=== PATIENT | male | born 1990 | race Caucasian/White ===

== ENCOUNTER 2021-08-17 09:52 | Outpatient (RCR) | payer MEDICAID, SELFPAY ==
[2021-08-17 10:12] LABS: Hematocrit 42.6 % (40-54); Hemoglobin 13.9 g/dL (13.0-16.5); Mean Corp Hgb Conc 32.6 g/dL (32-36); Mean Corpuscular Hgb 27.2 pg (27.0-32.0); Mean Corpuscular Volume 83.4 fL (80-94); Mean Platelet Vol. 9.6 fl (6.2-12.0); Platelet Count 202 K/mm3 (150-450); RBC Distribution Width CV 12.9 % (11.6-14.6); RBC Distribution Width SD 38.9 fl (35.1-43.9); Red Blood Count 5.11 M/mm3 (4.6-6.2); White Blood Count 5.7 K/mm3 (4.4-11.0)
[2021-08-17 10:24] LABS: Albumin, Serum 4.2 g/dL (3.2-5.0); BUN 15 mg/dL (7-18); BUN/Creat Ratio 20.1 RATIO (10-20); Creatinine, Serum 0.75 mg/dL (0.70-1.30); EST Glomerular Filtration Rate 131 mL/min (>60); Est Glom Filt Rate - Afr Amer 158 mL/min (>60); Glucose 89 mg/dL (74-106); Protein, Total 7.5 g/dL (6.4-8.2)
[2021-08-17 10:25] LABS: ALB/GLOB Ratio 1.3 RATIO (0.9-2.4); AST(SGOT) 15 U/L (15-37); Alanine Aminotransfer ALT/SGPT 41 U/L (16-61); Alkaline Phosphatase 52 U/L (45-117); Anion Gap 6 (5-15); Calcium,Total 9.2 mg/dL (8.5-10.1); Chloride 105 mmol/L (98-107); Globulin 3.3 g/dL (2.2-4.2); Potassium 4.4 mmol/L (3.5-5.1); Sodium Level 139 mmol/L (136-145)
== END 2021-09-15 23:59 ==
LOC: LABSPEC 09:52
DX: Z45.2 Encounter for adjustment and management of vascular access device (principal)
CPT/HCPCS: 80053; 85027

== ENCOUNTER → 2021-08-24 | Outpatient (CLI) | payer MEDICAID, SELFPAY ==
[2021-08-24 12:30] LABS: Hematocrit 40.4 % (40-54); Hemoglobin 13.2 g/dL (13.0-16.5); Mean Corp Hgb Conc 32.7 g/dL (32-36); Mean Corpuscular Hgb 27.7 pg (27.0-32.0); Mean Corpuscular Volume 84.7 fL (80-94); Mean Platelet Vol. 9.4 fl (6.2-12.0); Platelet Count 207 K/mm3 (150-450); RBC Distribution Width CV 13.1 % (11.6-14.6); RBC Distribution Width SD 40.2 fl (35.1-43.9); Red Blood Count 4.77 M/mm3 (4.6-6.2); White Blood Count 4.8 K/mm3 (4.4-11.0)
[2021-08-24 14:22] LABS: ALB/GLOB Ratio 1.1 RATIO (0.9-2.4); AST(SGOT) 26 U/L (15-37); Alanine Aminotransfer ALT/SGPT 63 U/L (16-61); Albumin, Serum 3.7 g/dL (3.2-5.0); Alkaline Phosphatase 52 U/L (45-117); Anion Gap 7 (5-15); BUN 13 mg/dL (7-18); BUN/Creat Ratio 15.3 RATIO (10-20); Calcium,Total 8.4 mg/dL (8.5-10.1); Chloride 107 mmol/L (98-107); Creatinine, Serum 0.85 mg/dL (0.70-1.30); EST Glomerular Filtration Rate 112 mL/min (>60); Est Glom Filt Rate - Afr Amer 136 mL/min (>60); Globulin 3.3 g/dL (2.2-4.2); Glucose 98 mg/dL (74-106); Potassium 4.2 mmol/L (3.5-5.1); Sodium Level 139 mmol/L (136-145)
== END | disposition home or self-care (01) ==
LOC: LABSPEC 08:58
DX: A52.3 Neurosyphilis, unspecified (principal)
CPT/HCPCS: 80053; 85027

== ENCOUNTER 2022-01-04 08:00 | Outpatient (RCR) | payer MEDICAID, SELFPAY ==
--- NOTE | 2022-01-04 09:10 | BH.SGPN.GN ---
Behaviors/Verbalizations/Mental Status: []Pt alert and oriented, casually dressed and groomed. Eye contact fair to good. Motor activity appropriate. Speech within normal limits. Affect constricted, mood anxious. Thoughts linear, logical, no signs of hallucinations or delusions. Reviewed pt?s symptom tracker, reported 1/5 for suicidal ideation which appears within reported baseline, denies plan, or intent as of 01/04/22. Client Response/Progress/Benefit: Pt new to IOP tx on this date. He responded well to session AEB sharing thoughts and feelings, as well as listening attentively to others. Pt stated current mental health wins include being over 7 months sober and recently completing a substance abuse IOP program. Pt noted feeling anxious but excited to begin this program and is hoping to learn more about how to manage Bipolar disorder, especially sx of jessica. Receptive of and appearing to benefit from group support and feedback provided. Progress limited as pt new to IOP program. Pt to continue IOP to increase healthy coping repertoire, stabilize mood, and prevent decompensation. Narrative Note: []
--- NOTE | 2022-01-06 09:40 | BH.NA ---
Physical Data - Vital Signs Pulse Rate: 89 Blood Pressure: 141/85 - Height/Weight Height: 1.75 m Weight:: 81.647 kg Weight in Pounds: 180.0 lbs Current Medication Compliance - Medication Compliance Do you take your medication as prescribed?: Yes - client states hx noncompliance but compliant for the last 7 months Nutritional History - Appetite Nutritional Instructions:: If client shows signs of a swallowing problem, weight change of 10 pounds or more in the last month, or is on a diabetic diet, the physician will review and request a dietitian consult, as appropriate. All unintentional weight loss will be referred to the physician for decision on need for dietitian consult. Describe your appetite:: Good - Client states he has gained about 30 lbs in the last 7 months. Functional Assessment - Sleep Pattern Describe any problems with sleeping: Client states he had been sleeping 12-13 hours per day, but for the last several weeks he has been sleeping about 6-7 per night. - Activities Motor Activity:: Functional Sensory/Communication Assess - Vision Problems Do you have any vision problems?: None - Communication Problems Do you have difficulty understanding what people are saying?: No Medical Problems/History - Pain Assessment Do you have acute or chronic pain?: No - Additional History Additional comments:: per history, history of neuro-syphillis, polysubstance use, bipolar Substance Abuse - Substance Abuse Please describe substance abuse in the last 30 days:: Client states he has been sober from alcohol and drugs (specifically meth) for 7.5 months. Client states he had a couple of years where he used alcohol and meth on a regular basis off and on. Client quit smoking cigarettes 7 months ago, stating he had been a smoker off and on for 10 years. Client drinks 1-2 diet pops per day with caffeine, denies use of energy drinks. Mental Status Summary - Mental Status Significant Findings/Observations on Appearance and Mood:: Client is alert and oriented x 4. Client is wearing a mask. Client is casually groomed with good hygiene. Client makes good eye contact. Client is cooperative, but tearful at times, tapping feet and stating that he is very anxious about being here. Client's voice has normal volume and mostly normal rate, but client does get somewhat off topic and forgets what the original conversation topic was. Client admits he is a poor historian and states he does not remember parts of the last couple of years. Client states he does feel he has delusions at times, mostly about feeling there is nothing wrong with me, I don't need these medications but states he is able to convince himself to keep taking his medications and knows that he needs them. Client states he often feels he just wants to disappear but states he does not want to and denies SI. Suicide Assessment - Suicidal Ideation Are you currently or have you been suicidal in the past?: Yes - denies SI Suicidal Intentional Rating Scale (SIRS): Suicidal thoughts (past) Physician Notification: If Active suicidal thoughts/Will not contract for safety is checked, contact physician and document in the Physician Notification section below. Assault History/Potential Past Psychiatric History - MH Treatment Hx Past Psychiatric Medications:: Zoloft, Paxil, Cymbalta but states he had poor compliance while on these medications Age of first mental health symptoms: Client states he first started medication for depression about 10 years ago around age 21. Client states he has had two psychotic episodes, one in 2017 and one in 2020 and was then diagnosed with bipolar disorder. 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 [employer] Risk Assessment - Age Age: Less than 60 - Mental Status Mental Status: Willing & able to ask for assistance when needed - Physical Status Physical Status: No problems - Impairments Impairments: None - Elimination Elimination: Continent AND independent - Gait or Balance Gait or Balance: Walks independently - Hx of Falls History of falls in the past 6 months: No known history - Medications/Substances Psychotropics:: Antidepressants, Antipsychotics, Mood stabilizers Medications/substances used within the past 24 hours or ordered to administer: 3 or more of the medications/substances listed above - Total Score Total Points:: 2 RN Summary of Impressions - Impressions Recommendations: Include psychiatric and medical issues, treatment planning recommendations, and discharge planning needs. Impressions: Psychiatric Issues: 1. Bipolar 1 disorder, most recent episode jessica, mild with rapid cycling (F31.11. 2. Neurosyphilis with possible exacerbation of mood disorders (treated and being followed for this). 3. Generalized anxiety disorder. 4. ADHD. 5. Polysubstance abuse disorder with full remission for 7 months - Level of Care How do the client's current symptoms and functional deficits support need for this level of care?: Client was referred to IOP by outpatient therapist after completing a substance abuse IOP at [facility]. Client has been sober from meth and alcohol for 7.5 months. Client states he had a manic episode in 2020 and states he does not have a memory of what happened during that time and was subsequently arrested and part of his sentencing was the IOP. Client states he is now here at this IOP to help with his mood instability. Client states at times he feels delusional, stating that he tells himself nothing is wrong with me, I don't need this medicine but states that he has been compliant with meds for the last 7 months. Client states he feels his baseline is either depressed or hypomanic, and he states When I start to feel happy, everyone starts to worry about me. It's like no one wants me to be happy. Client denies SI but states he often feels like he just wants to disappear but states he does not want to hurt himself. IOP will promote gains and prevent further decompensation while providing social support and skills training.
--- NOTE | 2022-01-06 10:10 | BH.SGPN.GN ---
Behaviors/Verbalizations/Mental Status: []Pt alert and oriented, casually dressed and appropriately groomed. Eye contact fair. Motor activity appropriate. Speech within normal limits. Affect constricted, mood anxious and depressed. Thoughts linear, logical, no signs of hallucinations or delusions. Client Response/Progress/Benefit: []Pt was an engaged participant AEB listening to others and taking notes. Attentive during psychoeducation and participated in group activity. Participated in interactive group discussion on internal and external barriers to mental health progress. Pt described current reality as being stuck on an island by himself, trapped with intrusive anxious thoughts. Stated reality is to have a boat on his island so he can leave the thought cycle which would provide relief and not feel stuck. Client shared personal barriers to desired realty include: comparisons to others, isolation, hx of not taking medications consistently, maintaining sobriety, and unrealistic expectations.. Benefited from increased awareness of current barriers to progress as well as current/desired realities. Pt will continue IOP tx to improve daily functioning, increase healthy coping and prevent decompensation.
[2022-01-06 10:22] VITALS: BP 141/85; PULSE 89
--- NOTE | 2022-01-06 11:10 | BH.SGPN.GN ---
Behaviors/Verbalizations/Mental Status: []Client alert and oriented, neat and casually dressed and groomed. Eye contact good. Motor activity appropriate. Speech within normal limits. Affect constricted, mood euthymic and anxious. Thoughts linear, logical, no signs of hallucinations or delusions. Client Response/Progress/Benefit: []Client engaged during activity and contributed some input when prompted as group brainstormed ideas on how to cope with internal barriers that keep clients stuck from moving towards goals. Able to identify barriers to desired reality. Client identified wanting to work on overcoming the barrier of overwhelming anxiety by more consistently challenging himself to focus on what is in his control in a situation. Shared that this will help him to reduce overall stress levels. Benefited from group by identifying obstacles and solutions to desired reality. Client will continue IOP tx to continue to improve use of healthy coping skills, as well as further improve mood management, prevent decompensation, and improve and overall functioning. Narrative Note: []
--- NOTE | 2022-01-06 12:27 | PCM.BH.PSYEV ---
Psychiatric Evaluation Initial Evaluation Initial Evaluation: History of Present Illness: [] The patient is a 31-year-old single male with a history of bipolar 1 disorder, ADHD and polysubstance abuse disorder (sober since May 2021). He was referred here after completing [facility] substance abuse disorder IOP program which she finished 2 weeks ago. He was court ordered to complete the substance abuse IOP program due to being arrested in May 2021 during a manic episode where he was found to have methamphetamine in his car and he is now on probation. He states the drugs in his car belonged to a friend he was with but he does admit to using benzodiazepines,'s stimulants, marijuana, nicotine and alcohol around that time. But he denies using any drugs since then. The patient states that from March 2021 to May 2021 he was manic and had occasional auditory and visual hallucinations. He states that he was manic but he also used drugs while manic at times during that period. His jessica at that time involved increased spending of money, hypersexuality, driving all over the state, psychosis including praying to the sun, aggression while in detention. In July 2021 he was found to be positive for neurosyphilis which may also have exacerbated his jessica and and this was the first time he feels he was significantly psychotic. He was hospitalized for 4 days at that time for neurosyphilis. His jessica and depression occur after stressful life events like break-ups and job changes. 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 He has nightmares about patients who in the ICU during but denies flashbacks or avoidance because of this trauma. After being manic he feels he was then depressed for months from May 2021 up to about 3 or 4 weeks ago. He has been apathetic during the depression and then in the last 3 weeks he feels he has become hypomanic due to his grandmother having a stroke 3 weeks ago. Now he is sleeping only 6 hours a night and he is not tired and has somewhat mildly racing thoughts. He has some increase in libido not like he starts to get when he becomes manic. He denies any risky behavior. He feels somewhat grandiose at times. He endorses passive thoughts of , but denies suicidal ideation, plan for suicide, hallucinations or delusions currently. He feels he cycles every 3 to 4 months in the past few years. He denies any history of self-harm. His parents have control over his finances now but he spent over 50,001-year and recently until they took control. He denies any urge to use drugs now and he is currently living with his parents and gets along with them. He denies any romantic relationships currently. While he was depressed he was sleeping 12 to 13 hours/day but that recently has increased as described above. He is somewhat irritable and argumentative at home. He is having trouble getting chores done around the house due to feeling distracted or overwhelmed. He denies current depression hopelessness or worthlessness. He does endorse feeling guilty about relying on his mother for emotional and financial support. He ruminates negatively and worries about family members he is a chronic worrier. He used to pick at his skin when anxious and has some scars on his forearms but said this was not purposeful self-harm. He denies panic attacks, eating disorder, seizures or head injury. Current Psychiatric Medications: [] Lamictal 100 mg p.o. twice daily (x7 months; lithium carbonate ER 300 mg, 1 p.o. twice daily (x1-1/2 months, had blood level last week); Wellbutrin XL 300 mg, 1 p.o. every morning (on this off and on for 10 years and has been taking it again for 7 months) does not feel its associated with jessica.; Celexa 10 mg p.o. daily (x2 months); hydroxyzine 10 to 30 mg p.o. as needed. Past Psychiatric History: [] No psych admits ever. He has a psychiatry resident he sees every 2 weeks and has seen them for 8 months. He did the [facility] substance use IOP which was court ordered in July 2021 until 2 weeks ago. He did put a belt around his neck to hang himself in 2016 but did not go through with the attempt. He has been on different medications including Abilify since 2009 but has always struggled with compliance. He has not done any other rehab. He took Strattera for ADHD but DC'd that in 2012. No Depakote ever. No suicide attempts ever. Substance Use History: [] He used methamphetamine first at age 25 and then used it on and off but last used it 7 months ago. He last used benzodiazepines 1 to 2 years ago. He last used marijuana in 2013. He denies any opiate use. Denies any nicotine alcohol or other illegal drug use for the past 8 months. He drinks 2 diet Cokes a day only. Allergies: [] No known allergies. Medications: [] Psych meds plus Truvada for PrEP for HIV since 2016 (on and off compliant with this); [id number] vitamin D and B complex Past Medical History: [] Neurosyphilis diagnosed in July 2021 and he was hospitalized for 4 days and this may have been a trigger for or made his manic episode worsen the same time. He had IV and IM antibiotics followed by PICC line and if his antibodies decreased by fourfold he is told he is considered cured from his neurosyphilis. He had a pilonidal cyst removed in 2007. He had testing in July 2021 was which was negative for HIV HIV and other STDs except for neurosyphilis. Family Psychiatric History: [] Father has anxiety and mother has depression. Maternal grandfather was an alcoholic and possibly had undiagnosed bipolar disorder. No completed suicides in the family. Personal/Social History: [] He was born and raised in [place] in [place]. He describes his childhood as normal. He lives now with his mother and father in [place]. He says his mother schedules his life right now and his his source of primary support. He denies any verbal, physical or sexual abuse in childhood. He has 1 brother 26 years old and they are close and the brother lives in [place]. Patient graduated for highest from high school and then graduated from [employer] in 2012 with a BS in natural sciences and in 2018 with his BSN. 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 He has been unemployed since May 2021 due to his mental health issues. He has never and has no known children and no service. He identifies as a kaplan man but has no current sexual or romantic partners. Plays video games now which she says he hyper focuses on. Legal History: [] He was arrested in May 2021 in [facility] for possession of methamphetamines which were in his car but he says belonged to a friend. No other arrests. Denies any DUIs. 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 He has to have his mother with him for long driving trips but is able to make short driving trips on his own when necessary. Review of Systems: [] Denies any symptoms from his neurosyphilis although his mental health issues may have certainly been exacerbated or caused by his neurosyphilis. He denies any other symptoms except as noted in present illness. Vital Signs: [] Vital signs and exam were reviewed in records and in the nurses notes and updated and the patient is deemed medically able to participate in the IOP program. Mental Status Examination: [] The patient is a 31-year-old male who appears normal for stated age and is casually dressed and groomed with good hygiene. He is ambulatory with a normal gait and alert and oriented to person place and time. He is cooperative and pleasant during the interview and has no psychomotor agitation or retardation. Eye contact is good and speech is normal rate and rhythm and fluent with no pressure. Mood is mildly euphoric and irritable at home. Affect is full and normal. Thought process is goal-directed and organized. Thought content: There is evidence of passive thoughts of . There is no evidence of thoughts of self-harm, suicidal ideation, homicidal ideation, hallucinations or delusions. Reality testing is intact. Intelligence is above average. Impulsivity is high. Judgment is intact. Insight is fair. Diagnoses: [] 1. Bipolar 1 disorder, most recent episode jessica, mild with rapid cycling (F31.11 2. Neurosyphilis with possible exacerbation of mood disorders (treated and being followed for this) 3. Generalized anxiety disorder 4. ADHD 5. Polysubstance abuse disorder with full remission for 7 months 6. Primary support, work and health issues Plan: [] The patient will start the IOP program at [facility] as the structure, education, support, and group therapy will hopefully prevent worsening of the patient's symptoms which could require hospitalization. The patient felt safe during the interview and if it anytime he does not feel safe he will let us know or go to the emergency room. The risk, options, possible complications and side effects of the medications were discussed with the patient and he understands and accepts these. The patient will follow up with his medical provider to document remission of his neurosyphilis. Discussion was had of the possibility of the Celexa and Wellbutrin contributing to the patient's rapid cycling in recent months. He agrees to discontinue his Celexa and see me in follow-up in 1 week. He understands that if his jessica worsens we will increase the lithium dose and he is to see me in 1 week but if it if his jessica worsens before then he can tell the staff and they will call me and we will increase the lithium and possibly consider discontinuing his Wellbutrin at some point. He will continue to follow-up with his psychiatric and medical providers and I will see the patient in follow-up in 1 week. If we change the lithium dose we will get blood work after 5 or 6 days.
--- NOTE | 2022-01-06 12:43 | BH.DR.ITP ---
Initial Treatment Plan Patient Information Visit Information: ADMISSION DATE: EXPECTED LOS: 4-6 weeks Problems/Symptoms Problem #1:: Mood instability Symptom:: Depression, irritability, mild euphoria, recent hopelessness, hypersomnia, anhedonia, increased energy recently, increased libido, rapid thoughts, decreased sleep, passive thoughts of Problem #2:: Anxiety Symptom:: Worry, rumination, skin picking up
--- NOTE | 2022-01-08 10:00 | BH.SGPN.GN ---
Behaviors/Verbalizations/Mental Status: [] Eye contact is good. Motor activity is appropriate. Appearance is casual. Speech is Appropriate. Mood is euthymic. Affect is full. Thoughts are linear and logical. No evidence of psychosis. Client Response/Progress/Benefit: [] Pt participated at times during the group discussion. Attentive during psychoeducation. Active during experiential activity. Participated during interactive discussion on aspects of fixed mindset. Group identified several aspects of fixed mindset which included; inflexible, belief that one cannot grow, absolute thinking, and all of one's skills, traits, and behaviors are set in stone and can't change. Group then identified examples of fixed thinking which included; Im never going to get better, I'm always going to be like this, I'm going to fail, I'm broken and will always be like this. Pt did well in experiential activity in which they were given a seemingly impossible task and were asked to identify fixed thoughts that arose. Benefited from increased understanding of fixed mindsets and how they can impact mental health. Will continue in IOP to prevent decompensation, increase healthy coping, and stabilize mood. Narrative Note: []
--- NOTE | 2022-01-08 11:00 | BH.SGPN.GN ---
Behaviors/Verbalizations/Mental Status: []Pt alert and oriented, casually dressed and groomed. Eye contact good. Motor activity appropriate. Speech within normal limits. Affect constricted, mood anxious. Thoughts linear, logical, no signs of hallucinations or delusions. Client Response/Progress/Benefit: []Pt was an active participant in group discussion. Participated in their small group and was attentive during group psychoeducation on growth mindset vs fixed mindset. Pt and peers identified and shared examples of growth mindset. Pt participated in interactive discussion and practiced changing a fixed mindset thought to a growth mindset thought. Pt reframed his fixed thought of ?I don?t deserve help/support? and challenged this with ?If I don?t accept help it robs my supports of the opportunity for ofelia.? Benefited from increased awareness and insight of growth mindset and strategies to change from fixed mindset thoughts to growth mindset thoughts. Plan to continue in IOP to prevent decompensation, gain healthy coping skills, and improve mood stability. Narrative Note: []
--- NOTE | 2022-01-08 11:09 | BH.MDN ---
Multi-Disciplinary Note - Note 45-min Individual Time Started:: 09:15 Date: 01/08/22 Purpose of session/treatment goals addressed:: Met with pt to review progress and current symptoms. Used the sessions to gather history and begin to create master treatment plan. Eye Contact:: Good Motor Activity:: Appropriate Appearance:: Casual Speech:: Appropriate Mood:: Euthymic Affect:: Congruent Thoughts:: Linear, Logical, No evidence of hallucinations/delusions noted Staff Interventions:: psychoeducation on: - Bipolar, rapport building, treatment planning, goal setting Client Response:: Pt has been consistent and engaged in IOP since staring this week. His goals for IOP include I want to learn how to be more stable with my mood and recognize my highs and lows. He was asked how he or others would know if he is low and he states; increased isolation and sleep; lack of interest in anything, and low attention. When asked about signs of being manic pt states; restless, start numerous tasks and don't complete, traveling/driving long distances, poor time mgmt, impulsivity, and high energy. Pt admits that he is struggling to accept his diagnosis of Bipolar and often feels like the medications are meant to keep me from being happy or make me compliant. He admits mild paranoia that parents, PO, and psychiatrists don't fully understand him or his struggles. At this point he is able to challenge these thoughts stating I know they are irrational. Insight into the consequences and repercussions of his behaviors when manic (drug abuse, reckless behaviors, compulsive spending, lost job, etc). Normalized these concerns for patient with recently diagnosed Bipolar who at times miss the feelings of jessica and feel that medications are holding them back or keeping them from being happy. Encouraged open discussion of these thoughts and reservations with staff and psychiatrist. Risks/Concerns:: No risks or concerns noted. Progress Toward Goals/Plan:: Progress noted. Pt has been consistent and engaged in IOP. He is hesitant to follow through with medication changes recommended by program psychiatrist b/c I'm doing well and I don't want to mess with things. He states that his parents believe that he may be hypomanic due to increased irritability however he is unsure. He reports not being depressed and has not been exhibiting any behaviors he indicated above for his manic episodes. With improved mood he admits to thoughts of stopping medications however remains compliant. Honest regarding his reluctance to fully accept Bipolar diagnosis and possibility of being on medications for long period of time. Responded well to education on Bipolar. He admits that he always wants to do the thing that feels good and always searching for a Dopamine fix. He may believe that by stopping his medications it could cause hypomania or jessica with elevated mood. We focused on the consequences of his jessica in the past and the high likihood that stopping medication could result in more negative consequences regarding his finances, relationships, legal issues, and career. Will continue in IOP to prevent decompensation, increase healthy coping, stabilize mood, and improve functioning. Time Stopped:: 10:00
--- NOTE | 2022-01-08 15:45 | BH.MTP_ITS ---
Master Treatment Plan - Patient Information Program Physician:: Analia Rdz Primary Therapist:: Masoud Cardenas - Psychiatric Diagnoses Psychiatric Diagnoses:: 1. Bipolar 1 disorder, most recent episode jessica, mild with rapid cycling (F31.11. 2. Neurosyphilis with possible exacerbation of mood disorders (treated and being followed for this). 3. Generalized anxiety disorder. 4. ADHD. 5. Polysubstance abuse disorder with full remission for 7 months Diagnosis Code(s):: F31.11 - Estimated LOS Estimated LOS (in weeks):: 6 Problem/Goal #1 - Problem/Goal #1 Stated Goal:: Achieve controlled behavior, moderated mood, more deliberative speech and thought process, and a stable daily activity pattern. Client will als o increase mood stability, reduce depression, and reduce suicidal thoughts due to Bipolar disorder through the Intensive Outpatient Program AEB self-report and reduction of scores on the depression, suicidal, and jessica domains of the DSM-5 cross-cutting scales. Description of Barriers: mental health stigma, reluctance to accept Bipolar dx, hx of poor medication compliance, and rapid mood cycling. Functional Impact: Over the past several months pt's mental health has impacted his ability to work, finances, and overall functioning. Goal Relevant Strengths/Supports: outgoing, is currently 6 months sober (completed SA [facility]), - Objectives Objective #1 Stated Objective: Client will increase understanding of bipolar illness, complete all recommended lab tests, and be medication-compliant. Interventions: Through psychoeducation, educational handouts, group counseling, individual counseling, and conversations with psychiatrist will provide access and discussions on many aspects of Bipolar. Discharge Criteria: Pt will have reported medication compliance, complete all labs requested ([place] levels, etc), and will be able to identify common Bipolar criteria, symptoms, and verbalized increased knowledge of how to better identify jessica, hypomania, and depressive episodes. Target Date: 03/03/22 Review Date: 01/27/22 Objective #2 Stated Objective: Client will reduce depression, suicidal thinking, and impulsivity by identifying 2-3 triggers for mood changes and at least 3 ways to cope with these. Pt will also complete a daily mood log to get a better understanding of his highs, lows, and baseline. Interventions: Through individual and group counseling will teach client various coping skills to manage symptoms and give tangible resources to use to regulate emotions. Therapist will use cognitive restructuring techniques and help client gain awareness of negative thoughts that reinforce depressive cycle. Iop staff will help client through individual and group work to identify what may trigger mood swings. Therapist will encourage the use of a mood log, or another way to track moods to help client intervene before mood worsens. Discharge Criteria: Complete mood log/tracker, be able to identify 3 triggers to mood changes and strategies to cope/manage. Target Date: 03/03/22 Review Date: 01/27/22 Problem/Goal #2 - Problem/Goal #2 Stated Goal:: Client will reduce overall frequency, intensity, and duration of anxiety to improve functioning AEB self-report and reduction on the anxiety domain of the DSM-5 cross-cutting scales. Description of Barriers: mental health stigma, reluctance to accept Bipolar dx, hx of poor medication compliance, and rapid mood cycling. Functional Impact: Over the past several months pt's mental health has impacted his ability to work, finances, and overall functioning. Goal Relevant Strengths/Supports: outgoing, is currently 6 months sober (compl eted [facility]), - Objectives Objective #1 Stated Objective: Client will learn and implement 2-3 calming skills to reduce overall anxiety and manage anxiety Interventions: Through individual and group counseling will teach the client calming/relaxation skills (e.g., muscle relaxation, mindful breathing) and how to discriminate better between relaxation and tension; teach the client how to apply these skills to his/her daily life. Discharge Criteria: Able to identify and consistently use 3 calming skills for anxiety. Target Date: 03/03/22 Review Date: 01/27/22 Objective #2 Stated Objective: Client will identify 2-3 cognitive distortions that lead to rumination and learn 2-3 ways to manage these thoughts to better manage anxiety as shown by reduced DSM-5 scores for anxiety. Interventions: Through individual and group counseling will provide education on the most common cognitive distortions and teach client the connection between thoughts, emotions, and feelings. Therapist will assist client in identifying, challenging, and replacing dysfunctional thoughts with positive, more realistic thoughts. Discharge Criteria: Able to identify 2-3 common cognitive distortion that exacerbate his anxiety and be able to identify strategies to reframe and challenge these distortions. Target Date: 03/03/22 Review Date: 01/27/22
--- NOTE | 2022-01-08 15:45 | BH.PSA ---
Source of Information - Presenting Problems/Circumstances Problems, Referral Source, Mental Status, Client: Pt was referred to IOP by his therapist at IOP due to depressive episode impacting functioning. Psychiatric Presentation - Psych Issues & Need for Admission Psychiatric Issues:: Bipolar, rapid cycling, hx polysubstance abuse, ADHD, JENNIFER Past Psychiatric History - Treatment Hx Treatment History: Completed substance abuse IOP at [facility] 2 weeks prior to admission to [facility] IOP. Currently linked with social worker psychiatric at [facility] for medication mgmt. First hospitalization:: No hx of hospitalizations Most recent hospitalization:: n/a Medication Trials:: No ECT Therapy:: No Age of first mental health symptoms: Reports that he most likely had bipolar and depression most of my life however would self-medicate with drugs. Was just recently formally dx'd with Bipolar in 05/2021. Describe (age, circumstance, etc) any past hospitalizations: n/a Current providers for mental health treatment (counselor, psychiatrist, business case analyst, etc.): Lainey Logan- social worker psychiatric; [facility]. Development & Family of Origin - Childhood Significant Childhood Events: none reported. - Family Who currently lives in your home?: Currently living with his parents. Describe family composition:: Both parents are still alive and are very close with patient. He has a younger brother (26) who live in [place] and reports close relationship with him as well. Pt's grandmother recently had a stroke and is in a senior care. - Family History Family Hx of Psychiatric or AOD Problems: Depression- mother. Anxiety- father. Bipolar- maternal grandfather Ethnicity - Culture Do you identify yourself with any particular cultural, ethnic background, or community?: No - Sexuality Sexual Orientation: Homosexual Spirituality - Worship Do you currently identify with any organized latter-day?: None - Beliefs Is there a particular form of support from this community you can use for your recovery?: No Mental Status - Memory Recent Memory: Good Remote Memory: Poor - Concentration Concentration: Fair - Eye Contact Eye Contact: Good - Speech Speech: Rapid, Pressured - Thought Process Thought Process: Suspicious, Paranoid - has thoughts that others are trying to manipulate or control him through medications. Insight: Fair Judgment: Fair Delusions: Paranoid Behavior: Anxious - Orientation Orientation: Time, Person, Place, Situation - Appearance Appearance: Appropriate - Mood Mood: Depressed, Sad - Affect Affect: Alert, Appropriate/calm Suicide Assessment - Suicidal Ideation Have you ever felt like hurting yourself?: Yes Please explain:: Self-interrupted attempt (tied belt around neck) in 2017. He reports passive thoughts of and survival ambivalence. Were you using ETOH/drugs at the time?: Yes Suicidal Intentional Rating Scale (SIRS): Suicidal thoughts (past) Physician Notification: If Active suicidal thoughts/Will not contract for safety is checked, contact physician and document in the Physician Notification section below. Violent Behavior/Abuse History - Homicidal Ideation Do you have any homicidal thoughts? If so, explain:: No Is there a known potential victim? If yes, who:: No - Abuse Have you ever been abused?: No - Life Events Are there any other significant life events?: Financial loss - Has not been able to work due to mental health issues for several months., Family illness - Grandmother recently had a stroke and is currently in [place] for rehab. - Safety Do you ever feel threatened in your home? If yes, describe:: No Adult Social History - Age 19 to Present Describe your current support system:: Parents and brother are primary support. Substance Use - Substance Substance Use Type: Alcohol, Benzodiazepines, Marijuana, Methamphetamine - Duration of Use How long have you used substances?: Meth- Used it sporadically since the age of 25. Benzos- Sporadic use; last use 1 year ago. Marijuana- last use 2013 - Last Usage What is the date and situation you last used?: Pt has been sober for the past 8 months. - IV Substance Use Do you have a history of IV use?: denies - Additional Information Additional Comments:: Pt recently completed SA intake and IOP at [facility]. 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 Meth- 05/2021, on probation Do you have any current legal charges?: No Have you ever been incarcerated? If yes, describe:: No - Court Orders Have you had any past court orders for psychiatric treatment?: No Do you have a present court order for psychiatric treatment?: No Problem Checklist - Current Problem Areas Problem List: Depressed mood/sad, Anxiety, Impulsivity, Mood swings/hyperactivity Discharge Planning Needs - Anticipated Follow-Up Private Therapist/Psychiatrist:: Lainey Logan- social worker psychiatric; [facility]. Family and Caregiver Contacts:: Martha Enriquezlambertosnehalmaya- mother Release of Information Signed:: Yes Chiropractor Assistant's Assessment - Client's Needs What are the client's feelings about the program?: Pt appears motivated and is looking forward to learning more skills to grant manager mood. What are the client's goals?: His goals for IOP include I want to learn how to be more stable with my mood and recognize my highs and lows What are the client's strengths?: outgoing, intelligent, Diagnoses - Diagnoses Diagnosis #1:: Bipolar 1 disorder, most recent episode jessica, mild with rapid cycling (F31 Diagnosis #2:: Neurosyphilis with possible exacerbation of mood disorders Diagnosis #3:: Generalized anxiety disorder Diagnosis #4:: Polysubstance abuse disorder with full remission for 7 months Interpretive Summary - Interpretive Summary Interpretive Summary: Pt is a 31 year old male with hx of Bipolar and Polysubstance Use D/O. No hx of psychiatric admissions. Referred to IOP by his outpatient therapist at substance abuse IOP at [facility]. Recently completed [facility] and has been sober since 07/2020. States my therapist referred me to mental health IOP due to my depression. Pt was recently diagnosed with Bipolar in 05/2020 after jessica with psychosis for several months. Reports that he was self-medication his erratic moods with various drugs including benzos, weed, and stimulants. Pt would spend excessively during jessica and is currently in $55,000 worth of debt. Hypersexuality during jessica as well and was recently on ICU for neurosyphilis. According to pt the physician thinks that is what triggered the psychosis. Pt believes long-standing Bipolar however never diagnosed due to his drug abuse. While manic would drive to random places and far distances. Police arrested him in [facility] for drug possession I have no recollection of that. Currently in a depressive episode for the past several months. Endorses increased sleep (12-13 hours), low energy, low motivation, isolation, avoidance, worthlessness, hopelessness, and apathy. Denies active SI, plan, or intent. No hx of attempts. Endorses survival ambivalence. Restlessness. Always on edge. Family hx of depression and anxiety and possible Bipolar (grandfather). Has not worked for several months due to mental health. Denies HI or psychosis. Treatment Plan Recommendations - Recommendations Guidelines: Special needs identified to be included in the development of an individualized treatment plan regarding past psychiatric history and treatment, developmental events, family relationships/events/culture, past and/or current educational, occupational, social, and residential experience, and legal status. Recommendations:: Due to survival ambivalence, mental health impacting functioning, and limited coping skills recommended [facility] level of care.
--- NOTE | 2022-01-11 09:00 | BH.SGPN.GN ---
Behaviors/Verbalizations/Mental Status: []Pt alert and oriented, casually dressed and groomed. Eye contact good. Motor activity appropriate. Speech within normal limits. Affect congruent, mood euthymic. Thoughts linear, logical, no signs of hallucinations or delusions. Reviewed pt?s symptom tracker, no risk for suicidal ideation, plan, or intent as of 01/11/22 Client Response/Progress/Benefit: []Pt responded well to session, attentive and receptive to feedback. Pt reports feeling appreciative this morning as pt got to spend time with his grandmother this weekend. Pt also used some impulse control skills over the weekend as pt went gambling and did not take a lot of money. 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 Pt stated he is still struggling to fully accept his diagnosis and need for medication, but he is able to talk himself through it more easily. Pt appeared to benefit from reflecting on spending time with supports. Pt will continue IOP tx to reduce impulsivity, improve mood stability, and combat distortions. Narrative Note: []
--- NOTE | 2022-01-11 10:10 | BH.SGPN.GN ---
Behaviors/Verbalizations/Mental Status: []Client alert and oriented, neat and casually dressed and groomed. Eye contact good. Motor activity appropriate. Speech normal. Affect congruent, mood anxious and euthymic, Thoughts linear, logical, no signs of hallucinations or delusions. Client Response/Progress/Benefit: []Client was engaged participant AEB listening attentively to others and providing input in group. Attentive during psychoeducation on communication styles. Assisted group with identifying barriers of effective communication which included: ?assumptions, shutting down, and mood.? Client identified they most often use passive-aggressive communication style, often relying on humor or jokes to communicate uncomfortable topics.? Client reports he uses passive communication to avoid conflict, but quickly escalates to passive-aggressive and then aggressive when feeling his needs aren?t being met. Reports trying to be more assertive. Benefited from increased awareness of different communication barriers, styles, and the importance of communicating effectively to improve mental wellness. Will continue IOP tx to prevent decompensation, increase healthy communication, and stabilize functioning. Narrative Note: []
--- NOTE | 2022-01-11 10:10 | BH.SGPN.GN ---
Behaviors/Verbalizations/Mental Status: []Client alert and oriented, casually dressed and groomed. Eye contact good. Motor activity appropriate. Speech within normal limits. Affect congruent, mood euthymic, Thoughts linear, logical, no signs of hallucinations or delusions Client Response/Progress/Benefit: []Client responded well to session AEB client listening attentively to others and providing input during group discussion on the pay offs and costs of the different communication styles. Client recognizes negative impact on his ability to get his needs met when he doesn't use healthy communication. Client did well in the activity to be assertive and ask for help and clarification the group. Recognizes if group couldn?t actively listen to one another in the activity, they wouldn?t have been successful. Attentive during psychoeducation on interpersonal DBT skill RAY. Client set a goal to work on being more assertive in communicating with goal of trying to remain focused and confident when asking for his needs to be met rather than making jokes to distract or deflect. Client seemed to benefit from increasing awareness of healthy strategies to improve communication. Client will continue IOP tx to improve successful communication, better regulate emotions, improve stability, and prevent decompensation. Narrative Note: []
--- NOTE | 2022-01-13 09:02 | BH.SGPN.GN ---
Behaviors/Verbalizations/Mental Status: []Pt alert and oriented, casually dressed and groomed. Eye contact good. Motor activity appropriate. Speech within normal limits. Affect congruent, mood euthymic. Thoughts linear, logical, no signs of hallucinations or delusions. Reviewed pt?s symptom tracker, suicidal ideation reported as 1/5 which is within pt baseline, denies risk, plan, or intent as of 01/13/22 Client Response/Progress/Benefit: []Pt responded well to session, attentive and reports connecting with fellow participants as they shared throughout. Pt reports feeling ?shameful this morning as pt recently began experiencing manic symptoms and is struggling to accept this. Shared acceptance of his mental health diagnosis has been an ongoing issue and has led to self-sabotage in the past. Noted despite not wanting to, he has continued to take his medications as prescribed which is a win. Additional win noted as being honest about his mental health sx. Pt appeared to benefit from support and encouragement of the group environment. Pt to continue IOP tx to continue to improve mood management skills, reduce unhealthy coping, and prevent decompensation. Narrative Note: []
--- NOTE | 2022-01-13 11:53 | PCM.BH.PN ---
Progress Note Progress Note: And history of Present Illness/Interim History: [] The patient is a 31-year-old single male with a history of bipolar disorder, ADHD and polysubstance abuse disorder (sober since May 2021) who is seen in follow-up at the [facility] behavioral health IOP program. He was last seen 1 week ago and at that time discussion was had about the patient's bipolar disorder and the fact that his mood seem to be rapidly cycling from 1 extreme to the other. The patient agreed to discontinue his Celexa but he did not do it until 4 or 5 days ago. He states he is feeling somewhat better but still very irritable. He describes his mood as irritable. At times he feels that the medications prevent him from really feeling happy. He denies depression. He denies any drug cravings. His sleep is still about 6 hours a night and he denies any further increase in any symptoms related to jessica. He denies grandiosity, rapid thoughts, impulsivity, hypersexuality or increased spending. He denies passive thoughts of , suicidal ideation, homicidal ideation, hallucinations or delusions. Current Psychiatric Medications: [] Celexa 10 mg discontinued 5 days ago; Lamictal 100 mg p.o. twice daily; lithium carbonate ER 300 mg 1 p.o. twice daily (on this about 6 weeks and he had blood levels done recently but did not get the results back); Wellbutrin XL 300 mg 1 p.o. every morning (on this for 7 months and it was decreased from 450 mg because the higher dose made him more anxious); hydroxyzine as needed. Mental Status Examination: [] The patient is a 31-year-old male who appears normal for stated age and is casually dressed and groomed with good hygiene. He is alert and oriented to person place and time and ambulatory with a normal gait. He is cooperative and pleasant during the interview and has no psychomotor agitation or retardation. Eye contact is good and speech is normal rate and rhythm and fluent with no pressure. Mood is irritable. He denies mild euphoria. Affect is full and normal. Thought process is goal-directed and organized. Thought content: He denies passive thoughts of , suicidal ideation, homicidal ideation, hallucinations or delusions. Reality testing is intact. Intelligence is above average. Impulsivity is high. Judgment is intact. Insight is fair and improving. Diagnoses: [] 1. Bipolar 1 disorder, most recent episode jessica, mild with rapid cycling (F31.11) 2. Neurosyphilis with possible exacerbation of mood disorders secondary to this 3. Generalized anxiety disorder 4. ADHD 5. Polysubstance abuse disorder with full remission for 7 months 6. Primary support, work and health issues Plan: [] The patient will continue the IOP program at [facility] as the structure, support, education and group therapy will hopefully prevent worsening of the patient's symptoms which could require hospitalization. The patient felt safe during the interview and if it anytime he does not feel safe he will let us know or go to the emergency room. The risks, options, possible complications and side effects of the medications were discussed with the patient and he understands and accepts these. In particular the side effects of lithium were discussed as he may need to go up on the dose. The day also discussed the patient's diagnosis of bipolar and he agrees with his diagnosis of bipolar 1 disorder. He we will call to find the results of his lithium level at [facility] and when we get those results if it is low we will increase the lithium carbonate ER to 600 mg p.o. nightly and 300 mg p.o. every morning. The patient will then get a lithium trough blood level 6 days after increasing the dose. Kidney panel or renal panel will also be obtained. And a TSH. The patient will continue to follow-up with his outpatient providers and I will see the patient in follow-up in 1 to 2 weeks.
--- NOTE | 2022-01-13 14:30 | BH.MDN ---
Multi-Disciplinary Note - Note 60-min Individual Time Started:: 10:30 Date: 01/13/22 Purpose of session/treatment goals addressed:: To process current stressors, symptoms, and feelings associated with his bipolar disorder. Eye Contact:: Good Motor Activity:: Restless Appearance:: Casual Speech:: Rambling, Rapid Mood:: Euphoric Affect:: Congruent Thoughts:: Racing, No evidence of hallucinations/delusions noted Staff Interventions:: thought challenging, motivational interviewing, rapport building, strengths perspective, other - allow pt to vent and process current stressors and internal conflict. Client Response:: Pt responded well to session, open to meeting with therapist as pt's usual IOP therapist is out on vacation. Pt used most of the session to process his complex emotions about his diagnosis and racing thoughts. Pt continues to struggle with accepting his bipolar diagnosis in some ways. Pt recognizes that when he is manic he is self-destructive, but pt also misses how it feels to be manic. Pt shared that right now he is having the urge to stop his medication and to tell others to stop their medications. Pt laughed and stated I know that's not helpful which shows pt has impulse control. Pt talked about his internal conflict, racing thoughts, and worries. During the session pt went from being very self-confident to sharing that he feels like a burden on his family. Receptive to thought challenging and encouragement to communicate worries and needs with family. Pt reported he feels that his mother will be understanding and his family has always been supportive. Also discussed how it being sober and dealing with anxiety, bipolar, and negative thinking makes mental health recovery even more challenging in the beginning. Pt appeared to benefit from processing his feelings and racing thoughts as pt shared it was helpful to talk this through. Risks/Concerns:: Pt denies any active suicidal ideations, plan, or intent. Pt reports he is taking his medications, but he is having urges to stop his medications as pt feels that are numbing him. Pt understands the consequences of stopping his meds and does not want those consequences. Pt is not using any substances. Progress Toward Goals/Plan:: Pt continues to be consistent with attendance and compliant with medications. Pt presents as more hypomanic today AEB his racing thoughts, more rapid speech, and increased irritability this week, but pt is still able to use impulse control skills. Pt is receptive to thought challenging. Pt continues to endorse mood instability, irritability, negative thoughts of self, mild paranoia, and thoughts that others are judging him. Will continue to monitor mood and warning signs for jessica. Will continue in IOP to prevent decompensation, increase healthy coping, stabilize mood, and improve functioning. Time Stopped:: 11:30
--- NOTE | 2022-01-13 15:14 | BH.COMM_ITS ---
Communication Note - Communication with Client Communication Note: [place] level from 12/31/21 obtained from [facility] and placed in client's chart, level was 0.4mg. Discussed lithium level with Dr. Rdz, as noted in her progress note from 01/13/22, Dr. Rdz wishes to increase client's [place] carbonate ER dose to 300mg every AM and 600mg every PM with a check of lithium trough and renal panel and TSH in 6 days. Message left for client to start new medication dosage on Monday 01/15 so labs could be done 01/21.
--- NOTE | 2022-01-15 09:02 | BH.SGPN.GN ---
Behaviors/Verbalizations/Mental Status: []Eye contact good, casually dressed, motor activity slightly restless, speech rapid rate at times and tone WNL, mood anxious, full affect, thoughts linear and intact, no evidence of delusions or hallucinations. Reviewed pt's symptom tracker, no indication of suicidal ideation or intent. Client Response/Progress/Benefit: [] Client respond well to session as evidenced by him listening attentively to others and sharing thoughts and feelings. Client stated mental positive as his probation visit going well yesterday. Client reported additional mental positive as getting to the top 1000 in the world for one of his video games and then putting the game system away. Client reported he started to recognize perhaps being in the top 1000 an entire world is not the best because it became obsessive and addictive for him. Stated he spent significant amounts of time playing this game because he had a hard time putting it down. Client stated he does recognize him stopping the game yesterday after achieving his goal as of when versus continuing to play. Client expressed some anxiety that he will just find another thing that he can become obsessed about to replace his video game. Client to continue IOP to stabilize moods, improve mood regulation, and prevent decompensation. Narrative Note: []
--- NOTE | 2022-01-15 10:10 | BH.SGPN.GN ---
Behaviors/Verbalizations/Mental Status: []Eye contact is good. Motor activity is appropriate. Appearance is casual. Speech is Appropriate. Mood is agitated. Affect is congruent. Thoughts are linear and logical. No evidence of psychosis. Client Response/Progress/Benefit: []Pt was an active participant in group discussions. Attentive during psychoeducation and participated in interactive discussions in which group defined self-care, discussed the benefits to self-care, and identified common myths surrounding self-care. Pt reports feeling irritable today; however, did well to remain engaged and regulated despite this. Pt shared that ?self-care can include things that aren?t always fun but will later help to make you happy?. Group identified that self-care myths include; self-care is selfish, self-care is just personal hygiene, self-care should be fun, self-care is too time consuming, and I don?t deserve it. Pt and peers broke into smaller group and worked together to bust the myths associated with self-care. Benefited from increased awareness of the importance of self-care and its benefits. Progress noted in increased ability to engage in healthy decision making and reduce unhealthy coping. Will continue in IOP to prevent decompensation, increase emotion regulation skills and mood stability, and improve functioning. Narrative Note: []
--- NOTE | 2022-01-15 11:10 | BH.SGPN.GN ---
Behaviors/Verbalizations/Mental Status: []Pt alert and oriented, casually dressed and groomed. Eye contact good. Motor activity appropriate. Speech within normal limits. Affect congruent, mood anxious. Thoughts linear, logical, no signs of hallucinations or delusions. Client Response/Progress/Benefit: []Pt engaged participant AEB completing self-assessment worksheet and contributing input during discussion. Participated throughout group discussion on the various areas of self-care. Pt completed worksheet which identified current self-care practices and what self-care activities pt wants to start using. Pt selected emotional self-care to begin practicing more consistently. Pt plans to do this by practicing more positive thinking and challenging distortions. Appeared to benefit from completing the self-care evaluation and gaining insights into current self-care practices, as well as identifying areas in which pt would like to improve upon. Will continue IOP tx to increase mood stability, reduce internal stigma, and improve daily functioning. Narrative Note: []
== END 2022-01-15 23:59 ==
LOC: BHIOP 08:00
PROVIDERS: Referring Provider Psychiatry & Neurology Psychiatry; Visit Provider Psychiatry & Neurology Psychiatry
DX: F31.11 Bipolar disorder, current episode manic without psychotic features, mild (principal); A52.3 Neurosyphilis, unspecified; F41.1 Generalized anxiety disorder; F90.9 Attention-deficit hyperactivity disorder, unspecified type; F19.11 Other psychoactive substance abuse, in remission
CPT/HCPCS: 90792; 99213; H2012; H2020; S9480; T1002; 90834; 90837

== ENCOUNTER 2022-01-18 09:01 | Outpatient (RCR) | payer MEDICAID, SELFPAY ==
[2022-01-16 01:49] VITALS: BP 141/85; PULSE 89
--- NOTE | 2022-01-18 09:05 | BH.SGPN.GN ---
Behaviors/Verbalizations/Mental Status: []Pt alert and oriented, neatly dressed and groomed. Eye contact good. Motor activity appropriate. Speech tangential. Affect congruent, mood anxious. Thoughts linear, logical, no signs of hallucinations or delusions. Reviewed pt?s symptom tracker, no risk for suicidal ideation, plan, or intent as of 01/18/22 Client Response/Progress/Benefit: [] Pt responded well to session, attentive and engaged. Pt reports feeling suspicious this morning as pt has been feeling more stable which can be a trigger for pt. Pt stated he starts to question if he needs medications and he feels out of his comfort zone when he is not either high or low. Pt is working on staying in the present and challenging his perspective. Pt reports his positives today are that he is nine months sober and he did a lot of social things over the weekend. Pt appeared to benefit from reflecting on progress and challenging his perspective on stability. Pt will continue IOP tx to promote mood stability, increase distress tolerance skills, and gain medication management. Narrative Note: []
--- NOTE | 2022-01-18 10:10 | BH.SGPN.GN ---
Behaviors/Verbalizations/Mental Status: [] Eye contact is good. Motor activity is appropriate. Appearance is casual. Speech is pressured. Mood is anxious. Affect is congruent. Thoughts are linear and logical. No evidence of psychosis. Client Response/Progress/Benefit: [] Pt was an active participant in group discussion. Attentive AEB by note taking during psychoeducation on the types cognitive distortions, the CBT triangle, and automatic thoughts. This group was very information heavy as group was introduced to the various cognitive distortions however pt did participate in interactive discussions with peers in which they gave examples of certain cognitive distortions. Benefited from increased awareness and education on cognitive distortions and how they impact mental health. Will continue in IOP to prevent decompensation, stabilize mood, and improve functioning. Narrative Note: []
--- NOTE | 2022-01-18 11:10 | BH.SGPN.GN ---
Behaviors/Verbalizations/Mental Status: []Eye contact is good. Motor activity is appropriate. Appearance is casual. Speech is Appropriate. Mood is euthymic. Affect is congruent. Thoughts are linear and logical. No evidence of psychosis. Client Response/Progress/Benefit: []Pt was an active participant in the group activity which involved working with peers to answer questions related to psychoeducation on cognitive distortions. Questions were posed in the fashion of Jeopardy and the categories included; Identifying the Cognitive Distortion, Ways to reframe cognitive distortions, Examples of cognitive distortions, and other areas related to cognitive distortions. This was an engaging way to help reinforce psychoeducation and to help client retain the information through examples and practicing. Pt was engaged in the game and with peers on collaborating to determine the answers. Client connected with several of the distortions and noted importance of practicing challenging the thoughts to more rational statements. Benefited from rehearsing ways to challenge/reframe cognitive distortions and by gaining increased insight into examples/definitions of 10 most common cognitive distortions. Will continue in IOP to stablize moods, continue use of healthy coping and prevent decompensation.
--- NOTE | 2022-01-20 10:00 | BH.SGPN.GN ---
Behaviors/Verbalizations/Mental Status: []Pt alert and oriented, neatly dressed and groomed. Eye contact good. Motor activity appropriate. Speech within normal limits. Affect congruent, mood euthymic. Thoughts linear, logical, no signs of hallucinations or delusions. Client Response/Progress/Benefit: []Pt responded well to session AEB sharing when prompted and listening attentively to others. Pt participated in group discussion defining boundaries and why having healthy boundaries is important. Pt shared he has been on the administering and receiving end of tough boundaries. Pt highlighted many benefits of setting boundaries including improving relationships. Pt appeared to connect to psychoeducation on types of boundaries, including physical, emotional, and intellectual. Pt listened attentively and nodding throughout discussion in which group members shared personal examples of different types of boundaries. Pt appeared to benefit from increased knowledge of the types of boundaries and increased self-awareness of personal boundaries. Will continue IOP tx to promote mood stability, increase impulse control, and reduce negative thinking. Narrative Note: []
--- NOTE | 2022-01-20 10:13 | BH.MDN_ITS ---
Multi-Disciplinary Note - Note 45-min Individual Time Started:: 09:15 Date: 01/20/22 Purpose of session/treatment goals addressed:: Reviewed progress and current symptoms. Reviewed treatment plan goals 1 and 2. Eye Contact:: Good Motor Activity:: Appropriate Appearance:: Casual Speech:: Rapid Mood:: Anxious, Depressed Affect:: Congruent Thoughts:: Linear, Logical, No evidence of hallucinations/delusions noted Staff Interventions:: thought challenging, psychoeducation on: - Education on Bipolar diagnosis and daily mood charting., CBT techniques - cog. distortions, thought reframing, rapport building Client Response:: Pt was open to session and responded well. He has been struggling with accepting Bipolar diagnosis for the past several months. Has been resistant and paranoid about recent medication changes, however reports that he has agreed to make the suggested changes. He stopped his Celexa and plans to increase his [place] tonight. I'm starting to accept the Bipolar diagnosis however admits that he does miss the elevated mood associated with hypomania/jessica. Trouble adjusting to normal or baseline believing that the meds keep me from being consistently happy. Insight regarding the consequences of his jessica and how it impacted himself and his family. My family is my biggest motivator to continue with meds and therapy. Admits that if I wasn't living with my parents I may have stopped my meds. Parents hold him accountable. Overall he reports that his mood has been more anxious and depressed this past week but not too bad. He downloaded an scott to track his mood, reports that he is sleeping 7-8 hours per night, and feels more chill. Reports that he is getting a lot from IOP and the groups. Denies any external stressors stating its mostly internal conflict. Risks/Concerns:: Denies any suicidal ideations, plan, or intent. Progress Toward Goals/Plan:: Progress noted per pt report. Medication compliant. Consistent and engaged in IOP. Identifies skills and education that he has obtained from groups. Identifies mostly with role of cognitive distortions impacting his thoughts, emotions, and behaviors. With increased education on Bipolar as well as support from staff and peers he is reporting increased acceptance of Bipolar dx and willingness to make changes to medications which is very important. Will continue in IOP to prevent decompensation, stabilize mood, and improve functioning. Time Stopped:: 10:00
--- NOTE | 2022-01-20 11:05 | BH.SGPN.GN ---
Behaviors/Verbalizations/Mental Status: [] Client alert and oriented, casually dressed and appropriately groomed. Eye contact good. Motor activity normal. Speech within normal limits. Affect congruent, mood euthymic. Thoughts linear and intact. no signs of delusions or hallucinations. Client Response/Progress/Benefit: [] Client responded well to session AEB listening attentively to peers, providing input when promoted, as well as taking notes throughout. Group discussed the different boundary setting styles which included rigid, porous, and flexible. Participated well in small group discussion identifying the pros and cons of each boundary setting style. Client stated he used to be porous with his boundaries, but now that he is sober he is much healthier with his boundaries. Reported he is able to see a significant benefit to having healthier boundaries. As a group discussed various strategies to set boundaries. Reported he is going to focus on maintaining his current boundaries. Client reported he would like to work on expressing his boundaries before he gets too angry. Seemed to benefit from increased awareness of how different boundary styles can impact mental health Client will continue IOP tx to maintain gains, increase self-care and increase application of learned skills.
--- NOTE | 2022-01-22 09:05 | BH.SGPN.GN ---
Behaviors/Verbalizations/Mental Status: [] Eye contact is good. Motor activity is appropriate. Appearance is casual. Speech is pressured. Mood is depressed.irritable. Affect is congruent. Thoughts are linear and logical. No evidence of psychosis. Reviewed daily check in sheet and no reports of SI. Client Response/Progress/Benefit: [] Pt was an active participant in group discussion. Attentive. Daily symptom tracker notes 4/5 for anxiety and 3/5 for irritability. Si-2. Mental health wins include ?going to the [employer] and not spending money?. Shared that he went up to [place] with his parents and set a limit of $100 at the [employer]. Shared how this is a positive due to his history of excessive spending. He believes that his mood have been erratic stating that he has been hypomanic for the past day. He has had thoughts and urges to ? sell everything and move away?. He reports trouble determining if these thoughts are rational or not. In the past he would have kept these thoughts to himself however recently has been discussing them with support and posting them on internet forum. He sees this as progress ? they help me understand consequences of some of my thoughts?. His thoughts occur when he is not distracted. Group emphasized and provided feedback. He states that he continues to be medication compliant and has some continued reluctance to accept Bipolar dx. Benefited from group support, feedback, and encouragement. Will continue in IOP to stabilize mood, increase healthy coping, and improve functioning. Narrative Note: []
--- NOTE | 2022-01-22 10:13 | BH.SGPN.GN ---
Behaviors/Verbalizations/Mental Status: []Client alert and oriented, casually dressed and groomed. Eye contact good. Motor activity WNL. Speech appropriate rate/tone. Affect congruent, mood anxious and euthymic. Thoughts linear, logical, no signs of hallucinations or delusions.?? Client Response/Progress/Benefit: []Pt responded well to session, provided input and supportive feedback throughout. Pt participated in group discussion regarding mental health benefits of change. Noted that change can result in personal growth. Pt identified three small personal changes to improve their mental health as: improving consistency of healthy habits, maintaining sobriety, and giving himself more rajesh. Identified current barriers keeping pt from making those changes to be negative self-talk, lack of acceptance of his mental health issues, and distortions. Pt appeared to benefit from gaining awareness of personal changes that would improve mental health and the barriers keeping client stuck. Progress noted in pt level of insight regarding current barriers impacting mental health change and reports of increased self-acceptance. Pt to continue IOP tx to further increase healthy coping skills, improve mood stability, and maintain current gains.? Narrative Note: []
--- NOTE | 2022-01-25 09:05 | BH.SGPN.GN ---
Behaviors/Verbalizations/Mental Status: [] Client alert and oriented, casually dressed and groomed. Eye contact normal. Motor activity appropriate. Speech increased. Affect congruent, mood euthymic. Thoughts linear, logical, no signs of hallucinations or delusions. Reviewed client?s symptom tracker, no risk for suicidal ideation, plan, or intent as of 01/25/22 Client Response/Progress/Benefit: [] Client responded well to session with being attentive throughout group. Client reports feeling fascinated this morning and went on to share the details of his weekend which he described as very busy and slightly stressful, but reported that he felt like he coped with it well. Client indicated how he has been helping his grandma and uncle a lot, but made time for self care. Client reflected on how his sleep is causing him stress due to waking up more frequently and getting less quality sleep. Client appeared to benefit from suggestions from peers on achieving better sleep with confronted with anxiety. Client will continue IOP tx to increase overall functioning. Narrative Note: []
--- NOTE | 2022-01-25 10:10 | BH.SGPN.GN ---
Behaviors/Verbalizations/Mental Status: [] Client alert and oriented, casually dressed and groomed. Eye contact good. Motor activity appropriate. Speech within normal limits. Affect congruent, mood euthymic. Thoughts linear, logical, no signs of hallucinations or delusions. Client Response/Progress/Benefit: [] Client responded well to session, attentive and providing input throughout. Participated in discussion of things that can keep people feeling trapped or stuck in life including; avoidance, unhealthy coping, isolation, inconsistent boundaries, and surrounding self with toxic people. Group discussed the connection between thoughts, emotions, and behaviors as well as how negative thinking can keep a person stuck. Client attentive during psychoeducation on maintenance cycles. Client able to identify negative thoughts that have kept client stuck which included ? I can't trust anyone and so much could go wrong. Client identified these thoughts lead him to feel stuck and isolate. Appeared to benefit from gaining awareness of how negative thoughts reinforce mental health symptoms and keep people stuck. Will continue IOP tx to prevent decompensation, increase anxiety management skills, and increase overall functioning. Narrative Note: []
--- NOTE | 2022-01-25 13:37 | BH.MDN_ITS ---
Multi-Disciplinary Note - Note 45-min Individual Time Started:: 11:10 Date: 01/25/22 Purpose of session/treatment goals addressed:: Used the session to review progress and current symptoms. Addressed all treatment plan goals. Reviewed 3 week outcomes measurement. Eye Contact:: Good Motor Activity:: Appropriate Appearance:: Casual Speech:: Appropriate Mood:: Euthymic Affect:: Full Thoughts:: Linear, Logical, No evidence of hallucinations/delusions noted Staff Interventions:: psychoeducation on: - Bipolar, CBT techniques, rapport building, reviewed DSM-5 Client Response:: Pt responded well to session. We reviewed the 3 week outcome measurements which show an overall 5% decrease in symptoms. Pt had a 40% decrease in the depression domain, 25% decrease in anger domain, 17% decrease in the jessica domain, and 22% decrease in anxiety domain. Outcomes also show a 2 point increase in the suicidal domain and a 1 point increase in psychosis domain. Pt states I'm not really suicidal I just have more dread about the world. He describes the news and current world issues as leading to frequent thoughts similar to I would mind if I wasn't around for this. Denies active SI, plan, or intent. He also described having auditory hallucinations of a voice calling his name 1-2 times a day. Overall he believes that he is functioning the best he has in several months. Where I'm at now is good ... I'm ok if this is baseline. Notes increased insight and awareness of cognitive distortions and irrational thoughts. Utilizing healthy skills. Able to reframe and challenge thoughts. My thinking is not at extremes. Utilizing his support more when feeling overwhelmed or paranoid to talk me down. In the past would isolate when feeling that way which would escalate symptoms. Admits that at times he wants to stop all the meds but is able to identify the consequences of that. Realizing the destruction that jessica had on his life in the past. Risks/Concerns:: no risks or concerns noted. Progress Toward Goals/Plan:: Progress noted. Medication compliant. Plans to obtain [place] level tomorrow. In IOP staff have noticed his mood is rapid cycling which recently has been more baseline to hypomanic. Continues to report racing thoughts and speech at times over the past week has had pressured and rapid speech. Its unclear what his baseline is due to limited medication compliance and chronic hx of drug abuse, however pt has been sober and med compliant for several months Maybe this is my baseline ? if it is that's good. Consistent and engaged in IOP. Utilizing healthy coping skills. Plan to continue in IOP to maintain safety, stabilize mood, and prevent decompensation. Time Stopped:: 12:00
--- NOTE | 2022-01-26 09:00 | BH.SGPN.GN ---
Behaviors/Verbalizations/Mental Status: [] Eye contact is good. Motor activity is appropriate. Appearance is casual. Speech is Appropriate. Mood is euthymic. Affect is full. Thoughts are linear and logical. No evidence of psychosis. Reviewed daily check in sheet and pt reports 1/5 for suicidal ideations and 0/5 for intent. Client Response/Progress/Benefit: [] pt was an active participant in the group discussions. Attentive. Daily symptom tracker notes 3/5 for anxiety and agitation. Emption for today is ?content?. Pt states ?I?m doing well?. Utilizing skills over the weekend. Worked through stressors appropriately. Progress noted per pt report. Benefited from group support and encouragement. Will continue in IOP to prevent decompensation, stabilize mood, and improve functioning to return to work. Narrative Note: []
--- NOTE | 2022-01-27 14:25 | BH.MTP_ITS ---
Treatment Plan Review Date of Admission:: 02/03/22 Date of Treatment Plan Review:: 01/27/22 Admitting Diagnoses:: 1. Bipolar 1 disorder, most recent episode jessica, mild with rapid cycling (F31.11. 2. Neurosyphilis with possible exacerbation of mood disorders (treated and being followed for this). 3. Generalized anxiety disorder. 4. ADHD. 5. Polysubstance abuse disorder with full remission for 7 months Current Diagnoses:: 1. Bipolar 1 disorder, most recent episode jessica, mild with rapid cycling (F31.11). 2. Neurosyphilis with possible exacerbation of mood disorders secondary to this. 3. Generalized anxiety disorder. 4. ADHD. 5. Polysubstance abuse disorder with full remission for 7 months Patient's Response to Treatment:: Consistent and engaged in treatment. Active group member who provides appropriate feedback to peers. Utilizing skills learned in IOP. Status of Current Problems and Symptoms: 3 week outcome measurements show an overall 5% decrease in symptoms. Pt had a 40% decrease in the depression domain, 25% decrease in anger domain, 17% decrease in the jessica domain, and 22% decrease in anxiety domain. Outcomes also show a 2 point increase in the suicidal domain and a 1 point increase in psychosis domain. Pt states I'm not really suicidal I just have more dread about the world. He describes the news and current world issues as leading to frequent thoughts similar to I would mind if I wasn't around for this. Denies active SI, plan, or intent. He also described having auditory hallucinations of a voice calling his name 1-2 times a day. Overall he believes that he is functioning the best he has in several months. Where I'm at now is good ... I'm ok if this is baseline. Notes increased insight and awareness of cognitive distortions and irrational thoughts. Utilizing healthy skills. Able to reframe and challenge thoughts. My thinking is not at extremes. Utilizing his support more when feeling overwhelmed or paranoid to talk me down. In the past would isolate when feeling that way which would escalate symptoms. Admits that at times he wants to stop all the meds but is able to identify the consequences of that. Realizing the destruction that jessica had on his life in the past. Problem #1 Problem Name:: Mood Instability Status of Goals:: Obj 1- (ongoing) compliant with medications and labs. Inc reased acceptance of Bipolar dx and education per report. Obj 2- (ongoing) early in IOP however has downloaded and began to track mood and able to identify jessica signs/tirggers Team Recommendations:: Continue with current treatment plan and goals as pt appears to be responding well. Problem #2 Problem Name:: Anxiety Status of Goals:: Obj 1- able to identify calming skills however remains inconsistent in utilizing when appropriate. Obj 2- Has learned and can identify commonly used cognitive distortions (absolute thinking, shoulding) however is still learning how to reframe and challenge. Team Recommendations:: continue with current treatment plan as pt appears to be responding.
--- NOTE | 2022-02-01 10:10 | BH.SGPN.GN ---
Behaviors/Verbalizations/Mental Status: [] Client alert and oriented, casually dressed and appropriately groomed. Eye contact good. Motor activity appropriate. Speech within normal limits. Affect congruent, mood euthymic. Thoughts linear, logical, no signs of hallucinations or delusions. Client Response/Progress/Benefit: [] Client connected with topic of anxiety and participated throughout, providing input and taking notes. Attentive during psychoeducation on different anxiety disorders and participated throughout interactive discussion defining anxiety and identifying cognitive and physiological symptoms of anxiety. Common cognitive symptoms identified by group included: ?what if thoughts?, all or nothing thinking, and predicting the future type thoughts. Physiological symptoms reported by patient included: leg twitch, increased heart rate, and GI issues/throwing up. Benefited from increased awareness and insight on anxiety and its impact. Will continue IOP tx to continue use of healthy coping and thought challenge skills and prevent decompensation.
--- NOTE | 2022-02-01 11:15 | BH.SGPN.GN ---
Behaviors/Verbalizations/Mental Status: []Pt alert and oriented, neatly dressed and groomed. Eye contact good. Motor activity appropriate. Speech within normal limits. Affect congruent, mood euthymic. Thoughts linear, logical, no signs of hallucinations or delusions. Client Response/Progress/Benefit: []Pt was an active participant in group discussion and providing good insight to peers. Reviewed safety behaviors she engages in that reinforce anxiety. Attentive during psychoeducation on mindfulness coping skills and their impact on mental health wellness. The group worked together to brainstorm anxiety reduction strategies. Pt participated as group practiced two mindfulness strategies. Pt selected taking an ?emotional inventory? today to practice mindfulness. Pt seemed to benefit from increased repertoire of anxiety reduction skills. ?Pt will continue IOP tx to further improve mood stability, reduce negative thinking, and increase impulse control. ? Narrative Note: []
--- NOTE | 2022-02-03 09:05 | BH.SGPN.GN ---
Behaviors/Verbalizations/Mental Status: []Pt alert and oriented, neatly dressed and groomed. Eye contact good. Motor activity appropriate. Speech within normal limits. Affect constricted, mood anxious. Thoughts linear, logical, no signs of hallucinations or delusions. Reviewed pt?s symptom tracker, no risk for suicidal ideation, plan, or intent as of 02/03/22 Client Response/Progress/Benefit: [] Pt responded well to session, attentive and providing supportive statements. Pt reports feeling fine today but after exploring further, pt admits that he is nervous about dipping into a depressive state. Pt shared he has not been having the extreme highs and lows, which is positive, but pt is not used to feeling stable per his report. Pt stated in the past he had drugs to help get pt out of jessica or depression, but now that he does not use, pt worries about not having a quick fix. Pt able to give himself credit for his increased awareness and encouraged to continue working on identifying warning signs to prevent crisis. Pt appeared to benefit from gentle thought challenging. Pt will continue IOP tx to promote mood stability, improve distress tolerance skills, and maintain gains. Narrative Note: []
--- NOTE | 2022-02-03 10:10 | BH.SGPN.GN ---
Behaviors/Verbalizations/Mental Status: [] Eye contact is good. Motor activity is appropriate. Appearance is casual. Speech is Appropriate. Mood is euthymic. Affect is congruent. Thoughts are linear and logical. No evidence of psychosis. Client Response/Progress/Benefit: [] Pt was an active participant in group discussions. Attentive during psychoeducation AEB note-taking. Participated in interactive discussion amongst peers on the definition and examples of crisis. Engaged in conversations as peers identified unhealthy responses to crisis which included; substance use, avoidance, isolation, sleeping, risky behaviors, retail therapy, over-eating, etc. Pt identified her yvonne signs to crisis which included urges to use drugs, passive suicidal ideations, increased energy, and increased motivation. Benefited from increased of crisis and personal warning signs. Will continue in IOP to prevent decompensation, stabilize mood swings, and increase healthy coping. Narrative Note: []
--- NOTE | 2022-02-03 11:53 | PCM.BH.PN ---
Progress Note Progress Note: And history of Present Illness/Interim History: [] The patient is a 31-year-old male with a history of bipolar disorder, polysubstance abuse and ADHD who is seen in follow-up at the [facility] behavioral health IOP program. He was last seen 3 weeks ago and at that time his lithium dose was increased as the prior level was 0.4 and patient was still symptomatic. The patient is tolerating the total dose of 900 mg of lithium carbonate ER daily well although he does notice minimal GI side effects and a mild tremor at times. He feels he is less irritated now than he was in the past and he feels his mood is more stable. He has a history of medication noncompliance but he has been completely compliant with the lithium and took every dose prior to getting his blood level which was obtained after he I increase the dose. This level was 0.5 mmol/L which is still a little low. The patient's TSH was mildly elevated at 5 but this could be due to the lithium. The patient stopped his Celexa as directed 3 weeks ago also as we felt that this would contribute to his rapid cycling. The patient saw his infectious disease doctor last week and he was told that his neurosyphilis is now cured. Since increasing the lithium his sleep is better and he is getting about 8 hours a night now. The patient states that he has off-and-on had in the past and his life a delusion of paranoia that his illness and the medications are a conspiracy between his doctors, his parents and the court. He does not like to take medications and he does not feel well on them sometimes and he states that at times he has been delusional in the past that this was a conspiracy. He states that lately since starting the program he gets these feelings a few times a week but not every day and he states that he knows most of the time that it is not a conspiracy. In fact he has been compliant with his meds because he does not want to go back to penitentiary again. He is worried that the sat instructor told him that if he does not complete the program he will violate his probation and go to penitentiary for 18 months if he ever sees them in court again. He feels that he still has not had enough time to process being diagnosed with bipolar disorder. He still has occasional hopelessness. His concentration is a little better but sometimes he has trouble concentrating in groups. He takes his highest Droxia seen for anxiety 3-5 times a week. He denies any passive thoughts of , suicidal ideation, homicidal ideation, hallucinations, panic attacks or fixed delusions. Current Psychiatric Medications: [] Lamictal 100 mg p.o. daily; lithium carbonate ER 600 mg nightly and 300 mg every morning.; Wellbutrin XL 300 mg p.o. every morning; hydroxyzine 50 mg p.o. as needed up to several times a day. Mental Status Examination: [] Patient is a 31-year-old male who appears normal for stated age and is casually dressed and groomed with good hygiene. He is ambulatory with a normal gait and alert and oriented to person place and time. Tremors not visible right now. He is cooperative and pleasant during the interview. He has no psychomotor agitation and no psychomotor retardation. Eye contact is good. Speech is normal rate and rhythm and fluent with no pressure. Mood is mildly depressed. Affect is constricted. Thought process is goal-directed and oriented. Thought content: There is no evidence of passive thoughts of , suicidal ideation, homicidal ideation or hallucinations. There is evidence of a mild fixed belief that is not quite at delusional level involving the patient feeling that his illness is a conspiracy by his providers and his family in the court. This is a longstanding delusion for him that waxes and wanes. Reality testing is intact. Impulsivity is moderate. Judgment is intact. Insight is good. Diagnoses: [] 1. Bipolar 1 disorder, most recent episode jessica, mild with rapid cycling (F31.11; resolving 2. Neurosyphilis: Treated 3. Generalized anxiety disorder 4. ADHD 5. Polysubstance abuse disorder with full remission for 7 months 6. Primary support primary support, work and health issues Plan: [] The patient will continue the IOP program as the structure, support, education and group therapy will hopefully prevent worsening of the patient's symptoms that could result in hospitalization. The patient felt safe during the interview and if it anytime he does not feel safe he will let us know or go to the emergency room. The risk, options and possible complications and side effects of the medications were discussed with the patient and he understands and accepts these. The patient wishes to increase the lithium but I discussed with the patient that although we may do that later I would first recommend that the patient agreed to take an antipsychotic to prevent the worsening of his waxing and waning delusion. The patient hated how he felt on Abilify but he does agree to take Geodon and understands it has a lower risk of weight gain. He agrees to take Geodon 40 mg p.o. in the evening with dinner and a prescription is sent in for this. I will see the patient in follow-up in 1 week and at that point we will probably increase the Geodon to help prevent his fixed belief from becoming a full delusion. He understands that while he is taking the Geodon it may require less lithium to control his moods. In addition further thyroid testing was done as the patient's father has Graves' disease and his TSH was mildly elevated which could be due to interference from lithium.
--- NOTE | 2022-02-05 10:20 | BH.SGPN.GN ---
Behaviors/Verbalizations/Mental Status: []Pt alert and oriented, neatly dressed and groomed. Eye contact good. Motor activity appropriate. Speech within normal limits. Affect congruent, mood euthymic. Thoughts linear, logical, no signs of hallucinations or delusions. Client Response/Progress/Benefit: []Pt was an active?participant in group discussion. Group worked together to identify benefits of healthy relationships which include; improves mental health, encouragement, motivation, accountability, validation, connection, and personal growth. Group identified factors that lead to unhealthy relationships which included; co-dependence, gaslighting, not addressing issues, name-calling, and not setting boundaries.?Pt?s personal factors were low self-esteem, viewing stability as ?boring,? and high expectations.?Actively participated in group experiential activity and expressed ideas to group. Benefited from increased insight and awareness of benefits of healthy relationships and factors that contribute to unhealthy relationships. Will continue IOP tx to promote mood stability, increase self-care, and reinforce healthy coping skills. ? Narrative Note: []
--- NOTE | 2022-02-05 11:22 | BH.MDN_ITS ---
Multi-Disciplinary Note - Note 45-min Individual Time Started:: 09:05 Date: 02/05/22 Purpose of session/treatment goals addressed:: Reviewed current progress and symptoms in IOP. Addressed treatment plan goal 1 (obj 1/2). Eye Contact:: Good Motor Activity:: Appropriate Appearance:: Casual Speech:: Appropriate Mood:: Euthymic Affect:: Congruent Thoughts:: Linear, Logical Staff Interventions:: CBT techniques, discharge planning Client Response:: Pt reports that he started taking the Geodon last evening and believes that it's making him more tired this AM. He understands that this medication is meant to help decrease some mild-moderate paranoid delusions regarding his Bipolar dx and medications. I still feel at times like taking these medications are a form of conspiracy against me. We reviewed his mood log for the past 15 days. Depression and elevated mood have been minimal. Irritability and anxiety have been moderate with some high days. Out of the last 15 days he reports delusional thinking 12 days. He shares that while it happens most days the delusions are more manageable due in large part to utilizing thoughts challenging skills and verbalizing these delusions to in-person and internet support. In the past he would keep these to himself and decompensate. Increased awareness of cognitive distortions of catastrophizing and shoulding. He currently has a great deal of external motivators to remain in treatment and be medication compliant (living with parents, probation, IOP, etc) and is fearful that w/o this support he may convince himself to stop the medications. Insight into the consequences of this and how he is more stable and functioning better with the medications and w/o the drugs. Risks/Concerns:: no risks or concerns noted. Progress Toward Goals/Plan:: Consistent and engaged in IOP. Reports benefit from group and individual counseling. Utilizing skills and education learned outside of IOP. Medication compliant. Decreased intensity of paranoid delusions. We discussed aftercare plan and pt was given a list of dual diagnosis counselors in the area. He is currently linked with a dog beautician through [employer] however is interested in switching due to the driving distance. Was given referral information for [facility]. Will continue in IOP to maintain stability, increase healthy coping, and prevent decompensation. Time Stopped:: 09:45
--- NOTE | 2022-02-08 10:20 | BH.SGPN.GN ---
Behaviors/Verbalizations/Mental Status: []Pt alert and oriented, neatly dressed and groomed. Eye contact good. Motor activity appropriate. Speech within normal limits. Affect congruent, mood euthymic. Thoughts linear, logical, no signs of hallucinations or delusions. Client Response/Progress/Benefit: []Pt responded well to session, contributing to discussion and engaged during the activity. Group identified the benefits of change which included: less stress, healthier wellbeing, and a better future. Worked with the group to identify barriers to change and pt identified personal barriers as setting unrealistic goals and having an all or nothing approach to change. Pt participated along with group in activity where they identified and discussed the emotions related to change. Pt participated in discussion on the change process and personal experiences with implementing change in past. Benefited from increased awareness and understanding of emotions, benefits, and barriers related to change. Will continue IOP tx to promote mood stability, maintain gains, and further increase emotional regulation skills. ? Narrative Note: []
--- NOTE | 2022-02-09 09:00 | BH.SGPN.GN ---
Behaviors/Verbalizations/Mental Status: []Pt eye contact good, casually dressed, motor activity appropriate, speech normal rate and tone, mood anxious, congruent affect, thoughts linear and intact, no evidence of delusions or hallucinations. Client Response/Progress/Benefit: [] Client respond well to session as evidenced by listening attentively to others and sharing thoughts and feelings. Client stated mental positive as taking his medications consistently. Client stated he has been struggling with worrying about his medications more frequently due to having another medication added. Client reported he has been challenging his negative thoughts about taking his medications which has been helping. Client reported additional mental health positive as having good weekend with limited stressors and able to enjoy himself. Seemed to benefit from support from peers. Client to continue IOP to continue use of healthy coping skills, consistently take medications, and prevent decompensation.
--- NOTE | 2022-02-10 09:05 | BH.SGPN.GN ---
Behaviors/Verbalizations/Mental Status: [] Eye contact is good. Motor activity is appropriate. Appearance is casual. Speech is Appropriate. Mood is euthymic. Affect is full. Thoughts are linear and logical. No evidence of psychosis. Reviewed daily check in sheet and pt reports 1/5 for suicidal ideations and 1/5 for intent. This has been baseline. Client Response/Progress/Benefit: [] Pt was an active participant in group discussions. Attentive. Provided appropriate feedback. Daily symptom tracker notes 3/5 for irritability and 2/5 for anxiety. Emotion for today is ?empowered?. Mental health win is that he has improved in ?reframing thoughts?. Elaborated on this further. Increased self-care and improved mood. He continues to report ?delusional? thoughts which involve conspiracy of support and providers; however, these have decreased significantly. Benefited from group support, encouragement, and feedback. Will continue in IOP to stabilize mood, increase healthy coping, and prevent decompensation. Narrative Note: []
--- NOTE | 2022-02-10 11:15 | BH.SGPN.GN ---
Behaviors/Verbalizations/Mental Status: []Pt alert and oriented, neatly dressed and groomed. Eye contact good. Motor activity appropriate. Speech within normal limits. Affect constricted, mood irritable. Thoughts linear, logical, no signs of hallucinations or delusions Client Response/Progress/Benefit: []Pt responded well to session, engaged in the experiential activity and attentive throughout group processing. Pt reported fear of failure has kept pt from seeking and maintaining mental health treatment. Pt completed fear of failure worksheet and was able to identify thoughts and behaviors that reinforce personal fear of failure including all or nothing mindset, fear of success, and thinking things cannot get better. Pt participated in small group discussion regarding strategies to overcome fear of failure. Identified wanting to work on dialectical thinking and setting realistic goals. Appeared to benefit from increased knowledge of strategies to combat fear of failure and gaining self-awareness. Pt will continue IOP tx to further improve mood stability, reinforce healthy coping skills, and establish aftercare. ? Narrative Note: []
--- NOTE | 2022-02-10 12:00 | PCM.BH.PN ---
Progress Note Progress Note: History of Present Illness/Interim History: [] The patient is a 31-year-old male who is seen in follow-up at the [facility] behavioral health IOP program. He has a history of bipolar disorder, polysubstance abuse, anxiety and ADHD and was last seen 1 week ago. The patient states he has been tolerating the Geodon well but the conspiracy delusions are unchanged and again are not quite fixed delusions as the patient knows that this there is probably not a conspiracy most of the time. Patient's labs were reviewed with him and his T4 and free T4 are within normal limits. His T4 is 11 as his free T4 0.94. His TSH remains mildly elevated at 4.51 and this may be due to the lithium. The patient does have a history of Graves' disease and his father side discussed with him that he should see his primary care doctor to follow-up on his thyroid function. The patient has been compliant with the meds and is taking it with food. The patient's anxiety remains unchanged or possibly slightly better. The patient has passive thoughts that he would not care if he still. He denies suicidal ideation, plan for suicide, homicidal ideation, thoughts of self-harm, symptoms of jessica or any other delusions or hallucinations. Current Psychiatric Medications: [] Geodon 40 mg p.o. in the evening with food ; Lamictal 100 mg p.o. twice daily; lithium carbonate ER 600 mg p.o. nightly and 300 mg p.o. every morning; Wellbutrin XL 300 mg p.o. every morning Mental Status Examination: [] The patient is a 31-year-old male who appears normal for stated age and is casually dressed and groomed with good hygiene. He is alert and oriented to person place and time and is ambulatory with a normal gait. There is evidence of a mild tremor from lithium when the patient raises their his hands during the interview. He is cooperative during the interview and has no psychomotor agitation or retardation. Eye contact is good. Speech is normal rate and rhythm and fluent with no pressure. Mood is possibly mildly depressed with's with still some increased energy at times. Affect is constricted. Thought process is goal-directed and oriented. Thought content: There is evidence of passive thoughts of . There is no evidence of suicidal ideation, plan for suicide, homicidal ideation or hallucinations. There is evidence of a fixed idea that approach is delusional strength but is not quite there that involves the patient feeling that his illness is a conspiracy thought up by his providers, family and the court system. This is this is a longstanding delusion/fixed belief that waxes and wanes. It remains unchanged. Reality testing is intact. Impulsivity is moderate. Insight is good. Diagnoses: [] 1. Bipolar 1 disorder, most recent episode jessica, mild with rapid cycling (F31.11, resolving) 2. Neurosyphilis treated 3. Generalized anxiety disorder 4. ADHD 5. Polysubstance abuse disorder with complete remission for 7 months 6. Primary support issues, work and health issues Plan: [] The patient will continue the IOP program at [facility] as the structure, support, education and group therapy will hopefully prevent further worsening of the patient's symptoms that might require hospitalization. He felt safe during the interview and if it anytime he does not feel safe he will let us know or go to the emergency room. The risk, options, possible complications and side effects of the medications were discussed with the patient again and he understands and accepts these. The patient agrees to increase his Geodon to 40 mg p.o. twice daily with food. If this makes him tired after few days or too restless he can take 80 mg of Geodon p.o. at bedtime or at dinner with food. He will continue his lithium dose the same as he has been on as as he will continue his other medications unchanged. He will continue to follow-up with his outpatient providers and I will see the patient in follow-up in 2 weeks.
--- NOTE | 2022-02-12 09:05 | BH.SGPN.GN ---
Behaviors/Verbalizations/Mental Status: []Eye contact good, casually dressed, motor activity appropriate, speech normal rate and tone, mood euthymic, congruent affect, thoughts linear and intact, no evidence of delusions or hallucinations. Reviewed pt's symptom tracker pt denies any SI plan, or intent as of this date 02/12/22. Client Response/Progress/Benefit: [] Pt responded well to session, actively engaged. Pt reports feeling content this morning, but he also shared that he often says he is fine but he has a lot of worries. Pt reports feeling worried about his ability to maintain progress and take his medications. Pt shared despite these worries, he continues to remind himself that he is resilient and resourceful. Pt stated he has been working on dialectical thinking which is helping pt combat distortions and predicting the future. Pt appeared to benefit from processing his worries and combating distortions. Pt will continue IOP tx to promote mood stability and further increase functioning. Narrative Note: []
--- NOTE | 2022-02-12 11:10 | BH.SGPN.GN ---
Behaviors/Verbalizations/Mental Status: []Pt alert and oriented, casually dressed and groomed. Eye contact good. Motor activity appropriate. Speech within normal limits. Affect congruent, mood euthymic. Thoughts linear, logical, no signs of hallucinations or delusions. Client Response/Progress/Benefit: []Pt was an active participant in group discussion. Attentive during psychoeducation on the Zones of Change which included the comfort zone, learning zone, and danger zone. Pt along with peers participated in interactive discussion regarding behaviors, thoughts, and feelings associated with each zone. Participated in group activity in which they developed a plan to take action on something they wished to change. Pt chose to take action on decreasing negative thoughts in which pt identified a SMART goal to question his all or nothing thoughts at least once per day. Identified supports that pt will need to successfully complete goal is continuing therapy, family, and practicing mindfulness. Benefited from increased self-aware of zones of change and developing an action plan. Will continue in IOP to challenge distorted thoughts, continue use of healthy coping, and promote gains.
--- NOTE | 2022-02-15 09:05 | BH.SGPN.GN ---
Behaviors/Verbalizations/Mental Status: [] Eye contact is good. Motor activity is appropriate. Appearance is casual. Speech is Appropriate. Mood is euthymic. Affect is full. Thoughts are linear and logical. No evidence of psychosis. Reviewed daily check in sheet and no reports of suicidal ideations or intent Client Response/Progress/Benefit: [] Pt was an active participant in group discussion. Attentive. Daily symptom tracker notes 2/5 for irritability. Shared that his anger and irritability are continuing to improve. Reports that his mood is stable are well ?I?m not depression and not elevated?. Utilizing skills more consistently. ?I?m learning to live in the gore as well?. Benefited from group support, encouragement, and feedback. Will continue in IOP to maintain gains, increase healthy coping, and stabilize mood. Narrative Note: []
--- NOTE | 2022-02-15 11:10 | BH.SGPN.GN ---
Behaviors/Verbalizations/Mental Status: []Pt alert and oriented, neatly dressed and groomed. Eye contact good. Motor activity appropriate. Speech within normal limits. Affect constricted, mood agitate. Thoughts linear, logical, no signs of hallucinations or delusions. Client Response/Progress/Benefit: []Pt responded well to session AEB completing the resilience worksheet provided. Pt participated in the discussion of each resiliency component and worked cooperatively with group to identify strategies to enhance each of the components discussed. Pt reported doing well with the resilience traits of making connections, self-care, and self-awareness. Pt would like to continue to develop resilience trait of accepting that change is a part of living by challenging his all or nothing thinking. Pt seemed to benefit from discussing strategies for improving personal resilience and identifying resilience traits pt already possesses. Progress noted in improved use of self-awareness and reported improved mood. Will continue IOP tx to promote mood stability, reinforce healthy coping skills, and promote gains. Narrative Note: []
== END 2022-02-15 23:59 ==
LOC: BHIOP 09:01
PROVIDERS: Referring Provider Psychiatry & Neurology Psychiatry; Visit Provider Psychiatry & Neurology Psychiatry
DX: F31.11 Bipolar disorder, current episode manic without psychotic features, mild (principal); A52.3 Neurosyphilis, unspecified; F41.1 Generalized anxiety disorder; F90.9 Attention-deficit hyperactivity disorder, unspecified type; F19.11 Other psychoactive substance abuse, in remission
CPT/HCPCS: 99213; 99214; H2012; H2020; S9480; 90834

== ENCOUNTER → 2022-01-26 | Outpatient (CLI) | payer MEDICAID, SELFPAY ==
[2022-01-26 11:42] LABS: BUN 10 mg/dL (7-18); BUN/Creat Ratio 11.2 RATIO (10-20); Calcium,Total 9.1 mg/dL (8.5-10.1); Chloride 108 mmol/L (98-107); EST Glomerular Filtration Rate 106 mL/min (>60); Est Glom Filt Rate - Afr Amer 128 mL/min (>60); Glucose 99 mg/dL (74-106); Phosphorus 2.9 mg/dL (2.5-4.9); Potassium 4.2 mmol/L (3.5-5.1); Sodium Level 140 mmol/L (136-145); Thyroid Stim Hormone (TSH) 5.21 uIU/mL (0.358-3.74)
== END | disposition home or self-care (01) ==
LOC: LAB 10:15
PROVIDERS: PCP Nurse Practitioner Primary Care; Referring Provider Psychiatry & Neurology Psychiatry; Visit Provider Psychiatry & Neurology Psychiatry
DX: F31.11 Bipolar disorder, current episode manic without psychotic features, mild (principal); Z79.899 Other long term (current) drug therapy
CPT/HCPCS: 36415; 80069; 80178; 84443

== ENCOUNTER 2022-02-04 14:36 | Outpatient (CLI) | payer MEDICAID, SELFPAY ==
[2022-02-04 16:08] LABS: T4 Free Direct 0.94 ng/dL (0.76-1.46); T4 Total, Thyroxin 11.3 ug/dL (4.5-12.1); Thyroid Stim Hormone (TSH) 4.51 uIU/mL (0.358-3.74)
== END 2022-02-04 23:59 | disposition home or self-care (01) ==
PROVIDERS: PCP Nurse Practitioner Primary Care; Visit Provider Psychiatry & Neurology Psychiatry
DX: F31.11 Bipolar disorder, current episode manic without psychotic features, mild (principal)
CPT/HCPCS: 36415; 84436; 84439; 84443

== ENCOUNTER 2022-02-16 08:08 | Outpatient (RCR) | payer MEDICAID, SELFPAY ==
[2022-02-16 00:38] VITALS: BP 141/85; PULSE 89
--- NOTE | 2022-02-17 09:00 | BH.SGPN.GN ---
Behaviors/Verbalizations/Mental Status: [] Pt eye contact good, casually dressed, motor activity appropriate, speech normal rate and tone, mood euthymic, congruent affect, thoughts linear and intact, no evidence of delusions or hallucinations. Client Response/Progress/Benefit: Pt responded well to session AEB pt listening attentively to others and sharing thoughts and feelings with group. Pt reported mental health positive as continuing to feel stable with his mood and being able to handle daily stressors better. Pt stated additional mental health positive as continuing to take medications consistently. Pt stated current stressor as waking up in the middle of the night for the past few days and having difficulty falling asleep once awake. Pt reported he is tracking his sleep and trying to not jump to conclusions that it's a medication issue. Pt seemed to benefit from to support from peers. Pt to continue IOP to maintain gains, continue consistent medication compliance and prevent decompensation. Narrative Note: []
--- NOTE | 2022-02-17 10:08 | BH.SGPN.GN ---
Behaviors/Verbalizations/Mental Status: []Client alert and oriented, casually dressed and groomed. Eye contact good. Motor activity appropriate. Speech within normal limits. Affect congruent, mood anxious and euthymic. Thoughts linear, logical, no signs of hallucinations or delusions. Client Response/Progress/Benefit: []Client responded well to session AEB taking notes, providing input, and listening attentively to others. Client provided examples of benefits of having social support. Client also contributed throughout group discussion regarding the different kinds of supports in our safety net and the things that weaken or prevent us from using our supports. Client identified that pushing others away and not admitting when you need help can become something that may weaken one?s support net. Client participated in experiential activity illustrating the importance of having multiple social supports. Client provided supportive feedback and problem solving throughout group activity. Client attentive and contributing during group processing of the activity. Client appeared to benefit from increased knowledge of the benefits of social support and greater self-awareness. Will continue IOP treatment to enhance coping skill repertoire, further improve mood stability, and improve overall functioning. Narrative Note: []
--- NOTE | 2022-02-17 11:53 | BH.MDN ---
Multi-Disciplinary Note - Note 30-min Individual Time Started:: 11:15 Date: 02/17/22 Purpose of session/treatment goals addressed:: Met with pt to review current symptoms and progress in IOP. Addressed all treatment plan goals. Eye Contact:: Good Motor Activity:: Appropriate Appearance:: Casual Speech:: Appropriate Mood:: Euthymic Affect:: Full Thoughts:: Linear, Logical, No evidence of hallucinations/delusions noted Staff Interventions:: CBT techniques, discharge planning, strengths perspective Client Response:: Pt states I've been doing really well. Continues to track his moods via an scott on his phone which he showed this therapist. Show a decrease in anxiety and depression as well as no elevated moods in January. His sleep has also been averaging around 6-8 hours per night. Tracker does indicate psychosis daily which pt elaborated further. He had been struggling with delusional type thoughts regarding conspirtacy surround his providers, PO, and parents to get him to take his medications. Also has thoughts that he can be cured with fish oil. These have been consistent since starting IOP however pt reports since starting the Geodon the thoughts have decreased in intensity, duration, and frequency. I'm not paralyzed by these thoughts anymore. He verbalizes these thoughts to support often that way the know if things are worsening. According to pt he has benefited from group psychoeducation specifically on the topic of cognitive distortions. Awareness of (shoulds/must and all or nothing thinking) which has led to reframing and challenging which have decreased intensity of negative thoughts and emotions. I'm much happier. Reports feeling stable. Risks/Concerns:: no risks or concerns noted. Progress Toward Goals/Plan:: Progress noted per pt report. Consistent and engaged in treatment. Medication compliant. We discussed aftercare and pt agreed to research and make appointments with psychiatrist and therapist in the next few days. He is agreeable to starting the aftercare program here at [facility] as well. Plan is for him to discharge next week. Program psychiatrist recommends meeting with him on one more occasion to ensure no adverse effects from Geodon and to ensure its efficiency. Time Stopped:: 11:40
--- NOTE | 2022-02-19 09:10 | BH.SGPN.GN ---
Behaviors/Verbalizations/Mental Status: [] Eye contact is good. Motor activity is appropriate. Appearance is casual. Speech is Appropriate. Mood is euthymic. Affect is full. Thoughts are linear and logical. No evidence of psychosis. Reviewed daily check in sheet and no reports of suicidal ideations or intent. Client Response/Progress/Benefit: [] Pt was an active participant in group discussion. Attentive. Daily symptom tracker notes 2/5 for agitation and 1/5 for anxiety. 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 He reports that he continues to feel stable. Stressor is that his sleep is weird however he continues to get 7 hours per night. He shared some superficial accomplishments and overall believes that he is managing his thoughts and emotions well. Provided feedback to peers. Beneifted from group support, encouragment, and feedback. Medication compliant. Emotion for today is sturdy. Plan is to continue in IOP to maintain gains. Narrative Note: []
--- NOTE | 2022-02-19 10:08 | BH.SGPN.GN ---
Behaviors/Verbalizations/Mental Status: []Pt alert and oriented, casually dressed and appropriately groomed. Eye contact good. Motor activity appropriate. Speech within normal limits. Affect congruent, mood euthymic. Thoughts linear, logical, no signs of hallucinations or delusions. Client Response/Progress/Benefit: []Pt was an engaged participant AEB providing input, listening to others, and taking notes. Participated in interactive group discussion on internal and external barriers to mental health progress. Pt described current reality as feeling like he is stable and happy. Reported desired reality is maintaining his stability while also being able to take on new responsibilities. Client shared personal barriers to desired realty include: distortions, isolation, and fear of sustaining progress. Benefited from increased awareness of current barriers to progress as well as current/desired realities. Pt will continue IOP tx to maintain mood stability, increase consistent use of healthy coping, and prevent decompensation. Narrative Note: []
--- NOTE | 2022-02-22 09:02 | BH.SGPN.GN ---
Behaviors/Verbalizations/Mental Status: [] Pt eye contact good, casually dressed, motor activity appropriate, speech normal rate and tone, mood anxious, congruent affect, thoughts linear and intact, no evidence of delusions or hallucinations. Per pt's symptom tracker denies current suicidal thoughts, plan or intent. Client Response/Progress/Benefit: [] Client respond well to session as evidenced by listening attentively to others and sharing thoughts and feelings. Client reported mental positive as not experiencing any psychosis or delusional thoughts for 2 days. Client stated overall has been feeling more stable recently. Client expressed anxiety that he ran out of one of his medications and despite IOP calling in his medication refill the pharmacy keeps saying they do not have it. Client said additional stressor as having his probation check in this Tuesday which she reported always increases his anxiety because worried he did something wrong even though he knows he has done nothing wrong. Seemed to benefit from therapist challenging distorted thought patterns. Client to continue IOP to maintain gains and prevent decompensation. IOP nurse will make contact with client's pharmacy to ensure he gets his medication refilled. Narrative Note: []
--- NOTE | 2022-02-22 10:12 | BH.SGPN.GN ---
Behaviors/Verbalizations/Mental Status: []Client alert and oriented, casually dressed and groomed. Eye contact good. Motor activity appropriate. Speech within normal limits. Affect congruent, mood euthymic. Thoughts linear, logical, no signs of hallucinations or delusions. Client Response/Progress/Benefit: []Client was an active participant in group discussions and activity. Attentive during psychoeducation. Client, along with peers, was able to identify several negatives on the picture given to the group. Client and peers also identified positives in the picture and made the connection that finding positives is much more difficult. Client shared that ?If I don?t look for the positives then I don?t see them?. Interactive discussion on the definition of perspective, how perspective is formed, and why perspective is important in treatment. Client discussed that past experiences and age can influence one?s perspective. Client along with group members came up with benefits of having a hopeful perspective for their mental health, which included feeling more encouraged, increased willingness to open up to peers, and reduced stress. Will continue in IOP to promote gains, increase overall functioning, and increase use of healthy coping skills. Narrative Note: []
--- NOTE | 2022-02-22 11:12 | BH.SGPN.GN ---
Behaviors/Verbalizations/Mental Status: []Pt alert and oriented, neatly dressed and groomed. Eye contact good. Motor activity appropriate. Speech within normal limits. Affect constricted, mood euthymic. Thoughts linear, logical, no signs of hallucinations or delusions. Client Response/Progress/Benefit: []Pt was attentive and contributed in larger group discussion. Pt completed strengths exploration worksheet. Pt able to acknowledge how these strengths are helping pt and can continue to help pt in mental health journey. Reflected on how his intelligence, social awareness, and wisdom have helped him adapt and grow in IOP. Pt wants to work on continuing to use his strengths after he leaves IOP this week. Benefited from identifying personal strengths and strategies for enhancing use of identified strengths. Pt to continue IOP tx to reinforce healthy coping skills and establish aftercare. Narrative Note: []
--- NOTE | 2022-02-24 10:12 | BH.SGPN.GN ---
Behaviors/Verbalizations/Mental Status: []Eye contact is good. Motor activity is appropriate. Appearance is casual and grooming tended to. Speech is Appropriate. Mood is euthymic, agitated. Affect is congruent. Thoughts are linear and logical. No evidence of psychosis Client Response/Progress/Benefit: []Client receptive of session, actively engaged throughout AEB taking notes and provided input and examples to discussion. Appeared to connect with group topic of cognitive distortions and the impact of thought patterns on mental health, coping behaviors, and relationships. Reflected that he personally tends to struggle with distortions of mental filter, all or nothing thinking, and overgeneralization. Shared examples of all or nothing thoughts he has had in the past. Client appeared to benefit from gaining insight on distorted thinking patterns and how this impacts overall mental health. Progress noted in client report of improved insight into his own distorted thinking patterns and ability to more actively challenge these. Will continue IOP tx to maintain mood stability, promote healthy coping, and prevent decompensation. Narrative Note: []
--- NOTE | 2022-02-24 11:15 | BH.SGPN.GN ---
Behaviors/Verbalizations/Mental Status: [] Eye contact is good. Motor activity is appropriate. Appearance is casual. Speech is Appropriate. Mood is euthymic however irritable at times. Affect is congruent. Thoughts are linear and logical. No evidence of psychosis. Client Response/Progress/Benefit: [] Pt was an active participant in the group activity which involved working with peers to answer questions related to psychoeducation on cognitive distortions. Questions were posed in the fashion of Jeopardy and the categories included; Identifying the Cognitive Distortion, Ways to reframe cognitive distortions, Examples of cognitive distortions, and other areas related to cognitive distortions. The was a fun and engaging way to help reinforce psychoeducation and to help client retain the information through examples and practicing. Pt was engaged in the game and with peers on collaborating to determine the answers. Benefited from rehearsing ways to challenge/reframe cognitive distortions and by gaining increased insight into examples/definitions of 10 most common cognitive distortions. Will continue in IOP to maintain gains, increase healthy coping, and prevent decompensation. Narrative Note: []
--- NOTE | 2022-02-24 12:46 | PCM.BH.PN_ITS ---
Progress Note Progress Note: And history of Present Illness/Interim History: Patient is a 31-year-old male who is seen in follow-up at the [facility] behavioral health IOP program. He has a history of bipolar disorder, polysubstance abuse, anxiety and was last seen 2 weeks ago. The patient reports that he feels his mood has been improving. He feels his mood is getting a little more stable. He still has some racing thoughts and anxiety which gets worse at night. His sleep is usually around 9 hours a night and has been only 7 or 8 hours lately but he feels this might be related to his anxiety. He reports that he still has some delusions about conspiracies almost daily but he feels that since increasing the dose of his Geodon from 40 mg to a total of 80 mg daily 1 week ago he feels the delusions are lasting less than an hour at a time and this only happening about once a day. He feels that in the past few days he is able to rationalize with himself without outside help or reassurance from others to resolve these delusional thoughts. He denies any symptoms of jessica. He denies side effects on Geodon but felt he was mildly activated when he first started the 40 mg. He has some difficulty finding words lately and mild mental cloudiness but wants to stay on his Lamictal at the current dose when I offered to allow him to decrease to 150 mg total daily. He still has occasional passive thoughts that he would not care if he . He denies suicidal ideation, plan for suicide, homicidal ideation, thoughts of self-harm, jessica symptoms or hallucinations. Current Psychiatric Medications: [] Geodon 40 mg p.o. twice daily (x2 weeks now at 80 mg total); Lamictal 100 mg p.o. twice daily; lithium carbonate ER 300 mg p.o. q. every morning and 600 mg p.o. every night; Wellbutrin XL 300 mg p.o. every morning; hydroxyzine 10 to 30 mg p.o. as needed Mental Status Examination: [] Patient is a 31-year-old male who appears normal for stated age and is casually dressed and groomed with good hygiene. He is ambulatory with a normal gait and alert and oriented to person place and time. He is cooperative and pleasant during the interview and has no psychomotor agitation or retardation. Eye contact is good. Speech is normal rate and rhythm and fluent with no pressure. Mood is euthymic. Affect is full and normal. Thought process is goal-directed and organized. Thought content: There is occasional thoughts of which are passive. There is no evidence of suicidal ideation, plan for suicide, homicidal ideation or hallucinations. There is evidence of delusions that are related to conspiracies such as the government spying on him which has been a longstanding delusion/fixed belief that waxes and wanes. These are improving slowly and he is able to rationalize his way through them now. Reality testing is intact. Impulsivity is mild to moderate. Insight is good. Diagnoses: [] 1. Bipolar 1 disorder, most recent episode jessica, mild with rapid cycling (F31.11) 2. Neurosyphilis: Treated and patient was told that he is cured 3. Generalized anxiety disorder 4. ADHD 5. Polysubstance abuse disorder with complete remission for over 8 months 6. Primary support issues, work and health issues Plan: [] The patient will continue the IOP program at [facility] as the structure, support, education and group therapy will hopefully prevent worsening of the patient's symptoms. He felt safe during the interview and if it anytime he does not feel safe he will let us know or go to the emergency room. The risks, options, possible complications and side effects of the medications were discussed with the patient and he understands and accepts these. The patient agrees that he can try taking his Geodon 80 mg p.o. at bedtime or at dinner with food. 80 mg at bedtime may help with his sleep. The rest of his medication regimen remains unchanged. He will continue to follow-up with his outpatient provider and I will see the patient in follow-up while he is in the IOP program.
--- NOTE | 2022-02-26 09:10 | BH.SGPN.GN ---
Behaviors/Verbalizations/Mental Status: [] Eye contact is good. Motor activity is appropriate. Appearance is casual. Speech is Appropriate. Mood is euthymic. Affect is full. Thoughts are linear and logical. No evidence of psychosis. Reviewed daily check in sheet and no reports of suicidal ideations or intent. Client Response/Progress/Benefit: [] Pt was an active participant in group discussions. Attentive during video and discussion on education on CBT. Shared with the group that today is her last day in [facility]. Mental health win was that he ?met with his new psychiatrist yesterday?. States that the meeting went will and he feels confident in his aftercare plans. States he ?got a lot our of [facility]?. The group/topic that was most beneficial for him was cognitive distortions. Emotion for today is ?content?. He talked briefly about his progress while in [facility]. Benefited from group support, encouragement, and feedback. Will be discharge from [facility] today. Narrative Note: []
--- NOTE | 2022-02-26 11:15 | BH.SGPN.GN ---
Behaviors/Verbalizations/Mental Status: [] Client alert and oriented, casually dressed and groomed. Eye contact good. Motor activity appropriate. Speech within normal limits. Affect congruent, mood euthymic. Thoughts linear, logical, no signs of hallucinations or delusions. Client Response/Progress/Benefit: [] Client receptive of session, engaged throughout AEB client actively listening and actively contributing to discussion, as well as taking notes. Client participated in the experiential activity and did well to communicate ideas with peers and manage emotions. Client attentive as group processed how the emotions and perspective of the group impacted the activity. Group worked together to identify different coping skills to help manage pitfalls. Client identified pitfall they struggle with is getting irritable easily. Client plans to work on the pitfall by taking breaks when emotions get elevated and utilizing breathing techniques. Benefited from identifying personal pitfalls and strategies to overcome these pitfalls. Client successfully completed IOP and will be getting discharged today from program. Narrative Note: []
--- NOTE | 2022-02-26 11:47 | BH.DS ---
Discharge Summary - Demographics Date of Admission:: 03/06/22 Discharge Date: 02/26/22 Presenting Problems at Admission:: Pt is a 31 year old male with hx of Bipolar and Polysubstance Use D/O. No hx of psychiatric admissions. Referred to IOP by his outpatient therapist at substance abuse IOP at [facility]. Recently completed IOP and has been sober since 07/2020. States my therapist referred me to mental health IOP due to my depression. Pt was recently diagnosed with Bipolar in 05/2020 after jessica with psychosis for several months. Reports that he was self-medication his erratic moods with various drugs including benzos, weed, and stimulants. Pt would spend excessively during jessica and is currently in $55,000 worth of debt. Hypersexuality during jessica as well and was recently on ICU for neurosyphilis. According to pt the physician thinks that is what triggered the psychosis. Pt believes long-standing Bipolar however never diagnosed due to his drug abuse. While manic would drive to random places and far distances. Police arrested him in [facility] for drug possession I have no recollection of that. Currently in a depressive episode for the past several months. Endorses increased sleep (12-13 hours), low energy, low motivation, isolation, avoidance, worthlessness, hopelessness, and apathy. Denies active SI, plan, or intent. No hx of attempts. Endorses survival ambivalence. Restlessness. Always on edge. Family hx of depression and anxiety and possible Bipolar (grandfather). Has not worked for several months due to mental health. Denies HI or psychosis. Discharge Diagnoses:: Bipolar 1 disorder, most recent episode jessica, mild with rapid cycling (F31.11) Reason for Discharge:: Pt completed treatment plan goals and not longer meets criteria for IOP level of care. - Treatment Progress During Treatment & Response: Pt was consistent and engaged throughout [facility] level of care. Pt did not miss a single IOP session. Based on pt's discharge scores on the DSM-5 cross cutting scales he had a 71% reduction in overall symptoms. Scores indicate a 80% reduction on the depression domain, 50% reduction on the anger domain, a 100% reduction on the jessica domain, and a 78% reduction on the anxiety domain. Pt self-reports stable mood for the past 3 weeks. Medication compliant. Remains sober and just celebrated 10 months clean. Reports increased education and awareness on Bipolar, its symptoms, and warning signs. He has been consistently tracking his mood and is able to identify triggers to mood changes as well as strategies to cope or improve mood. Overall increased awareness of his moods and healthy coping skills. Pt really identified with CBT and cognitive distortions as he is able to recognize when he is exhibiting cognitive distortions and can implement thought re-framing skills. Issues Still to be Addressed:: Pt would benefit from continued counseling to maintain gains and prevent decompensation. Areas to be addressed include; emotional regulation, relapse prevention, depression, and irrational thoughts. Discharge Recommendations/Instructions:: Pt had initial meeting with outpatient psychiatrist Dr. Emery ([facility]) on 02/25/22. Follow up appointment set for 03/15/22. Pt plans to complete a walk-in assessment at [facility] next week in order to obtain a dual diagnosis outpatient therapist. He plans on participating in after group here at [facility] as well which will start on 03/04/22. Discharge Handout: Complete Discharge Handout with client on aftercare options and continuity of care.
--- NOTE | 2022-02-26 14:07 | BH.MDN ---
Multi-Disciplinary Note - Note 30-min Individual Time Started:: 10:30 Date: 02/26/22 Purpose of session/treatment goals addressed:: Reviewed discharge outcomes scores and finalized aftercare plan. Eye Contact:: Good Motor Activity:: Appropriate Appearance:: Casual Speech:: Appropriate Mood:: Euthymic Affect:: Full, Bright Thoughts:: Logical, No evidence of hallucinations/delusions noted Client Response:: Pt is scheduled to be discharged from [facility] today. Met and reviewed DSM-5 outcomes scores (refer below). Pt continues to report mood stability of the last 10-14 days. Admits to occasional irrational/delusional thoughts however feels confident he can control/reframe these thoughts. He reports that he gained a lot from IOP. He continues to track his mood and discussed the benefits. He shared that progress that he has made since 05/2021 regarding his addiction, mental health, and acceptance of Bipolar dx. Risks/Concerns:: no risks or concerns noted. Progress Toward Goals/Plan:: Pt was consistent and engaged throughout [facility] level of care. Pt did not miss a single IOP session. Based on pt's discharge scores on the DSM-5 cross cutting scales he had a 71% reduction in overall symptoms. Scores indicate a 80% reduction on the depression domain, 50% reduction on the anger domain, a 100% reduction on the jessica domain, and a 78% reduction on the anxiety domain. Pt self-reports stable mood for the past 3 weeks. Medication compliant. Remains sober and just celebrated 10 months clean. Reports increased education and awareness on Bipolar, its symptoms, and warning signs. He has been consistently tracking his mood and is able to identify triggers to mood changes as well as strategies to cope or improve mood. Overall increased awareness of his moods and healthy coping skills. Pt really identified with CBT and cognitive distortions as he is able to recognize when he is exhibiting cognitive distortions and can implement thought re-framing skills. Pt had initial meeting with outpatient psychiatrist Dr. Emery ([facility]) on 02/25/22. Follow up appointment set for 03/15/22. Pt plans to complete a walk-in assessment at [facility] next week in order to obtain a dual diagnosis outpatient therapist. He plans on participating in after group here at [facility] as well which will start on 03/04/22. Time Stopped:: 11:00
== END 2022-02-26 12:23 | disposition home or self-care (01) ==
LOC: BHIOP 08:08
PROVIDERS: PCP Nurse Practitioner Primary Care; Referring Provider Psychiatry & Neurology Psychiatry; Visit Provider Psychiatry & Neurology Psychiatry
DX: F31.11 Bipolar disorder, current episode manic without psychotic features, mild (principal)
CPT/HCPCS: 99213; H2012; H2020; S9480; 90832

== ENCOUNTER 2022-03-04 08:00 | Outpatient (RCR) | payer MEDICAID, SELFPAY ==
--- NOTE | 2022-03-04 08:29 | BH.MTP ---
Master Treatment Plan - Patient Information Program Physician:: Dr. Analia Rdz Primary Therapist:: SAURABH Vallejo - Psychiatric Diagnoses Psychiatric Diagnoses:: Bipolar 1 disorder, most recent episode jessica, mild with rapid cycling (F31.11) Diagnosis Code(s):: F31.11 - Estimated LOS Estimated LOS (in weeks):: 8 Problem/Goal #1 - Problem/Goal #1 Stated Goal:: Client will maintain or see a reduction in symptoms AEB client score on the DSM 5 cross-cutting measure and improve client's daily functioning. - Objectives Objective #1 Stated Objective: Client will continue to consistently apply healthy coping skills to maintain progress made in IOP tx. Interventions: Through group therapy, client will review warning signs and triggers as well as healthy coping skills learned in IOP tx to successfully maintain gains while transitioning into outpatient therapy. Discharge Criteria: Client will have accomplished this goal when client's score on the DSM-5 cross-cutting measure has maintained or reduced over a 8 week period. Target Date: 04/29/22 Review Date: 04/01/22 Objective #2 Stated Objective: Client will learn and utilize 2-3 maintenance strategies to prevent decompensation from original IOP DSM-5 scores. Interventions: Through group therapy, client will be provided with education on healthy maintenance behaviors, relapse prevention techniques, and healthy coping strategies. Discharge Criteria: Client will have accomplished this goal when can report using at least 2 maintenance skills to prevent decompensation compared to original IOP DSM-5 scores Target Date: 04/29/22 Review Date: 04/01/22
--- NOTE | 2022-03-04 14:00 | BH.COMM ---
Communication Note - Communication with Client Communication Note: Presented completed IOP and presents today to starting relapse prevention group which meets once weekly (1.5 hours) for 10 weeks. Case discussed with Dr. Rdz with plan to admit with dx of F31.11
--- NOTE | 2022-03-04 14:00 | BH.SGPN.GN ---
Behaviors/Verbalizations/Mental Status: []Pt alert and oriented, casually dressed and groomed. Eye contact good. Motor activity appropriate. Speech within normal limits. Affect congruent, mood euthymic. Thoughts linear, logical, no signs of hallucinations or delusions. Client Response/Progress/Benefit: []Pt receptive of session, engaged throughout. Pt shared they have been taking their medications and maintaining appointments with her outpatient mental health providers. Pt reports using opposite action and deep breathing to cope with stressors and negative thinking. Receptive of discussion on sitting with the uncomfortable and emotional urges. Pt contributed to the discussion of distress tolerance including benefits and pt identified personal examples of what happens if their distress tolerance is low. Pt shared to improve distress tolerance, pt is going to work on being home alone to help pt sit with the uncomfortable. Pt seemed to benefit from support from peers and increasing understanding of distress tolerance. Will continue IOP aftercare to reinforce healthy coping skills and maintain gains. ? Narrative Note: []
== END 2022-03-17 23:59 ==
LOC: BHOG 08:00
PROVIDERS: PCP Nurse Practitioner Primary Care; Referring Provider Psychiatry & Neurology Psychiatry; Visit Provider Psychiatry & Neurology Psychiatry
DX: F31.11 Bipolar disorder, current episode manic without psychotic features, mild (principal)
CPT/HCPCS: 90853

== ENCOUNTER 2022-03-18 08:18 | Outpatient (RCR) | payer MEDICAID, SELFPAY ==
--- NOTE | 2022-03-18 14:00 | BH.SGPN.GN ---
Behaviors/Verbalizations/Mental Status: []Client alert and oriented, casually dressed and groomed. Eye contact good. Motor activity appropriate. Speech within normal limits. Affect congruent, mood dysthymic, sad. Thoughts linear, logical, no signs of hallucinations or delusions. Client Response/Progress/Benefit: []Receptive of session, reports feeling ?sad? today as a grief anniversary date is coming up. Did well to identify skills he has been using to help cope with this stressor, which included: opposite action, communicating with supports, and consistent positive self-talk to keep his mental health in a positive place. Attentive during discussion of vulnerability and benefits of practicing vulnerability. Shared being vulnerable has not been easy for him in the past, as he has previously felt misunderstood by others. Group discussed ways we avoid feeling vulnerable and how this negatively affects mental health and relationships. Appeared to benefit from group support and discussion reflecting on the positive impact vulnerability can have on mental health. Shared he could try to talk to support people about his grief and anxiety surrounding it to practice being vulnerable in the next week. Will continue IOP aftercare to promote gains and reinforce healthy coping skills. Narrative Note: []
--- NOTE | 2022-03-25 14:00 | BH.SGPN.GN ---
Behaviors/Verbalizations/Mental Status: []Pt alert and oriented, casually dressed and groomed. Eye contact good. Motor activity appropriate. Speech within normal limits. Affect congruent, mood anxious and depressed Thoughts linear, logical, no signs of hallucinations or delusions. Client Response/Progress/Benefit: []Pt responded well to session AEB sharing and listening attentively to others. Pt has been consistent with his outpatient mental health providers and medications. Pt reports he had a recent medication change because he was feeling more depressed and paranoid. Pt continues to practice opposite action to prevent further decompensation and he started exercising again. Pt participated in group discussion defining affirmations and why they are important. Pt provided insight throughout clinician?s presentation of tips for writing personal affirmations. Pt wrote own affirmations, including ?I am not my feelings.? Pt was initially against affirmations, but after session pt shared a more open mind. Pt appeared to benefit from increased knowledge of affirmation writing and increased self-awareness. Will continue aftercare treatment to reinforce healthy coping skills and promote gains. ? Narrative Note: []
--- NOTE | 2022-04-01 14:00 | BH.SGPN.GN ---
Behaviors/Verbalizations/Mental Status: []Pt alert and oriented, neatly dressed and groomed. Eye contact good. Motor activity appropriate. Speech within normal limits. Affect congruent, mood slightly depressed-less than last week. Thoughts linear, logical, no signs of hallucinations or delusions. Client Response/Progress/Benefit: []Pt responded well to session, Pt reports following through with outpatient counseling, medication compliance, and seeing his psychiatrist. Pt reports his recent medication change has been helpful. Pt shared his mood is improving from last week and that he has been using grounding and opposite action. Pt engaged well during the discussion of the components of self-compassion. Pt connected with the benefits of self-compassion and participated in the activity of reframing a recent setback using self-compassion. Pt used self-compassion to combat negative self-talk pt was using because of his recent depressive episode.?Pt appeared to benefit from practicing self-compassion and connecting with peers. Will continue aftercare to promote mood stability and reinforce healthy coping skills.? Narrative Note: []
--- NOTE | 2022-04-08 08:22 | BH.MTP_ITS ---
Treatment Plan Review Date of Admission:: 03/04/22 Date of Treatment Plan Review:: 04/08/22 Admitting Diagnoses:: Bipolar 1 disorder, most recent episode jessica, mild with rapid cycling (F31.11) Current Diagnoses:: Bipolar 1 disorder, most recent episode jessica, mild with r apid cycling (F31.11) Patient's Response to Treatment:: Pt responding well to treatment AEB pt's consistent attendance, active engagement in group discussions, follow up with outpatient providers, and reporting use of skills outside treatment environment. Pt utilizes IOP aftercare to process current stressors, practice accountability and acceptance, continue to work on self-care, and identify additional coping strategies. Status of Current Problems and Symptoms: Ongoing stressors include maintaining progress made in IOP, stress with continuing to struggle with acceptance of his mental health, recent trauma triggers/anniversary dates, as well as self- reported paranoia associated with recently resolved legal issues. Pt self- reports he has moments of negative thinking and depression, but it is still manageable. Problem #1 Problem Name:: Pt will maintain or decrease symptoms from IOP admission data. Status of Goals:: Obj 1 - complete with ongoing work encouraged- Pt has been able to maintain gains made in IOP as pt?s DSM-5 scores are 42% lower than they were at IOP admission. 75% decrease in irritability symptoms and 22% decrease in anxiety when compared to IOP admission scores. Obj 2 - complete with ongoing work encouraged. Pt has been consistently reporting self-care, thought challenging, and using healthy coping skills. Team Recommendations:: Recommended client continue IOP aftercare group to show maintenance of progress. Will continue to encourage client to attend regular outpatient counseling and psychiatry appointments as well.
--- NOTE | 2022-04-15 14:00 | BH.SGPN.GN ---
Behaviors/Verbalizations/Mental Status: []Pt alert and oriented, neatly dressed and groomed. Eye contact good. Motor activity appropriate. Speech within normal limits. Affect congruent, mood worried. Thoughts linear, logical, no signs of hallucinations or delusions. Client Response/Progress/Benefit: []Pt receptive of session, engaged throughout. Pt reports he has not met with a therapist or psychiatrist this week, but he has been taking his medications consistently. Pt shared his mood is beginning to lift and he is a little less paranoid on this new medication. Pt has been reality testing, distracting himself, practicing gratitude, and using opposite action lately. Receptive of discussion on personal accountability and its importance in maintaining mental health stability. Pt worked cooperatively with group to identify benefits of maintaining personal accountability. Engaged in brainstorming strategies for improving ability to hold themselves accountable. Reported wanting to work on sleeping less and waking up earlier. Pt will hold himself accountable by scheduling plans with his mother in the mornings. Pt seemed to benefit from support from peers and increasing understanding of personal accountability benefits and strategies. Will continue IOP aftercare group to maintain gains and prevent decompensation. Narrative Note: []
== END 2022-04-17 23:59 ==
LOC: BHOG 08:18
PROVIDERS: PCP Nurse Practitioner Primary Care; Referring Provider Psychiatry & Neurology Psychiatry; Visit Provider Psychiatry & Neurology Psychiatry
DX: F31.11 Bipolar disorder, current episode manic without psychotic features, mild (principal)
CPT/HCPCS: 90853

== ENCOUNTER 2022-04-20 07:26 | Outpatient (RCR) | payer MEDICAID, SELFPAY ==
--- NOTE | 2022-04-22 14:00 | BH.SGPN.GN ---
Behaviors/Verbalizations/Mental Status: []Client alert and oriented, casual in appearance. Eye contact good.? Motor activity appropriate. Speech within normal limits. Affect congruent. Mood anxious and euthymic. Thoughts linear, logical, no signs of hallucinations or delusions Client Response/Progress/Benefit: []Pt responded well to session AEB providing input throughout and listening attentively to others. Pt reported he has been meeting with his outpatient counselor and has a psychiatry appointment scheduled for next week. He is taking his medications as prescribed, though is concerned they are causing increased fatigue and will address this at next appointment. Identified using thought challenging to help with mental health maintenance over the past week. Pt connected with self-reflection discussion and activity. Worked with group to identify the benefits of self-reflection. Seemed to benefit from identifying how to incorporate self-reflection more consistently into daily living. Identified a self-reflection goal of completing daily mood tracker and bipolar workbook. Pt to continue aftercare to maintain gains and prevent decompensation. Narrative Note: []
--- NOTE | 2022-05-06 08:48 | BH.DS_ITS ---
Discharge Summary - Demographics Date of Admission:: 03/04/22 Discharge Date: 05/06/22 Presenting Problems at Admission:: Client discharged from IOP tx and transitioned to IOP aftercare to maintain gains client made in IOP and to reinforce healthy coping skills. At admission to [facility] aftercare, client reported experiencing mild symptoms of anxiety and depression. Client was reporting ongoing issues with prioritizing self-care, managing intrusive thoughts/paranoia sx, and consistently managing trauma related triggers. Ongoing difficulties in maintaining consistent with depression management skills as well as challenging distorted thought patterns. Discharge Diagnoses:: Bipolar 1 disorder, most recent episode jessica, mild with rapid cycling (F31.11) Reason for Discharge:: Pt successfully completed the length of aftercare tx and has been able to achieve all aftercare tx goals, will continue with outpatient counseling and psychiatry. - Treatment Progress During Treatment & Response: Pt did well with attendance and engagement. Pt contributed well during individual sessions and group discussions, often providing insight and supportive feedback. Pt was able to challenge negative thinking more easily than before and pt reported increased consistency with their ability to manage anxiety and depression related sx which is progress. Issues Still to be Addressed:: Intrusive thoughts and paranoia, negative self- talk, ruminations, difficulty setting boundaries and communicating needs, and preventing relapse on unhealthy coping skills/substance use. Discharge Recommendations/Instructions:: Pt will continue meeting with outpatient psychiatrist Dr. Emery ([facility]). Pt plans to continue working with a therapist at [facility] for dual diagnosis tx. Discharge Handout: Complete Discharge Handout with client on aftercare options and continuity of care.
--- NOTE | 2022-05-06 14:00 | BH.SGPN.GN ---
Behaviors/Verbalizations/Mental Status: []Client alert and oriented, casually dressed and groomed. Eye contact good. Motor activity appropriate. Speech within normal limits. Affect congruent, mood anxious and euthymic. Thoughts linear, logical, no signs of hallucinations or delusions. Client Response/Progress/Benefit: []Pt receptive of session, engaged throughout. Pt completed the aftercare self-reflection worksheet sharing they see their therapist in the next 2 weeks and psychiatrist again in June, they are taking medications as prescribed, and have been using opposite action, healthy distraction, and journaling as healthy coping skills. Receptive of discussion on healthy habits and habit formation, as well its importance in maintaining mental health stability. Pt worked cooperatively with group to identify benefits of developing and maintaining healthy habits. Engaged in brainstorming strategies for identifying and changing unhealthy habit patterns. Reported he wants to work on challenging a current unhealthy habit of going back to sleep when his alarm goes off with getting out of bed right away to prevent falling back asleep. Pt seemed to benefit from support from peers and increasing understanding of healthy habit formation benefits and strategies. Will d/c from aftercare today and continue outpatient tx to maintain gains and prevent decompensation. Narrative Note: []
== END 2022-05-07 07:03 | disposition home or self-care (01) ==
LOC: BHOG 07:26
PROVIDERS: PCP Nurse Practitioner Primary Care; Referring Provider Psychiatry & Neurology Psychiatry; Visit Provider Psychiatry & Neurology Psychiatry
DX: F31.11 Bipolar disorder, current episode manic without psychotic features, mild (principal)
CPT/HCPCS: 90853

== ENCOUNTER → 2022-06-10 | Outpatient (CLI) | payer MEDICAID, SELFPAY ==
[2022-06-10 13:36] LABS: Hemoglobin A1c 5.1 % (3.8-5.6)
[2022-06-10 13:54] LABS: ALB/GLOB Ratio 1.2 RATIO (0.9-2.4); AST(SGOT) 27 U/L (15-37); Alanine Aminotransfer ALT/SGPT 81 U/L (16-61); Albumin, Serum 4.1 g/dL (3.2-5.0); Alkaline Phosphatase 56 U/L (45-117); Anion Gap 4 (5-15); BUN 13 mg/dL (7-18); BUN/Creat Ratio 13.2 RATIO (10-20); Calcium,Total 9.3 mg/dL (8.5-10.1); Chloride 108 mmol/L (98-107); Cholesterol 166 mg/dL (200); Creatinine, Serum 0.99 mg/dL (0.70-1.30); EST Glomerular Filtration Rate 94 mL/min (>60); Est Glom Filt Rate - Afr Amer 114 mL/min (>60); Globulin 3.5 g/dL (2.2-4.2); Glucose 99 mg/dL (74-106); Potassium 4.3 mmol/L (3.5-5.1); Protein, Total 7.6 g/dL (6.4-8.2); Sodium Level 140 mmol/L (136-145)
== END | disposition home or self-care (01) ==
LOC: LAB 12:20
PROVIDERS: PCP Nurse Practitioner Primary Care; Referring Provider Student in an Organized Health Care Education/Training Program; Visit Provider Student in an Organized Health Care Education/Training Program
DX: F31.9 Bipolar disorder, unspecified (principal)
CPT/HCPCS: 36415; 80053; 80178; 82465; 83036

== ENCOUNTER → 2022-07-06 | Outpatient (CLI) | payer MEDICAID, SELFPAY | END | disposition home or self-care (01) | LOC: SL 20:20 | PROVIDERS: PCP Nurse Practitioner Primary Care; Visit Provider Student in an Organized Health Care Education/Training Program | DX: F31.9 Bipolar disorder, unspecified (principal); G47.10 Hypersomnia, unspecified | CPT/HCPCS: 95810 ==

== ENCOUNTER → 2022-07-28 | Outpatient (CLI) | payer MEDICAID, SELFPAY ==
[2022-07-28] MEDS: Zolpidem Tartrate 5 MG Tablet PO (20:55)
== END | disposition home or self-care (01) ==
LOC: SL 20:04
PROVIDERS: PCP Nurse Practitioner Primary Care; Referring Provider Nurse Practitioner Acute Care; Visit Provider Nurse Practitioner Acute Care
DX: G47.30 Sleep apnea, unspecified (principal)
CPT/HCPCS: 95811

== ENCOUNTER → 2022-08-19 | Outpatient (CLI) | payer MEDICAID, SELFPAY | END | disposition home or self-care (01) | LOC: SL 14:48 | PROVIDERS: PCP Nurse Practitioner Primary Care; Visit Provider Nurse Practitioner Acute Care | DX: Z00.00 Encounter for general adult medical examination without abnormal findings (principal) ==

== ENCOUNTER → 2022-12-01 | Outpatient (CLI) | payer MEDICAID, SELFPAY ==
[2022-12-01 12:56] LABS: AST(SGOT) 23 U/L (15-37); Alanine Aminotransfer ALT/SGPT 79 U/L (16-61); Cholesterol 155 mg/dL (200); High Density Lipoprotein 40 mg/dL; Triglycerides 223 mg/dL; Very Low Density Lipoprotein 45 mg/dL (5-40)
== END | disposition home or self-care (01) ==
PROVIDERS: PCP Nurse Practitioner Primary Care; Referring Provider Physician Assistant Medical; Visit Provider Physician Assistant Medical
DX: L70.0 Acne vulgaris (principal); L40.0 Psoriasis vulgaris; Z79.899 Other long term (current) drug therapy
CPT/HCPCS: 36415; 80061; 84450; 84460

== ENCOUNTER → 2022-12-30 | Outpatient (CLI) | payer MEDICAID, SELFPAY ==
[2022-12-30 13:05] LABS: Absolute Lymphocyte Count 3.31 X10^3/uL (0.83-4.51); Absolute Neutrophil Count 3.6 X10^3/uL (2.0-7.7); Basophil# 0.06 X10^3/uL; Basophil% 0.8 % (0-1); Eosinophil# 0.24 X10^3/uL; Eosinophils% 3.1 % (0-5); Hematocrit 46.6 % (40-54); Hemoglobin 15.3 g/dL (13.0-16.5); Lymphocyte # 3.31 X10^3/ul (0.83-4.51); Lymphocyte % 42.3 % (19-41); Mean Corp Hgb Conc 32.8 g/dL (32-36); Mean Corpuscular Hgb 27.8 pg (27.0-32.0); Mean Corpuscular Volume 84.7 fL (80-94); Mean Platelet Vol. 9.7 fl (6.2-12.0); Monocyte# 0.62 X10^3/uL; Monocyte% 7.9 % (0-10); NRBC Flagged by Analyzer 0 % (0-5); Neutrophil # 3.57 X10^3/uL (2.7-7.7); Neutrophil % 45.5 % (47-70); Platelet Count 287 K/mm3 (150-450); RBC Distribution Width SD 40.3 fl (35.1-43.9); White Blood Count 7.8 K/mm3 (4.4-11.0)
[2022-12-30 13:43] LABS: Anion Gap 4 (5-15); BUN 9 mg/dL (7-18); BUN/Creat Ratio 9.6 RATIO (10-20); Calcium,Total 8.9 mg/dL (8.5-10.1); Chloride 112 mmol/L (98-107); Creatinine, Serum 0.94 mg/dL (0.70-1.30); EST Glomerular Filtration Rate 100 mL/min (>60); Est Glom Filt Rate - Afr Amer 121 mL/min (>60); Free T3 2.8 pg/mL (2.18-3.98); Glucose 100 mg/dL (74-106); Potassium 4.1 mmol/L (3.5-5.1); Sodium Level 140 mmol/L (136-145); T4 Free Direct 1.08 ng/dL (0.76-1.46); Thyroid Stim Hormone (TSH) 4.19 uIU/mL (0.358-3.74)
[2022-12-30 14:09] LABS: HIV - WCH Non-Reactive (Nonreactive)
[2023-01-01 06:09] LABS: HEPATITIS B SURFACE AG Negative (Negative); Hep C Antibodies Non Reactive (Non Reactive); Hepatitis A AB, Total Negative (Negative); Hepatitis A IgM Antibody Negative (Negative); Hepatitis B Core AB IgM Negative (Negative)
== END | disposition home or self-care (01) ==
PROVIDERS: PCP Nurse Practitioner Primary Care; Referring Provider Student in an Organized Health Care Education/Training Program; Visit Provider Student in an Organized Health Care Education/Training Program
DX: A53.9 Syphilis, unspecified (principal); F31.9 Bipolar disorder, unspecified
CPT/HCPCS: 80048; 80074; 80178; 84439; 84443; 84481; 85025; 86703; 86708

== ENCOUNTER → 2023-02-07 | Outpatient (CLI) | payer MEDICAID, SELFPAY ==
[2023-02-07 11:19] LABS: AST(SGOT) 29 U/L (15-37); Alanine Aminotransfer ALT/SGPT 69 U/L (16-61); Cholesterol 160 mg/dL (200); High Density Lipoprotein 45 mg/dL; Triglycerides 220 mg/dL; Very Low Density Lipoprotein 44 mg/dL (5-40)
[2023-02-09 10:09] LABS: LDL, Direct 120295 94 mg/dL (0-99)
== END | disposition home or self-care (01) ==
LOC: LAB 10:25
PROVIDERS: PCP Nurse Practitioner Primary Care; Referring Provider Physician Assistant Medical; Visit Provider Physician Assistant Medical
DX: L70.0 Acne vulgaris (principal); L40.0 Psoriasis vulgaris; M12.9 Arthropathy, unspecified; Z79.899 Other long term (current) drug therapy
CPT/HCPCS: 36415; 80061; 83721; 84450; 84460

== ENCOUNTER → 2023-03-23 | Outpatient (CLI) | payer MEDICAID, SELFPAY ==
[2023-03-23 15:39] LABS: AST(SGOT) 39 U/L (15-37); Alanine Aminotransfer ALT/SGPT 105 U/L (16-61); Albumin, Serum 4.1 g/dL (3.2-5.0); Alkaline Phosphatase 81 U/L (45-117); Bilirubin, Direct 0.13 mg/dL (0.00-0.30); Cholesterol 168 mg/dL (200); Globulin 3.9 g/dL (2.2-4.2); High Density Lipoprotein 45 mg/dL; Triglycerides 347 mg/dL; Very Low Density Lipoprotein 69 mg/dL (5-40)
== END | disposition home or self-care (01) ==
LOC: MTLAB 12:41
PROVIDERS: PCP Nurse Practitioner Primary Care; Referring Provider Physician Assistant Medical; Visit Provider Physician Assistant Medical
DX: L70.0 Acne vulgaris (principal); L40.0 Psoriasis vulgaris; L85.8 Other specified epidermal thickening; M12.9 Arthropathy, unspecified; Z79.899 Other long term (current) drug therapy
CPT/HCPCS: 36415; 80061; 80076

== ENCOUNTER → 2023-04-25 | Outpatient (CLI) | payer MEDICAID, SELFPAY ==
[2023-04-25 16:16] LABS: AST(SGOT) 42 U/L (15-37); Alanine Aminotransfer ALT/SGPT 96 U/L (16-61); Cholesterol 166 mg/dL (200); High Density Lipoprotein 48 mg/dL; Triglycerides 229 mg/dL; Very Low Density Lipoprotein 46 mg/dL (5-40)
== END | disposition home or self-care (01) ==
LOC: MTLAB 13:12
PROVIDERS: PCP Nurse Practitioner Primary Care; Referring Provider Physician Assistant Medical; Visit Provider Physician Assistant Medical
DX: L70.0 Acne vulgaris (principal)
CPT/HCPCS: 36415; 80061; 84450; 84460

== ENCOUNTER → 2023-07-04 | Outpatient (CLI) | payer MEDICAID, SELFPAY | END | disposition home or self-care (01) | PROVIDERS: PCP Nurse Practitioner Primary Care; Referring Provider Student in an Organized Health Care Education/Training Program; Visit Provider Student in an Organized Health Care Education/Training Program | DX: F31.9 Bipolar disorder, unspecified (principal) | CPT/HCPCS: 36415; 80178 ==

== ENCOUNTER → 2023-09-02 | Outpatient (CLI) | payer MEDICAID, SELFPAY ==
[2023-09-02 16:16] LABS: Absolute Neutrophil Count 2.8 X10^3/uL (2.0-7.7); Basophil# 0.07 X10^3/uL; Basophil% 1.1 % (0-1); Eosinophil# 0.12 X10^3/uL; Eosinophils% 1.9 % (0-5); Hematocrit 44.7 % (40-54); Hemoglobin 14.4 g/dL (13.0-16.5); Lymphocyte % 44.7 % (19-41); Mean Corp Hgb Conc 32.2 g/dL (32-36); Mean Corpuscular Hgb 27.2 pg (27.0-32.0); Mean Corpuscular Volume 84.5 fL (80-94); Mean Platelet Vol. 9.8 fl (6.2-12.0); NRBC Flagged by Analyzer 0 % (0-5); Neutrophil # 2.75 X10^3/uL (2.7-7.7); Platelet Count 285 K/mm3 (150-450); RBC Distribution Width CV 13.1 % (11.6-14.6); RBC Distribution Width SD 40.4 fl (35.1-43.9); Red Blood Count 5.29 M/mm3 (4.6-6.2); White Blood Count 6.3 K/mm3 (4.4-11.0)
[2023-09-02 16:24] LABS: ALB/GLOB Ratio 1.1 RATIO (0.9-2.4); AST(SGOT) 34 U/L (15-37); Alanine Aminotransfer ALT/SGPT 88 U/L (16-61); Albumin, Serum 4.1 g/dL (3.2-5.0); Alkaline Phosphatase 77 U/L (45-117); Anion Gap 5 (5-15); BUN 10 mg/dL (7-18); BUN/Creat Ratio 10.2 RATIO (10-20); Calcium,Total 9.4 mg/dL (8.5-10.1); Chloride 108 mmol/L (98-107); Creatinine, Serum 0.98 mg/dL (0.70-1.30); EST Glomerular Filtration Rate 94 mL/min (>60); Est Glom Filt Rate - Afr Amer 114 mL/min (>60); Globulin 3.7 g/dL (2.2-4.2); Glucose 110 mg/dL (74-106); Potassium 4.1 mmol/L (3.5-5.1); Protein, Total 7.8 g/dL (6.4-8.2); Sodium Level 139 mmol/L (136-145)
[2023-09-02 16:58] LABS: HIV - WCH Non-Reactive (Nonreactive); Hepatitis B Surface Antibody Reactive; Syphilis Antibodies Reactive
[2023-09-04 11:07] LABS: HEPATITIS B SURFACE AG Negative (Negative); Hep C Antibodies Non Reactive (Non Reactive); Hepatitis A AB, Total Negative (Negative); Hepatitis A IgM Antibody Negative (Negative); Hepatitis B Core AB IgM Negative (Negative)
== END | disposition home or self-care (01) ==
LOC: MTLAB 11:19
PROVIDERS: PCP Nurse Practitioner Primary Care; Referring Provider Student in an Organized Health Care Education/Training Program; Visit Provider Student in an Organized Health Care Education/Training Program
DX: A53.9 Syphilis, unspecified (principal)
CPT/HCPCS: 36415; 80053; 80074; 80178; 85025; 86703; 86706; 86708; 86780

== ENCOUNTER → 2023-12-21 | Outpatient (CLI) | payer MEDICAID, SELFPAY ==
[2023-12-21 12:59] LABS: Hematocrit 46.4 % (40-54); Hemoglobin 15.3 g/dL (13.0-16.5); Mean Corpuscular Hgb 27.7 pg (27.0-32.0); Mean Corpuscular Volume 84.1 fL (80-94); Platelet Count 287 K/mm3 (150-450); RBC Distribution Width SD 39.8 fl (35.1-43.9); Red Blood Count 5.52 M/mm3 (4.6-6.2); White Blood Count 6.9 K/mm3 (4.4-11.0)
[2023-12-21 13:40] LABS: ALB/GLOB Ratio 1.1 RATIO (0.9-2.4); AST(SGOT) 42 U/L (15-37); Alanine Aminotransfer ALT/SGPT 83 U/L (16-61); Albumin, Serum 4.1 g/dL (3.2-5.0); Alkaline Phosphatase 81 U/L (45-117); Anion Gap 7 (5-15); BUN 7 mg/dL (7-18); BUN/Creat Ratio 6.9 RATIO (10-20); Calcium,Total 9.5 mg/dL (8.5-10.1); Chloride 108 mmol/L (98-107); Creatinine, Serum 1.02 mg/dL (0.70-1.30); EST Glomerular Filtration Rate 90 mL/min (>60); Est Glom Filt Rate - Afr Amer 109 mL/min (>60); Globulin 3.9 g/dL (2.2-4.2); Glucose 101 mg/dL (74-106); Potassium 4.1 mmol/L (3.5-5.1); Rheumatoid Factor < 10.0 IU/mL (<15); Sodium Level 139 mmol/L (136-145); T4 Free Direct 1.01 ng/dL (0.76-1.46)
[2023-12-23 14:09] LABS: ANTINUCLEAR ANTIBODIES DIRECT Negative (Negative)
== END | disposition home or self-care (01) ==
LOC: LAB 11:58
PROVIDERS: PCP Nurse Practitioner Primary Care; Referring Provider Nurse Practitioner Primary Care; Visit Provider Nurse Practitioner Primary Care
DX: M79.89 Other specified soft tissue disorders (principal)
CPT/HCPCS: 36415; 80053; 84439; 84443; 85027; 86038; 86431

== ENCOUNTER → 2024-04-09 | Outpatient (CLI) | payer MEDICAID, SELFPAY ==
[2024-04-13 14:07] LABS: Lamotrigine (Lamictal) Level 3.7 ug/mL (2.0-20.0)
== END | disposition home or self-care (01) ==
PROVIDERS: PCP Nurse Practitioner Primary Care; Referring Provider Student in an Organized Health Care Education/Training Program; Visit Provider Student in an Organized Health Care Education/Training Program
DX: F31.9 Bipolar disorder, unspecified (principal); Z51.81 Encounter for therapeutic drug level monitoring
CPT/HCPCS: 36415; 80178; 82542

== ENCOUNTER → 2024-05-08 | Outpatient (CLI) | payer MEDICAID, SELFPAY | END | disposition home or self-care (01) | LOC: SL 12:05 | PROVIDERS: PCP Nurse Practitioner Primary Care; Referring Provider Nurse Practitioner Family; Visit Provider Nurse Practitioner Family | DX: G47.33 Obstructive sleep apnea (adult) (pediatric) (principal) | CPT/HCPCS: 95806 ==

== ENCOUNTER → 2024-10-26 | Outpatient (CLI) | payer MEDICAID, SELFPAY ==
[2024-10-26 13:18] LABS: Lithium 0.71 mmol/L (0.60-1.20)
== END | disposition home or self-care (01) ==
LOC: MTLAB 10:31
PROVIDERS: PCP Nurse Practitioner Primary Care; Referring Provider Student in an Organized Health Care Education/Training Program; Visit Provider Student in an Organized Health Care Education/Training Program
DX: Z51.81 Encounter for therapeutic drug level monitoring (principal)
CPT/HCPCS: 36415; 80178

== ENCOUNTER → 2025-03-12 | Outpatient (CLI) | payer MEDICAID, SELFPAY ==
--- OUTSIDE RECORDS SUMMARY | 2025-03-12 10:53 | XMS RPT_ITS | CCD ---
Author Organization [facility] Inform ion Partnership [facility] Care Team Providers Care Protection [employer] Name Role Phone LARISSA VALLEJO DO Primary Care Physician [phone] Unavailable Primary Care Provider Unavailheather e PHILIP COMMERCIAL LOAN ANALYST-ZOOLOGY TECHNICAL OFFICER, SARAH Scott Primary Care Physicia n PHILIP [place]O, [place]. ORTIZ S Primary Care Ethan ROSS APRN-ZOOLOGY TECHNICAL OFFICER, IVETTE Attending Unavailable PHILIP [place], [place]. ORTIZ S Attending LARISSA Goldberg DO Primary Care Unavailable PHILIP [place]O, MS. ORTIZ S Primary Care Unavai lable ENCHENMANN [employer] LOAN ANALYST-ZOOLOGY TECHNICAL OFFICER, IVETTE Attending Unavailable PHILIP ZOOLOGY TECHNICAL OFFICER, MS. ORTIZ S Primary Care Unavai lable KILCHENMANN [employer]ERCIAL LOAN ANALYST-ZOOLOGY TECHNICAL OFFICER, IVETTE Attending Unavailable PHILIP CHAYO, MS. ORTIZ S Primary Care Ethan JAMES MD, BULMARO PATRICK Consulting Unavailable JACK CARRASCO, . LIBBY Good Admitting Unavail magdiel SANTIAGO MD., MD. LIBBY Good Attending Unavail able PHILIP DOMINGO, MS. SARAH Chavez Attending Ethan VALLEJO DO LARISSA Primary Care Unavailable PHILIP DOMINGO, MS. ORTIZ S Primary Care BULMARO Ingram MD, BA Attending Unavailable PHILIP [employer]ERCIAL LOAN ANALYST-ZOOLOGY TECHNICAL OFFICER, SARAH S Attending Unava ilable PHILIP COMMERCIAL LOAN ANALYST-ZOOLOGY TECHNICAL OFFICER, SARAH S Primary Care Unava ilable PHILIP COMMERCIAL LOAN ANALYST-ZOOLOGY TECHNICAL OFFICER, SARAH S Primary Care Unava ilable PHILIP COMMERCIAL LOAN ANALYST-ZOOLOGY TECHNICAL OFFICER, SARAH S Attending Unava ilable Raphael Emery Attending Unavailable Philip GROUNDS PERSON, Sarah Primary Care Unavailable Philip GROUNDS PERSON, Sarah Primary Care Unavailable Raphael Emery Attending Unavailable Philip GROUNDS PERSON, Sarah Primary Care Unavailable Raphael Emery Attending Unavailable [place] GROUNDS PERSON, [facility] Unavailable Raphael Emery Attending Unavailable [place] GROUNDS PERSON, [facility] Referring Unavailable Gillian Ferro Attending Unavailable [place] GROUNDS PERSON, [facility] Unavailable SeeRaphael sutherland Attending Unavailable [place] GROUNDS PERSON, [facility] Care Unavailable Raphael Emery Referring Unavailable Gillian Ferro Attending Unavailable Gillian Ferro Referring Unavailable [place] GROUNDS PERSON, [facility] Unavailable SeeRaphael sutherland Referring Unavailable SeeRaphael sutherland Attending Unavailable [place] GROUNDS PERSON, [facility] Care Unavailable [place] GROUNDS PERSON, [facility] Referring Unavailable Gillian Ferro Attending Unavailable [place] GROUNDS PERSON, [facility] Unavailable [place] GROUNDS PERSON, [facility] Unavailable Raphael Emery Attending Unavailable Raphael Emery Attending Unavailable [place] GROUNDS PERSON, [facility] Unavailable Raphael Emery Attending Unavailable [place] GROUNDS PERSON, [facility] Unavailable Allergies Allergy Classification Reported Allergen(s) Allergy Type Date of Onset Reaction(s) Facility (5 sources) Bacitracin / Hydrocortisone / Neomycin / Polymyxin B; Translations: [bacitracin/HC/neom ycin/polymyxin B topical] Drug Allergy Sore [facility] Work Phone: Comment on above: sores in ears (5 sources) Latex Allergy to substance Rash [facility] Work Phone: (5 sources) Penicillin; Translations: [penicillins] Drug Allergy [facility] Work Phone: (5 sources) Shellfish Food allergy Hives, Rash [facility] Work Phone: (15 sources) Penicillins Propensity to adverse reactions to drug 7 Hives [facility] Medications Current Medications Medication Drug Class(es) Dates Sig (Normalized) Sig (Original) 0.5 ML tirzepatide 10 MG/ML Auto-Injector [Zepbound] (1 source) Start: 01-31-2024 inject 1 dose by subcutaneous injection every week Zepbound 5 mg/0.5 mL subcutaneous solution Dose : 5 mg =, Subcutaneous, qWeek, subcutaneous vials rotate [id number] Diagnosis code E66.09, # 4 EA, 11 Refill(s), Pharmacy: [facility] ZEPBOUND VIAL, 176, cm, 01/31/24 10:50:00 EDT, Height, kg, 01/31/24 10:50:00 EDT, Dosing Weight Start Date: 01/31/24 Status: Ordered 24 hr buPROPion hydrochloride 300 mg extended release oral tablet (16 sources) Aminoketone Start: 07-20-2021 End: 01-16-2022 take 1 tablet by mouth every hour, then take 1 tablet by mouth every twenty-four hours buPROPion 300 mg/24 hours (XL) oral tablet, extended release Dose : 300 mg = 1 tab(s), Oral, q24h, # 90 tab(s), 1 Refill(s), Pharmacy: [facility], 176, cm, 07/16/21 8:40:00 EDT, Height Start Date: 07/20/21 Stop Date: 01/16/22 Status: Ordered Start: 05-11-2016 take 150 mg by mouth once patrick y Bupropion Hcl Active 150 MG PO DAILY May 11, 2016 2:43am take 1 tablet by mavis th once daily buPROPion (WELLBUTRIN SR) 150 MG extended release tablet Take 150 mg by mouth daily 0 Active cariprazine 3 mg oral capsule (1 source) Atypical Antipsychotic Start: 05-05-2023 Vraylar 3 mg oral capsule Dose : 3 mg = 1 cap(s), Oral, qDay, 0 Refill(s) Start Date: 05/05/23 Status: Ordered citalopram 20 mg oral tablet (15 sources) Serotonin Reuptake Inhibitor Start: 07-20-2021 End: 01-16-2022 citalopram 20 mg oral tablet Dose : 20 mg = 1 tab(s), Oral, qDay, # 90 tab(s), 1 Refill(s), Pharmacy: [facility], Encounter for medication refill, 176, cm, 07/16/21 8:40:00 EDT, Height, kg, 07/16/21 8:40:00 EDT, Dosing Weight Start Date: 07/20/21 Stop Date: 01/16/22 Status: Ordered Start: 11-02-2016 take 1 tablet by mavis once daily citalopram (CELEXA) 10 MG tablet TAKE 1 TABLET BY MOUTH EVERY DAY 90 tablet 1 11/02/2016 Active clindamycin 10 mg/ml topical lotion (15 sources) Lincosamide Antibacterial Start: 05-11-2016 clindamycin (CLEOCIN T) 1 % lotion Apply topically daily 0 05/11/2016 Active Start: 05-11-2016 Clindamycin Ph osphate (Cleocin T) 60 ML Lotion Active 60 ML TP TWICE A DAY May 11, 2016 2:56am apply to affected areas doxycycline hyclate 100 mg oral capsule (1 source) Tetracycline-class Drug Start: 07-17-2021 End: 07-31-2021 doxycycline hyclate 100 mg oral capsule Dose : 100 mg = 1 cap(s), Oral, BID, X 14 day(s), # 28 cap(s), 0 Refill(s), 07/31/21 16:55:00 EDT, Pharmacy: [facility], 176, cm, 07/16/21 8:40:00 EDT, Height, 85 Start Date: 07/17/21 Stop Date: 07/31/21 Status: Ordered emtricitabine 200 mg / tenofovir disoproxil fumarate 300 mg oral tablet (6 sources) Human Immunodeficiency Virus Nucleoside Analog Reverse Transcriptase Inhibitor Start: 07-19-2023 End: 07-13-2024 take 1 tablet by mouth once daily Truvada 200 mg-300 mg oral tablet Dose = 1 tab(s), Oral, Daily, # 90 tab(s), 3 Refill(s), Pharmacy: [facility], 176, cm, 05/05/23 13:30:00 EST, Height, kg, 05/05/23 13:30:00 EST, Dosing Weight Start Date: 07/19/23 Stop Date: 07/13/24 Status: Ordered Start: 07-22-2021 End: 07-17-2022 take 1 tablet by mouth once daily Truvada 200 mg-300 mg oral tablet Dose = 1 tab(s), Oral, Daily, # 90 tab(s), 3 Refill(s), Pharmacy: [facility], 175, cm, 07/22/21 13:43:00 EDT, Height, kg, 07/22/21 13:43:00 EDT, Dosing Weight Start Date: 07/22/21 Stop Date: 07/17/22 Status: Ordered ketoconazole 20 mg/ml medicated shampoo (4 sources) Azole Antifungal Start: 08-06-2021 ketoconazole 2% topical shampoo Apply 1 scott, Topical, 2x/Wk, # 120 mL, 1 Refill(s), Pharmacy: [facility], 175, cm, 07/22/21 13:43:00 EDT, Height, 85.6 Start Date: 08/06/21 Status: Ordered lithium carbonate 300 mg extended release oral tablet (3 sources) Start: 05-05-2023 lithium 300 mg oral tablet, extended release Dose : 300 mg = 1 tab(s), Oral, TID, 0 Refill(s) Start Date: 05/05/23 Status: Ordered Start: 12-31-2021 lithium 300 mg oral tablet, extended release Dose : 300 mg = 1 tab(s), Oral, BID, # 60 tab(s), 1 Refill(s), Pharmacy: [facility], 175.3, cm, 08/12/21 18:06:00 EDT, Height, kg, 08/12/21 18:06:00 EDT, Dosing Weight Start Date: 12/31/21 Status: Ordered metFORMIN hydrochloride 500 mg oral tablet (1 source) Biguanide Start: 05-05-2023 MetFORMIN (Eqv-Glucophage XR) 500 mg oral tablet, EXTENDED RELEASE Dose : 500 mg = 1 tab(s), Oral, qDay, 0 Refill(s) Start Date: 05/05/23 Status: Ordered ondansetron 4 mg oral tablet (6 sources) Serotonin-3 Receptor Antagonist Start: 07-22-2021 ondansetron 4 mg ora l tablet Dose : 4 mg = 1 tab(s), Oral, q8h, PRN Nausea/Vomiting, # 20 tab(s), 0 Refill(s), Pharmacy: [facility], 175, cm, 07/22/21 13:43:00 EDT, Height Start Date: 07/22/21 Status: Ordered Start: 05-11-2016 take 8 mg by mouth e very eight hours as needed Ondansetron Active 8 MG PO EVERY 8 HOURS NEEDED May 11, 2016 2:55am sulfamethoxazole 800 mg / trimethoprim 160 mg oral tablet (1 source) Dihydrofolate Reductase Inhibitor Antibacterial, Sulfonamide Antimicrobial Start: 05-11-2016 take 1 tablet by mouth twice daily Sulfamethoxazole-Trimethoprim Active 1 TABLET PO TWICE A DAY May 11, 2016 2:55am tacrolimus 0.001 mg/mg topical ointment (1 source) Calcineurin Inhibitor Immunosuppressant Start: 12-14-2023 tacrolimus 0.1% topical ointment 0 Refill(s), 109.8 Start Date: 12/14/23 Status: Ordered triamcinolone acetonide 1 mg/ml topical cream (1 source) Corticosteroid Start: 12-14-2023 triamcinolone 0.1% topical cream for psoriasis, 0 Refill(s), 109.8 Start Date: 12/14/23 Status: Ordered Problems Problem Classification Problem Date Documented Date Episodic/Chronic Allergic reactions (1 source) Allergy to penicillin; Translations: [Allergy status to penicillin] Onset: 08-13-2021 Episodic Anxiety disorders (20 sources) Anxiety; Translations: [Anxiety disorder, unspecified] Onset: 05-27-2016 01-22-2019 Chronic Calculus of urinary tract (1 source) History of calculus of kidney 01-22-2019 Episodic Malaise and fatigue (5 sources) Fatigue 07-22-2021 Episodic Mood disorders (11 sources) Bipolar disorder; Translations: [Depressive disorder] Onset: 08-13-2021 07-16-2021 Chronic Nausea and vomiting (1 source) Nausea 07-22-2021 Episodic Other aftercare (1 source) Encounter for therapeutic drug level monitoring; Translations: [Encounter for therapeutic drug level monitoring] Onset: 10-31-2024 Episodic Other hematologic conditions (1 source) Microcytosis 01-22-2019 Episodic Other inflammatory condition of skin (6 sources) Seborrheic dermatitis 01-22-2019 Episodic Other non-traumatic joint disorders (5 sources) Joint pain 07-22-2021 Episodic Other nutritional; endocrine; and metabolic disorders (1 source) Obesity 12-15-2023 Chronic Other nutritional; endocrine; and metabolic disorders (1 source) Obesity caused by energy imbalance 01-31-2024 Chronic Other nutritional; endocrine; and metabolic disorders (1 source) Morbid (severe) obesity due to excess calories; Translations: [Morbid (severe) obesity due to excess calories] Onset: 04-27-2024 Chronic Other nutritional; endocrine; and metabolic disorders (1 source) Body mass index (BMI) 35.0-35.9, adult; Translations: [Body mass index [BMI] 35.0-35.9, adult] Onset: 04-27-2024 Chronic Other skin disorders (6 sources) Cystic acne 01-22-2019 Episodic Other skin disorders (6 sources) Hyperhidrosis of axilla 01-22-2019 Episodic Other skin disorders (1 source) Swelling of hand 12-14-2023 Episodic Residual codes; unclassified (1 source) Obstructive sleep apnea (adult) (pediatric); Translations: [Obstructive sleep apnea (adult) (pediatric)] Onset: 05-28-2024 Chronic Sexually transmitted infections (not HIV or hepatitis) (7 sources) Syphilis; Translations: [Syphilis, unspecified] Onset: 08-13-2021 07-22-2021 Episodic Unclassified (6 sources) Drug therapy finding 12-12-2019 Unclassified (1 source) History of clinical finding in subject 07-16-2021 Unclassified (3 sources) Patient encounter status 12-12-2019 Results Test Name Value Interpretation Reference Range Facility MR/BPon 01-24-2025 MR/BMS.BP [address], [address] [place] [address] OFFICE VISIT Date of Service: 01/24/25 MR#: [id number] Acct: [id number] Name: TONYA JAIN Rep #: [id number] : 1990 Provider: Dr. Raphael Noble se, DO Age/Sex: 34/M Location: [facility].BP Status: Signed Intake Vital Signs 11/22/24 14:07 01/24/25 10:29 Height 5 ft 9 in 5 ft 9 in Weight: 175 lb 174 lb BMI 25.8 25.7 BP 110/74 123/86 H Blood Pressure Location Lt brachial Lt brachial Position Sitting Sitting Respiration 16 16 Pulse 77 82 Pulse Source Monitor Monitor BP Intake Visit Reasons: 2mfu Accompanied by: Self Allergies No Known Allergies Allergy (Verified 01/24/25 10:31) Medications ???Medication ???Instructions ???Recorded ???Confirmed ???Type emtricitabine 200 mg-tenofovir 1 tab PO DAILY 05/03/23 01/24/25 H istory disoproxil fumarate 300 mg tablet tirzepatide (weight loss) 2.5 2.5 mg subcut QWEEK 01/25/2401/24 History mg/0.5 mL subcutaneous solution (Zepbound) benztropine 0.5 mg tablet 0.5 mg PO BID #60 tabs 11/22/24 Rx metformin 500 mg tablet 500 mg PO DAILY #30 tabs 11/22/24 01/24/25 Rx cariprazine 3 mg capsule 3 mg PO DAILY #30 caps 01/24/25 Rx fluoxetine 20 mg capsule 20 mg PO DAILY #30 caps 01/24/25 1 Rx lithium carbonate 600 mg capsule 600 mg PO BID #60 caps 01/24/25 Rx PFSH Medical History Medication monitoring encounter Hypersomnia Polysubstance use disorder Bipolar I disorder Polysubstance abuse ADHD Generalized anxiety disorder Neurosyphilis Bipolar 1 disorder, manic, mild Surgical History History of removal of cyst Family History Other Diabetes Graves disease Hypertension Social History Smoking Status: Never smoker alcohol intake: former substance use type: does not use, former substance user and prescription drug HPI History of Present Illness History provided by: patient HPI: Tonya Jain is a 34 year male who presents today for follow up evaluation. Patient reports that things are pretty much the same. Does feel somewhat less depressed with fluoxetine. Does have a fairly common sensation that people are upset with me. Does tend to ruminate on these thoughts, and almost feels like he obsesses about it. Has been sleeping a lot, getting between 12-14 hours. Has been doing a good job limiting his financial spending. Still awaiting hearing back on disability hearing. Feels as though hypersexuality has been reduced, and almost has swung to the other way where he is nearly not interested. Still doing IM ketamine therapy. Did notice some marginal improvement for about 2 weeks after having done. Review of Systems Constitutional Denies: fever(s) or chills Eyes Denies: change in vision or blurry vision Ears, Nose, Mouth, Throat Denies: throat pain, neck pain or change in hearing Cardiovascular Denies: chest pain, palpitations or dyspnea Respiratory Denies: dyspnea, cough or wheezing Gastrointestinal Denies: abdominal pain, nausea, vomiting, diarrhea or constipation Genitourinary Denies: dysuria or urinary frequency Musculoskeletal Denies: back pain, neck pain, joint pain or muscle weakness Integumentary/Breast Denies: rash, new lesions or acne Neurological Reports: other (Significant tremor); Denies: headache(s), dizziness or confusion Endocrine Denies: excessive sweating Hematologic/Lymphati c Denies: easy bruising or easy bleeding Allergic/Immunologic Denies: wheezing Exam Mental Status Exam - Psych Appearance adequately groomed Attitude friendly Activity/Motor Behavior tremor (Much improved) Speech regular rate, regular volume and regular prosody Mood depressed (Somewhat improved) Affect restricted Thought Process linear, logical and coherent Thought Content no hallucinations and Type of delusions: paranoid (Mild; chronic regarding police) delusions Suicidal Ideation passive Homicidal Ideation none Attention intact Concentration intact Sensorium/Orientatio n awake, alert and oriented x3 Memory/Cognition other (appropriate for stated age) Insight good Judgement good Assessment Plan Assessment Plan (1) Bipolar I disorder: Plan: - Continues to have mild improvement in depression ??? Continue lithium and lamotrigine cariprazine as before (2) Medication monitoring encounter: Plan: - [place] level reviewed Medications: Refilled cariprazine 3 mg PO DAILY 30 caps 2RF F31.9 - Bipolar disorder, unspecifie (more content not included)... Normal [facility] MR/BMS.BPon 11-22-2024 MR/BMS.BP [facility] [employer], [address] [place] [id number] OFFICE VISIT Date of Service: 11/22/24 MR#: [id number] Acct: [id number] Name: TONYA JAIN Rep #: [id number] : 1990 Provider: Dr. Raphael L See se, DO Age/Sex: 34/M Location: [facility].BP Status: Signed Intake Vital Signs 10/11/24 14:27 11/22/24 14:07 Height 5 ft 9 in 5 ft 9 in Weight: 176 lb 175 lb BMI 25.9 25.8 BP 121/82 H 110/74 Blood Pressure Location Lt brachial Lt brachial Position Sitting Sitting Respiration 16 16 Pulse 77 77 Pulse Source Monitor Monitor BP Intake Visit Reasons: 4-6wfu Allergies No Known Allergies Allergy (Verified 10/11/24 14:28) [facility] Medical History Medication monitoring encounter Hypersomnia Polysubstance use disorder Bipolar I disorder Polysubstance abuse ADHD Generalized anxiety disorder Neurosyphilis Bipolar 1 disorder, manic, mild Surgical History History of removal of cyst Family History Other Diabetes Graves disease Hypertension Social History Smoking Status: Never smoker alcohol intake: former substance use type: does not use, former substance user and prescription drug HPI History of Present Illness History provided by: patient HPI: Tonya Jain is a 34 year male who presents today for follow up evaluation. Has been doing about monthly intramuscular ketamine. Has been doing somewhat better in recent past. Has notice possibly a little bit of benefit with fluoxetine at this point. Does feel it is a little easier to get out of bed. Spending a little bit less time in bed. Still having some increase in hypersexuality. Continues to spend a lot of time thinking about cards and spending a lot of money on them. About $100 a week. Still waiting to hear back on disability hearing. Memory has been much worse in recent past. Feels like he is forgetting things like if he ate in tariq morning or not. Sleep has been largely good. Review of Systems Constitutional Denies: fever(s) or chills Eyes Denies: change in vision or blurry vision Ears, Nose, Mouth, Throat Denies: throat pain, neck pain or change in hearing Cardiovascular Denies: chest pain, palpitations or dyspnea Respiratory Denies: dyspnea, cough or wheezing Gastrointestinal Denies: abdominal pain, nausea, vomiting, diarrhea or constipation Genitourinary Denies: dysuria or urinary frequency Musculoskeletal Denies: back pain, neck pain, joint pain or muscle weakness Integumentary/Breast Denies: rash, new lesions or acne Neurological Reports: other (Significant tremor); Denies: headache(s), dizziness or confusion Endocrine Denies: excessive sweating Hematologic/Lymphati c Denies: easy bruising or easy bleeding Allergic/Immunologic Denies: wheezing Exam Mental Status Exam - Psych Appearance adequately groomed Attitude pleasant and friendly Activity/Motor Behavior tremor (Much improved) Speech regular rate, regular volume and regular prosody Mood depressed (Somewhat improved) Affect restricted Thought Process linear, logical and coherent Thought Content no hallucinations and Type of delusions: paranoid (Mild; chronic regarding police) delusions Suicidal Ideation passive Homicidal Ideation none Attention intact Concentration intact Sensorium/Orientatio n awake, alert and oriented x3 Memory/Cognition other (appropriate for stated age) Insight good Judgement good Assessment Plan Assessment Plan (1) Bipolar I disorder: Plan: - Doing marginally better with starting fluoxetine ??? Continue lithium and lamotrigine cariprazine as before ??? Patient has been told that he has some parkinsonian type symptoms however no significant evidence of bradykinesia and tremor does not seem associated in time with medication initiation or changes (2) Medication monitoring encounter: Plan: - [place] level reviewed Medications: Refilled cariprazine 3 mg PO DAILY 30 caps 2RF F31.9 - Bipolar disorder, unspecified benztropine 0.5 mg PO BID 60 tabs 1RF fluoxetine 20 mg PO DAILY 30 caps 2RF F31.9 - Bipolar disorder, unspecified lithium carbonate 600 mg PO BID 60 caps 2RF metformin 500 mg PO DAILY 30 tabs 2RF Discontinued hydroxyzine HCl Discontinued Reason: Order Changed 50 mg PO BID PRN PRN 60 tabs 2RF Anxiety lamotrigine Discontinued Reason: Order Completed 100 mg PO QHS 30 tabs 2RF F31.9 - Bipolar disorder, unspecified Plan Detail Assessment: Has been spending more on [employer] cards in recent past so we are monitoring very closely whether this is impulsivity or patient has (more content not included)... Normal [facility] Lithiumon 10-26-2024 LI 0.71 mmol/L Normal 0.60-1.20 [facility] Comment on above: Order Comment: AM [id number] Performed By: #### L [id number] #### [facility] [address] [place], [place], [id number] MR/BMS.BPon 10-11-2024 MR/BMS.BP [address], [address] [place] [address] OFFICE VISIT Date of Service: 10/11/24 MR#: [id number] Acct: [id number] Name: TONYA JAIN Rep #: [id number] : 1990 Provider: Dr. Raphale Noble se, DO Age/Sex: 34/M Location: [facility].BP Status: Signed Intake Vital Signs 09/11/24 14:32 10/11/24 14:27 Height 5 ft 9 in 5 ft 9 in Weight: 176 lb BMI 25.9 BP 112/73 121/82 H Blood Pressure Location Lt brachial Lt brachial Position Sitting Sitting Respiration 16 16 Pulse 83 77 Pulse Source Monitor Monitor BP Intake Visit Reasons: 1 M FU Accompanied by: Self Allergies No Known Allergies Allergy (Verified 10/11/24 14:28) Medications ???Medication ???Instructions ???Recorded ???Confirmed ???Type emtricitabine 200 mg-tenofovir 1 tab PO DAILY 05/03/23 10/11/24 H istory disoproxil fumarate 300 mg tablet tirzepatide (weight loss) 2.5 2.5 mg subcut QWEEK 01/25/2410/11 History mg/0.5 mL subcutaneous solution (Zepbound) hydroxyzine HCl 50 mg tablet 50 mg PO BID PRN PRN Anxiety #60 1 06/06/23 10/11/24 Rx tabs metformin 500 mg tablet 500 mg PO DAILY #30 tabs 07/25/24 10/11/24 Rx cariprazine 3 mg capsule 3 mg PO DAILY #30 caps 07/31/24 Rx lamotrigine 100 mg tablet 100 mg PO QHS #30 tabs 07/31/24 Rx lithium carbonate 600 mg capsule 600 mg PO BID #60 caps 07/31/24 Rx propranolol 60 mg capsule,24 60 mg PO QDAY 07/31/24 10/11/24 Hi story hr,extended release benztropine 0.5 mg tablet 0.5 mg PO BID #60 tabs 10/11/24 Rx fluoxetine 20 mg capsule 20 mg PO DAILY #30 caps 10/11/24 0 10/11/24 Rx PFSH Medical History Medication monitoring encounter Hypersomnia Polysubstance use disorder Bipolar I disorder Polysubstance abuse ADHD Generalized anxiety disorder Neurosyphilis Bipolar 1 disorder, manic, mild Surgical History History of removal of cyst Family History Other Diabetes Graves disease Hypertension Social History Smoking Status: Never smoker alcohol intake: former substance use type: does not use, former substance user and prescription drug HPI History of Present Illness History provided by: patient HPI: Tonya Jain is a 34 year male who presents today for follow up evaluation. Patient reports that he has been somewhat similar to how he had been about a month ago. Getting a little less sleep than the oversleeping he had been doing, only getting about 8 hours at night. Continues to have some significant hypersexuality and does feel like it is almost more unmanageable. Did spend several hundred dollars on [employer] cards somewhat impulsive. Stopped auvelity nearly 2 weeks ago. Has had some cravings for cigarettes in the recent past since doing. Did have one administration of IM ketamine between appointments and did feel somewhat brighter for about 2 weeks. Sent to have another ketamine injection next Tuesday. Has lost a couple more pounds in recent past. Has not been finding ofelia in thing that he knows he should Did have propranolol increased to 80 mg every day. Review of Systems Constitutional Reports: change in weight (continues to lose weight); Denies: fever(s) or chills Eyes Denies: change in vision or blurry vision Ears, Nose, Mouth, Throat Denies: throat pain, neck pain or change in hearing Cardiovascular Denies: chest pain, palpitations or dyspnea Respiratory Denies: dyspnea, cough or wheezing Gastrointestinal Denies: abdominal pain, nausea, vomiting, diarrhea or constipation Genitourinary Denies: dysuria or urinary frequency Musculoskeletal Denies: back pain, neck pain, joint pain or muscle weakness Integumentary/Breast Denies: rash, new lesions or acne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 have occasional dry mouth. He has not required antibiotics or prednisone for respiratory illness. He has not needed to go to the ED or urgent care for breathing problems. He denies shortness of breath, cough, wheeze. He denies chest tightness, chest pain or palpitations. He denies any sputum production or hemoptysis. He denies fever, chills or body aches. Bilateral upper extremity tremors continue and he continues to await his neurology appointment which is scheduled for June. He is a lifetime non smoker. The patient reports that his symptoms of daytime hypersomnia started with neurosyphilis and he went on to have treatment for jessica and now depression. He reports that he is still utilizing ketamine for depression. Documentation reviewed today includes: Home sleep study from May 08, 2024 which shows AHI of 3.6/h. Intake Vital Signs 04/25/24 10:40 05/30/24 11:17 Height 5 ft 9 in 5 ft 9 in Weight: 195 lb BMI 28.8 BP 130/88 H Blood Pressure Location Lt brachial Position Sitting Respiration 18 Pulse 104 H Pulse Source Monitor Temp 96.8 F L Temperature Source Temporal Artery Pulse Oximetry (%) 98 Oxygen Delivery Method room air Intake Visit Reasons: 4-6 WK FU Director Loss Prevention Required: No DME Vendor: [email or web address] Accompanied by: Self Is patient in pain?: No Allergies No Known Allergies Allergy (Verified 05/30/24 13:16) Medications ???Medication ???Instructions ???Recorded ???Confirmed ???Type emtricitabine 200 mg-tenofovir 1 tab PO DAILY 05/03/23 05/30/24 H istory disoproxil fumarate 300 mg tablet tirzepatide (weight loss) 2.5 2.5 mg subcut QWEEK 01/25/2405/30 History mg/0.5 mL subcutaneous solution (Zepbound) bupropion HCl 300 mg 24 hr tablet, 300 mg PO DAILY #90 tabs 4 05/30/24 Rx extended release (Wellbutrin XL) cariprazine 3 mg capsule 3 mg PO DAILY #30 caps 04/05/24 Rx hydroxyzine HCl 50 mg tablet 50 mg PO BID PRN PRN Anxiety #60 1 06/06/23 05/30/24 Rx tabs lamotrigine 150 mg tablet 150 mg PO QHS #30 tabs 04/05/24 Rx lithium carbonate 600 mg capsule 600 mg PO BID #60 caps 04/05/24 Rx metformin 500 mg tablet 500 mg PO DAILY #30 tabs 04/20/24 05/30/24 Rx PFSH Medical History Medication monitoring encounter Hypersomnia Polysubstance use disorder Bipolar I disorder Polysubstance abuse ADHD Generalized anxiety disorder Neurosyphilis Bipolar 1 disorder, manic, mild Surgical History History of removal of cyst Family History (more content not included)... Normal [facility] Pulmonary Visit Reporton Pulmonary Visit Report [facility] [address] [place] [address] OFFICE VISIT Date of Service: 04/25/24 MR#: [id number] Acct: [id number] Name: TONYA JAIN Rep #: [id number] : 1990 Provider: Gillian Ferro NP Age/Sex: 33/M Location: [facility] Status: Signed Assessment and Plan Assessment and Plan (1) Sleep apnea: Status: Chronic Qualifiers: Sleep apnea type: obstructive Qualified Code(s): G47.33 - Obstructive sleep apnea (adult) (pediatric) Comment: PSG 07/06/22 shows AHI 6.7 Plan: Unfortunately the use of PAP therapy did not give him benefit in regards to daytime hypersomnia. With the significant weight loss that has occurred I do believe that he may have resolution of sleep apnea but have recommended additional testing to determine this. The patient does report that he sleeps in side-lying positioning. I have recommended that for the home study he sleep in supine positioning. (2) Obesity: Status: Chronic Qualifiers: Body mass index: BMI 35.0-35.9 Obesity classification: adult class 2 (BMI 35 - 39.9) Obesity type: due to excess calories Serious obesity comorbidity presence: with serious comorbidity Qualified Code(s): E66.01 - Morbid (severe) obesity due to excess calories; Z68.35 - Body mass index [BMI] 35.0-35.9, adult Plan: He has lost over 30 pounds. Due to the mild apnea that was initially present he may not have sleep apnea now that he has had significant weight loss. Await home study and continue with efforts for weight loss. Plan He does have a new tremor on today's evaluation. There is a plan for him to be referred to neurology for this workup. I have recommended that he proceed with this. If the home sleep study shows that there is resolution of sleep apnea and persistent daytime hypersomnia continues to occur further workup for idiopathic hypersomnia may be warranted. Plan Details Follow Up: 4-6 weeks (LMR) HPI HPI Comments Details: This 33-year-old male patient presents to the office today for follow-up of his obstructive sleep apnea. He is ambulatory and currently on room air. He has had significant weight loss through medication and diet change. The patient is using CPAP 9 cm without significant air leak, oral dryness, snore. There are no concerns about the air pressure. Sleep is not refreshing. He reports that the pap device has never made a big impact on his sleep quality. The patient is reporting fair compliance. Daytime hypersomnia is present unless he obtains up to 14 hours of sleep. ESS is 8. He rarely experiences headache. He does have occasional dry mouth. He has not required antibiotics or prednisone for respiratory illness. He has not needed to go to the ED or urgent care for breathing problems. He denies shortness of breath, cough, wheeze. He denies chest tightness, chest pain or palpitations. He denies any sputum production or hemoptysis. He denies fever, chills or body aches. Nocturia occurs times 3-4. He is a lifetime non smoker. The patient reports that his symptoms of daytime hypersomnia started with neurosyphilis and he went on to have treatment for jessica and now depression. Documentation reviewed today includes: Compliance download from April 22, 2024 for the last 30 days shows 63% compliance with therapy, using the device 8 hours and 48 minutes nightly average. AHI is 1.6, minimal air leak is identified. Intake Vital Signs 05/03/23 09:14 01/25/24 09:01 04/05/24 09:35 04/25/24 10:40 Height 5 ft 9 in 5 ft 9 in 5 ft 9 in 5 ft 9 in Weight: 203 lb BMI 29.9 BP 155/81 H Blood Pressure Location Lt brachial Position Sitting Respiration 18 Pulse 95 Pulse Source Monitor Temp 97.6 F L Temperature Source Temporal Artery Pulse Oximetry (%) 99 Oxygen Delivery Method room air Intake Visit Reasons: 1 Y FU DME Vendor: [employer] Accompanied by: Self Allergies No Known Allergies Allergy (Verified 04/25/24 14:16) Medications ???Medication ???Instructions ???Recorded ???Confirmed ???Type emtricitabine 200 mg-tenofovir 1 tab PO DAILY 05/03/23 04/25/24 History disoproxil fumarate 300 mg tablet tirzepatide (weight loss) 2.5 2.5 mg subcut QWEEK 01/25/24 04/25/24 History mg/0.5 mL subcutaneous solution (Zepbound) bupropion HCl 300 mg 24 hr tablet, 300 mg PO DAILY #90 tabs 04/05/24 04/25/24 Rx extended release (Wellbutrin XL) cariprazine 3 mg capsule 3 mg PO DAILY #30 caps 04/05/24 04/25/24 Rx hydroxyzine HCl 50 mg tablet 50 mg PO BID PRN PRN Anxiety #60 04/05/24 04/25/24 Rx tabs lamotrigine 150 mg tablet 150 mg PO QHS #30 tabs 04/05/24 04/25/24 Rx lithium carbonate 600 mg capsule 600 mg PO BID #60 caps 04/05/24 04/25/24 Rx metformin 500 mg tablet 500 mg PO DAILY #30 tabs 04/20/24 04/25/24 Rx (more content not included)... Normal [facility] Lamotrigine (Lamictal) Level on 04-13-2024 LAMOTRIGINE 3.7 ug/mL Normal 2.0-20.0 [facility] Comment on above: Result Comment: Dete ction Limit = 1.0 Performed at: [address] [id number] [employer] Toy Inventor: Kunal Kunz MD, Phone: [phone] Performed By: #### L 3300.4400, L545.5655 #### [facility] [address] [place], [place], [id number] Lithiumon 04-09-2024 LI 0.60 mmol/L Normal 0.60-1.20 [facility] Comment on above: Order Comment: [id number] Performed By: #### L 3300.4400, L501.6294 #### [facility] [address] [place], [place], [id number] MR/BMS.BPon 04-05-2024 MR/BMS.BP [address], [address] [place] [address] OFFICE VISIT Date of Service: 04/05/24 MR#: [id number] Acct: [id number] Name: TONYA JAIN Rep #: [id number] : 1990 Provider: Dr. Raphael Noble se, DO Age/Sex: 33/M Location: [facility].BP Status: Signed Intake Vital Signs 01/25/24 09:01 04/05/24 09:35 Height 5 ft 9 in 5 ft 9 in BP 132/80 H Blood Pressure Location Lt brachial Position Sitting Respiration 16 Pulse 89 Pulse Source Monitor BP Intake Visit Reasons: 2 M FU Accompanied by: Self Allergies No Known Allergies Allergy (Verified 04/05/24 09:38) Medications ???Medication ???Instructions ???Recorded ???Confirmed ???Type emtricitabine 200 mg-tenofovir 1 tab PO DAILY 05/03/23 04/05/24 History disoproxil fumarate 300 mg tablet metformin 500 mg tablet 500 mg PO DAILY #30 tabs 01/18/24 04/05/24 Rx tirzepatide (weight loss) 2.5 2.5 mg subcut QWEEK 01/25/24 04/05/24 History mg/0.5 mL subcutaneous solution (Zepbound) bupropion HCl 300 mg 24 hr tablet, 300 mg PO DAILY #90 tabs 04/05/24 04/05/24 Rx extended release (Wellbutrin XL) cariprazine 3 mg capsule 3 mg PO DAILY #30 caps 04/05/24 04/05/24 Rx hydroxyzine HCl 50 mg tablet 50 mg PO BID PRN PRN Anxiety #60 04/05/24 04/05/24 Rx tabs lamotrigine 150 mg tablet 150 mg PO QHS #30 tabs 04/05/24 04/05/24 Rx lithium carbonate 600 mg capsule 600 mg PO BID #60 caps 04/05/24 04/05/24 Rx PFSH Medical History (Updated 04/05/24 @ 09:[address] Raphael Emery DO) Medication monitoring encounter Hypersomnia Polysubstance use disorder Bipolar I disorder Polysubstance abuse ADHD Generalized anxiety disorder Neurosyphilis Bipolar 1 disorder, manic, mild Surgical History History of removal of cyst Family History Other Diabetes Graves disease Hypertension Social History Smoking Status: Never smoker alcohol intake: former substance use type: does not use, former substance user and prescription drug HPI History of Present Illness History provided by: patient HPI: Tonya Jain is a 33 year male who presents today for follow up evaluation. Patient has just gotten his sixth treatment of ketamine and feels about 25% better so far. Plans to do monthly in the near future. Patient is very tremulous in appointment today. Has actually fallen several times as he feels his balance is off. Had similar symptoms when first diagnosed with neurosyphilis. Has not seen infectious disease in about a year. Hasn't seen neurology in about 3 years. Patient has lost nearly 30 lbs over the course of this year. Is currently on Zepbound. Sleep has been ok. Does still oversleep, up to 10 hours per night and gets some naps. Does feel awake and alert during waking hours. Has always been someone who does sleep more. Brother has gotten back together with his fiance and is back in [place]. Review of Systems Constitutional Reports: fatigue; Denies: fever(s) or chills Eyes Denies: change in vision or blurry vision Ears, Nose, Mouth, Throat Denies: throat pain, neck pain or change in hearing Cardiovascular Denies: chest pain, palpitations or dyspnea Respiratory Denies: dyspnea, cough or wheezing Gastrointestinal Denies: abdominal pain, nausea, vomiting, diarrhea or constipation Genitourinary Denies: dysuria or urinary frequency Musculoskeletal Denies: back pain, neck pain, joint pain or muscle weakness Integumentary/Breast Denies: rash, new lesions or acne Neurological Denies: headache(s), dizziness or confusion Endocrine Reports: fatigue; Denies: excessive sweating Hematologic/Lymphati c Denies: easy bruising or easy bleeding Allergic/Immunologic Denies: wheezing Exam Mental Status Exam - Psych Appearance casually dressed Attitude cooperative Activity/Motor Behavior tremor Speech regular rate, regular volume and regular prosody Mood depressed (Largely stable at this time may be somewhat improved) Affect congruent Thought Process linear, logical and coherent Thought Content no delusions, no hallucinations and other (borderline delusional regarding police) Suicidal Ideation passive Homicidal Ideation none Attention intact Concentration intact Sensorium/Orientatio n awake, alert and oriented x3 Memory/Cognition other (appropriate for stated age) Insight good Judgement good Assessment Plan Assessment Plan (1) Bipolar I disorder: Plan: - Continue lamotrigine, Vraylar, Wellbutrin, lithium as previously prescribed ??? Unclear if tremor related to lithium, medication or alternative causes such as neurosyphilis which patien (more content not included)... Normal [facility] .Auto Diffon 01-31-2024 Basophil, Absolute 0.1 10 3/mcL Normal 0.0-0.2 [facility] Comment on above: Performed By: #### G FR, CMP, ADIFF, ANEU, LIPID, CBC #### [address] [address] Basophils/100 WBC (Bld) 1.1 % Normal 0.0-2.5 [facility] Comment on above: Performed By: #### G FR, CMP, ADIFF, ANEU, LIPID, CBC #### [address] [address] Eosinophil, Absolute 0.2 10 3/mcL Normal 0.0-0.7 [facility] Comment on above: Performed By: #### G FR, CMP, ADIFF, ANEU, LIPID, CBC #### [address] [address] Eosinophils/100 WBC (Bld) 3.3 % Normal 0.0-7.0 [facility] Comment on above: Performed By: #### G FR, CMP, ADIFF, ANEU, LIPID, CBC #### [address] [address] Lymphocyte, Absolute 2.4 10 3/mcL Normal 0.9-4.3 [facility] Comment on above: Performed By: #### G FR, CMP, ADIFF, ANEU, LIPID, CBC #### [address] [address] Lymphocytes/100 WBC (Bld) 40.7 % High 20.0-40.0 [facility] Comment on above: Performed By: #### G FR, CMP, ADIFF, ANEU, LIPID, CBC #### [address] [address] Monocyte, Absolute 0.5 10 3/mcL Normal 0.1-1.4 [facility] Comment on above: Performed By: #### G FR, CMP, ADIFF, ANEU, LIPID, CBC #### [address] [address] Monocytes/100 WBC (Bld) 8.4 % Normal 2.0-13.0 [facility] Comment on above: Performed By: #### G FR, CMP, ADIFF, ANEU, LIPID, CBC #### [address] [address] Neutrophils/100 WBC (Bld) 46.5 % Low 50.0-75.0 [facility] Comment on above: Performed By: #### G FR, CMP, ADIFF, ANEU, LIPID, CBC #### [address] [address] .GFRon 01-31-2024 GFR 83 ml/min/1.73sqm Normal [facility] Comment on above: Result Comment: GFR Population mean for , Non- Americans Ages 20-29 = 116 mL/min/1.73 sq.m. Ages 30-39 = 107 mL/min/1.73 sq.m. Ages 40-49 = 99 mL/min/1.73 sq.m. Ages 50-59 = 93 mL/min/1.73 sq.m. Ages 60-69 = 85 mL/min/1.73 sq.m. Ages 70+ = 75 mL/min/1.73 sq.m. Chronic Kidney Disease: Less than 60 mL/min/1.73 square meters End Stage Renal Disease: Less than 15 mL/min/1.73 square meters Performed By: #### G FR, CMP, ADIFF, ANEU, LIPID, CBC #### [address] [address] GFR Non- 68 ml/min/1.73sqm Normal [facility] Comment on above: Result Comment: GFR Population mean for , Non- Americans Ages 20-29 = 116 mL/min/1.73 sq.m. Ages 30-39 = 107 mL/min/1.73 sq.m. Ages 40-49 = 99 mL/min/1.73 sq.m. Ages 50-59 = 93 mL/min/1.73 sq.m. Ages 60-69 = 85 mL/min/1.73 sq.m. Ages 70+ = 75 mL/min/1.73 sq.m. Chronic Kidney Disease: Less than 60 mL/min/1.73 square meters End Stage Renal Disease: Less than 15 mL/min/1.73 square meters Performed By: #### G FR, CMP, ADIFF, ANEU, LIPID, CBC #### [place] [address] .NEUABSon 01-31-2024 Neutrophil, Absolute 2.8 10 3/mcL Normal 2.3-8.1 [facility] Comment on above: Performed By: #### G FR, CMP, ADIFF, ANEU, LIPID, CBC #### [place] [address] CBCon 01-31-2024 Erythrocyte distribution width (RBC) [Ratio] 13.3 % Normal 11.5-15.5 [facility] Comment on above: Performed By: #### G FR, CMP, ADIFF, ANEU, LIPID, CBC #### [place] [address] Hematocrit (Bld) [Volume fraction] 45.2 % Normal 40.0-52.0 [facility] Comment on above: Performed By: #### G FR, CMP, ADIFF, ANEU, LIPID, CBC #### [place] [address] Hgb 15.2 G/dL Normal 13.0-17.5 [facility] Comment on above: Performed By: #### G FR, CMP, ADIFF, ANEU, LIPID, CBC #### [place] [address] MCH (RBC) [Entitic mass] 28.7 pg Normal 27.0-33.0 [facility] Comment on above: Performed By: #### G FR, CMP, ADIFF, ANEU, LIPID, CBC #### [address] [address] MCHC 33.6 G/dL Normal 32.0-36.0 [facility] Comment on above: Performed By: #### G FR, CMP, ADIFF, ANEU, LIPID, CBC #### [address] [address] MCV (RBC) [Entitic vol] 85.6 fL Normal 81.0-100.0 [facility] Comment on above: Performed By: #### G FR, CMP, ADIFF, ANEU, LIPID, CBC #### [address] [address] Platelet 298 10 3/mcL Normal 150-450 [facility] Comment on above: Performed By: #### G FR, CMP, ADIFF, ANEU, LIPID, CBC #### [place] [address] Platelet mean volume (Bld) [Entitic vol] 8.0 fL Normal 6.4-10.5 [facility] Comment on above: Performed By: #### G FR, CMP, ADIFF, ANEU, LIPID, CBC #### [address] [address] RBC 5.28 10 6/mcL Normal 4.50-6.00 [facility] Comment on above: Performed By: #### G FR, CMP, ADIFF, ANEU, LIPID, CBC #### [address] [address] WBC 6.0 10 3/mcL Normal 4.5-10.8 [facility] Comment on above: Performed By: #### G FR, CMP, ADIFF, ANEU, LIPID, CBC #### [place] [address] CMPon 01-31-2024 Albumin Level 4.6 G/dL Normal 3.5-5.0 [facility] Comment on above: Performed By: #### G FR, CMP, ADIFF, ANEU, LIPID, CBC #### [address] [address] Albumin/Globulin [Mass ratio] 1.5 {ratio} Normal 1.1-2.5 [facility] Comment on above: Performed By: #### G FR, CMP, ADIFF, ANEU, LIPID, CBC #### [address] [address] ALP [Catalytic activity/Vol] 83 U/L Normal 40-135 [facility] Comment on above: Performed By: #### G FR, CMP, ADIFF, ANEU, LIPID, CBC #### [address] [address] ALT [Catalytic activity/Vol] 88 U/L High 16-63 [facility] Comment on above: Performed By: #### G FR, CMP, ADIFF, ANEU, LIPID, CBC #### [address] [address] AST [Catalytic activity/Vol] 32 U/L Normal 10-40 [facility] Comment on above: Performed By: #### G FR, CMP, ADIFF, ANEU, LIPID, CBC #### [address] [address] Bili Total 0.5 mg/dL Normal 0.2-1.0 [facility] Comment on above: Result Comment: Use of this assay is not recommended for patients undergoing treatment with eltrombopag due to the potential for falsely elevated results. Performed By: #### G FR, CMP, ADIFF, ANEU, LIPID, CBC #### [address] [address] BUN/Creatinine Ratio 4 ratio Low 7-27 [facility] Comment on above: Performed By: #### G FR, CMP, ADIFF, ANEU, LIPID, CBC #### [address] [address] Calcium [Mass/Vol] 9.5 mg/dL Normal 8.4-10.2 [facility] Comment on above: Performed By: #### G FR, CMP, ADIFF, ANEU, LIPID, CBC #### [address] [address] Chloride [Moles/Vol] 102 mmol/L Normal 98-107 [facility] Comment on above: Performed By: #### G FR, CMP, ADIFF, ANEU, LIPID, CBC #### [address] [address] CO2 [Moles/Vol] 25 mmol/L Normal 22-29 [facility] Comment on above: Performed By: #### G FR, CMP, ADIFF, ANEU, LIPID, CBC #### [address] [address] Creatinine [Mass/Vol] 1.23 mg/dL Normal 0.70-1.30 [facility] Comment on above: Result Comment: Test ing performed on Siemens Dimension EXL analyzer using a modified kinetic Terence technique. Performed By: #### G FR, CMP, ADIFF, ANEU, LIPID, CBC #### [address] [address] Electrolyte Balance 11.0 mEq/L Normal 4.0-15.0 [facility] Comment on above: Performed By: #### G FR, CMP, ADIFF, ANEU, LIPID, CBC #### [address] [address] Globulin 3.0 G/dL Normal [facility] Comment on above: Performed By: #### G FR, CMP, ADIFF, ANEU, LIPID, CBC #### [address] [address] Glucose [Mass/Vol] 95 mg/dL Normal 70-105 [facility] Comment on above: Performed By: #### G FR, CMP, ADIFF, ANEU, LIPID, CBC #### [address] [address] Potassium [Moles/Vol] 4.2 mmol/L Normal 3.5-5.1 [facility] Comment on above: Performed By: #### G FR, CMP, ADIFF, ANEU, LIPID, CBC #### [place] [address] [place], [place] [address] Sodium [Moles/Vol] 138 mmol/L Normal 136-145 [facility] Comment on above: Performed By: #### G FR, CMP, ADIFF, ANEU, LIPID, CBC #### [place] [address] [place], [place] [address] Total Protein 7.6 G/dL Normal 6.4-8.2 [facility] Comment on above: Performed By: #### G FR, CMP, ADIFF, ANEU, LIPID, CBC #### [place] [address] [place], [place] [address] Urea nitrogen [Mass/Vol] 5 mg/dL Low 7-18 [facility] Comment on above: Performed By: #### G FR, CMP, ADIFF, ANEU, LIPID, CBC #### [place] [address] [place], [place] [address] LABORATORYOrdered By: SYSTEM SYSTEM on 01-31-2024 Albumin BCP dye [Mass/Vol] 4.6 G/dL Normal 3.5 - 5.0 G/dL AO ADM SS Albumin/Globulin [Mass ratio] 1.5 {ratio} Normal 1.1 - 2.5 ratio AO ADM SS ALP [Catalytic activity/Vol] 83 U/L Normal 40 - 135 U/L AO ADM SS ALT With P-5'-P [Catalytic activity/Vol] 88 U/L High 16 - 63 U/L AO ADM SS AST With P-5'-P [Catalytic activity/Vol] 32 U/L Normal 10 - 40 U/L AO ADM SS Basophils (Bld) [#/Vol] 0.1 103/mcL Normal 0.0 - 0.2 10^3/mcL AO Workflow SS Basophils/100 WBC (Bld) 1.1 % Normal 0.0 - 2.5 % AO Workflow SS Bilirubin [Mass/Vol] 0.5 mg/dL Normal 0.2 - 1 .0 mg/dL AO ADM SS Comment on above: Interpretive Data: U se of this assay is not recommended for patients undergoing treatment with eltrombopag due to the potential for falsely elevated results. Calcium [Mass/Vol] 9.5 mg/dL Normal 8.4 - 10. 2 mg/dL AO ADM SS Chloride [Moles/Vol] 102 mmol/L Normal 98 - 10 7 mmol/L AO ADM SS CO2 [Moles/Vol] 25 mmol/L Normal 22 - 29 mmol/L AO AD M SS Creatinine [Mass/Vol] 1.23 mg/dL Normal 0.70 - 1.30 mg/dL AO ADM SS Comment on above: Interpretive Data: T esting performed on Siemens Dimension EXL analyzer using a modified kinetic Terence technique. Electrolyte Balance 11.0 mEq/L Normal 4.0 - 15 .0 mEq/L AO ADM SS Eosinophil, Absolute 0.2 103/mcL Normal 0.0 - 0 .7 10^3/mcL AO Workflow SS Eosinophils/100 WBC (Bld) 3.3 % Normal 0.0 - 7.0 % AO Workflow SS Erythrocyte distribution width (RBC) [Ratio] 13.3 % Normal 11.5 - 15.5 % AO Workflow SS GFR/1.73 sq M.predicted among blacks MDRD (S/P/Bld) [Vol rate/Area] 83 ml/min/1.73sqm Invalid Interpretation Code AO Chemistry S Comment on above: Interpretive Data: GFR Population mean for , Non- Americans Ages 20-29 = 116 mL/min/1.73 sq.m. Ages 30-39 = 107 mL/min/1.73 sq.m. Ages 40-49 = 99 mL/min/1.73 sq.m. Ages 50-59 = 93 mL/min/1.73 sq.m. Ages 60-69 = 85 mL/min/1.73 sq.m. Ages 70+ = 75 mL/min/1.73 sq.m. Chronic Kidney Disease: Less than 60 mL/min/1.73 square meters End Stage Renal Disease: Less than 15 mL/min/1.73 square meters GFR/1.73 sq M.predicted among non-blacks MDRD (S/P/Bld) [Vol rate/Area] 68 ml/min/1.73sqm Invalid Interpretation Code AO Chemistry S Comment on above: Interpretive Data: GFR Population mean for , Non- Americans Ages 20-29 = 116 mL/min/1.73 sq.m. Ages 30-39 = 107 mL/min/1.73 sq.m. Ages 40-49 = 99 mL/min/1.73 sq.m. Ages 50-59 = 93 mL/min/1.73 sq.m. Ages 60-69 = 85 mL/min/1.73 sq.m. Ages 70+ = 75 mL/min/1.73 sq.m. Chronic Kidney Disease: Less than 60 mL/min/1.73 square meters End Stage Renal Disease: Less than 15 mL/min/1.73 square meters Globulin 3.0 G/dL Invalid Interpretation Code AO ADM SS Glucose [Mass/Vol] 95 mg/dL Normal 70 - 105 mg/dL AO ADM SS Hematocrit (Bld) [Volume fraction] 45.2 % Normal 40.0 - 52.0 % AO Workflow SS Hemoglobin (Bld) [Mass/Vol] 15.2 G/dL Normal 13.0 - 17.5 G/dL AO Workflow SS Lymphocytes (Bld) [#/Vol] 2.4 103/mcL Normal 0.9 - 4.3 10^3/mcL AO Workflow SS Lymphocytes/100 WBC (Bld) 40.7 % High 20.0 - 40.0 % AO Workflow SS MCH (RBC) [Entitic mass] 28.7 pg Normal 27.0 - 33.0 pg AO Workflow SS MCHC 33.6 G/dL Normal 32.0 - 36.0 G/dL AO Workflow SS MCV (RBC) [Entitic vol] 85.6 fL Normal 81.0 - 100.0 fL AO Workflow SS Monocytes (Bld) [#/Vol] 0.5 103/mcL Normal 0.1 - 1.4 10^3/mcL AO Workflow SS Monocytes/100 WBC (Bld) 8.4 % Normal 2.0 - 13.0 % AO Workflow SS Neutrophils (Bld) [#/Vol] 2.8 103/mcL Normal 2.3 - 8.1 10^3/mcL AO Workflow SS Neutrophils/100 WBC (Bld) 46.5 % Low 50.0 - 75.0 % AO Workflow SS Platelet mean volume (Bld) [Entitic vol] 8.0 fL Normal 6.4 - 10.5 fL AO Workflow SS Platelets (Bld) [#/Vol] 298 103/mcL Normal 150 - 450 10^3/mcL AO Workflow SS Potassium [Moles/Vol] 4.2 mmol/L Normal 3.5 - 5.1 mmol/L AO ADM SS Protein [Mass/Vol] 7.6 G/dL Normal 6.4 - 8.2 G/dL AO ADM SS RBC (Bld) [#/Vol] 5.28 106/mcL Normal 4.50 - 6.0 0 10^6/mcL AO Workflow SS Sodium [Moles/Vol] 138 mmol/L Normal 136 - 145 mmol/L AO ADM SS Urea nitrogen [Mass/Vol] 5 mg/dL Low 7 - 18 mg/dL AO ADM SS Urea nitrogen/Creatinine [Mass ratio] 4 ratio Low 7 - 27 ratio AO ADM SS WBC (Bld) [#/Vol] 6.0 103/mcL Normal 4.5 - 10.8 10^3/mcL AO Workflow SS LABORATORYOrdered By: Jacob Massey on 01-31-2024 Cholesterol [Mass/Vol] 164 mg/dL Normal 0 - 200 mg/dL AO ADM SS Comment on above: Interpretive Data: C holesterol Reference Interval: Less than 200 Desirable 200-239 Borderline high risk 240 and above High risk Cholesterol in HDL [Mass/Vol] 44 mg/dL Normal 40 - 60 mg/dL AO ADM SS Cholesterol in LDL [Mass/Vol] 84 mg/dL Normal 0 - 130 mg/dL AO ADM SS Triglyceride [Mass/Vol] 178 mg/dL High 0 - 150 mg/dL AO ADM SS Comment on above: Interpretive Data: T riglyceride Reference Interval: Less than 150 Normal 150-199 Borderline high risk 200-499 High risk 500 or higher Very high risk LIPIDon 01-31-2024 Cholesterol [Mass/Vol] 164 mg/dL Normal 0-200 [facility] Comment on above: Result Comment: Chol esterol Reference Interval: Less than 200 Desirable 200-239 Borderline high risk 240 and above High risk Performed By: #### G FR, CMP, ADIFF, ANEU, LIPID, CBC #### [facility] [address] [place], [place] [address] Cholesterol in HDL [Mass/Vol] 44 mg/dL Normal 40-60 [facility] Comment on above: Performed By: #### G FR, CMP, ADIFF, ANEU, LIPID, CBC #### [facility] [address] [place], [place] [address] Cholesterol in LDL [Mass/Vol] 84 mg/dL Normal 0-130 [facility] Comment on above: Performed By: #### G FR, CMP, ADIFF, ANEU, LIPID, CBC #### [facility] [address] [place], [place] [address] Triglyceride [Mass/Vol] 178 mg/dL High 0-150 [facility] Comment on above: Result Comment: Trig lyceride Reference Interval: Less than 150 Normal 150-199 Borderline high risk 200-499 High risk 500 or higher Very high risk Performed By: #### G FR, CMP, ADIFF, ANEU, LIPID, CBC #### [place] [address] [place], [place] [address] LYPCRon 01-24-2022 Lyme PCR Not detected Normal [facility] ([place] Comment on above: Result Comment: NOT DETECTED - A negative result does not rule out the presence of PCR inhibitors in the patient specimen or assay specific nucleic acid in concentrations below the level of detection by the assay. Blood and CSF specimens have poor clinical sensitivity for detection of Borrelia burgdorferi by PCR. INTERPRETIVE INFORMATION: Borrelia Species DNA Detection by PCR This test was developed and its performance characteristics determined by [facility]. It has not been cleared or approved by the [place] Food and Drug Administration. This test was performed in a CLIA certified laboratory and is intended for clinical purposes. Performed by [facility], [address] [place] [id number] [email or web address], Pedro Luis Garza MD, PHD, Lab. Director Performed By: #### T SH, LYPCR #### [address] [address] #### RF, MAE #### [address] [address] Lyme Source plasma edta Normal [facility] ([place] Comment on above: Performed By: #### T SH, LYPCR #### [address] [address] #### RF, MAE #### [facility] [address] [place] [address] FTAon 01-15-2022 FTA-ABS Reactive Abnormal Non-Reactive [facility] ([place] Comment on above: Result Comment: The FTA is a treponemal test useful as a confirmatory serological test for syphilis, performed when a RPR test is reactive. It is also useful as an aid in the diagnosis of latent or late syphilis when the RPR may be negative. It can NOT be used to monitor response to antibiotic therapy. The FTA will remain reactive, possibly for life, after infection with T. pallidum. False positive FTA tests may occur in 1) patients with underlying autoimmune disease, 2) the elderly, 3) , and 4) in the presence of abnormal serum globulins. Performed By: #### T SH, LYPCR #### [place] [address] #### RF, MAE #### [place] [address] HEPACon 01-15-2022 Hep A IgM Ab Non-Reactive Normal Non-Reactive [facility] ([place] Comment on above: Performed By: #### T SH, LYPCR #### [place] [address] #### RF, MAE #### [place] [address] Hep A IgM Ab Int Normal [facility] ([place]) Comment on above: Result Comment: No s erological evidence of a current Hepatitis A infection. See Interp Performed By: #### T SH, LYPCR #### [place] [address] #### RF, MAE #### [facility] [address] [place], [place] [id number] Hep B Core IgM Ab Non-Reactive Normal Non-Reactive [facility] ([place]) Comment on above: Performed By: #### T SH, LYPCR #### [place] [id number] #### RF, MAE #### [facility] [address] [place], [place] [id number] Hep B Core IgM Ab Int Normal [facility] ([place]) Comment on above: Result Comment: Samp les with a value < 0.80 Index are considered nonreactive (negative) for IgM antibodies to hepatitis B core antigen. See Interp Performed By: #### T SH, LYPCR #### [place] [address] #### RF, MAE #### [place] [address] Hep B Surf Ag Non-Reactive Normal Non-Reactive [facility] ([place] Comment on above: Performed By: #### T SH, LYPCR #### [place] [address] #### RF, MAE #### [place] [address] Hep C Ab Non-Reactive Normal Non-Reactive [facility] ([place] Comment on above: Performed By: #### T SH, LYPCR #### [place] [address] #### RF, MAE #### [place] [address] Hep C Ab Int Normal [facility] ([place] Comment on above: Result Comment: Nonr eactive: Samples with a value < 0.80 are considered nonreactive (negative) for antibodies to HCV. A negative test result does not exclude the possibility of exposure to or infection with HCV. HCV antibodies may be undetectable in some stages of the infection and in some clinical conditions. See Interp Performed By: #### T SH, LYPCR #### [place] [address] #### RF, MAE #### [place] [address] RPRon 01-15-2022 Reagin Ab RPR Ql (S) Reactive Abnormal Non-Reactive [facility] ([place]) Comment on above: Result Comment: The RPR test is a non-treponemal assay useful as an aid in the diagnosis of primary and secondary syphilis. It converts to positive generally within 2 weeks after the appearance of a lesion. This test is also useful for monitoring response to antibiotic therapy. A positive RPR screening test will be followed by the FTA ABS test. False positive RPR tests may occur in 1) patients with underlying autoimmune disorders, 2) elderly patients, 3) , and 4) other conditions with abnormal serum globulins. Performed By: #### T MIR, LYPCR #### [place] [address] #### RF, MAE #### [address] [address] RPRTon 01-15-2022 RPR Titer Reactive 8 Abnormal Non-Reactive [facility] ([place] Comment on above: Result Comment: The RPR test is a non-treponemal assay useful as an aid in the diagnosis of primary and secondary syphilis. It converts to positive generally within 2 weeks after the appearance of a lesion. This test is also useful for monitoring response to antibiotic therapy. A positive RPR screening test will be followed by the FTA ABS test. False positive RPR tests may occur in 1) patients with underlying autoimmune disorders, 2) elderly patients, 3) , and 4) other conditions with abnormal serum globulins. Performed By: #### T SH, LYPCR #### [place] [address] #### RF, MAE #### [place] [address] .Auto Diffon 01-14-2022 Basophil, Absolute 0.1 10 3/mcL Normal 0.0-0.2 [facility] ([place]) Comment on above: Performed By: #### T SH, LYPCR #### [place] [address] #### RF, MAE #### [place] [id number] Basophils/100 WBC (Bld) 1.2 % Normal 0.0-2.5 [facility] ([place]) Comment on above: Performed By: #### T SH, LYPCR #### [place] [address] #### RF, MAE #### [address] [address] Eosinophil, Absolute 0.1 10 3/mcL Normal 0.0-0.4 [facility] ([place]) Comment on above: Performed By: #### T SH, LYPCR #### [address] [address] #### RF, MAE #### [address] [address] Eosinophils/100 WBC (Bld) 2.1 % Normal 0.0-7.0 [facility] ([place] Comment on above: Performed By: #### T SH, LYPCR #### [place] [id number] #### RF, MAE #### [address] [address] Lymphocyte, Absolute 2.8 10 3/mcL Normal 0.8-3.9 [facility] ([place] Comment on above: Performed By: #### T SH, LYPCR #### [place] [id number] #### RF, MAE #### [address] [address] Lymphocytes/100 WBC (Bld) 45.8 % Normal 10.0-50.0 [facility] ([place] Comment on above: Performed By: #### T SH, LYPCR #### [address] [address] #### RF, MAE #### [address] [address] Monocyte, Absolute 0.5 10 3/mcL Normal 0.2-1.0 [facility] ([place] Comment on above: Performed By: #### T SH, LYPCR #### [address] [address] #### RF, MAE #### [address] [address] Monocytes/100 WBC (Bld) 8.8 % Normal 1.7-13.0 [facility] ([place] Comment on above: Performed By: #### T SH, LYPCR #### [place] [id number] #### RF, MAE #### [address] [address] Neutrophils/100 WBC (Bld) 42.1 % Normal 37.0-80.0 [facility] ([place] Comment on above: Performed By: #### T SH, LYPCR #### [address] [address] #### RF, MAE #### [address] [address] .GFRon 01-14-2022 GFR 116 ml/min/1.73sqm Normal [facility] ([place] Comment on above: Result Comment: GFR Population mean for , Non- Americans Ages 20-29 = 116 mL/min/1.73 sq.m. Ages 30-39 = 107 mL/min/1.73 sq.m. Ages 40-49 = 99 mL/min/1.73 sq.m. Ages 50-59 = 93 mL/min/1.73 sq.m. Ages 60-69 = 85 mL/min/1.73 sq.m. Ages 70+ = 75 mL/min/1.73 sq.m. Chronic Kidney Disease: Less than 60 mL/min/1.73 square meters End Stage Renal Disease: Less than 15 mL/min/1.73 square meters Performed By: #### T SH, LYPCR #### [address] [address] #### RF, MAE #### [address] [address] GFR Non- 95 ml/min/1.73sqm Normal [facility] ([place] Comment on above: Result Comment: GFR Population mean for , Non- Americans Ages 20-29 = 116 mL/min/1.73 sq.m. Ages 30-39 = 107 mL/min/1.73 sq.m. Ages 40-49 = 99 mL/min/1.73 sq.m. Ages 50-59 = 93 mL/min/1.73 sq.m. Ages 60-69 = 85 mL/min/1.73 sq.m. Ages 70+ = 75 mL/min/1.73 sq.m. Chronic Kidney Disease: Less than 60 mL/min/1.73 square meters End Stage Renal Disease: Less than 15 mL/min/1.73 square meters Performed By: #### T SH, LYPCR #### [place] [address] #### RF, MAE #### [address] [address] .NEUABSon 01-14-2022 Neutrophil, Absolute 2.5 10 3/mcL Low 2.9-6.2 [facility] ([place] Comment on above: Performed By: #### T SH, LYPCR #### [place] [address] #### RF, MAE #### [place] [address] CBCon 01-14-2022 Erythrocyte distribution width (RBC) [Ratio] 13.0 % Normal 11.5-14.5 [facility] ([place] Comment on above: Performed By: #### T SH, LYPCR #### [place] [address] #### RF, MAE #### [place] [address] Hematocrit (Bld) [Volume fraction] 43.1 % Normal 42.0-52.0 [facility] ([place] Comment on above: Performed By: #### T SH, LYPCR #### [place] [address] #### RF, MAE #### [place] [address] Hgb 14.8 G/dL Normal 14.0-18.0 [facility] ([place] Comment on above: Performed By: #### T SH, LYPCR #### [place] [address] #### RF, MAE #### [place] [address] MCH (RBC) [Entitic mass] 28.4 pg Normal 27.0-31.2 [facility] ([place] Comment on above: Performed By: #### T SH, LYPCR #### [place] [address] #### RF, MAE #### [place] [address] MCHC 34.3 G/dL Normal 31.8-35.4 [facility] ([place] Comment on above: Performed By: #### T SH, LYPCR #### [place] [address] #### RF, MAE #### [place] [address] MCV (RBC) [Entitic vol] 82.8 fL Normal 80.0-94.0 [facility] ([place] Comment on above: Performed By: #### T SH, LYPCR #### [place] [address] #### RF, MAE #### [place] [address] Platelet 259 10 3/mcL Normal 130-400 [facility] ([place] Comment on above: Performed By: #### T SH, LYPCR #### [place] [address] #### RF, MAE #### [place] [address] Platelet mean volume (Bld) [Entitic vol] 7.2 fL Low 7.4-10.4 [facility] ([place] Comment on above: Performed By: #### T SH, LYPCR #### [place] [address] #### RF, MAE #### [place] [address] RBC 5.21 10 6/mcL Normal 4.04-6.13 [facility] ([place] Comment on above: Performed By: #### T SH, LYPCR #### [place] [address] #### RF, MAE #### [place] [address] WBC 6.0 10 3/mcL Normal 4.6-10.8 [facility] ([place] Comment on above: Performed By: #### T SH, LYPCR #### [address] [address] #### RF, MAE #### [address] [address] CMPon 01-14-2022 Albumin Level 4.5 G/dL Normal 3.5-5.0 [facility] ([place] Comment on above: Performed By: #### T SH, LYPCR #### [address] [address] #### RF, MEA #### [address] [address] Albumin/Globulin [Mass ratio] 1.4 {ratio} Normal 1.1-2.5 [facility] ([place] Comment on above: Performed By: #### T SH, LYPCR #### [address] [address] #### RF, MAE #### [address] [address] ALP [Catalytic activity/Vol] 67 U/L Normal 40-135 [facility] ([place] Comment on above: Performed By: #### T SH, LYPCR #### [address] [address] #### RF, MAE #### [address] [address] ALT [Catalytic activity/Vol] 45 U/L Normal 16-63 [facility] ([place]) Comment on above: Performed By: #### T SH, LYPCR #### [address] [address] #### RF, MAE #### [address] [address] AST [Catalytic activity/Vol] 19 U/L Normal 10-40 [facility] ([place]) Comment on above: Performed By: #### T SH, LYPCR #### [address] [address] #### RF, MAE #### [address] [address] Bili Total 0.4 mg/dL Normal 0.2-1.0 [facility] ([place] Comment on above: Result Comment: Use of this assay is not recommended for patients undergoing treatment with eltrombopag due to the potential for falsely elevated results. Performed By: #### T SH, LYPCR #### [place] [address] #### RF, MAE #### [address] [address] BUN/Creatinine Ratio 10 ratio Normal 7-27 [facility] ([place] Comment on above: Performed By: #### T SH, LYPCR #### [place] [address] #### RF, MAE #### [place] [id number] Calcium [Mass/Vol] 9.0 mg/dL Normal 8.4-10.2 [facility] [place] Comment on above: Performed By: #### T SH, LYPCR #### [place] [address] #### RF, MAE #### [address] [address] Chloride [Moles/Vol] 104 mmol/L Normal 98-107 [facility] ([place] Comment on above: Performed By: #### T SH, LYPCR #### [place] [address] #### RF, MAE #### [address] [address] CO2 [Moles/Vol] 30 mmol/L High 22-29 [facility] ([place] Comment on above: Performed By: #### T SH, LYPCR #### [place] [address] #### RF, MAE #### [address] [address] Creatinine [Mass/Vol] 0.93 mg/dL Normal 0.70-1.30 [facility] ([place] Comment on above: Performed By: #### T SH, LYPCR #### [address] [address] #### RF, MAE #### [address] [address] Electrolyte Balance 8.0 mEq/L Normal 4.0-15.0 [facility] ([place] Comment on above: Performed By: #### T SH, LYPCR #### [address] [address] #### RF, MAE #### [address] [address] Globulin 3.2 G/dL Normal [facility] ([place] Comment on above: Performed By: #### T SH, LYPCR #### [address] [address] #### RF, MAE #### [address] [address] Glucose [Mass/Vol] 79 mg/dL Normal 70-105 [facility] [place] Comment on above: Performed By: #### T SH, LYPCR #### [address] [address] #### RF, MAE #### [address] [address] Potassium [Moles/Vol] 4.4 mmol/L Normal 3.5-5.1 [facility] ([place] Comment on above: Performed By: #### T SH, LYPCR #### [address] [address] #### RF, MAE #### [address] [address] Sodium [Moles/Vol] 142 mmol/L Normal 136-145 [facility] [place] Comment on above: Performed By: #### T SH, LYPCR #### [place] [id number] #### RF, MAE #### [place] [id number] Total Protein 7.7 G/dL Normal 6.4-8.2 [facility] ([place] Comment on above: Performed By: #### T SH, LYPCR #### [address] [address] #### RF, MAE #### [place] [id number] Urea nitrogen [Mass/Vol] 9 mg/dL Normal 7-18 [facility] ([place] Comment on above: Performed By: #### T SH, LYPCR #### [place] [address] #### RF, MAE #### [place] [address] HIVRPon 01-14-2022 HIV p24 Antigen Non-Reactive Normal Non-Reactive [facility] ([place]) Comment on above: Result Comment: Dete ction of p24 may be inhibited by biotin in the sample, causing false negative results in acute infection. Therefore do not test samples from patients who are taking biotin. Performed By: #### T SH, LYPCR #### [place] [address] #### RF, MAE #### [place] [address] HIV P24 Int Non-Reactive Invalid Interpretation Code [facility] ([place] Comment on above: Performed By: #### T SH, LYPCR #### [place] [id number] #### RF, MAE #### [address] [address] Rapid HIV 1/2 Antibody Non-Reactive Normal Non-Reactive [facility] ([place] Comment on above: Performed By: #### T SH, LYPCR #### [place] [id number] #### RF, MAE #### [place] [id number] RHIV 1/2 Ab Int Non-Reactive Invalid Interpretation Code [facility] ([place] Comment on above: Performed By: #### T SH, LYPCR #### [place] [address] [place], [place] [address] #### RF, MAE #### [address] [address] LABORATORYOrdered By: Naty Abdi on 01-14-2022 Albumin BCP dye [Mass/Vol] 4.5 G/dL Invalid Interpretation Code 3.5 - 5.0 G/dL AO ADM SS Albumin/Globulin [Mass ratio] 1.4 {ratio} Invalid Interpretation Code 1.1 - 2.5 ratio AO ADM SS ALP [Catalytic activity/Vol] 67 U/L Invalid Interpretation Code 40 - 135 U/L AO ADM SS ALT With P-5'-P [Catalytic activity/Vol] 45 U/L Invalid Interpretation Code 16 - 63 U/L AO ADM SS AST With P-5'-P [Catalytic activity/Vol] 19 U/L Invalid Interpretation Code 10 - 40 U/L AO ADM SS Bilirubin [Mass/Vol] 0.4 mg/dL Invalid Interpretation Code 0.2 - 1.0 mg/dL AO ADM SS Calcium [Mass/Vol] 9.0 mg/dL Invalid Interpretation Code 8.4 - 10.2 mg/dL AO ADM SS Chloride [Moles/Vol] 104 mmol/L Invalid Interpretation Code 98 - 107 mmol/L AO ADM SS CO2 [Moles/Vol] 30 mmol/L Invalid Interpretation Code 22 - 29 mmol/L AO ADM SS Creatinine [Mass/Vol] 0.93 mg/dL Invalid Interpretation Code 0.70 - 1.30 mg/dL AO ADM SS Electrolyte Balance 8.0 mEq/L Invalid Interpretation Code 4.0 - 15.0 mEq/L AO ADM SS Globulin 3.2 G/dL Invalid Interpretation Code AO ADM SS Glucose [Mass/Vol] 79 mg/dL Invalid Interpretation Code 70 - 105 mg/dL AO ADM SS HIV 1 p24 Ab Ql (S) Non-Reactive (01/14/22 1:35 PM) Invalid Interpretation Code Non-Reactive AO Rapid Testing SS HIV 1 p24 Ab Ql (S) Non-Reactive Invalid Interpretation Code AO Rapid Testing SS HIV 1+2 Ab IA Ql Non-Reactive Invalid Interpretation Code AO Rapid Testing SS HIV 1+2 Ab IA.rapid Ql (Unsp spec) Non-Reactive (01/14/22 1:35 PM) Invalid Interpretation Code Non-Reactive AO Rapid Testing SS Potassium [Moles/Vol] 4.4 mmol/L Invalid Interpretation Code 3.5 - 5.1 mmol/L AO ADM SS Protein [Mass/Vol] 7.7 G/dL Invalid Interpretation Code 6.4 - 8.2 G/dL AO ADM SS Sodium [Moles/Vol] 142 mmol/L Invalid Interpretation Code 136 - 145 mmol/L AO ADM SS Urea nitrogen [Mass/Vol] 9 mg/dL Invalid Interpretation Code 7 - 18 mg/dL AO ADM SS Urea nitrogen/Creatinine [Mass ratio] 10 ratio Invalid Interpretation Code 7 - 27 ratio AO ADM SS LABORATORYOrdered By: Jessica Mccracken on 01-14-2022 Basophil, Absolute 0.1 103/mcL Invalid Interpretation Code 0.0 - 0.2 10^3/mcL AO Workflow SS Basophils/100 WBC (Bld) 1.2 % Invalid Interpretation Code 0.0 - 2.5 % AO Workflow SS Eosinophil, Absolute 0.1 103/mcL Invalid Interpretation Code 0.0 - 0.4 10^3/mcL AO Workflow SS Eosinophils/100 WBC (Bld) 2.1 % Invalid Interpretation Code 0.0 - 7.0 % AO Workflow SS Erythrocyte distribution width (RBC) [Ratio] 13.0 % Invalid Interpretation Code 11.5 - 14.5 % AO Workflow SS Hematocrit (Bld) [Volume fraction] 43.1 % Invalid Interpretation Code 42.0 - 52.0 % AO Workflow SS Hemoglobin (Bld) [Mass/Vol] 14.8 G/dL Invalid Interpretation Code 14.0 - 18.0 G/dL AO Workflow SS Lymphocyte, Absolute 2.8 103/mcL Invalid Interpretation Code 0.8 - 3.9 10^3/mcL AO Workflow SS Lymphocytes/100 WBC (Bld) 45.8 % Invalid Interpretation Code 10.0 - 50.0 % AO Workflow SS MCH (RBC) [Entitic mass] 28.4 pg Invalid Interpretation Code 27.0 - 31.2 pg AO Workflow SS MCHC 34.3 G/dL Invalid Interpretation Code 31.8 - 35.4 G/dL AO Workflow SS MCV (RBC) [Entitic vol] 82.8 fL Invalid Interpretation Code 80.0 - 94.0 fL AO Workflow SS Monocyte, Absolute 0.5 103/mcL Invalid Interpretation Code 0.2 - 1.0 10^3/mcL AO Workflow SS Monocytes/100 WBC (Bld) 8.8 % Invalid Interpretation Code 1.7 - 13.0 % AO Workflow SS Neutrophil, Absolute 2.5 103/mcL Invalid Interpretation Code 2.9 - 6.2 10^3/mcL AO Workflow SS Neutrophils/100 WBC (Bld) 42.1 % Invalid Interpretation Code 37.0 - 80.0 % AO Workflow SS Platelet mean volume (Bld) [Entitic vol] 7.2 fL Invalid Interpretation Code 7.4 - 10.4 fL AO Workflow SS Platelets (Bld) [#/Vol] 259 103/mcL Invalid Interpretation Code 130 - 400 10^3/mcL AO Workflow SS RBC (Bld) [#/Vol] 5.21 106/mcL Invalid Interpretation Code 4.04 - 6.13 10^6/mcL AO Workflow SS WBC (Bld) [#/Vol] 6.0 103/mcL Invalid Interpretation Code 4.6 - 10.8 10^3/mcL AO Workflow SS LABORATORYOrdered By: SYSTEM SYSTEM on 01-14-2022 GFR 116 ml/min/1.73sqm Invalid Interpretation Code AO Chemistry S GFR Non- 95 ml/min/1.73sqm Invalid Interpretation Code AO Chemistry S LABORATORYOrdered By: Titi Mcknight on 01-14-2022 HAV IgM IA Ql Non-Reactive (01/14/22 1:35 PM) Invalid Interpretation Code Non-Reactive AH ADM SS HAV IgM IA Ql No serological evidence of a current Hepatitis A infection. Invalid Interpretation Code AH Chemistry S HBV core IgM IA Ql Non-Reactive (01/14/22 1:35 PM) Invalid Interpretation Code Non-Reactive AH ADM SS HBV core IgM IA Ql Samples with a value < 0.80 Index are considered nonreactive (negative) for IgM antibodies to hepatitis B core antigen. Invalid Interpretation Code AH Chemistry S HBV surface Ag IA Ql Non-Reactive (01/14/22 1:35 PM) Invalid Interpretation Code Non-Reactive AH ADM SS HCV Ab IA Ql Non-Reactive (01/14/22 1:35 PM) Invalid Interpretation Code Non-Reactive AH ADM SS HCV Ab IA Ql Nonreactive: Samples with a value < 0.80 are considered nonreactive (negative) for antibodies to HCV.A negative test result does not exclude the possibility of exposure to or infection with HCV. HCV antibodies may be undetectable in some stages of the infection and in some clinical conditions. Invalid Interpretation Code AH Chemistry S MISCon 01-01-2022 [facility] [place]. Send Out See Comments Normal [facility] ([place]) Comment on above: Order Comment: sanjuana sim Result Comment: Cassie sandipe reference lab report scanned to EMR. Performed By: #### A DIFF, DIFF, A1C, CMP, GFR, ANEU, LIPID, CBC #### [address] [address] #### RPR, RPRT, HEPAC, FTA #### [address] [address] .GFRon 12-31-2021 GFR Non- >60 Normal [facility] ([place]) Comment on above: Result Comment: GFR Population mean for , Non- Americans Ages 20-29 = 116 mL/min/1.73 sq.m. Ages 30-39 = 107 mL/min/1.73 sq.m. Ages 40-49 = 99 mL/min/1.73 sq.m. Ages 50-59 = 93 mL/min/1.73 sq.m. Ages 60-69 = 85 mL/min/1.73 sq.m. Ages 70+ = 75 mL/min/1.73 sq.m. Chronic Kidney Disease: Less than 60 mL/min/1.73 square meters End Stage Renal Disease: Less than 15 mL/min/1.73 square meters Performed By: #### L DONOVAN MERRITT #### [address] [address] GFR >60 Normal [facility] ([place]) Comment on above: Result Comment: GFR Population mean for , Non- Americans Ages 20-29 = 116 mL/min/1.73 sq.m. Ages 30-39 = 107 mL/min/1.73 sq.m. Ages 40-49 = 99 mL/min/1.73 sq.m. Ages 50-59 = 93 mL/min/1.73 sq.m. Ages 60-69 = 85 mL/min/1.73 sq.m. Ages 70+ = 75 mL/min/1.73 sq.m. Chronic Kidney Disease: Less than 60 mL/min/1.73 square meters End Stage Renal Disease: Less than 15 mL/min/1.73 square meters Performed By: #### L DONOVAN MERRITT #### [place] [address] LABORATORYOrdered By: SYSTEM SYSTEM on 12-31-2021 Albumin BCP dye [Mass/Vol] 4.4 G/dL Invalid Interpretation Code 3.2 - 4.8 G/dL AH ADM SS Calcium [Mass/Vol] 9.7 mg/dL Invalid Interpretation Code 8.7 - 10.4 mg/dL AH ADM SS Chloride [Moles/Vol] 105 mmol/L Invalid Interpretation Code 98 - 110 mEq/L AH ADM SS CO2 [Moles/Vol] 30 mmol/L Invalid Interpretation Code 22 - 32 mEq/L AH ADM SS Creatinine [Mass/Vol] 0.97 mg/dL Invalid Interpretation Code 0.60 - 1.40 mg/dL AH ADM SS Electrolyte Balance 6.0 mEq/L Invalid Interpretation Code 4.0 - 15.0 mEq/L AH ADM SS GFR/1.73 sq M.predicted among blacks MDRD (S/P/Bld) [Vol rate/Area] ml/min/1.73sqm Invalid Interpretation Code AH Chemistry S GFR/1.73 sq M.predicted among non-blacks MDRD (S/P/Bld) [Vol rate/Area] ml/min/1.73sqm Invalid Interpretation Code AH Chemistry S Glucose [Mass/Vol] 83 mg/dL Invalid Interpretation Code 70 - 110 mg/dL AH ADM SS Phosphate [Mass/Vol] 2.9 mg/dL Invalid Interpretation Code 2.4 - 5.1 mg/dL AH ADM SS Potassium [Moles/Vol] 4.6 mmol/L Invalid Interpretation Code 3.5 - 5.0 mEq/L AH ADM SS Comment on above: Result Comment: Spec imen slightly hemolyzed. Sodium [Moles/Vol] 141 mmol/L Invalid Interpretation Code 136 - 145 mEq/L AH ADM SS Urea nitrogen [Mass/Vol] 11.0 mg/dL Invalid Interpretation Code 8.0 - 22.0 mg/dL AH ADM SS Urea nitrogen/Creatinine [Mass ratio] 11.3 ratio Invalid Interpretation Code 10.0 - 22.0 ratio AH ADM SS RFPon 12-31-2021 Albumin Level 4.4 G/dL Normal 3.2-4.8 [facility] ([place] Comment on above: Performed By: #### DONOVAN CARPIO #### [address] [address] BUN/Creatinine Ratio 11.3 ratio Normal 10.0-22.0 [facility] ([place]) Comment on above: Performed By: #### DONOVAN CARPIO #### [address] [address] Calcium [Mass/Vol] 9.7 mg/dL Normal 8.7-10.4 [facility] [place] Comment on above: Performed By: #### DONOVAN CARPIO #### [address] [address] Chloride [Moles/Vol] 105 mmol/L Normal 98-110 [facility] ([place] Comment on above: Performed By: #### DONOVAN CARPIO #### [address] [address] CO2 [Moles/Vol] 30 mmol/L Normal 22-32 [facility] ([place] Comment on above: Performed By: #### DONOVAN CARPIO #### [address] [address] Creatinine [Mass/Vol] 0.97 mg/dL Normal 0.60-1.40 [facility] ([place]) Comment on above: Performed By: #### DONOVAN CARPIO #### [address] [address] Electrolyte Balance 6.0 mEq/L Normal 4.0-15.0 [facility] ([place]) Comment on above: Performed By: #### DONOVAN CARPIO #### [address] [address] Glucose [Mass/Vol] 83 mg/dL Normal 70-110 [facility] [place] Comment on above: Performed By: #### DONOVAN CARPIO #### [address] [address] Phosphate [Mass/Vol] 2.9 mg/dL Normal 2.4-5.1 [facility] ([place] Comment on above: Result Comment: No te - New Reference Range in effect 19 Performed By: #### L DONOVAN MERRITT #### [address] [address] Potassium [Moles/Vol] 4.6 mmol/L Normal 3.5-5.0 [facility] ([place] Comment on above: Result Comment: Spec imen slightly hemolyzed. Performed By: #### DONOVAN CARPIO #### [address] [address] Sodium [Moles/Vol] 141 mmol/L Normal 136-145 [facility] [place] Comment on above: Performed By: #### DONOVAN CARPIO #### [address] [address] Urea nitrogen [Mass/Vol] 11.0 mg/dL Normal 8.0-22.0 [facility] ([place] Comment on above: Performed By: #### DONOVAN CARPIO #### [address] [address] Buprenorphine Screenon 11-19 Buprenorphine Screen Negative Normal [facility] Comment on above: Result Comment: Bupr enorphine (Suboxone) has been screened for by Immunoassay at 5 ng/mL threshold. POSITIVE results are not confirmed by a more specific alternative method unless requested. If confirmation is needed, request confirmation under separate order. NOTE: These results are for medical treatment only. Analysis performed using non-forensic procedures. Performed By: #### B JAMIE RIBERA FENTU #### [employer] [facility] [address] [place] [address] Fentanyl Screen, Urineon Fentanyl Screen, Urn Negative Normal Negative [facility] Comment on above: Result Comment: Fent anyl has been screened for by Immunoassay at a 1 ng/ml threshold. POSITIVE results are not confirmed by a more specific alternative method unless requested. If confirmation is needed, request confirmation under separate order. NOTE: These results are for medical treatment only. Analysis performed using non-forensic procedures. Performed By: #### B JAMIE RIBERA FENTU ####[employer] [id number] [place], [place] Drug Screenon 2021 Amphetamines Ql (U) Negative Normal [facility] Comment on above: Performed By: #### B UPR, IGNUR, FENTU #### [facility] [address], [place] Barbiturates Negative Normal [facility] Comment on above: Performed By: #### B UPR, IGNUR, FENTU #### [facility] [address], [place] Benzodiazepines Ql (U) Negative Normal [facility] Comment on above: Performed By: #### B UPR, IGNUR, FENTU #### [facility] [address], [place] Cocaine Ql (U) Negative Normal [facility] Comment on above: Performed By: #### B UPR, IGNUR, FENTU #### [place] [address] [address], [place] Ethanol [Mass/Vol] Negative [facility] Comment on above: Performed By: #### B UPR, IGNUR, FENTU #### [facility] [address] [facility], [place] Opiates Ql (U) Negative Normal [facility] Comment on above: Performed By: #### B UPR, IGNUR, FENTU #### [facility] [address], [place] Oxycodone/Oxymorphone Negative Normal [facility] Comment on above: Performed By: #### B UPR, IGNUR, FENTU #### [place] [address] [address] [facility], [place] THC Negative [facility] Comment on above: Performed By: #### B UPR, IGNUR, FENTU #### [place] [address] [address] [facility], [place] [facility] Screen Comment SEE BELOW Normal [facility] Comment on above: Result Comment: The expected value for the drugs listed above is Negative. The following drugs or drug groups have been screened for by Immunoassay at the thresholds listed: Amphetamine class(1000 ng/mL), Barbiturates(200 ng/mL), Benzodiazepines(200 ng/mL),Cocaine(300 ng/mL), Ethanol(50 ng/dL),Opiates(300 ng/mL),Oxycodone(100 ng/mL), and THC(50 ng/mL). POSITIVE results are NOT confirmed by a more specific alternative method unless requested. If confirmation is needed, request confirmation under separate order. NOTE: These results are for medical treatment only. Analysis performed using non-forensic procedures. Performed By: #### B JAMIE RIBERA FENTU #### [address] [address] [facility] [place]. Send Out See Comments Normal [facility] ([place] Comment on above: Order Comment: Sanjuana sim Result Comment: Cassie loya reference lab report scanned to EMR. Performed By: #### T SH, LYPCR #### [address] [address] #### RF, MAE #### [address] [address] .GFRon 11-03-2021 GFR >60 Normal [facility] ([place]) Comment on above: Result Comment: GFR Population mean for , Non- Americans Ages 20-29 = 116 mL/min/1.73 sq.m. Ages 30-39 = 107 mL/min/1.73 sq.m. Ages 40-49 = 99 mL/min/1.73 sq.m. Ages 50-59 = 93 mL/min/1.73 sq.m. Ages 60-69 = 85 mL/min/1.73 sq.m. Ages 70+ = 75 mL/min/1.73 sq.m. Chronic Kidney Disease: Less than 60 mL/min/1.73 square meters End Stage Renal Disease: Less than 15 mL/min/1.73 square meters Performed By: #### T SH, LYPCR #### [address] [address] #### RF, MAE #### [address] [address] GFR Non- >60 Normal [facility] ([place] Comment on above: Result Comment: GFR Population mean for , Non- Americans Ages 20-29 = 116 mL/min/1.73 sq.m. Ages 30-39 = 107 mL/min/1.73 sq.m. Ages 40-49 = 99 mL/min/1.73 sq.m. Ages 50-59 = 93 mL/min/1.73 sq.m. Ages 60-69 = 85 mL/min/1.73 sq.m. Ages 70+ = 75 mL/min/1.73 sq.m. Chronic Kidney Disease: Less than 60 mL/min/1.73 square meters End Stage Renal Disease: Less than 15 mL/min/1.73 square meters Performed By: #### T SH, LYPCR #### [place] [address] #### RF, MAE #### [place] [address] .MDWon 11-03-2021 Monocyte Distribution Width Not performed Normal 0.00-20.00 [facility] ([place] Comment on above: Result Comment: MDW testing performed only on adult ER patients between the ages of 18-89 years. Performed By: #### T SH, LYPCR #### [place] [address] #### RF, MAE #### [place] [address] .Manual Diffon 11-03-2021 Basophil %, Manual 1.0 % Normal 0.0-2.5 [facility] [place] Comment on above: Performed By: #### T SH, LYPCR #### [place] [id number] #### RF, MAE #### [place] [address] Basophil, Abs Manual 0.0 10 3/mcL Normal 0.0-0.3 [facility] ([place]) Comment on above: Performed By: #### T SH, LYPCR #### [place] [id number] #### RF, MAE #### [address] [address] Eosinophil %, Manual 1.0 % Normal 0.0-6.0 [facility] ([place]) Comment on above: Performed By: #### T SH, LYPCR #### [place] [address] #### RF, MAE #### [address] [address] Eosinophil, Abs Manual 0.1 10 3/mcL Normal 0.0-0.7 [facility] ([place] Comment on above: Performed By: #### T SH, LYPCR #### [place] [address] #### RF, MAE #### [address] [address] Lymphocyte %, Manual 55.0 % High 20.0-40.0 [facility] ([place] Comment on above: Performed By: #### T SH, LYPCR #### [place] [address] #### RF, MAE #### [address] [address] Lymphocyte, Abs Manual 3.1 10 3/mcL Normal 0.9-4.3 [facility] ([place] Comment on above: Performed By: #### T SH, LYPCR #### [place] [address] #### RF, MAE #### [address] [address] Monocyte %, Manual 3.0 % Normal 2.0-13.0 [facility] [place] Comment on above: Performed By: #### T SH, LYPCR #### [place] [address] #### RF, MAE #### [address] [address] Monocyte, Abs Manual 0.2 10 3/mcL Normal 0.1-1.4 [facility] ([place] Comment on above: Performed By: #### T SH, LYPCR #### [place] [address] #### RF, MAE #### [place] [address] Neutrophil %, Manual 40.0 % Low 50.0-75.0 [facility] ([place] Comment on above: Performed By: #### T SH, LYPCR #### [place] [address] #### RF, MAE #### [place] [address] Neutrophil, Abs Manual 2.2 10 3/mcL Low 2.3-8.1 [facility] ([place] Comment on above: Performed By: #### T SH, LYPCR #### [place] [address] #### RF, MAE #### [place] [address] Nucleated RBC 1.0 /100 WBC Normal [facility] ([place] Comment on above: Performed By: #### T SH, LYPCR #### [place] [address] #### RF, MAE #### [place] [address] .Morphon 11-03-2021 Platelet Estimate Normal Normal [facility] ([place] Comment on above: Performed By: #### T SH, LYPCR #### [place] [address] #### RF, MAE #### [place] [address] RBC morphology finding Nom (Bld) See Below Normal [facility] ([place] Comment on above: Result Comment: RBC Morphology appears Normal Performed By: #### T SH, LYPCR #### [place] [address] #### RF, MAE #### [place] [address] A1Con 11-03-2021 HbA1c (Bld) [Mass fraction] 4.9 % Normal 4.0-6.0 [facility] ([place] Comment on above: Performed By: #### T SH, LYPCR #### [address] [address] #### RF, MAE #### [address] [address] B12on 11-03-2021 Cobalamin (Vitamin B12) [Mass/Vol] 373 pg/mL Normal 211-911 [facility] ([place] Comment on above: Performed By: #### T SH, LYPCR #### [address] [address] #### RF, MAE #### [address] [address] CBCon 11-03-2021 Erythrocyte distribution width (RBC) [Ratio] 13.0 % Normal 11.5-15.5 [facility] ([place] Comment on above: Performed By: #### T SH, LYPCR #### [address] [address] #### RF, MAE #### [address] [address] Hematocrit (Bld) [Volume fraction] 44.8 % Normal 40.0-52.0 [facility] ([place] Comment on above: Performed By: #### T SH, LYPCR #### [address] [address] #### RF, MAE #### [address] [address] Hgb 15.1 G/dL Normal 13.0-17.5 [facility] ([place] Comment on above: Performed By: #### T SH, LYPCR #### [address] [address] #### RF, MAE #### [address] [address] MCH (RBC) [Entitic mass] 27.9 pg Normal 27.0-33.0 [facility] ([place] Comment on above: Performed By: #### T SH, LYPCR #### [place] [id number] #### RF, MAE #### [place] [address] MCHC 33.6 G/dL Normal 32.0-36.0 [facility] ([place] Comment on above: Performed By: #### T SH, LYPCR #### [place] [id number] #### RF, MAE #### [place] [address] MCV (RBC) [Entitic vol] 83.0 fL Normal 81.0-100.0 [facility] ([place]) Comment on above: Performed By: #### T SH, LYPCR #### [place] [address] #### RF, MAE #### [place] [address] Platelet 217 10 3/mcL Normal 150-450 [facility] ([place] Comment on above: Performed By: #### T SH, LYPCR #### [place] [id number] #### RF, MAE #### [place] [address] Platelet mean volume (Bld) [Entitic vol] 7.5 fL Normal 6.4-10.5 [facility] ([place] Comment on above: Performed By: #### T SH, LYPCR #### [place] [address] #### RF, MAE #### [place] [address] RBC 5.39 10 6/mcL Normal 4.50-6.00 [facility] ([place] Comment on above: Performed By: #### T SH, LYPCR #### [place] [id number] #### RF, MAE #### [place] [id number] WBC 5.6 10 3/mcL Normal 4.5-10.8 [facility] ([place] Comment on above: Performed By: #### T SH, LYPCR #### [place] [address] #### RF, MAE #### [address] [address] CMPon 11-03-2021 Albumin/Globulin [Mass ratio] 1.5 {ratio} Normal 0.9-1.6 [facility] ([place] Comment on above: Performed By: #### T SH, LYPCR #### [place] [address] #### RF, MAE #### [address] [address] ALP [Catalytic activity/Vol] 66 U/L Normal 38-126 [facility] ([place] Comment on above: Performed By: #### T SH, LYPCR #### [place] [address] #### RF, MAE #### [place] [address] ALT [Catalytic activity/Vol] 28 U/L Normal 12-55 [facility] ([place] Comment on above: Performed By: #### T SH, LYPCR #### [place] [address] #### RF, MAE #### [address] [address] AST [Catalytic activity/Vol] 21 U/L Normal 8-34 [facility] ([place] Comment on above: Performed By: #### T SH, LYPCR #### [place] [address] #### RF, MAE #### [address] [address] Bili Total 0.60 mg/dL Normal 0.20-1.20 [facility] ([place] Comment on above: Result Comment: Use of this assay is not recommended for patients undergoing treatment with eltrombopag due to the potential for falsely elevated results. Performed By: #### T SH, LYPCR #### [address] [address] #### RF, MAE #### [address] [address] Globulin 3.0 G/dL Normal 1.5-3.8 [facility] ([place] Comment on above: Performed By: #### T SH, LYPCR #### [address] [address] #### RF, MAE #### [place] [address] Total Protein 7.5 G/dL Normal 5.7-8.2 [facility] ([place] Comment on above: Result Comment: No te - New Reference Range in effect 19 Performed By: #### T SH, LYPCR #### [place] [address] #### RF, MAE #### [place] [address] FOLon 11-03-2021 Folate 22.01 ng/mL Normal 5.38-24.00 [facility] ([place] Comment on above: Performed By: #### T SH, LYPCR #### [place] [address] #### RF, MAE #### [place] [address] FT3on 11-03-2021 Free T3 [Mass/Vol] 3.10 pg/mL Normal 2.30-4.20 [facility] [place] Comment on above: Performed By: #### T SH, LYPCR #### [place] [address] #### RF, MAE #### [place] [address] FT4on 11-03-2021 Free T4 [Mass/Vol] 1.19 ng/dL Normal 0.89-1.76 [facility] Comment on above: Result Comment: No te - New Reference Range in effect 20 Performed By: #### T SH, LYPCR #### [place] [id number] [place], [place] [address] #### RF, MAE #### [address] [address] LABORATORYOrdered By: SYSTEM SYSTEM on 11-03-2021 25-hydroxyvitamin D3 [Mass/Vol] 27.6 ng/mL Invalid Interpretation Code AH ADM SS Albumin/Globulin [Mass ratio] 1.5 {ratio} Invalid Interpretation Code 0.9 - 1.6 ratio ADM SS ALP [Catalytic activity/Vol] 66 U/L Invalid Interpretation Code 38 - 126 U/L ADM SS ALT No additional P-5'-P [Catalytic activity/Vol] 28 U/L Invalid Interpretation Code 12 - 55 U/L ADM SS AST [Catalytic activity/Vol] 21 U/L Invalid Interpretation Code 8 - 34 U/L AH ADM SS Basophils (Bld) [#/Vol] 0.0 103/mcL Invalid Interpretation Code 0.0 - 0.3 10^3/mcL AH Workflow SS Basophils/100 WBC (Bld) 1.0 % Invalid Interpretation Code 0.0 - 2.5 % AH Workflow SS Bilirubin [Mass/Vol] 0.60 mg/dL Invalid Interpretation Code 0.20 - 1.20 mg/dL AH ADM SS Cobalamin (Vitamin B12) [Mass/Vol] 373 pg/mL Invalid Interpretation Code 211 - 911 pg/mL AH ADM SS Eosinophils (Bld) [#/Vol] 0.1 103/mcL Invalid Interpretation Code 0.0 - 0.7 10^3/mcL AH Workflow SS Eosinophils/100 WBC (Bld) 1.0 % Invalid Interpretation Code 0.0 - 6.0 % AH Workflow SS Erythrocyte distribution width (RBC) [Ratio] 13.0 % Invalid Interpretation Code 11.5 - 15.5 % AH Workflow SS Folate [Mass/Vol] 22.01 ng/mL Invalid Interpretation Code 5.38 - 24.00 ng/mL ADM SS Free T3 [Mass/Vol] 3.10 pg/mL Invalid Interpretation Code 2.30 - 4.20 pg/mL AH ADM SS Free T4 [Mass/Vol] 1.19 ng/dL Invalid Interpretation Code 0.89 - 1.76 ng/dL AH ADM SS GFR/1.73 sq M.predicted among blacks MDRD (S/P/Bld) [Vol rate/Area] ml/min/1.73sqm Invalid Interpretation Code Chemistry S GFR/1.73 sq M.predicted among non-blacks MDRD (S/P/Bld) [Vol rate/Area] ml/min/1.73sqm Invalid Interpretation Code Chemistry S Globulin 3.0 G/dL Invalid Interpretation Code 1.5 - 3.8 G/dL ADM SS HbA1c (Bld) [Mass fraction] 4.9 % Invalid Interpretation Code 4.0 - 6.0 % Auto Chem SS Hematocrit (Bld) [Volume fraction] 44.8 % Invalid Interpretation Code 40.0 - 52.0 % Workflow SS Hemoglobin (Bld) [Mass/Vol] 15.1 G/dL Invalid Interpretation Code 13.0 - 17.5 G/dL Workflow SS Lymphocytes (Bld) [#/Vol] 3.1 103/mcL Invalid Interpretation Code 0.9 - 4.3 10^3/mcL Workflow SS Lymphocytes/100 WBC (Bld) 55.0 % Invalid Interpretation Code 20.0 - 40.0 % Workflow SS MCH (RBC) [Entitic mass] 27.9 pg Invalid Interpretation Code 27.0 - 33.0 pg AH Workflow SS MCHC 33.6 G/dL Invalid Interpretation Code 32.0 - 36.0 G/dL AH Workflow SS MCV (RBC) [Entitic vol] 83.0 fL Invalid Interpretation Code 81.0 - 100.0 fL Workflow SS Monocyte distribution width Auto (Bld) [Entitic vol] Not Performed 1 *NA* (11/03/21 10:52 AM) Invalid Interpretation Code 0.00 - 20.00 Hematology S Comment on above: Result Comment: MDW testing performed only on adult ER patients between the ages of 18-89 years. Monocytes (Bld) [#/Vol] 0.2 103/mcL Invalid Interpretation Code 0.1 - 1.4 10^3/mcL AH Workflow SS Monocytes/100 WBC (Bld) 3.0 % Invalid Interpretation Code 2.0 - 13.0 % Workflow SS Neutrophils (Bld) [#/Vol] 2.2 103/mcL Invalid Interpretation Code 2.3 - 8.1 10^3/mcL Workflow SS Neutrophils/100 WBC (Bld) 40.0 % Invalid Interpretation Code 50.0 - 75.0 % AH Workflow SS Nucleated RBC 1.0 /100 WBC Invalid Interpretation Code AH Workflow SS Phosphate [Mass/Vol] 3.0 mg/dL Invalid Interpretation Code 2.4 - 5.1 mg/dL AH ADM SS Platelet mean volume (Bld) [Entitic vol] 7.5 fL Invalid Interpretation Code 6.4 - 10.5 fL AH Workflow SS Platelets (Bld) [#/Vol] 217 103/mcL Invalid Interpretation Code 150 - 450 10^3/mcL AH Workflow SS Platelets LM Ql (Bld) Normal *NA* (11/03/21 10:52 AM) Invalid Interpretation Code AH Workflow SS Protein [Mass/Vol] 7.5 G/dL Invalid Interpretation Code 5.7 - 8.2 G/dL AH ADM SS RBC (Bld) [#/Vol] 5.39 106/mcL Invalid Interpretation Code 4.50 - 6.00 10^6/mcL AH Workflow SS RBC morphology finding Nom (Bld) See Below 2 *NA* (11/03/21 10:52 AM) Invalid Interpretation Code AH Workflow SS Comment on above: Result Comment: RBC Morphology appears Normal TSH Qn 2.685 mIU/mL Invalid Interpretation Code 0.550 - 4.780 mIU/mL AH ADM SS WBC 5.6 103/mcL Invalid Interpretation Code 4.5 - 10.8 10^3/mcL AH Workflow SS LABORATORYOrdered By: Martha Bella on 11-03-2021 Cholesterol [Mass/Vol] 177 mg/dL Invalid Interpretation Code 50 - 199 mg/dL ADM SS Cholesterol in HDL [Mass/Vol] 42 mg/dL Invalid Interpretation Code 40 - 59 mg/dL ADM SS Cholesterol in LDL [Mass/Vol] 107 mg/dL Invalid Interpretation Code 0 - 129 mg/dL AH ADM SS Triglyceride [Mass/Vol] 141 mg/dL Invalid Interpretation Code 3 - 149 mg/dL ADM SS LIPIDon 11-03-2021 Cholesterol [Mass/Vol] 177 mg/dL Normal 50-199 [facility] ([place] Comment on above: Result Comment: Chol esterol Reference Interval: Less than 200 Desirable 200-239 Borderline high risk 240 and above High risk Performed By: #### T SH, LYPCR #### [place] [address] #### RF, MAE #### [address] [address] Cholesterol in HDL [Mass/Vol] 42 mg/dL Normal 40-59 [facility] ([place] Comment on above: Performed By: #### T SH, LYPCR #### [address] [address] #### RF, MAE #### [address] [address] Cholesterol in LDL [Mass/Vol] 107 mg/dL Normal 0-129 [facility] ([place] Comment on above: Performed By: #### T SH, LYPCR #### [address] [address] #### RF, MAE #### [address] [address] Triglyceride [Mass/Vol] 141 mg/dL Normal 3-149 [facility] ([place] Comment on above: Performed By: #### T SH, LYPCR #### [address] [address] #### RF, MAE #### [address] [address] Laboratory - Chemistry and C hemistry - challengeOrdered By: SYSTEM SYSTEM on 11-03-2021 Albumin BCP dye [Mass/Vol] 4.5 G/dL Invalid Interpretation Code 3.2 - 4.8 G/dL AH ADM SS Calcium [Mass/Vol] 9.3 mg/dL Invalid Interpretation Code 8.7 - 10.4 mg/dL AH ADM SS Chloride [Moles/Vol] 106 mmol/L Invalid Interpretation Code 98 - 110 mEq/L AH ADM SS CO2 [Moles/Vol] 31 mmol/L Invalid Interpretation Code 22 - 32 mEq/L AH ADM SS Creatinine [Mass/Vol] 0.98 mg/dL Invalid Interpretation Code 0.60 - 1.40 mg/dL AH ADM SS Glucose [Mass/Vol] 91 mg/dL Invalid Interpretation Code 70 - 110 mg/dL ADM SS Potassium [Moles/Vol] 4.4 mmol/L Invalid Interpretation Code 3.5 - 5.0 mEq/L AH ADM SS Sodium [Moles/Vol] 142 mmol/L Invalid Interpretation Code 136 - 145 mEq/L AH ADM SS Urea nitrogen [Mass/Vol] 11.0 mg/dL Invalid Interpretation Code 8.0 - 22.0 mg/dL AH ADM SS Urea nitrogen/Creatinine [Mass ratio] 11.2 ratio Invalid Interpretation Code 10.0 - 22.0 ratio AH ADM SS No Panel InformationOrdered By: SYSTEM SYSTEM on 11-03-2021 Electrolyte Balance 5.0 mEq/L Invalid Interpretation Code 4.0 - 15.0 mEq/L AH ADM SS RFPon 11-03-2021 Albumin Level 4.5 G/dL Normal 3.2-4.8 [facility] ([place]) Comment on above: Performed By: #### T SH, LYPCR #### [address] [address] #### RF, MAE #### [address] [address] BUN/Creatinine Ratio 11.2 ratio Normal 10.0-22.0 [facility] ([place]) Comment on above: Performed By: #### T SH, LYPCR #### [address] [address] #### RF, MAE #### [address] [address] Calcium [Mass/Vol] 9.3 mg/dL Normal 8.7-10.4 [facility] ([place] Comment on above: Performed By: #### T SH, LYPCR #### [address] [address] #### RF, MAE #### [address] [address] Chloride [Moles/Vol] 106 mmol/L Normal 98-110 [facility] ([place]) Comment on above: Performed By: #### T SH, LYPCR #### [address] [address] #### RF, MAE #### [address] [address] CO2 [Moles/Vol] 31 mmol/L Normal 22-32 [facility] ([place]) Comment on above: Performed By: #### T SH, LYPCR #### [address] [address] #### RF, MAE #### [address] [address] Creatinine [Mass/Vol] 0.98 mg/dL Normal 0.60-1.40 [facility] ([place]) Comment on above: Performed By: #### T SH, LYPCR #### [place] [id number] #### RF, MAE #### [address] [address] Electrolyte Balance 5.0 mEq/L Normal 4.0-15.0 [facility] ([place]) Comment on above: Performed By: #### T SH, LYPCR #### [place] [address] #### RF, MAE #### [address] [address] Glucose [Mass/Vol] 91 mg/dL Normal 70-110 [facility] Comment on above: Performed By: #### T SH, LYPCR #### [place] [address] #### RF, MAE #### [address] [address] Phosphate [Mass/Vol] 3.0 mg/dL Normal 2.4-5.1 [facility] ([place]) Comment on above: Result Comment: No te - New Reference Range in effect 19 Performed By: #### T SH, LYPCR #### [place] [address] #### RF, MAE #### [address] [address] Potassium [Moles/Vol] 4.4 mmol/L Normal 3.5-5.0 [facility] ([place]) Comment on above: Performed By: #### T SH, LYPCR #### [place] [address] #### RF, MAE #### [address] [address] Sodium [Moles/Vol] 142 mmol/L Normal 136-145 [facility] Comment on above: Performed By: #### T SH, LYPCR #### [address] [address] #### RF, MAE #### [place] [id number] Urea nitrogen [Mass/Vol] 11.0 mg/dL Normal 8.0-22.0 [facility] ([place]) Comment on above: Performed By: #### T SH, LYPCR #### [place] [address] #### RF, MAE #### [place] [address] TSHon 11-03-2021 TSH 2.685 mIU/mL Normal 0.550-4.780 [facility] ([place]) Comment on above: Result Comment: No te - New Reference Range in effect 19 Performed By: #### T SH, LYPCR #### [place] [address] #### RF, MAE #### [place] [address] VIDHon 11-03-2021 Vit. D 25-Hydroxy 27.6 ng/mL Normal [facility] ([place]) Comment on above: Result Comment: Inte rpretive Values Based on Total 25(OH)D: Severe Deficiency <20 ng/mL Mild to Moderate Deficiency 20-30 ng/mL Optimum Levels 30-100 ng/mL Toxicity Possible >100 ng/mL Performed By: #### T SH, LYPCR #### [place] [id number] #### RF, MAE #### [place] [address] Buprenorphineon 09-17-2021 Buprenorphine Negative [facility] Comment on above: Buprenorphine (Subox one) has been screened for by Immunoassay at 5 ng/mL threshold. POSITIVE results are not confirmed by a more specific alternative method unless requested. If confirmation is needed, request confirmation under separate order. NOTE: These results are for medical treatment only. Analysis performed using non-forensic procedures. Buprenorphine Screenon 09-17 Buprenorphine Screen Negative Normal [facility] Comment on above: Result Comment: Bupr enorphine (Suboxone) has been screened for by Immunoassay at 5 ng/mL threshold. POSITIVE results are not confirmed by a more specific alternative method unless requested. If confirmation is needed, request confirmation under separate order. NOTE: These results are for medical treatment only. Analysis performed using non-forensic procedures. Performed By: #### B UPR FENTU, IGNUR ####[facility] [employer] [id number], [place] Fentanyl Screen, Urineon Fentanyl Screen, Urn Negative Normal Negative [facility] Comment on above: Result Comment: Fent anyl has been screened for by Immunoassay at a 1 ng/ml threshold. POSITIVE results are not confirmed by a more specific alternative method unless requested. If confirmation is needed, request confirmation under separate order. NOTE: These results are for medical treatment only. Analysis performed using non-forensic procedures. Performed By: #### B UPR, FENTU, IGNUR ####[facility] [employer] [address], [place] Fentanyl, Urineon 09-17-2021 Fentanyl Negative Negative [facility] Comment on above: Fentanyl has been sc reened for by Immunoassay at a 1 ng/ml threshold. POSITIVE results are not confirmed by a more specific alternative method unless requested. If confirmation is needed, request confirmation under separate order. NOTE: These results are for medical treatment only. Analysis performed using non-forensic procedures. [place] [facility] Screenon 2021 Amphetamines Ql (U) Negative [facility] Comment on above: Performed By: #### B UPR FENTU IGNUR ####[facility] [employer] [id number], [place] Barbiturates Negative [facility] Comment on above: Performed By: #### B UPR, FENTU, IGNUR ####[facility], [place] Benzodiazepines Ql (U) Negative Normal [facility] Comment on above: Performed By: #### B CALLUM RIBERA IGNUR ####[facility] [id number] [place] [address] Cocaine Ql (U) Negative Normal [facility] Comment on above: Performed By: #### B CALLUM RIBERA IGNUR ####[facility] [address] [facility], [place] Ethanol [Mass/Vol] Negative Normal [facility] Comment on above: Performed By: #### B CALLUM RIBERA, IGNALEKSANDRA ####[facility] [address] [place] [address] Opiates Ql (U) Negative Normal [facility] Comment on above: Performed By: #### B CALLUM RIBERA IGNUR ####[place] [id number] [facility] [place] Oxycodone/Oxymorphone Negative Normal [facility] Comment on above: Performed By: #### B CALLUM RIBERA IGNUR ####[place] [id number] THC Negative Normal [facility] Comment on above: Performed By: #### B CALLUM RIBERA IGNUR ####[place] [id number] Amphetamines Ql (U) Negative [facility] Barbiturates Negative [facility] Benzodiazepines Ql (U) Negative [facility] Cocaine Ql (U) Negative [facility] Comment SEE BELOW [facility] Comment on above: The expected value f or the drugs listed above is Negative. The following drugs or drug groups have been screened for by Immunoassay at the thresholds listed: Amphetamine class(1000 ng/mL), Barbiturates(200 ng/mL), Benzodiazepines(200 ng/mL),Cocaine(300 ng/mL), Ethanol(50 ng/dL),Opiates(300 ng/mL),Oxycodone(100 ng/mL), and THC(50 ng/mL). POSITIVE results are NOT confirmed by a more specific alternative method unless requested. If confirmation is needed, request confirmation under separate order. NOTE: These results are for medical treatment only. Analysis performed using non-forensic procedures. Ethanol [Mass/Vol] Negative [facility] Opiates Ql (U) Negative [facility] Oxycodone + Oxymorphone Negative [facility] THC Negative [facility] Comment SEE BELOW Normal [facility] Comment on above: Result Comment: The expected value for the drugs listed above is Negative. The following drugs or drug groups have been screened for by Immunoassay at the thresholds listed: Amphetamine class(1000 ng/mL), Barbiturates(200 ng/mL), Benzodiazepines(200 ng/mL),Cocaine(300 ng/mL), Ethanol(50 ng/dL),Opiates(300 ng/mL),Oxycodone(100 ng/mL), and THC(50 ng/mL). POSITIVE results are NOT confirmed by a more specific alternative method unless requested. If confirmation is needed, request confirmation under separate order. NOTE: These results are for medical treatment only. Analysis performed using non-forensic procedures. Performed By: #### B CALLUM RIBERA IGNUR ####[facility] [place] [address] No Panel Informationon 09-17 Test Performed by [facility], [place] [address] [facility] Buprenorphine Screenon 09-03 Buprenorphine Screen Negative Normal [facility] Comment on above: Result Comment: Bupr enorphine (Suboxone) has been screened for by Immunoassay at 5 ng/mL threshold. POSITIVE results are not confirmed by a more specific alternative method unless requested. If confirmation is needed, request confirmation under separate order. NOTE: These results are for medical treatment only. Analysis performed using non-forensic procedures. Performed By: #### I ROSALIA MANCINIU, BUPR #### [facility] [address] [place] [address] Fentanyl Screen, Urineon Fentanyl Screen, Urn Negative Normal Negative [facility] Comment on above: Result Comment: Fent anyl has been screened for by Immunoassay at a 1 ng/ml threshold. POSITIVE results are not confirmed by a more specific alternative method unless requested. If confirmation is needed, request confirmation under separate order. NOTE: These results are for medical treatment only. Analysis performed using non-forensic procedures. Performed By: #### I ROSALIA MANCINIU, BUPR #### [facility] [address] [place], [place] [facility] Screenon 2021 Amphetamines Ql (U) Negative Normal [facility] Comment on above: Performed By: #### I ROSALIA MANCINIU, BUPR #### [facility] [address] [place], [place] Barbiturates Negative Normal [facility] Comment on above: Performed By: #### I ROSALIA MANCINIU, BUPR #### [facility] [address] [place], [place] Benzodiazepines Ql (U) Negative Normal [facility] Comment on above: Performed By: #### I ROSALIA MANCNIIU, BUPR #### [facility] [address] [place], [place] Cocaine Ql (U) Negative Normal [facility] Comment on above: Performed By: #### I ROSALIA MANCINIU, BUPR #### [place] [address] [address] [place], [place] Ethanol [Mass/Vol] Negative Normal [facility] Comment on above: Performed By: #### I ROSALIA MANCINIU, BUPR #### [place] [address] [address] [place], [place] Opiates Ql (U) Negative Normal [facility] Comment on above: Performed By: #### I ROSALIA MANCINIU, BUPR #### [facility] [address] [place], [place] Oxycodone/Oxymorphone Negative Normal [facility] Comment on above: Performed By: #### I LIVE FENTU, BUPR #### [place] [address] [address] [place], [place] THC Negative [facility] Comment on above: Performed By: #### I LIVE, FENTU, BUPR #### [facility] [address] [place], [place] [facility] Comment SEE BELOW Normal [facility] Comment on above: Result Comment: The expected value for the drugs listed above is Negative. The following drugs or drug groups have been screened for by Immunoassay at the thresholds listed: Amphetamine class(1000 ng/mL), Barbiturates(200 ng/mL), Benzodiazepines(200 ng/mL),Cocaine(300 ng/mL), Ethanol(50 ng/dL),Opiates(300 ng/mL),Oxycodone(100 ng/mL), and THC(50 ng/mL). POSITIVE results are NOT confirmed by a more specific alternative method unless requested. If confirmation is needed, request confirmation under separate order. NOTE: These results are for medical treatment only. Analysis performed using non-forensic procedures. Performed By: #### I GNALEKSANDRA, FENTU, BUPR #### [place] [address] [address] [place], [place] Buprenorphineon 08-27-2021 Buprenorphine Negative [facility] Comment on above: Buprenorphine (Subox one) has been screened for by Immunoassay at 5 ng/mL threshold. POSITIVE results are not confirmed by a more specific alternative method unless requested. If confirmation is needed, request confirmation under separate order. NOTE: These results are for medical treatment only. Analysis performed using non-forensic procedures. Buprenorphine Screenon 08-27 Buprenorphine Screen Negative Normal [facility] Comment on above: Result Comment: Bupr enorphine (Suboxone) has been screened for by Immunoassay at 5 ng/mL threshold. POSITIVE results are not confirmed by a more specific alternative method unless requested. If confirmation is needed, request confirmation under separate order. NOTE: These results are for medical treatment only. Analysis performed using non-forensic procedures. Performed By: #### I GNUR, BUPR, FENTU #### [facility] [address] [place], [place] Fentanyl Screen, Urineon Fentanyl Screen, Urn Negative Normal Negative [facility] Comment on above: Result Comment: Fent anyl has been screened for by Immunoassay at a 1 ng/ml threshold. POSITIVE results are not confirmed by a more specific alternative method unless requested. If confirmation is needed, request confirmation under separate order. NOTE: These results are for medical treatment only. Analysis performed using non-forensic procedures. Performed By: #### I GNUR, BUPR, FENTU #### [place] [address] [address] [place], [place] Fentanyl, Urineon 08-27-2021 Fentanyl Negative Negative [facility] Comment on above: Fentanyl has been sc reened for by Immunoassay at a 1 ng/ml threshold. POSITIVE results are not confirmed by a more specific alternative method unless requested. If confirmation is needed, request confirmation under separate order. NOTE: These results are for medical treatment only. Analysis performed using non-forensic procedures. [place] [facility] Screenon 2021 Amphetamines Ql (U) Negative [facility] Comment on above: Performed By: #### I GNUR, BUPR, FENTU #### [place] [address] [address] [place], [place] Barbiturates Negative [facility] Comment on above: Performed By: #### I GNUR, BUPR, FENTU #### [place] [address] [address] [place], [place] Benzodiazepines Ql (U) Negative [facility] Comment on above: Performed By: #### I GNUR, BUPR, FENTU #### [place] [address] [address] [place], [place] Cocaine Ql (U) Negative [facility] Comment on above: Performed By: #### I GNUR, BUPR, FENTU #### [place] [address] [address] [place], [place] Ethanol [Mass/Vol] Negative [facility] Comment on above: Performed By: #### I GNUR, BUPR, FENTU #### [place] [address] [address] [place], [place] Opiates Ql (U) Negative [facility] Comment on above: Performed By: #### I GNUR, BUPR, FENTU #### [place] [address] [address] [place], [place] Oxycodone/Oxymorphone Negative [facility] Comment on above: Performed By: #### I GNUR, BUPR, FENTU #### [place] [address] [address] [place], [place] THC Negative [facility] Comment on above: Performed By: #### I GNUR, BUPR, FENTU #### [place] [address] [place] [address] Amphetamines Ql (U) Negative [facility] Barbiturates Negative [facility] Benzodiazepines Ql (U) Negative [facility] Cocaine Ql (U) Negative [facility] Comment SEE BELOW [facility] Comment on above: The expected value f or the drugs listed above is Negative. The following drugs or drug groups have been screened for by Immunoassay at the thresholds listed: Amphetamine class(1000 ng/mL), Barbiturates(200 ng/mL), Benzodiazepines(200 ng/mL),Cocaine(300 ng/mL), Ethanol(50 ng/dL),Opiates(300 ng/mL),Oxycodone(100 ng/mL), and THC(50 ng/mL). POSITIVE results are NOT confirmed by a more specific alternative method unless requested. If confirmation is needed, request confirmation under separate order. NOTE: These results are for medical treatment only. Analysis performed using non-forensic procedures. Ethanol [Mass/Vol] Negative [facility] Opiates Ql (U) Negative [facility] Oxycodone + Oxymorphone Negative [facility] THC Negative [facility] Comment SEE BELOW Normal [facility] Comment on above: Result Comment: The expected value for the drugs listed above is Negative. The following drugs or drug groups have been screened for by Immunoassay at the thresholds listed: Amphetamine class(1000 ng/mL), Barbiturates(200 ng/mL), Benzodiazepines(200 ng/mL),Cocaine(300 ng/mL), Ethanol(50 ng/dL),Opiates(300 ng/mL),Oxycodone(100 ng/mL), and THC(50 ng/mL). POSITIVE results are NOT confirmed by a more specific alternative method unless requested. If confirmation is needed, request confirmation under separate order. NOTE: These results are for medical treatment only. Analysis performed using non-forensic procedures. Performed By: #### I CHETAN MANCINI FENTU #### [address] [address] No Panel Informationon 08-27 Test Performed by [facility], [address] [place] [id number] [place] [address] LAB [facility] percentageon 2021 Bilirubin [Mass/Vol] 0.30 mg/dL 0.20-1.00 [facility] Work Phone: Comment on above: For patients on eltr ombopag therapy, use of Dimension [place] TBIL is not recommended. Chloride [Moles/Vol] 107 mmol/L 98-107 [facility] Work Phone: Glucose [Mass/Vol] 98 mg/dL 74-106 [facility] Work Phone: Potassium [Moles/Vol] 4.2 mmol/L 3.5-5.1 [facility] Work Phone: Protein [Mass/Vol] 7.0 g/dL 6.4-8.2 [facility] Work Phone: Sodium [Moles/Vol] 139 mmol/L 136-145 [facility] Work Phone: WBC (Bld) [#/Vol] 4.8 10*3/uL 4.4-11.0 [facility] Work Phone: Blood erythrocytes count (nu mber/volume)on 08-24-2021 RBC (Bld) [#/Vol] 4.77 10*6/uL 4.6-6.2 [facility] Work Phone: Blood hemoglobin measurement (mass/volume)on 08-24-2021 Hemoglobin (Bld) [Mass/Vol] 13.2 g/dL 13.0-16.5 [facility] Work Phone: Blood platelet mean volumeon 08-24-2021 Platelet mean volume (Bld) [Entitic vol] 9.4 fL 6.2-12.0 [facility] Work Phone: Determination of erythrocyte mean corpuscular volume (MCV)on 08-24-2021 MCV (RBC) [Entitic vol] 84.7 fL 80-94 [facility] Work Phone: Hematocrit Auto (Bld) [Volum e fraction]on 08-24-2021 Hematocrit (Bld) [Volume fraction] 40.4 % 40-54 [facility] Work Phone: Laboratory - Chemistry and C hemistry - challengeon 08-24-2021 ALP [Catalytic activity/Vol] 52 U/L 45-117 [facility] Work Phone: ALT [Catalytic activity/Vol] 63 U/L 16-61 [facility] Work Phone: CO2 [Moles/Vol] 25.0 mmol/L 21.0-32.0 [facility] Work Phone: Globulin (S) [Mass/Vol] 3.3 g/dL 2.2-4.2 [facility] Work Phone: Urea nitrogen/Creatinine [Mass ratio] 15.3 mg/mg 10-20 [facility] Work Phone: Laboratory - Hematology and Cell countson 08-24-2021 Erythrocyte distribution width (RBC) [Entitic vol] 40.2 fL 35.1-43.9 [facility] Work Phone: Erythrocyte distribution width (RBC) [Ratio] 13.1 % 11.6-14.6 [facility] Work Phone: MCH (RBC) [Entitic mass] 27.7 pg 27.0-32.0 [facility] Work Phone: MCHC Auto (RBC) [Mass/Vol]on 08-24-2021 MCHC (RBC) [Mass/Vol] 32.7 g/dL 32-36 [facility] Work Phone: No Panel Informationon 08-24 Estimated GFR (MDRD) Amer 136 mL/min >60 [facility] Work Phone: Comment on above: GFR Calc Estimated GFR (MDRD) Non-Af Amer 112 mL/min >60 [facility] Work Phone: Comment on above: Non- GFR Calc Platelets bldon 08-24-2021 Platelets (Bld) [#/Vol] 207 10*3/uL 150-450 [facility] Work Phone: Serum or plasma albumin anette urement (mass/volume)on 08-24-2021 Albumin [Mass/Vol] 3.7 g/dL 3.2-5.0 [facility] Work Phone: Serum or plasma albumin/glob ulin mass ratioon 08-24-2021 Albumin/Globulin [Mass ratio] 1.1 {ratio} 0.9-2.4 [facility] Work Phone: Serum or plasma calcium anette urement (mass/volume)on 08-24-2021 Calcium [Mass/Vol] 8.4 mg/dL 8.5-10.1 [facility] Work Phone: Serum or plasma creatinine m easurement (mass/volume)on 08-24-2021 Creatinine [Mass/Vol] 0.85 mg/dL 0.70-1.30 [facility] Work Phone: Comment on above: The validity of the calculated GFR & GFRAA in patients over 70 years has not been determined. Clinical correlation is essential. Serum or plasma urea nitroge n measurement (mass/volume)on 08-24-2021 Urea nitrogen [Mass/Vol] 13 mg/dL 7-18 [facility] Work Phone: Thin prep Papanicolaou smear with manual screeningon 08-24-2021 Thin prep Papanicolaou smear with manual screening 26 U/L 15-37 [facility] Work Phone: Thin prep Papanicolaou smear with manual screening 7 5-15 [facility] Work Phone: MISCNBon 08-20-2021 Misc. lab Send Out (Non Blood) See Comments Normal [facility] ([place]) Comment on above: Order Comment: west nile pcr Result Comment: Cassie oropezae reference lab report scanned to EMR. Performed By: #### T SH, LYPCR #### [address] [address] #### RF, MAE #### [facility] [address] [place], [place] [address] Buprenorphine Screenon 08-19 Buprenorphine Screen Negative Normal [facility] Comment on above: Result Comment: Bupr enorphine (Suboxone) has been screened for by Immunoassay at 5 ng/mL threshold. POSITIVE results are not confirmed by a more specific alternative method unless requested. If confirmation is needed, request confirmation under separate order. NOTE: These results are for medical treatment only. Analysis performed using non-forensic procedures. Performed By: #### B CALLUM RIBERA IGNUR ####[facility] [place] [address] [employer]WESTGo 08-19-2021 West Nile IgG CSF 0.24 INDEX VALUE Normal <=1.29 [facility] ([place]) Comment on above: Result Comment: INTE RPRETIVE INFORMATION: West Nile Virus Ab IgG by ERAS[facility], CSF 1.29 IV or less ....... Negative: No significant level of West Nile virus IgG antibody detected. 1.30 - 1.49 IV ........ Equivocal: Questionable presence of West Nile virus IgG antibody detected. Repeat testing in 10-14 days may be helpful. 1.50 IV or greater .... Positive: Presence of IgG antibody to West Nile virus detected, suggestive of current or past infection. This test is intended to be used as a semi-quantitative means of detecting West Nile virus-specific IgG in CSF samples in which there is a clinical suspicion of West Nile Virus infection. This test should not be used solely for quantitative purposes, nor should the results be used without correlation to clinical history or other data. Because other members of the Flaviviridae family, such as [place] encephalitis virus, show extensive cross-reactivity with West Nile virus, serologic testing specific for these species should be considered. The detection of antibodies to West Nile virus in cerebrospinal fluid may indicate central nervous system infection. However, consideration must be given to possible contamination by blood or transfer of serum antibodies across the blood-brain barrier. This test was developed and its performance characteristics determined by [facility]. It has not been cleared or approved by the [place] Food and Drug Administration. This test was performed in a CLIA certified laboratory and is intended for clinical purposes. Performed By: [facility] [address] [place] [id number] Glue Reel Operator: Helen Sosa MD Performed By: #### A DIFF, DIFF, A1C, CMP, GFR, ANEU, LIPID, CBC #### [facility] [address] [place], [place] [address] #### RPR, RPRT, HEPAC, FTA #### [facility] [address] [place] [address] Fentanyl Screen, Urineon Fentanyl Screen, Urn Negative Normal Negative [facility] Comment on above: Result Comment: Fent anyl has been screened for by Immunoassay at a 1 ng/ml threshold. POSITIVE results are not confirmed by a more specific alternative method unless requested. If confirmation is needed, request confirmation under separate order. NOTE: These results are for medical treatment only. Analysis performed using non-forensic procedures. Performed By: #### B CALLUM RIBERA IGNUR ####[place] [address], [place] [facility] Screenon 2021 Amphetamines Ql (U) Negative [facility] Comment on above: Performed By: #### B CALLUM RIBERA IGNUR ####[place] [address], [place] Barbiturates Negative [facility] Comment on above: Performed By: #### B CALLUM RIBERA IGNUR ####[place] [address] Benzodiazepines Ql (U) Negative [facility] Comment on above: Performed By: #### B CALLUM RIBERA IGNUR ####[place] [address] Cocaine Ql (U) Negative Normal [facility] Comment on above: Performed By: #### B CALLUM RIBERA IGNUR ####[place] [address] Ethanol [Mass/Vol] Negative [facility] Comment on above: Performed By: #### B CALLUM RIBERA IGNUR ####[place] [address] Opiates Ql (U) Negative Normal [facility] Comment on above: Performed By: #### B CALLUM RIBERA IGNUR ####[facility] [place] [address] Oxycodone/Oxymorphone Negative Normal [facility] Comment on above: Performed By: #### B CALLUM RIBERA IGNUR ####[place] [address] [place] [address] THC Negative [facility] Comment on above: Performed By: #### B CALLUM RIBERA IGNUR ####[place] [address] [place] [address] [facility] Screen Comment SEE BELOW [facility] Comment on above: Result Comment: The expected value for the drugs listed above is Negative. The following drugs or drug groups have been screened for by Immunoassay at the thresholds listed: Amphetamine class(1000 ng/mL), Barbiturates(200 ng/mL), Benzodiazepines(200 ng/mL),Cocaine(300 ng/mL), Ethanol(50 ng/dL),Opiates(300 ng/mL),Oxycodone(100 ng/mL), and THC(50 ng/mL). POSITIVE results are NOT confirmed by a more specific alternative method unless requested. If confirmation is needed, request confirmation under separate order. NOTE: These results are for medical treatment only. Analysis performed using non-forensic procedures. Performed By: #### B CALLUM RIBERA IGNUR ####[place] [address] [place] [address] MISCNBon 08-19-2021 [facility]. lab Send Out (Non Blood) See Comments Normal [facility] ([place]) Comment on above: Order Comment: lyme pcr Result Comment: Comp lete reference lab report scanned to EMR. Performed By: #### A DIFF, DIFF, A1C, CMP, GFR, ANEU, LIPID, CBC #### [facility] [address] [place], [place] [address] #### RPR, RPRT, HEPAC, FTA #### [facility] [address] [place] [address] [facility] 08-19-2021 West Nile Virus IgG 0.81 INDEX VALUE Normal <=1.29 [facility] ([place]) Comment on above: Result Comment: INTE RPRETIVE INFORMATION: West Nile Virus Ab, IgG by ERASMO, Serum 1.29 IV or less ........ Negative - No significant level of West Nile virus IgG antibody detected. 1.30 - 1.49 IV ......... Equivocal - Questionable presence of West Nile virus IgG antibody detected. Repeat testing in 10-14 days may be helpful. 1.50 IV or greater ..... Positive - Presence of IgG antibody to West Nile virus detected, suggestive of current or past infection. This test is intended to be used as a semi-quantitative means of detecting West Nile virus-specific IgG in serum samples in which there is a clinical suspicion of West Nile virus infection. This test should not be used solely for quantitative purposes, nor should the results be used without correlation to clinical history or other data. Because other members of the Flaviviridae family, such as [place] encephalitis virus, show extensive cross-reactivity with West Nile virus, serologic testing specific for these species should be considered. Seroconversion between acute and convalescent sera is considered strong evidence of current or recent infection. The best evidence for infection is a significant change on two appropriately timed specimens, where both tests are done in the same laboratory at the same time. Performed By: #### L DONOVAN MERRITT #### [place] [address] West Nile Virus IgM 0.00 INDEX VALUE Normal <=0.89 [facility] ([place] Comment on above: Result Comment: INTE RPRETIVE INFORMATION: West Nile Virus Ab, IgM by ERASMO, Serum 0.89 IV or less ...... Negative - No significant level of West Nile virus IgM antibody detected. 0.90-1.10 IV ......... Equivocal - Questionable presence of West Nile virus IgM antibody detected. Repeat testing in 10-14 days may be helpful. 1.11 IV or greater ... Positive - Presence of IgM antibody to West Nile virus detected, suggestive of current or recent infection. This test is intended to be used as a semi-quantitative means of detecting West Nile virus-specific IgM in serum samples in which there is a clinical suspicion of West Nile virus infection. This test should not be used solely for quantitative purposes, nor should the results be used without correlation to clinical history or other data. Because other members of the Flaviviridae family, such as [place].Angel[place] encephalitis virus, show extensive cross-reactivity with West Nile virus, serologic testing specific for these species should be considered. Seroconversion between acute and convalescent sera is considered strong evidence of current or recent infection. The best evidence for infection is a significant change on two appropriately timed specimens, where both tests are done in the same laboratory at the same time. Performed By: [facility] [address] [place] [address] Glue Reel Operator: Helen Sosa MD Performed By: #### L DONOVAN MERRITT #### [place] [address] LYMECSFon 08-18-2021 Lyme Abs Total, CSF 1.48 CLARISSA High <=0.99 [facility] ([place]) Comment on above: Result Comment: INTE RPRETIVE INFORMATION: Borrelia burgdorferi Abs, ERASMO, CSF 0.99 CLARISSA or less: ......... Negative - Antibody to B. burgdorferi not detected. 1.00 - 1.20 CLARISSA ........... Equivocal - Repeat testing in 10-14 days may be helpful. 1.21 CLARISSA or greater: ...... Positive - Probable presence of antibody to B. burgdorferi detected. The detection of antibodies to B. burgdorferi in cerebrospinal fluid may indicate central nervous system infection. However, consideration must be given to possible contamination by blood or transfer of serum antibodies across the blood-brain barrier. Current CDC recommendations for the serologic diagnosis of Lyme disease are to screen with a polyvalent ERASMO test and confirm equivocal and positive results with immunoblot. Both IgM and IgG immunoblots should be performed on samples less than 4 weeks after appearance of erythema migrans. Only IgG immunoblot should be performed on samples greater than 4 weeks after the disease onset. IgM immunoblot in the chronic stage is not recommended and does not aid in the diagnosis of neuroborreliosis or chronic Lyme disease. Please submit requests for appropriate immunoblot testing within 10 days. This test was developed and its performance characteristics determined by [facility]. It has not been cleared or approved by the [place] Food and Drug Administration. This test was performed in a CLIA certified laboratory and is intended for clinical purposes. Performed By: [facility] [address] [place] [address] Glue Reel Operator: Helen Sosa MD Performed By: #### A DIFF, DIFF, A1C, CMP, GFR, ANEU, LIPID, CBC #### [address] [address] #### RPR, RPRT, HEPAC, FTA #### [address] [address] VDRLon 08-18-2021 VDRL Non-Reactive Normal Nonreactive [facility] ([place]) Comment on above: Result Comment: CSF VDRL test is used an aid in diagnosis of neurosyphilis. CSF VDRL detects non-treponemal antibodies and has lower sensitivity than CSF treponemal tests such as FTA, therefore a negative result cannot reliably rule out neurosyphilis. Clinical correlation is required. Performed By: [facility] [employer] [address] [place] [address] Robotic Toy Inventor: Jeancarlos Price III, M.D. CLIA#: [id number] Performed By: #### A DIFF, DIFF, A1C, CMP, GFR, ANEU, LIPID, CBC #### [address] [address] #### RPR, RPRT, HEPAC, FTA #### [address] [address] Basophil percentageon 2021 Bilirubin [Mass/Vol] 0.40 mg/dL 0.20-1.00 [facility] Work Phone: Comment on above: For patients on eltr ombopag therapy, use of Dimension [place] TBIL is not recommended. Chloride [Moles/Vol] 105 mmol/L 98-107 [facility] Work Phone: [phone] Glucose [Mass/Vol] 89 mg/dL 74-106 [facility] Work Phone: [phone] Potassium [Moles/Vol] 4.4 mmol/L 3.5-5.1 [facility] Work Phone: [phone] Protein [Mass/Vol] 7.5 g/dL 6.4-8.2 [facility] Work Phone: Sodium [Moles/Vol] 139 mmol/L 136-145 [facility] Work Phone: WBC (Bld) [#/Vol] 5.7 10*3/uL 4.4-11.0 [facility] Work Phone: Blood erythrocytes count (nu mber/volume)on 08-17-2021 RBC (Bld) [#/Vol] 5.11 10*6/uL 4.6-6.2 [facility] Work Phone: Blood hemoglobin measurement (mass/volume)on 08-17-2021 Hemoglobin (Bld) [Mass/Vol] 13.9 g/dL 13.0-16.5 [facility] Work Phone: Blood platelet mean volumeon 08-17-2021 Platelet mean volume (Bld) [Entitic vol] 9.6 fL 6.2-12.0 [facility] Work Phone: Determination of erythrocyte mean corpuscular volume (MCV)on 08-17-2021 MCV (RBC) [Entitic vol] 83.4 fL 80-94 [facility] Work Phone: Hematocrit Auto (Bld) [Volum e fraction]on 08-17-2021 Hematocrit (Bld) [Volume fraction] 42.6 % 40-54 [facility] Work Phone: LMERLYon 08-17-2021 Lyme IgG/IgM AB Negative Normal Negative [facility] ([place]) Comment on above: Result Comment: Rece nt infection with B. burgdorferi sensu lato cannot be excluded if the specimen collected within four weeks after the onset of signs and symptoms or within six weeks after a known tick exposure. Clinical and epidemiological correlation is required. Performed By: [facility] [address] [place] [address] Robotic Toy Inventor: Jeancarlos Price III, M.D. CLIA#: [id number] Performed By: #### DONOVAN CARPIO #### [address] [address] Laboratory - Chemistry and C hemistry - challengeon 08-17-2021 ALP [Catalytic activity/Vol] 52 U/L 45-117 [facility] Work Phone: [phone] ALT [Catalytic activity/Vol] 41 U/L 16-61 [facility] Work Phone: [phone] CO2 [Moles/Vol] 28.0 mmol/L 21.0-32.0 [facility] Work Phone: [phone] Globulin (S) [Mass/Vol] 3.3 g/dL 2.2-4.2 [facility] Work Phone: [phone] Urea nitrogen/Creatinine [Mass ratio] 20.1 mg/mg 10-20 [facility] Work Phone: [phone] Laboratory - Hematology and Cell countson 08-17-2021 Erythrocyte distribution width (RBC) [Entitic vol] 38.9 fL 35.1-43.9 [facility] Work Phone: [phone] Erythrocyte distribution width (RBC) [Ratio] 12.9 % 11.6-14.6 [facility] Work Phone: [phone] MCH (RBC) [Entitic mass] 27.2 pg 27.0-32.0 [facility] Work Phone: [phone] MCHC Auto (RBC) [Mass/Vol]on 08-17-2021 MCHC (RBC) [Mass/Vol] 32.6 g/dL 32-36 [facility] Work Phone: MISCNBon 08-17-2021 Misc. lab Send Out (Non Blood) See Comments Normal [facility] ([place]) Comment on above: Order Comment: ARBOV IRUS PCR Result Comment: Comp lete reference lab report scanned to EMR. Performed By: #### A DIFF, DIFF, A1C, CMP, GFR, ANEU, LIPID, CBC #### [facility] [address] [place], [place] [address] #### RPR, RPRT, HEPAC, FTA #### [address] [address] No Panel Informationon 08-17 Estimated GFR (MDRD) Amer 158 mL/min >60 [facility] Work Phone: Comment on above: GFR Calc Estimated GFR (MDRD) Non-Af Amer 131 mL/min >60 [facility] Work Phone: Comment on above: Non- GFR Calc Platelets bldon 08-17-2021 Platelets (Bld) [#/Vol] 202 10*3/uL 150-450 [facility] Work Phone: Serum or plasma albumin anette urement (mass/volume)on 08-17-2021 Albumin [Mass/Vol] 4.2 g/dL 3.2-5.0 [facility] Work Phone: Serum or plasma albumin/glob ulin mass ratioon 08-17-2021 Albumin/Globulin [Mass ratio] 1.3 {ratio} 0.9-2.4 [facility] Work Phone: Serum or plasma calcium anette urement (mass/volume)on 08-17-2021 Calcium [Mass/Vol] 9.2 mg/dL 8.5-10.1 [facility] Work Phone: Serum or plasma creatinine m easurement (mass/volume)on 08-17-2021 Creatinine [Mass/Vol] 0.75 mg/dL 0.70-1.30 [facility] Work Phone: Comment on above: The validity of the calculated GFR & GFRAA in patients over 70 years has not been determined. Clinical correlation is essential. Serum or plasma urea nitroge n measurement (mass/volume)on 08-17-2021 Urea nitrogen [Mass/Vol] 15 mg/dL 7-18 [facility] Work Phone: Thin prep Papanicolaou smear with manual screeningon 08-17-2021 Thin prep Papanicolaou smear with manual screening 15 U/L 15-37 [facility] Work Phone: Thin prep Papanicolaou smear with manual screening 6 5-15 [facility] Work Phone: HIVLDon 04-30-2022 HIV RNA Qual Not detected Normal See Comment [facility] ([place] Comment on above: Result Comment: Line ar range of assay: 20 copies/mL to 10,000,000 copies/mL. HIV Information: [place] Rev. Code 3701.243(E): This information has been disclosed to you from confidential records protected from disclosure by state law. You shall make no further disclosure of this information without the specific, written, and informed release of the individual to whom it pertains, or as otherwise permitted by state law. A general authorization for the release of medical or other information is not sufficient for the purpose of the release of HIV test results or diagnoses. Performed By: [facility] [address] [place] [address] Robotic Toy Inventor: Josey Salazar IIIIA#: [id number] Reference Range: HIV-1 RNA not detected by PCR. Performed By: #### A DIFF, DIFF, A1C, CMP, GFR, ANEU, LIPID, CBC #### [address] [address] #### RPR, RPRT, HEPAC, FTA #### [address] [address] .GFRon 08-14-2021 GFR >60 Normal [facility] ([place]) Comment on above: Result Comment: GFR Population mean for , Non- Americans Ages 20-29 = 116 mL/min/1.73 sq.m. Ages 30-39 = 107 mL/min/1.73 sq.m. Ages 40-49 = 99 mL/min/1.73 sq.m. Ages 50-59 = 93 mL/min/1.73 sq.m. Ages 60-69 = 85 mL/min/1.73 sq.m. Ages 70+ = 75 mL/min/1.73 sq.m. Chronic Kidney Disease: Less than 60 mL/min/1.73 square meters End Stage Renal Disease: Less than 15 mL/min/1.73 square meters Performed By: #### T SH, LYPCR #### [address] [address] #### RF, MAE #### [address] [address] GFR Non- >60 Normal [facility] ([place] Comment on above: Result Comment: GFR Population mean for , Non- Americans Ages 20-29 = 116 mL/min/1.73 sq.m. Ages 30-39 = 107 mL/min/1.73 sq.m. Ages 40-49 = 99 mL/min/1.73 sq.m. Ages 50-59 = 93 mL/min/1.73 sq.m. Ages 60-69 = 85 mL/min/1.73 sq.m. Ages 70+ = 75 mL/min/1.73 sq.m. Chronic Kidney Disease: Less than 60 mL/min/1.73 square meters End Stage Renal Disease: Less than 15 mL/min/1.73 square meters Performed By: #### T SH, LYPCR #### [address] [address] #### RF, MAE #### [address] [address] [facility] 08-14-2021 BUN/Creatinine Ratio 18.5 ratio Normal 10.0-22.0 [facility] ([place]) Comment on above: Performed By: #### T SH, LYPCR #### [address] [address] #### RF, MAE #### [address] [address] Calcium [Mass/Vol] 9.5 mg/dL Normal 8.7-10.4 [facility] ([place]) Comment on above: Result Comment: No te - New Reference Range in effect 19 Performed By: #### T SH, LYPCR #### [address] [address] #### RF, MAE #### [address] [address] Chloride [Moles/Vol] 108 mmol/L Normal 98-110 [facility] ([place]) Comment on above: Performed By: #### T SH, LYPCR #### [place] [address] #### RF, MAE #### [address] [address] CO2 [Moles/Vol] 30 mmol/L Normal 22-32 [facility] ([place]) Comment on above: Performed By: #### T SH, LYPCR #### [place] [address] #### RF, MAE #### [address] [address] Creatinine [Mass/Vol] 0.81 mg/dL Normal 0.60-1.40 [facility] ([place]) Comment on above: Performed By: #### T SH, LYPCR #### [place] [address] #### RF, MAE #### [address] [address] Electrolyte Balance -2.0 mEq/L Low 4.0-15.0 [facility] ([place]) Comment on above: Performed By: #### T SH, LYPCR #### [place] [address] #### RF, MAE #### [address] [address] Glucose [Mass/Vol] 96 mg/dL Normal 70-110 [facility] ([place]) Comment on above: Performed By: #### T SH, LYPCR #### [place] [address] #### RF, MAE #### [address] [address] Potassium [Moles/Vol] 4.2 mmol/L Normal 3.5-5.0 [facility] ([place]) Comment on above: Result Comment: Spec imen slightly hemolyzed. Performed By: #### T SH, LYPCR #### [place] [address] #### RF, MAE #### [address] [address] Sodium [Moles/Vol] 136 mmol/L Normal 136-145 [facility] ([place] Comment on above: Performed By: #### T SH, LYPCR #### [address] [address] #### RF, MAE #### [address] [address] Urea nitrogen [Mass/Vol] 15.0 mg/dL Normal 8.0-22.0 [facility] ([place] Comment on above: Performed By: #### T SH, LYPCR #### [address] [address] #### RF, MAE #### [place] [id number] FTAon 08-14-2021 FTA-ABS Reactive Abnormal Non-Reactive [facility] ([place] Comment on above: Result Comment: The FTA is a treponemal test useful as a confirmatory serological test for syphilis, performed when a RPR test is reactive. It is also useful as an aid in the diagnosis of latent or late syphilis when the RPR may be negative. It can NOT be used to monitor response to antibiotic therapy. The FTA will remain reactive, possibly for life, after infection with T. pallidum. False positive FTA tests may occur in 1) patients with underlying autoimmune disease, 2) the elderly, 3) , and 4) in the presence of abnormal serum globulins. Performed By: #### T SH, LYPCR #### [address] [address] #### RF, MAE #### [place] [address] Final Pathologist Review Rep [facility] 08-14-2021 Final Pathologist Review Report . Pathology Reports Accession: Collected Date/Time: Received Date/Time: Pathologist: [id number] 08/13/2021 13:05 EDT 08/14/2021 08:16 EDT DO JAI LOCKHART Final Pathologist Review Report CLINICAL INFORMATION: PENICILLIN DESENSITIZATION DIAGNOSIS: NEGATIVE FOR MALIGNANCY SPECIMEN: CEREBROSPINAL FLUID Electronically Signed by Pathology report verified by [facility] Screened by: [place] MES Electronically signed by JAI LOCKHART DO Sign-Out Date: 08/14/2021 09:47 Performing Lab: [facility], [address] [place] [address] ([place]) LABORATORYOrdered By: SYSTEM SYSTEM on 08-14-2021 Calcium [Mass/Vol] 9.5 mg/dL Invalid Interpretation Code 8.7 - 10.4 mg/dL ADM SS Chloride [Moles/Vol] 108 mmol/L Invalid Interpretation Code 98 - 110 mEq/L ADM SS CO2 [Moles/Vol] 30 mmol/L Invalid Interpretation Code 22 - 32 mEq/L AH ADM SS Creatinine [Mass/Vol] 0.81 mg/dL Invalid Interpretation Code 0.60 - 1.40 mg/dL ADM SS Electrolyte Balance -2.0 mEq/L Invalid Interpretation Code 4.0 - 15.0 mEq/L AH ADM SS GFR/1.73 sq M.predicted among blacks MDRD (S/P/Bld) [Vol rate/Area] ml/min/1.73sqm Invalid Interpretation Code AH Chemistry S GFR/1.73 sq M.predicted among non-blacks MDRD (S/P/Bld) [Vol rate/Area] ml/min/1.73sqm Invalid Interpretation Code Chemistry S Glucose [Mass/Vol] 96 mg/dL Invalid Interpretation Code 70 - 110 mg/dL AH ADM SS Potassium [Moles/Vol] 4.2 mmol/L Invalid Interpretation Code 3.5 - 5.0 mEq/L AH ADM SS Comment on above: Result Comment: Spec imen slightly hemolyzed. Sodium [Moles/Vol] 136 mmol/L Invalid Interpretation Code 136 - 145 mEq/L ADM SS Urea nitrogen [Mass/Vol] 15.0 mg/dL Invalid Interpretation Code 8.0 - 22.0 mg/dL ADM SS Urea nitrogen/Creatinine [Mass ratio] 18.5 ratio Invalid Interpretation Code 10.0 - 22.0 ratio ADM SS RPRon 08-14-2021 Reagin Ab RPR Ql (S) Reactive Abnormal Non-Reactive [facility] ([place]) Comment on above: Result Comment: The RPR test is a non-treponemal assay useful as an aid in the diagnosis of primary and secondary syphilis. It converts to positive generally within 2 weeks after the appearance of a lesion. This test is also useful for monitoring response to antibiotic therapy. A positive RPR screening test will be followed by the FTA ABS test. False positive RPR tests may occur in 1) patients with underlying autoimmune disorders, 2) elderly patients, 3) , and 4) other conditions with abnormal serum globulins. Performed By: #### T SH, LYPCR #### [address] [address] #### RF, MAE #### [address] [address] RPRTon 08-14-2021 RPR Titer Reactive 128 Abnormal Non-Reactive [facility] ([place]) Comment on above: Result Comment: The RPR test is a non-treponemal assay useful as an aid in the diagnosis of primary and secondary syphilis. It converts to positive generally within 2 weeks after the appearance of a lesion. This test is also useful for monitoring response to antibiotic therapy. A positive RPR screening test will be followed by the FTA ABS test. False positive RPR tests may occur in 1) patients with underlying autoimmune disorders, 2) elderly patients, 3) , and 4) other conditions with abnormal serum globulins. Performed By: #### T SH, LYPCR #### [place] [address] #### RF, MAE #### [address] [address] .Auto Diffon 08-13-2021 Basophil, Absolute 0.10 10 3/mcL Normal 0.00-0.27 [facility] ([place]) Comment on above: Performed By: #### A DIFF, DIFF, A1C, CMP, GFR, ANEU, LIPID, CBC #### [address] [address] #### RPR, RPRT, HEPAC, FTA #### [address] [address] Basophils/100 WBC (Bld) 1.0 % Normal 0.0-2.5 [facility] ([place]) Comment on above: Performed By: #### A DIFF, DIFF, A1C, CMP, GFR, ANEU, LIPID, CBC #### [place] [address] #### RPR, RPRT, HEPAC, FTA #### [address] [address] Eosinophil, Absolute 0.10 10 3/mcL Normal 0.00-0.65 [facility] ([place]) Comment on above: Performed By: #### A DIFF, DIFF, A1C, CMP, GFR, ANEU, LIPID, CBC #### [place] [address] #### RPR, RPRT, HEPAC, FTA #### [address] [address] Eosinophils/100 WBC (Bld) 2.8 % Normal 0.0-6.0 [facility] ([place] Comment on above: Performed By: #### A DIFF, DIFF, A1C, CMP, GFR, ANEU, LIPID, CBC #### [place] [address] #### RPR, RPRT, HEPAC, FTA #### [address] [address] Lymphocyte, Absolute 2.70 10 3/mcL Normal 0.90-4.32 [facility] ([place]) Comment on above: Performed By: #### A DIFF, DIFF, A1C, CMP, GFR, ANEU, LIPID, CBC #### [place] [address] #### RPR, RPRT, HEPAC, FTA #### [address] [address] Lymphocytes/100 WBC (Bld) 55.8 % High 20.0-40.0 [facility] ([place]) Comment on above: Performed By: #### A DIFF, DIFF, A1C, CMP, GFR, ANEU, LIPID, CBC #### [place] [address] #### RPR, RPRT, HEPAC, FTA #### [address] [address] Monocyte, Absolute 0.40 10 3/mcL Normal 0.09-1.40 [facility] ([place]) Comment on above: Performed By: #### A DIFF, DIFF, A1C, CMP, GFR, ANEU, LIPID, CBC #### [address] [address] #### RPR, RPRT, HEPAC, FTA #### [address] [address] Monocytes/100 WBC (Bld) 7.9 % Normal 2.0-13.0 [facility] ([place] Comment on above: Performed By: #### A DIFF, DIFF, A1C, CMP, GFR, ANEU, LIPID, CBC #### [place] [address] #### RPR, RPRT, HEPAC, FTA #### [address] [address] Neutrophils/100 WBC (Bld) 32.5 % Low 50.0-75.0 [facility] ([place] Comment on above: Performed By: #### A DIFF, DIFF, A1C, CMP, GFR, ANEU, LIPID, CBC #### [place] [address] #### RPR, RPRT, HEPAC, FTA #### [address] [address] .Morphon 08-13-2021 Platelet Estimate Normal Normal [facility] ([place] Comment on above: Performed By: #### A DIFF, DIFF, A1C, CMP, GFR, ANEU, LIPID, CBC #### [place] [address] #### RPR, RPRT, HEPAC, FTA #### [address] [address] RBC morphology finding Nom (Bld) Normal Normal [facility] ([place] Comment on above: Performed By: #### A DIFF, DIFF, A1C, CMP, GFR, ANEU, LIPID, CBC #### [place] [address] #### RPR, RPRT, HEPAC, FTA #### [address] [address] .NEUABSon 08-13-2021 Neutrophil, Absolute 1.60 10 3/mcL Low 2.25-8.10 [facility] ([place]) Comment on above: Performed By: #### A DIFF, DIFF, A1C, CMP, GFR, ANEU, LIPID, CBC #### [address] [address] #### RPR, RPRT, HEPAC, FTA #### [address] [address] CBCon 08-13-2021 Erythrocyte distribution width (RBC) [Ratio] 13.6 % Normal 11.5-15.5 [facility] ([place] Comment on above: Order Comment: to be drawn prior to LP in IR Performed By: #### A DIFF, DIFF, A1C, CMP, GFR, ANEU, LIPID, CBC #### [place] [address] #### RPR, RPRT, HEPAC, FTA #### [place] [address] Hematocrit (Bld) [Volume fraction] 42.0 % Normal 40.0-52.0 [facility] ([place] Comment on above: Order Comment: to be drawn prior to LP in IR Performed By: #### A DIFF, DIFF, A1C, CMP, GFR, ANEU, LIPID, CBC #### [place] [id number] #### RPR, RPRT, HEPAC, FTA #### [address] [address] Hgb 13.7 G/dL Normal 13.0-17.5 [facility] ([place] Comment on above: Order Comment: to be drawn prior to LP in IR Performed By: #### A DIFF, DIFF, A1C, CMP, GFR, ANEU, LIPID, CBC #### [place] [id number] #### RPR, RPRT, HEPAC, FTA #### [address] [address] MCH (RBC) [Entitic mass] 26.8 pg Low 27.0-33.0 [facility] ([place] Comment on above: Order Comment: to be drawn prior to LP in IR Performed By: #### A DIFF, DIFF, A1C, CMP, GFR, ANEU, LIPID, CBC #### [address] [address] #### RPR, RPRT, HEPAC, FTA #### [place] [address] MCHC 32.6 G/dL Normal 32.0-36.0 [facility] ([place] Comment on above: Order Comment: to be drawn prior to LP in IR Performed By: #### A DIFF, DIFF, A1C, CMP, GFR, ANEU, LIPID, CBC #### [address] [address] #### RPR, RPRT, HEPAC, FTA #### [place] [id number] MCV (RBC) [Entitic vol] 82.2 fL Normal 81.0-100.0 [facility] ([place] Comment on above: Order Comment: to be drawn prior to LP in IR Performed By: #### A DIFF, DIFF, A1C, CMP, GFR, ANEU, LIPID, CBC #### [address] [address] #### RPR, RPRT, HEPAC, FTA #### [place] [address] Platelet 198 10 3/mcL Normal 150-450 [facility] ([place] Comment on above: Order Comment: to be drawn prior to LP in IR Performed By: #### A DIFF, DIFF, A1C, CMP, GFR, ANEU, LIPID, CBC #### [address] [address] #### RPR, RPRT, HEPAC, FTA #### [place] [address] Platelet mean volume (Bld) [Entitic vol] 7.4 fL Normal 6.4-10.5 [facility] ([place] Comment on above: Order Comment: to be drawn prior to LP in IR Performed By: #### A DIFF, DIFF, A1C, CMP, GFR, ANEU, LIPID, CBC #### [place] [address] #### RPR, RPRT, HEPAC, FTA #### [place] [address] RBC 5.10 10 6/mcL Normal 4.50-6.00 [facility] ([place] Comment on above: Order Comment: to be drawn prior to LP in IR Performed By: #### A DIFF, DIFF, A1C, CMP, GFR, ANEU, LIPID, CBC #### [place] [address] #### RPR, RPRT, HEPAC, FTA #### [place] [address] WBC 4.90 10 3/mcL Normal 4.50-10.80 [facility] ([place] Comment on above: Order Comment: to be drawn prior to LP in IR Performed By: #### A DIFF, DIFF, A1C, CMP, GFR, ANEU, LIPID, CBC #### [place] [address] #### RPR, RPRT, HEPAC, FTA #### [place] [address] CSFCTon 08-13-2021 Clarity CSF Clear Normal [facility] ([place] Comment on above: Performed By: #### A DIFF, DIFF, A1C, CMP, GFR, ANEU, LIPID, CBC #### [place] [address] #### RPR, RPRT, HEPAC, FTA #### [place] [address] Color CSF Colorless Normal [facility] ([place] Comment on above: Performed By: #### A DIFF, DIFF, A1C, CMP, GFR, ANEU, LIPID, CBC #### [place] [address] #### RPR, RPRT, HEPAC, FTA #### [address] [address] Comment CSF See Below Normal [facility] ([place] Comment on above: Result Comment: This specimen will be reviewed by the pathologist and an additional report will be issued under the prefix MO and cross-referenced to the Cytology specimen, if appropriate. Lactic acid is not performed on CSF containing 5 or fewer WBC/mm3. Performed By: #### A DIFF, DIFF, A1C, CMP, GFR, ANEU, LIPID, CBC #### [address] [address] #### RPR, RPRT, HEPAC, FTA #### [address] [address] RBC CSF 286 /mm3 High 0-1 [facility] ([place] Comment on above: Performed By: #### A DIFF, DIFF, A1C, CMP, GFR, ANEU, LIPID, CBC #### [place] [address] #### RPR, RPRT, HEPAC, FTA #### [place] [address] WBC CSF 1 /mm3 Normal 0-5 [facility] ([place] Comment on above: Result Comment: Few lymphocytes seen on smear and rare neutrophil. Performed By: #### A DIFF, DIFF, A1C, CMP, GFR, ANEU, LIPID, CBC #### [place] [address] #### RPR, RPRT, HEPAC, FTA #### [place] [address] HEPACon 08-13-2021 Hep A IgM Ab Non-Reactive Normal Non-Reactive [facility] ([place] Comment on above: Performed By: #### A DIFF, DIFF, A1C, CMP, GFR, ANEU, LIPID, CBC #### [place] [address] #### RPR, RPRT, HEPAC, FTA #### [place] [address] Hep A IgM Ab Int Normal [facility] ([place] Comment on above: Result Comment: No s erological evidence of a current Hepatitis A infection. See Interp Performed By: #### A DIFF, DIFF, A1C, CMP, GFR, ANEU, LIPID, CBC #### [place] [address] #### RPR, RPRT, HEPAC, FTA #### [place] [address] Hep B Core IgM Ab Non-Reactive Normal Non-Reactive [facility] ([place]) Comment on above: Performed By: #### A DIFF, DIFF, A1C, CMP, GFR, ANEU, LIPID, CBC #### [place] [address] #### RPR, RPRT, HEPAC, FTA #### [place] [address] Hep B Core IgM Ab Int [facility] ([place] Comment on above: Result Comment: Samp les with a value < 0.80 Index are considered nonreactive (negative) for IgM antibodies to hepatitis B core antigen. See Interp Performed By: #### A DIFF, DIFF, A1C, CMP, GFR, ANEU, LIPID, CBC #### [place] [address] #### RPR, RPRT, HEPAC, FTA #### [place] [address] Hep B Surf Ag Non-Reactive Normal Non-Reactive [facility] ([place] Comment on above: Performed By: #### A DIFF, DIFF, A1C, CMP, GFR, ANEU, LIPID, CBC #### [place] [address] #### RPR, RPRT, HEPAC, FTA #### [place] [address] Hep C Ab Non-Reactive Normal Non-Reactive [facility] ([place] Comment on above: Performed By: #### A DIFF, DIFF, A1C, CMP, GFR, ANEU, LIPID, CBC #### [address] [place] [address] #### RPR, RPRT, HEPAC, FTA #### [place] [address] Hep C Ab Int Normal [facility] ([place] Comment on above: Result Comment: Nonr eactive: Samples with a value < 0.80 are considered nonreactive (negative) for antibodies to HCV. A negative test result does not exclude the possibility of exposure to or infection with HCV. HCV antibodies may be undetectable in some stages of the infection and in some clinical conditions. See Interp Performed By: #### A DIFF, DIFF, A1C, CMP, GFR, ANEU, LIPID, CBC #### [place] [address] #### RPR, RPRT, HEPAC, FTA #### [place] [address] HIVon 08-13-2021 HIV 1/2 Ab Normal Non-Reactive [facility] ([place] Comment on above: Result Comment: Non- Reactive Specimen is negative for anti-HIV-1 and anti-HIV-2. Performed By: #### A DIFF, DIFF, A1C, CMP, GFR, ANEU, LIPID, CBC #### [place] [address] #### RPR, RPRT, HEPAC, FTA #### [place] [address] LABORATORYOrdered By: Truong Nails on 08-13-2021 Hep A IgM Ab Non-Reactive (08/13/21 2:42 PM) Invalid Interpretation Code Non-Reactive AH ADM SS Hep A IgM Ab Int No serological evidence of a current Hepatitis A infection. Invalid Interpretation Code AH Chemistry S Hep B Core IgM Ab Non-Reactive (08/13/21 2:42 PM) Invalid Interpretation Code Non-Reactive AH ADM SS Hep B Core IgM Ab Int Samples with a estiven ue < 0.80 Index are considered nonreactive (negative) for IgM antibodies to hepatitis B core antigen. Invalid Interpretation Code AH Chemistry S Hep B Surf Ag Non-Reactive (08/13/21 2:42 PM) Invalid Interpretation Code Non-Reactive AH ADM SS Hep C Ab Non-Reactive (08/13/21 2:42 PM) Invalid Interpretation Code Non-Reactive AH ADM SS Hep C Ab Int Nonreactive: Samples with a value < 0.80 are considered nonreactive (negative) for antibodies to HCV.A negative test result does not exclude the possibility of exposure to or infection with HCV. HCV antibodies may be undetectable in some stages of the infection and in some clinical conditions. Invalid Interpretation Code AH Chemistry S HIV 1/2 Ab Non-Reactive (08/13/21 2:42 PM) Invalid Interpretation Code Non-Reactive AH ADM SS HIV 1/2 Ab Int Negative Invalid Interpretation Code AH Chemistry S Prot CSF Spec CSF (08/13/21 1:05 PM) Invalid Interpretation Code AH Chemistry S LABORATORYOrdered By: BRIANV_C ADRY CONTRIBUTOR_SYSTEM on 08-13-2021 HIV RNA Qual Not detected Invalid Interpretation Code See Comment AH Sendouts SS Comment on above: Result Comment: Line ar range of assay: 20 copies/mL to 10,000,000 copies/mL. HIV Information: [place] Rev. Code 3701.243(E): This information has been disclosed to you from confidential records protected from disclosure by state law. You shall make no further disclosure of this information without the specific, written, and informed release of the individual to whom it pertains, or as otherwise permitted by state law. A general authorization for the release of medical or other information is not sufficient for the purpose of the release of HIV test results or diagnoses. Performed By: [facility] [address] [place] [address] Robotic Toy Inventor: Jeancarlos Price III, M.D. [place]#: [id number] Reference Range: HIV-1 RNA not detected by PCR. LABORATORYOrdered By: Sae Barclay on 08-13-2021 Reagin Ab RPR (S) [Titer] Reactive 128 *ABN* (08/13/21 2:42 PM) Invalid Interpretation Code Non-Reactive AH Man Viro/Sero SS Reagin Ab RPR Ql (S) Reactive *ABN* (08/13/21 2:42 PM) Invalid Interpretation Code Non-Reactive AH Man Viro/Sero SS LABORATORYOrdered By: Jacob Sinha on 08-13-2021 T. pallidum Ab IF Ql (S) Reactive 5 *ABN* (08/13/21 2:42 PM) Invalid Interpretation Code Non-Reactive AH Man Viro/Sero SS Comment on above: Result Comment: The FTA is a treponemal test useful as a confirmatory serological test for syphilis, performed when a RPR test is reactive. It is also useful as an aid in the diagnosis of latent or late syphilis when the RPR may be negative. It can NOT be used to monitor response to antibiotic therapy. The FTA will remain reactive, possibly for life, after infection with T. pallidum. False positive FTA tests may occur in 1) patients with underlying autoimmune disease, 2) the elderly, 3) , and 4) in the presence of abnormal serum globulins. LABORATORYOrdered By: Faby Gonzalez on 08-13-2021 Appearance (Body fld) Clear (08/13/21 1:05 PM) Invalid Interpretation Code AH Manual Heme SS Color (Body fld) Colorless (08/13/21 1:05 PM) Invalid Interpretation Code AH Manual Heme SS Comment CSF See Below 4 (08/13/21 1:05 PM) Invalid Interpretation Code AH Manual Heme SS Comment on above: Result Comment: This specimen will be reviewed by the pathologist and an additional report will be issued under the prefix MO and cross-referenced to the Cytology specimen, if appropriate. Lactic acid is not performed on CSF containing 5 or fewer WBC/mm3. RBC (CSF) [#/Vol] 286 1 Invalid Interpretation Code 0 - 1 /mm3 AH Manual Heme SS WBC (Body fld) [#/Vol] 1 10*3/uL Invalid Interpretation Code 0 - 5 /mm3 AH Manual Heme SS Comment on above: Result Comment: Few lymphocytes seen on smear and rare neutrophil. LABORATORYOrdered By: SYSTEM SYSTEM on 08-13-2021 Protein (CSF) [Mass/Vol] 35.4 mg/dL Invalid Interpretation Code 8.0 - 32.0 mg/dL AH ADM SS Basophils (Bld) [#/Vol] 0.10 103/mcL Invalid Interpretation Code 0.00 - 0.27 10^3/mcL AH Remisol SS Basophils/100 WBC (Bld) 1.0 % Invalid Interpretation Code 0.0 - 2.5 % AH Remisol SS Eosinophils (Bld) [#/Vol] 0.10 103/mcL Invalid Interpretation Code 0.00 - 0.65 10^3/mcL AH Remisol SS Eosinophils/100 WBC (Bld) 2.8 % Invalid Interpretation Code 0.0 - 6.0 % AH Remisol SS Erythrocyte distribution width (RBC) [Ratio] 13.6 % Invalid Interpretation Code 11.5 - 15.5 % AH Remisol SS Hematocrit (Bld) [Volume fraction] 42.0 % Invalid Interpretation Code 40.0 - 52.0 % AH Remisol SS Hemoglobin (Bld) [Mass/Vol] 13.7 G/dL Invalid Interpretation Code 13.0 - 17.5 G/dL AH Remisol SS Lymphocytes (Bld) [#/Vol] 2.70 103/mcL Invalid Interpretation Code 0.90 - 4.32 10^3/mcL AH Remisol SS Lymphocytes/100 WBC (Bld) 55.8 % Invalid Interpretation Code 20.0 - 40.0 % AH Remisol SS MCH (RBC) [Entitic mass] 26.8 pg Invalid Interpretation Code 27.0 - 33.0 pg AH Remisol SS MCHC (RBC) [Mass/Vol] 32.6 G/dL Invalid Interpretation Code 32.0 - 36.0 G/dL AH Remisol SS MCV (RBC) [Entitic vol] 82.2 fL Invalid Interpretation Code 81.0 - 100.0 fL AH Remisol SS Monocytes (Bld) [#/Vol] 0.40 103/mcL Invalid Interpretation Code 0.09 - 1.40 10^3/mcL AH Remisol SS Monocytes/100 WBC (Bld) 7.9 % Invalid Interpretation Code 2.0 - 13.0 % AH Remisol SS Neutrophils (Bld) [#/Vol] 1.60 103/mcL Invalid Interpretation Code 2.25 - 8.10 10^3/mcL AH Remisol SS Neutrophils/100 WBC (Bld) 32.5 % Invalid Interpretation Code 50.0 - 75.0 % AH Remisol SS Platelet mean volume (Bld) [Entitic vol] 7.4 fL Invalid Interpretation Code 6.4 - 10.5 fL AH Remisol SS Platelets (Bld) [#/Vol] 198 103/mcL Invalid Interpretation Code 150 - 450 10^3/mcL AH Remisol SS Platelets LM Ql (Bld) Normal *NA* (08/13/21 8:26 AM) Invalid Interpretation Code AH Remisol SS RBC (Bld) [#/Vol] 5.10 106/mcL Invalid Interpretation Code 4.50 - 6.00 10^6/mcL AH Remisol SS RBC morphology finding Nom (Bld) Normal *NA* (08/13/21 8:26 AM) Invalid Interpretation Code AH Remisol SS WBC (Bld) [#/Vol] 4.90 103/mcL Invalid Interpretation Code 4.50 - 10.80 10^3/mcL AH Remisol SS LABORATORYOrdered By: Hernesto Sparks on 08-13-2021 C. neoformans rRNA AMANDA+probe Qn (Unsp spec) Not Detected *NA* (08/13/21 10:01 AM) Invalid Interpretation Code Not Detected AH Auto Viro/Sero SS CMV DNA AMANDA+probe Ql (CSF) Not Detected *NA* (08/13/21 10:01 AM) Invalid Interpretation Code Not Detected AH Auto Viro/Sero SS E. coli DNA AMANDA+probe Ql (Unsp spec) Not Detected *NA* (08/13/21 10:01 AM) Invalid Interpretation Code Not Detected AH Auto Viro/Sero SS Enterovirus RNA AMANDA+probe Ql (CSF) Not Detected *NA* (08/13/21 10:01 AM) Invalid Interpretation Code Not Detected AH Auto Viro/Sero SS H. influenzae DNA AMANDA+probe Ql (Unsp spec) Not Detected *NA* (08/13/21 10:01 AM) Invalid Interpretation Code Not Detected AH Auto Viro/Sero SS HHV 6 DNA AMANDA+probe Ql (CSF) Not Detected *NA* (08/13/21 10:01 AM) Invalid Interpretation Code Not Detected AH Auto Viro/Sero SS HSV 1 DNA AMANDA+probe Ql (CSF) Not Detected *NA* (08/13/21 10:01 AM) Invalid Interpretation Code Not Detected AH Auto Viro/Sero SS HSV 2 DNA AMANDA+probe Ql (CSF) Not Detected *NA* (08/13/21 10:01 AM) Invalid Interpretation Code Not Detected AH Auto Viro/Sero SS L. monocytogenes DNA AMANDA+probe Ql (Unsp spec) Not Detected *NA* (08/13/21 10:01 AM) Invalid Interpretation Code Not Detected AH Auto Viro/Sero SS N. meningitidis DNA AMANDA+probe Ql (Unsp spec) Not Detected *NA* (08/13/21 10:01 AM) Invalid Interpretation Code Not Detected AH Auto Viro/Sero SS Parechovirus A RNA AMANDA+probe Ql (Unsp spec) Not Detected *NA* (08/13/21 10:01 AM) Invalid Interpretation Code Not Detected AH Auto Viro/Sero SS S. agalactiae DNA AMANDA+probe Ql (Unsp spec) Not Detected *NA* (08/13/21 10:01 AM) Invalid Interpretation Code Not Detected AH Auto Viro/Sero SS S. pneumoniae DNA AMANDA+probe Ql (Unsp spec) Not Detected *NA* (08/13/21 10:01 AM) Invalid Interpretation Code Not Detected AH Auto Viro/Sero SS VZV DNA AMANDA+probe Ql (CSF) Not Detected *NA* (08/13/21 10:01 AM) Invalid Interpretation Code Not Detected AH Auto Viro/Sero SS LABORATORYOrdered By: Emory Hernández on 08-13-2021 INR Coag (PPP) [Relative time] 0.9 {INR} Invalid Interpretation Code AH Auto Coag SS PT Coag (PPP) [Time] 11.2 s Invalid Interpretation Code 9.0 - 14.9 seconds AH Auto Coag SS MEPCRon 08-13-2021 CSF Cryptococcus neoformans mary Not detected Normal Not Detected [facility] ([place]) Comment on above: Performed By: #### T SH, LYPCR #### [address] [address] #### RF, MAE #### [place] [address] CSF Cytomegalovirus Not detected Normal Not Detected [facility] ([place]) Comment on above: Performed By: #### T SH, LYPCR #### [address] [address] #### RF, MAE #### [facility] [address] [place] [address] CSF Enterovirus Not detected Normal Not Detected [facility] ([place]) Comment on above: Performed By: #### T SH, LYPCR #### [address] [address] #### RF, MAE #### [facility] [address] [place] [address] CSF Escherichia coli K1 Not detected Normal Not Detected [facility] ([place]) Comment on above: Performed By: #### T SH, LYPCR #### [address] [address] #### RF, MAE #### [facility] [address] [place] [address] CSF Haemophilis influenzae Not detected Normal Not Detected [facility] ([place]) Comment on above: Performed By: #### T SH, LYPCR #### [facility] [address] [place] [address] #### RF, MAE #### [facility] [address] [place] [address] CSF Herpes simplex virus 1 Not detected Normal Not Detected [facility] ([place]) Comment on above: Performed By: #### T SH, LYPCR #### [address] [address] #### RF, MAE #### [facility] [address] [place] [address] CSF Herpes simplex virus 2 Not detected Normal Not Detected [facility] ([place] Comment on above: Performed By: #### T SH, LYPCR #### [address] [address] #### RF, MAE #### [facility] [address] [place] [address] CSF Human herpesvirus 6 Not detected Normal Not Detected [facility] ([place] Comment on above: Performed By: #### T SH, LYPCR #### [place] [address] [place], [place] [address] #### RF, MAE #### [facility] [address] [place] [address] CSF Human parechovirus Not detected Normal Not Detected [facility] ([place] Comment on above: Performed By: #### T SH, LYPCR #### [address] [address] #### RF, MAE #### [facility] [address] [place] [address] CSF Listeria monocytogenes Not detected Normal Not Detected [facility] ([place] Comment on above: Performed By: #### T SH, LYPCR #### [address] [address] #### RF, MAE #### [facility] [address] [place] [address] CSF Neisseria meningitides Not detected Normal Not Detected [facility] ([place] Comment on above: Performed By: #### T SH, LYPCR #### [address] [address] #### RF, MAE #### [facility] [address] [place] [address] CSF Streptococcus agalactiae Not detected Normal Not Detected [facility] ([place] Comment on above: Performed By: #### T SH, LYPCR #### [address] [address] #### RF, MAE #### [facility] [address] [place] [address] CSF Streptococcus pneumoniae Not detected Normal Not Detected [facility] ([place] Comment on above: Performed By: #### T SH, LYPCR #### [address] [address] #### RF, MAE #### [facility] [address] [place] [address] CSF Varicella zoster virus Not detected Normal Not Detected [facility] ([place] Comment on above: Performed By: #### T SH, LYPCR #### [address] [address] #### RF, MAE #### [facility] [address] [place] [address] MRI BRAIN W/ CONTRASTon 07-18 MRI BRAIN W/ CONTRAST ORIGINAL EXAMINATION: MR Brain with and without intravenous contrast TECHNIQUE: MRI examination of the brain was obtained utilizing the following sequences: Sagittal and axial T1-weighted, axial T2 weighted FLAIR GRE diffusion with ADC mapping, post contrast axial, and postcontrast 3-D FSPGR axial, sagittal, and coronal images. The patient received 16 mL of MultiHance intravenously without complication. COMPARISON: MRI brain 08/12/2021 HISTORY: ORDERING SYSTEM PROVIDED HISTORY: Reason for Exam: Neuro syphilis, neuropathy FINDINGS: Parenchyma: No acute hemorrhage, infarction, mass, or abnormal enhancement is seen. The keen-white matter junctions are maintained. There are no space occupying intra-axial masses or extra-axial fluid collections . No pathologic signal is identified in the white matter. There are no hemorrhagic blood products. Ventricles: No ventricular enlargement or ventricular effacement. Orbits: Normal. Major intracranial flow voids: Preserved. Paranasal sinuses: Clear. Mastoids and middle ears: Clear. Bones: Normal. Extracranial soft tissues: Normal. Additional comment: Normal. IMPRESSION: Unremarkable examination. Interpreted by: Libby Rivas MD Preliminary Report By: Libby Rivas MD Electronically signed By Libby Rivas MD Dictated Date: 08/13/2021 3:50:42 PM Prelim Date: 08/13/2021 3:54:42 PM Sign Date: 08/13/2021 3:54:42 PM Ordering Provider: BULMARO Osuna [facility] [place] BRAIN W/O CONTRASTon MRI BRAIN W/O CONTRAST ORIGINAL EXAMINATION: MRI OF THE BRAIN WITHOUT CONTRAST 08/12/2021 9:51 pm TECHNIQUE: Multiplanar multisequence MRI of the brain was performed without the administration of intravenous contrast. COMPARISON: None. HISTORY: ORDERING SYSTEM PROVIDED HISTORY: Reason for Exam: syphilis FINDINGS: INTRACRANIAL STRUCTURES/VENTRICLE S: There is no acute infarct. No mass effect or midline shift. No evidence of an acute intracranial hemorrhage. The ventricles and sulci are normal in size and configuration. The sellar/suprasellar regions appear unremarkable. The normal signal voids within the major intracranial vessels appear maintained. ORBITS: The visualized portion of the orbits demonstrate no acute abnormality. SINUSES: The visualized paranasal sinuses and mastoid air cells demonstrate no acute abnormality. BONES/SOFT TISSUES: The bone marrow signal intensity appears normal. The soft tissues demonstrate no acute abnormality. IMPRESSION: No acute intracranial abnormality identified by noncontrast MRI. Evaluation for neuro syphilis is compromised without the benefit of IV contrast. Interpreted by: Lennie Momin MD Preliminary Report By: Lennie Momin MD Electronically signed By Lennie Momin MD Dictated Date: 08/12/2021 9:55:24 PM Prelim Date: 08/12/2021 10:03:27 PM Sign Date: 08/12/2021 10:03:27 PM Ordering Provider: LIBBY Dugan [facility] ([place] PROon 08-13-2021 INR Coag (PPP) [Relative time] 0.9 {INR} Normal [facility] ([place]) Comment on above: Order Comment: to be drawn prior to LP in IR Result Comment: The [employer] (CHEST, 1992, 102:[id number]) recommended therapeutic range for oral anticoagulant therapy is: LOW RISK: Prophylaxis of venous thrombosis INR: 2.0-3.0 Treatment of pulmonary embolism 2.0-3.0 Prevention of systemic embolism 2.0-3.0 HIGH RISK: Mechanical prosthetic valves 2.5-3.5 Performed By: #### A DIFF, DIFF, A1C, CMP, GFR, ANEU, LIPID, CBC #### [place] [id number] #### RPR, RPRT, HEPAC, FTA #### [address] [address] PT Coag (PPP) [Time] 11.2 s Normal 9.0-14.9 [facility] ([place]) Comment on above: Order Comment: to be drawn prior to LP in IR Result Comment: Effe ctive 10/31/07, Protime results may be affected by some antibiotics (i.e. Ciprofloxacin, Azithromycin, Bactrim) which may potentiate the action of oral anticoagulants, with further increases in Protime/INR. Performed By: #### A DIFF, DIFF, A1C, CMP, GFR, ANEU, LIPID, CBC #### [place] [address] #### RPR, RPRT, HEPAC, FTA #### [address] [address] PROSFon 08-13-2021 Prot CSF Spec CSF Normal [facility] ([place]) Comment on above: Performed By: #### A DIFF, DIFF, A1C, CMP, GFR, ANEU, LIPID, CBC #### [place] [address] #### RPR, RPRT, HEPAC, FTA #### [address] [address] Protein CSF 35.4 mg/dL High 8.0-32.0 [facility] ([place]) Comment on above: Performed By: #### A DIFF, DIFF, A1C, CMP, GFR, ANEU, LIPID, CBC #### [address] [address] #### RPR, RPRT, HEPAC, FTA #### [place] [id number] LYPCRon 07-28-2021 Lyme PCR Not detected Normal [facility] ([place] Comment on above: Result Comment: NOT DETECTED - A negative result does not rule out the presence of PCR inhibitors in the patient specimen or assay specific nucleic acid in concentrations below the level of detection by the assay. Blood and CSF specimens have poor clinical sensitivity for detection of Borrelia burgdorferi by PCR. INTERPRETIVE INFORMATION: Borrelia Species DNA Detection by PCR This test was developed and its performance characteristics determined by [facility]. It has not been cleared or approved by the [place] Food and Drug Administration. This test was performed in a CLIA certified laboratory and is intended for clinical purposes. Performed by [facility], [address] [place] [id number] [email or web address], Helen Sosa MD, Lab. Director Performed By: #### T SH, LYPCR #### [address] [address] #### RF, MAE #### [place] [address] Lyme Source Blood Normal [facility] ([place]) Comment on above: Performed By: #### T SH, LYPCR #### [address] [address] #### RF, MAE #### [address] [address] ANAon 07-23-2021 Nuclear Ab IF (S) [Titer] 40 {titer} Normal Neg 40 [facility] ([place]) Comment on above: Result Comment: MAE Screen and Titer methodology is an immunofluorescent technique utilizing Hep2 Substrate. Performed By: #### T SH, LYPCR #### [place] [id number] #### RF, MAE #### [place] [address] RFon 07-23-2021 Rheumatoid Factor <6.0 Normal <=6.0 [facility] ([place]) Comment on above: Result Comment: RF I gM Antibody by Enzyme Immunoassay: Negative < or = 6 Positive > 6 A positive result indicates the presence of RF antibodies and suggests the possibility of rheumatoid arthritis. A negative result indicates no RF IgM antibody or levels below the negative cut-off of the assay. Results of this assay should be used in conjunction with clinical findings and other serological tests. These results were obtained with the SolePowerA Lite RF IgM ERASMO. RF IgM values obtained with different manufacturers' assay methods may not be used interchangeably. The magnitude of the reported IgM levels cannot be correlated to an endpoint titer. Performed By: #### T MIR, LYPCR #### [place] [address] #### RF, MAE #### [place] [address] LABORATORYOrdered By: Jacob Massey on 07-22-2021 TSH Qn 1.84 m[IU]/L Invalid Interpretation Code 0.36 - 3.74 mcIU/mL AO ADM SS TSHon 07-22-2021 TSH Qn 1.84 m[IU]/L Normal 0.36-3.74 [facility] ([place]) Comment on above: Performed By: #### T MIR, LYPCR #### [place] [address] #### RF, MAE #### [place] [address] CTPCRon 07-17-2021 C. trachomatis Interp Normal See CT Interp N [facility] ([place]) Comment on above: Result Comment: C. t rachomatis DNA not detected. Specimen is presumptive negative for C. trachomatis. A negative result does not preclude C. trachomatis infection because results depend on adequate specimen collection, absence of inhibitors, and sufficient DNA to be detected. See CT Interp N Performed By: #### T SH, LYPCR #### [address] [address] #### RF, MAE #### [place] [id number] C.trachomatis PCR Negative Normal Negative [facility] ([place]) Comment on above: Result Comment: Mole cular (PCR) assay performed on the Bam Lilia 4800 system. Performed By: #### T SH, LYPCR #### [address] [address] #### RF, AME #### [place] [address] Chlam Source Urine Normal [facility] ([place]) Comment on above: Performed By: #### T SH, LYPCR #### [address] [address] #### RF, MAE #### [place] [address] FTAon 07-17-2021 FTA-ABS Reactive Abnormal Non-Reactive [facility] ([place] Comment on above: Result Comment: The FTA is a treponemal test useful as a confirmatory serological test for syphilis, performed when a RPR test is reactive. It is also useful as an aid in the diagnosis of latent or late syphilis when the RPR may be negative. It can NOT be used to monitor response to antibiotic therapy. The FTA will remain reactive, possibly for life, after infection with T. pallidum. False positive FTA tests may occur in 1) patients with underlying autoimmune disease, 2) the elderly, 3) , and 4) in the presence of abnormal serum globulins. Performed By: #### DONOVAN CARPIO #### [place] [address] HEPACon 07-17-2021 Hep A IgM Ab Non-Reactive Normal Non-Reactive [facility] ([place]) Comment on above: Performed By: #### DONOVAN CARPIO #### [place] [address] Hep A IgM Ab Int Normal [facility] ([place]) Comment on above: Result Comment: No s erological evidence of a current Hepatitis A infection. See Interp Performed By: #### DONOVAN CARPIO #### [facility] [address] [place] [address] Hep B Core IgM Ab Non-Reactive Normal Non-Reactive [facility] ([place]) Comment on above: Performed By: #### DONOVAN CARPIO #### [facility] [address] [place] [address] Hep B Core IgM Ab Int Normal [facility] ([place]) Comment on above: Result Comment: Samp les with a value < 0.80 Index are considered nonreactive (negative) for IgM antibodies to hepatitis B core antigen. See Interp Performed By: #### DONOVAN CARPIO #### [address] [address] Hep B Surf Ag Non-Reactive Normal Non-Reactive [facility] ([place] Comment on above: Performed By: #### DONOVAN CARPIO #### [address] [address] Hep C Ab Non-Reactive Normal Non-Reactive [facility] ([place] Comment on above: Performed By: #### DONOVAN CARPIO #### [address] [address] Hep C Ab Int Normal [facility] ([place] Comment on above: Result Comment: Nonr eactive: Samples with a value < 0.80 are considered nonreactive (negative) for antibodies to HCV. A negative test result does not exclude the possibility of exposure to or infection with HCV. HCV antibodies may be undetectable in some stages of the infection and in some clinical conditions. See Interp Performed By: #### DONOVAN CARPIO #### [address] [address] UENIU9ut 07-17-2021 GC PCR Source Urine Normal [facility] ([place]) Comment on above: Performed By: #### T SH, LYPCR #### [address] [address] #### RF, MAE #### [address] [address] N. gonorrhoeae (PCR) Negative Normal Negative [facility] ([place]) Comment on above: Result Comment: Mole cular (PCR) assay performed on the Bam Lilia 4800 System. Performed By: #### T SH, LYPCR #### [address] [address] #### RF, MAE #### [address] [address] N. gonorrhoeae Interp Normal See NG Interp N [facility] ([place] Comment on above: Result Comment: N. g onorrhoeae DNA not detected. Specimen is presumptive negative for N. gonorrhoeae. A negative result does not preclude Neisseria gonorrhoeae infection because results depend on adequate specimen collection, absence of inhibitors, and sufficient DNA to be detected. See NG Interp N Performed By: #### T SH, LYPCR #### [address] [address] #### RF, MAE #### [place] [address] RPRon 07-17-2021 Reagin Ab RPR Ql (S) Reactive Abnormal Non-Reactive [facility] ([place]) Comment on above: Result Comment: The RPR test is a non-treponemal assay useful as an aid in the diagnosis of primary and secondary syphilis. It converts to positive generally within 2 weeks after the appearance of a lesion. This test is also useful for monitoring response to antibiotic therapy. A positive RPR screening test will be followed by the FTA ABS test. False positive RPR tests may occur in 1) patients with underlying autoimmune disorders, 2) elderly patients, 3) , and 4) other conditions with abnormal serum globulins. Performed By: #### DONOVAN CARPIO #### [place] [address] RPRTon 07-17-2021 RPR Titer Reactive 128 Abnormal Non-Reactive [facility] ([place] Comment on above: Result Comment: The RPR test is a non-treponemal assay useful as an aid in the diagnosis of primary and secondary syphilis. It converts to positive generally within 2 weeks after the appearance of a lesion. This test is also useful for monitoring response to antibiotic therapy. A positive RPR screening test will be followed by the FTA ABS test. False positive RPR tests may occur in 1) patients with underlying autoimmune disorders, 2) elderly patients, 3) , and 4) other conditions with abnormal serum globulins. Performed By: #### L DONOVAN MERRITT #### [address] [address] .Auto Diffon 07-16-2021 Basophil, Absolute 0.10 10 3/mcL Normal 0.00-0.19 [facility] ([place]) Comment on above: Performed By: #### A DIFF, DIFF, A1C, CMP, GFR, ANEU, LIPID, CBC #### [address] [address] #### RPR, RPRT, HEPAC, FTA #### [address] [address] Basophils/100 WBC (Bld) 1.0 % Normal 0.0-2.5 [facility] ([place]) Comment on above: Performed By: #### A DIFF, DIFF, A1C, CMP, GFR, ANEU, LIPID, CBC #### [address] [address] #### RPR, RPRT, HEPAC, FTA #### [address] [address] Eosinophil, Absolute 0.10 10 3/mcL Normal 0.00-0.40 [facility] ([place]) Comment on above: Performed By: #### A DIFF, DIFF, A1C, CMP, GFR, ANEU, LIPID, CBC #### [address] [address] #### RPR, RPRT, HEPAC, FTA #### [address] [address] Eosinophils/100 WBC (Bld) 2.4 % Normal 0.0-7.0 [facility] ([place] Comment on above: Performed By: #### A DIFF, DIFF, A1C, CMP, GFR, ANEU, LIPID, CBC #### [address] [address] #### RPR, RPRT, HEPAC, FTA #### [address] [address] Lymphocyte, Absolute 3.00 10 3/mcL Normal 0.77-3.85 [facility] ([place]) Comment on above: Performed By: #### A DIFF, DIFF, A1C, CMP, GFR, ANEU, LIPID, CBC #### [address] [address] #### RPR, RPRT, HEPAC, FTA #### [address] [address] Lymphocytes/100 WBC (Bld) 54.2 % High 10.0-50.0 [facility] ([place]) Comment on above: Performed By: #### A DIFF, DIFF, A1C, CMP, GFR, ANEU, LIPID, CBC #### [address] [address] #### RPR, RPRT, HEPAC, FTA #### [address] [address] Monocyte, Absolute 0.50 10 3/mcL Normal 0.15-1.00 [facility] ([place]) Comment on above: Performed By: #### A DIFF, DIFF, A1C, CMP, GFR, ANEU, LIPID, CBC #### [address] [address] #### RPR, RPRT, HEPAC, FTA #### [address] [address] Monocytes/100 WBC (Bld) 8.8 % Normal 1.7-13.0 [facility] ([place]) Comment on above: Performed By: #### A DIFF, DIFF, A1C, CMP, GFR, ANEU, LIPID, CBC #### [address] [address] #### RPR, RPRT, HEPAC, FTA #### [address] [address] Neutrophils/100 WBC (Bld) 33.6 % Low 37.0-80.0 [facility] ([place]) Comment on above: Performed By: #### A DIFF, DIFF, A1C, CMP, GFR, ANEU, LIPID, CBC #### [place] [address] [place], [place] [address] #### RPR, RPRT, HEPAC, FTA #### [address] [address] .GFRon 07-16-2021 GFR Non- 95 ml/min/1.73sqm Normal [facility] ([place] Comment on above: Result Comment: GFR Population mean for , Non- Americans Ages 20-29 = 116 mL/min/1.73 sq.m. Ages 30-39 = 107 mL/min/1.73 sq.m. Ages 40-49 = 99 mL/min/1.73 sq.m. Ages 50-59 = 93 mL/min/1.73 sq.m. Ages 60-69 = 85 mL/min/1.73 sq.m. Ages 70+ = 75 mL/min/1.73 sq.m. Chronic Kidney Disease: Less than 60 mL/min/1.73 square meters End Stage Renal Disease: Less than 15 mL/min/1.73 square meters Performed By: #### DONOVAN CARPIO #### [address] [address] GFR 116 ml/min/1.73sqm Normal [facility] ([place] Comment on above: Result Comment: GFR Population mean for , Non- Americans Ages 20-29 = 116 mL/min/1.73 sq.m. Ages 30-39 = 107 mL/min/1.73 sq.m. Ages 40-49 = 99 mL/min/1.73 sq.m. Ages 50-59 = 93 mL/min/1.73 sq.m. Ages 60-69 = 85 mL/min/1.73 sq.m. Ages 70+ = 75 mL/min/1.73 sq.m. Chronic Kidney Disease: Less than 60 mL/min/1.73 square meters End Stage Renal Disease: Less than 15 mL/min/1.73 square meters Performed By: #### DONOVAN CARPIO #### [address] [address] .Manual Diffon 07-16-2021 Lymphocyte %, Manual 66.0 % High 10.0-50.0 [facility] ([place]) Comment on above: Performed By: #### A DIFF, DIFF, A1C, CMP, GFR, ANEU, LIPID, CBC #### [address] [address] #### RPR, RPRT, HEPAC, FTA #### [address] [address] Monocyte %, Manual 1.0 % Low 1.7-13.0 [facility] [place] Comment on above: Performed By: #### A DIFF, DIFF, A1C, CMP, GFR, ANEU, LIPID, CBC #### [place] [address] #### RPR, RPRT, HEPAC, FTA #### [place] [address] Neutrophil %, Manual 34.0 % Low 37.0-80.0 [facility] ([place]) Comment on above: Performed By: #### A DIFF, DIFF, A1C, CMP, GFR, ANEU, LIPID, CBC #### [place] [address] #### RPR, RPRT, HEPAC, FTA #### [address] [address] .NEUABSon 07-16-2021 Neutrophil, Absolute 1.80 10 3/mcL Low 2.85-6.16 A [facility] ([place]) Comment on above: Performed By: #### A DIFF, DIFF, A1C, CMP, GFR, ANEU, LIPID, CBC #### [place] [address] #### RPR, RPRT, HEPAC, FTA #### [address] [address] A1Con 07-16-2021 HbA1c (Bld) [Mass fraction] 5.3 % Normal 4.3-6.4 [facility] ([place] Comment on above: Performed By: #### DONOVAN CARPIO #### [place] [address] CBCon 07-16-2021 Erythrocyte distribution width (RBC) [Ratio] 13.6 % Normal 11.5-14.5 [facility] ([place] Comment on above: Performed By: #### A DIFF, DIFF, A1C, CMP, GFR, ANEU, LIPID, CBC #### [address] [address] #### RPR, RPRT, HEPAC, FTA #### [address] [address] Hematocrit (Bld) [Volume fraction] 41.5 % Low 42.0-52.0 [facility] ([place] Comment on above: Performed By: #### A DIFF, DIFF, A1C, CMP, GFR, ANEU, LIPID, CBC #### [address] [address] #### RPR, RPRT, HEPAC, FTA #### [place] [address] Hgb 14.0 G/dL Normal 14.0-18.0 [facility] ([place] Comment on above: Performed By: #### A DIFF, DIFF, A1C, CMP, GFR, ANEU, LIPID, CBC #### [address] [address] #### RPR, RPRT, HEPAC, FTA #### [address] [address] MCH (RBC) [Entitic mass] 27.2 pg Normal 27.0-31.2 [facility] ([place] Comment on above: Performed By: #### A DIFF, DIFF, A1C, CMP, GFR, ANEU, LIPID, CBC #### [address] [address] #### RPR, RPRT, HEPAC, FTA #### [place] [address] MCHC 33.7 G/dL Normal 31.8-35.4 [facility] ([place] Comment on above: Performed By: #### A DIFF, DIFF, A1C, CMP, GFR, ANEU, LIPID, CBC #### [place] [address] #### RPR, RPRT, HEPAC, FTA #### [address] [address] MCV (RBC) [Entitic vol] 80.6 fL Normal 80.0-94.0 [facility] ([place] Comment on above: Performed By: #### A DIFF, DIFF, A1C, CMP, GFR, ANEU, LIPID, CBC #### [place] [address] #### RPR, RPRT, HEPAC, FTA #### [place] [address] Platelet 224 10 3/mcL Normal 130-400 [facility] ([place] Comment on above: Performed By: #### A DIFF, DIFF, A1C, CMP, GFR, ANEU, LIPID, CBC #### [place] [address] #### RPR, RPRT, HEPAC, FTA #### [place] [address] Platelet mean volume (Bld) [Entitic vol] 7.6 fL Normal 7.4-10.4 [facility] ([place] Comment on above: Performed By: #### A DIFF, DIFF, A1C, CMP, GFR, ANEU, LIPID, CBC #### [place] [address] #### RPR, RPRT, HEPAC, FTA #### [place] [address] RBC 5.15 10 6/mcL Normal 4.04-6.13 [facility] ([place] Comment on above: Performed By: #### A DIFF, DIFF, A1C, CMP, GFR, ANEU, LIPID, CBC #### [place] [address] #### RPR, RPRT, HEPAC, FTA #### [place] [address] WBC 5.50 10 3/mcL Normal 4.60-10.80 [facility] ([place] Comment on above: Performed By: #### A DIFF, DIFF, A1C, CMP, GFR, ANEU, LIPID, CBC #### [place] [address] [place], [place] [address] #### RPR, RPRT, HEPAC, FTA #### [address] [address] CMPon 07-16-2021 Albumin Level 4.2 G/dL Normal 3.5-5.0 [facility] ([place] Comment on above: Performed By: #### DONOVAN CARPIO #### [place] [id number] Albumin/Globulin [Mass ratio] 1.3 {ratio} Normal 1.1-2.5 [facility] ([place] Comment on above: Performed By: #### DONOVAN CARPIO #### [place] [id number] ALP [Catalytic activity/Vol] 62 U/L Normal 40-135 [facility] ([place] Comment on above: Performed By: #### DONOVAN CARPIO #### [place] [id number] ALT [Catalytic activity/Vol] 34 U/L Normal 16-63 [facility] ([place] Comment on above: Performed By: #### DONOVAN CARPIO #### [place] [id number] AST [Catalytic activity/Vol] 17 U/L Normal 10-40 [facility] ([place] Comment on above: Performed By: #### DONOVAN CARPIO #### [address] [address] Bili Total 0.4 mg/dL Normal 0.2-1.0 [facility] ([place] Comment on above: Result Comment: Use of this assay is not recommended for patients undergoing treatment with eltrombopag due to the potential for falsely elevated results. Performed By: #### DONOVAN CARPIO #### [place] [id number] BUN/Creatinine Ratio 18 ratio Normal 7-27 [facility] ([place] Comment on above: Performed By: #### L DONOVAN MERRITT #### [address] [address] Calcium [Mass/Vol] 8.7 mg/dL Normal 8.4-10.2 [facility] [place] Comment on above: Performed By: #### L DONOVAN MERRITT #### [address] [address] Chloride [Moles/Vol] 102 mmol/L Normal 98-107 [facility] ([place] Comment on above: Performed By: #### L DONOVAN MERRITT #### [address] [address] CO2 [Moles/Vol] 28 mmol/L Normal 22-29 [facility] ([place] Comment on above: Performed By: #### DONOVAN CARPIO #### [address] [address] Creatinine [Mass/Vol] 0.93 mg/dL Normal 0.70-1.30 [facility] ([place]) Comment on above: Performed By: #### DONOVAN CARPIO #### [address] [address] Electrolyte Balance 11.0 mEq/L Normal 4.0-15.0 [facility] ([place]) Comment on above: Performed By: #### DONOVAN CARPIO #### [address] [address] Globulin 3.3 G/dL Normal [facility] ([place] Comment on above: Performed By: #### L DONOVAN MERRITT #### [address] [address] Glucose [Mass/Vol] 95 mg/dL Normal 70-105 [facility] [place] Comment on above: Performed By: #### DONOVAN CARPIO #### [address] [address] Potassium [Moles/Vol] 4.1 mmol/L Normal 3.5-5.1 [facility] ([place] Comment on above: Performed By: #### L DONOVAN MERRITT #### [address] [address] Sodium [Moles/Vol] 141 mmol/L Normal 136-145 [facility] [place] Comment on above: Performed By: #### DONOVAN CARPIO #### [address] [address] Total Protein 7.5 G/dL Normal 6.4-8.2 [facility] ([place] Comment on above: Performed By: #### DONOVAN CARPIO #### [address] [address] Urea nitrogen [Mass/Vol] 17 mg/dL Normal 7-18 [facility] ([place] Comment on above: Performed By: #### DONOVAN CARPIO #### [place] [id number] HIVRPon 07-16-2021 HIV p24 Antigen Non-Reactive Normal Non-Reactive [facility] ([place]) Comment on above: Result Comment: Dete ction of p24 may be inhibited by biotin in the sample, causing false negative results in acute infection. Therefore do not test samples from patients who are taking biotin. Performed By: #### T SH, LYPCR #### [place] [address] #### RF, MAE #### [place] [id number] HIV P24 Int Non-Reactive Invalid Interpretation Code [facility] ([place] Comment on above: Performed By: #### T SH, LYPCR #### [place] [id number] #### RF, MAE #### [address] [address] Rapid HIV 1/2 Antibody Non-Reactive Normal Non-Reactive [facility] ([place] Comment on above: Performed By: #### T SH, LYPCR #### [place] [id number] #### RF, MAE #### [address] [address] RHIV 1/2 Ab Int Non-Reactive Invalid Interpretation Code [facility] ([place] Comment on above: Performed By: #### T SH, LYPCR #### [facility] [address] [place] [address] #### RF, MAE #### [facility] [address] [place] [address] LIPIDon 07-16-2021 Cholesterol [Mass/Vol] 201 mg/dL High 0-200 [facility] ([place] Comment on above: Result Comment: Chol esterol Reference Interval: Less than 200 Desirable 200-239 Borderline high risk 240 and above High risk Performed By: #### DONOVAN CARPIO #### [facility] [address] [place] [address] Cholesterol in HDL [Mass/Vol] 59 mg/dL Normal 40-60 [facility] ([place] Comment on above: Performed By: #### DONOVAN CARPIO #### [address] [address] Cholesterol in LDL [Mass/Vol] 115 mg/dL Normal 0-130 [facility] ([place] Comment on above: Performed By: #### DONOVAN CARPIO #### [facility] [address] [place] [address] Triglyceride [Mass/Vol] 136 mg/dL Normal 0-150 [facility] ([place] Comment on above: Result Comment: Trig lyceride Reference Interval: Less than 150 Normal 150-199 Borderline high risk 200-499 High risk 500 or higher Very high risk Performed By: #### DONOVAN CARPIO #### [address] [address] Vital Signs Date Time Vital Sign Value Performing Clinician Faci lity 08-15-2021 06:54-0400 Body temperature 97.88 [degF] LIBBY SANTIAGO MD [facility] 08-15-2021 06:54-0400 Diastolic blood pressure 79 mm[Hg] LIBBY SANTIAGO MD [facility] 08-15-2021 06:54-0400 Heart rate 83 /min LIBBY SANTIAGO MD [facility] 08-15-2021 06:54-0400 Respiratory rate 18 /min LIBBY SANTIAGO MD [facility] 08-15-2021 06:54-0400 Systolic blood pressure 124 mm[Hg] LIBBY SANTIAGO MD [facility] 08-14-2021 21:40-0400 Body temperature 97.34 [degF] LIBBY SANTIAGO MD [facility] 08-14-2021 21:40-0400 Diastolic blood pressure 64 mm[Hg] LIBBY SANTIAGO MD [facility] 08-14-2021 21:40-0400 Mean blood pressure 78 mm[Hg] LIBBY SANTIAGO MD [facility] 08-14-2021 21:40-0400 Respiratory rate 19 /min LIBBY SANTIAGO MD [facility] 08-14-2021 21:40-0400 Systolic blood pressure 106 mm[Hg] LIBBY SANTIAGO MD [facility] 08-14-2021 14:02-0400 Body temperature 97.88 [degF] LIBBY SANTIAGO MD [facility] 08-14-2021 14:02-0400 Diastolic blood pressure 72 mm[Hg] LIBBY SANTIAGO MD [facility] 08-14-2021 14:02-0400 Heart rate 87 /min LIBBY SANTIAGO MD [facility] 08-14-2021 14:02-0400 Respiratory rate 18 /min LIBBY SANTIAGO MD [facility] 08-14-2021 14:02-0400 Systolic blood pressure 125 mm[Hg] LIBBY SANTIAGO MD [facility] 08-14-2021 06:45-0400 Heart rate 76 /min LIBBY SANTIAGO MD [facility] 08-12-2021 18:19-0400 Heart rate 110 /min LIBBY SANTIAGO MD [facility] 08-12-2021 18:19-0400 Mean blood pressure 96 mm[Hg] LIBBY SANTIAGO MD [facility] 08-12-2021 18:06-0400 Body height 175.3 cm LIBBY SANTIAGO MD [facility] 08-12-2021 18:06-0400 Body weight 82.8 kg LIBBY SANTIAGO MD [facility] 08-12-2021 18:06-0400 Body weight 26.94 kg/m2 LIBBY SANTIAGO MD [facility] Encounters Encounter Date Encounter Type Care Provider Facility Start: 01-24-2025 End: 01-24-2025 ambulatory Raphael L See Facility:[facility] Start: 11-22-2024 End: 11-22-2024 ambulatory Raphael L Seese Facility:[facility] Start: 10-26-2024 End: 10-26-2024 ambulatory Raphael L Seese Facility:[facility] Start: 10-11-2024 End: 10-11-2024 ambulatory Raphael L Seese Facility:[facility] Start: 09-11-2024 End: 09-11-2024 ambulatory Sarah Amadormer GROUNDS PERSON Facility:[facility] Start: 07-31-2024 End: 07-31-2024 ambulatory Sarah Palacios GROUNDS PERSON Facility:[facility] Start: 07-24-2024 End: 07-24-2024 ambulatory SARAH PALACIOS COMMERCIAL LOAN ANALYST-ZOOLOGY TECHNICAL OFFICER Facility:[facility] Start: 06-06-2024 End: 06-06-2024 ambulatory Sarah Amadormer GROUNDS PERSON Facility:[facility] Start: 05-30-2024 End: 05-30-2024 ambulatory Sarah Palacios GROUNDS PERSON Facility:[facility] Start: 05-08-2024 End: 05-08-2024 ambulatory Gillian Ferro Facility:[facility] Start: 04-25-2024 End: 04-25-2024 ambulatory Sarah Amadormer GROUNDS PERSON Facility:[facility] Start: 04-09-2024 End: 04-09-2024 ambulatory Raphael Emery Facility:[facility] Start: 04-05-2024 End: 04-05-2024 ambulatory Sarah Palacios GROUNDS PERSON Facility:[facility] Start: 01-31-2024 End: 02-04-2024 ambulatory SARAH PALACIOS COMMERCIAL LOAN ANALYST-ZOOLOGY TECHNICAL OFFICER Facility:[facility] Start: 01-31-2024 End: 02-04-2024 Encounter for general adult medical examination without abnormal findings SARAH PALACIOS COMMERCIAL LOAN ANALYST-ZOOLOGY TECHNICAL OFFICER Facility:[facility] Start: 01-31-2024 End: 02-04-2024 Outreach Lab SARAH PALACIOS COMMERCIAL LOAN ANALYST-ZOOLOGY TECHNICAL OFFICER [facility] Start: 01-14-2022 End: 01-15-2022 ambulatory . SARAH PALACIOS ZOOLOGY TECHNICAL OFFICER Facility:[facility] Start: 01-14-2022 End: 01-14-[address] BULMARO JAMES MD [facility] Start: 12-31-2021 End: 01-01-2022 ambulatory . SARAH PALACIOS ZOOLOGY TECHNICAL OFFICER Facility:[facility] Start: 12-31-2021 End: 12-31-2021 Patient encounter procedure IVETTE ROSS APRN-ZOOLOGY TECHNICAL OFFICER [facility] Start: 12-17-2021 End: 12-17-2021 Subsequent hospital visit by physician Raymond Up MD Work Phone: [facility] Start: 11-17-2021 End: 11-18-2021 ambulatory MS. SARAH PALACIOS ZOOLOGY TECHNICAL OFFICER Facility:[facility] Start: 11-05-2021 End: 11-05-2021 Subsequent hospital visit by physician Raymond Up MD Work Phone: [facility] Start: 11-03-2021 End: 11-04-2021 ambulatory MS. SARAH PALACIOS ZOOLOGY TECHNICAL OFFICER Facility:[facility] Start: 11-03-2021 End: 11-03-2021 Patient encounter procedure IVETTE ROSS COMMERCIAL LOAN ANALYST-ZOOLOGY TECHNICAL OFFICER [facility] Start: 09-23-2021 End: 09-23-2021 Subsequent hospital visit by physician Raymond Up MD Work Phone: [facility] Start: 09-21-2021 End: 09-21-2021 Subsequent hospital visit by physician Raymond Up MD Work Phone: [facility] Start: 09-18-2021 End: 09-18-2021 Subsequent hospital visit by physician Raymond Up MD Work Phone: [facility] Start: 09-16-2021 End: 09-16-2021 Subsequent hospital visit by physician Raymond Up MD Work Phone: [facility] Start: 09-15-2021 End: 09-15-2021 Subsequent hospital visit by physician Raymond Up MD Work Phone: [facility] Start: 09-04-2021 End: 09-04-2021 Subsequent hospital visit by physician Raymond Up MD Work Phone: [facility] Start: 08-28-2021 End: 08-28-2021 Subsequent hospital visit by physician Raymond Up MD Work Phone: [facility] Start: 08-26-2021 End: 08-26-2021 Subsequent hospital visit by physician Raymond Up MD Work Phone: [facility] Start: 08-24-2021 End: 08-24-2021 Patient encounter procedure [facility], Specimen Start: 08-21-2021 End: 08-21-2021 Subsequent hospital visit by physician Raymond Up MD Work Phone: [facility] Start: 08-17-2021 End: 08-17-2021 Subsequent hospital visit by physician Raymond Up MD Work Phone: [facility] Comment on above: Arrived Start: 08-17-2021 Registered Recurring [facility], Specimen Start: 08-12-2021 End: 08-15-2021 Evaluation and management of inpatient MS. SARAH PALACIOS ZOOLOGY TECHNICAL OFFICER Facility:[facility] Start: 08-12-2021 End: 08-15-2021 Evaluation and management of inpatient LIBBY SANTIAGO MD [facility] Start: 08-12-2021 End: 08-12-2021 Subsequent hospital visit by physician Raymond Up MD Work Phone: [facility] Comment on above: Arrived Start: 08-06-2021 End: 08-06-2021 Subsequent hospital visit by physician [facility] Comment on above: Arrived Start: 07-22-2021 End: 07-23-2021 ambulatory MS. SARAH PALACIOS ZOOLOGY TECHNICAL OFFICER Facility:[facility] Start: 07-22-2021 End: 07-22-2021 Patient encounter procedure SARAH PALACIOS COMMERCIAL LOAN ANALYST-ZOOLOGY TECHNICAL OFFICER [facility] Start: 07-16-2021 End: 07-17-2021 ambulatory MS. SARAH PALACIOS [facility] Facility:[facility] Procedures Date Procedure Procedure Detail Performing Clinician Start: 09-16-2021 Drug screening buprenorphine Raymond Up MD Work Phone: Start: 09-16-2021 IGNATIA DRUG SCREEN Dannie Up MD Work Phone: Start: 08-26-2021 Drug screening buprenorphine Raymond Up MD Work Phone: Start: 08-26-2021 IGNATIA DRUG SCREEN Dannie Up MD Work Phone: Start: 06-12-2018 Tuberculosis screening TB - Tu berculosis screening( Confirmed ) 4 SARAH PHILIP COMMERCIAL LOAN ANALYST-[facility] Comment on above: NEG Start: 06-02-2018 Tuberculosis screening TB - Tu berculosis screening( Confirmed ) 3 SARAH AMADORMER COMMERCIAL LOAN ANALYST-[facility] Comment on above: NEG Start: 06-22-2017 Tuberculosis screening TB - Tu berculosis screening( Confirmed ) 1 SARAH AMADORMER COMMERCIAL LOAN ANALYST-[facility] Comment on above: NEG Start: 06-29-2012 Tuberculosis screening TB - Tu berculosis screening( Confirmed ) 2 SARAH PHILIP COMMERCIAL LOAN ANALYST-[facility] Comment on above: NEG Start: 08-16-2008 Cyst - pilonidal (disorder) SARAH AMADORMER COMMERCIAL LOAN ANALYST-[facility] Plan of Treatment Date Care Activity Detail Author Start: 06-23-2027 DTaP/Tdap/Td vaccine (2 - Td or Tdap) DTaP/Tdap/Td vaccine (2 - Td or Tdap) [facility] Start: 12-17-2021 Influenza vaccination Flu vaccine (# 1) [facility] Start: 09-28-2021 End: 09-28-2021 Patient encounter procedure 09/28/2021 Appointment Psychiatry Johnathon Kennedy [facility] Start: 09-25-2021 End: 09-25-2021 Patient encounter procedure 09/25/2021 Appointment Psychiatry Johnathon Kennedy [facility] Start: 09-23-2021 End: 09-23-2021 Patient encounter procedure 09/23/2021 Appointment Psychiatry Johnathon Kennedy [facility] Start: 09-21-2021 End: 09-21-2021 Patient encounter procedure 09/21/2021 Appointment Psychiatry Johnathon Kennedy [facility] Start: 09-18-2021 End: 09-18-2021 Patient encounter procedure 09/18/2021 Appointment Psychiatry Johnathon Kennedy [facility] Start: 09-16-2021 End: 09-16-2021 Patient encounter procedure 09/16/2021 Appointment Psychiatry Johnathon Kennedy [facility] Start: 09-11-2021 End: 09-11-2021 Patient encounter procedure 09/11/2021 Appointment Psychiatry Johnathon Kennedy [facility] Start: 09-09-2021 End: 09-09-2021 Patient encounter procedure 09/09/2021 Appointment Psychiatry Johnathon Kennedy [facility] Start: 09-07-2021 End: 09-07-2021 Patient encounter procedure 09/07/2021 Appointment Psychiatry Johnathon Kennedy [facility] Start: 09-04-2021 End: 09-04-2021 Patient encounter procedure 09/04/2021 Appointment Psychiatry Johnathon Kennedy [facility] Start: 09-02-2021 End: 09-02-2021 Patient encounter procedure 09/02/2021 Appointment Psychiatry Johnathon Kennedy [facility] Start: 08-31-2021 End: 08-31-2021 Patient encounter procedure 08/31/2021 Appointment Psychiatry Johnathon Kennedy [facility] Start: 08-28-2021 End: 08-28-2021 Patient encounter procedure 08/28/2021 Appointment Psychiatry Johnathon Kennedy [facility] Start: 08-26-2021 End: 08-26-2021 Patient encounter procedure 08/26/2021 Appointment Psychiatry Johnathon Kennedy [facility] Start: 08-24-2021 End: 08-24-2021 Patient encounter procedure 08/24/2021 Appointment Psychiatry Brent Johnathon Good [facility] Start: 08-21-2021 End: 08-21-2021 Patient encounter procedure 08/21/2021 Appointment Psychiatry Brent Johnathon Good [facility] Start: 08-19-2021 End: 08-19-2021 Patient encounter procedure 08/19/2021 Appointment Psychiatry Johnathon Kennedy [facility] Start: 08-17-2021 End: 08-17-2021 Patient encounter procedure 08/17/2021 Appointment Psychiatry Brent Johnathon Good [facility] Start: 08-14-2021 End: 08-14-2021 Patient encounter procedure 08/14/2021 Appointment Psychiatry Brent Johnathon Good [facility] Start: 06-29-2009 Hepatitis C screening Hepatitis C sc reen [facility] Start: 03-19-2009 Varicella vaccine (1 of 2 - 2-dose childhood series) Varicella vaccine (1 of 2 - 2-dose childhood series) [facility] Start: 06-29-2006 HIV screening HIV screen [facility] Start: 2003 Depression Screen Depression Screen [facility] Immunizations Immunization Date Immunization Notes Care Provider [facility] 01-23-2024 influenza virus vacc ine, unspecified formulation SARAH PALACIOS COMMERCIAL LOAN ANALYST-ZOOLOGY TECHNICAL OFFICER [facility] 01-23-2024 SARS-CoV-2 (COVID-19 ) [id number] SARAH PALACIOS COMMERCIAL LOAN ANALYST-ZOOLOGY TECHNICAL OFFICER [facility] 01-11-2023 influenza virus vacc ine, unspecified formulation SARAH PALACIOS COMMERCIAL LOAN ANALYST-ZOOLOGY TECHNICAL OFFICER [facility] 01-11-2023 SARS-CoV-2 (COVID-19 ) [id number] SARAH PALACIOS COMMERCIAL LOAN ANALYST-ZOOLOGY TECHNICAL OFFICER [facility] 01-26-2021 influenza virus vacc ine, unspecified formulation SARAH PALACIOS COMMERCIAL LOAN ANALYST-ZOOLOGY TECHNICAL OFFICER [facility] 12-06-2020 SARS-CoV-2 mRNA (tozinameran) vaccine SARAH PALACIOS COMMERCIAL LOAN ANALYST-ZOOLOGY TECHNICAL OFFICER [facility] Comment on above: Result Comment: [facility] 04-25-2020 SARS-CoV-2 mRNA (tozinameran) vaccine SARAH PALACIOS COMMERCIAL LOAN ANALYST-ZOOLOGY TECHNICAL OFFICER [facility] Comment on above: Result Comment: 2020: [id number] 04-02-2020 SARS-CoV-2 mRNA (tozinameran) vaccine SARAH PALACIOS COMMERCIAL LOAN ANALYST-ZOOLOGY TECHNICAL OFFICER [facility] Comment on above: Result Comment: 2020: TPV15 01-24-2020 influenza, seasonal, injectable [facility] Work Phone: 01-23-2019 influenza virus vacc ine, unspecified formulation SARAH PALACIOS COMMERCIAL LOAN ANALYST-ZOOLOGY TECHNICAL OFFICER [facility] 01-17-2018 influenza virus vacc ine, unspecified formulation SARAH PALACIOS COMMERCIAL LOAN ANALYST-ZOOLOGY TECHNICAL OFFICER [facility] 06-22-2017 tetanus toxoid, redu isha diphtheria toxoid, and acellular pertussis vaccine, adsorbed SARAH PALACIOS COMMERCIAL LOAN ANALYST-ZOOLOGY TECHNICAL OFFICER [facility] 12-18-2015 influenza virus vacc ine, unspecified formulation Raymond Up MD Work Phone: [facility] Work Phone: 03-01-2015 influenza virus vacc ine, unspecified formulation SARAH PALACIOS COMMERCIAL LOAN ANALYST-ZOOLOGY TECHNICAL OFFICER [facility] 04-04-2012 Human Papillomavirus Quadval SARAH AMADORMER COMMERCIAL LOAN ANALYST-ZOOLOGY TECHNICAL OFFICER [facility] 10-29-2011 Human Papillomavirus Quadval SARAH AMDAORMER COMMERCIAL LOAN ANALYST-ZOOLOGY TECHNICAL OFFICER [facility] 08-25-2011 Human Papillomavirus Quadval SARAH AMADORMER COMMERCIAL LOAN ANALYST-ZOOLOGY TECHNICAL OFFICER [facility] 02-19-2009 influenza virus vacc ine, H1N1, live SARAHJOSE F AMADORMER COMMERCIAL LOAN ANALYST-ZOOLOGY TECHNICAL OFFICER [facility] 01-17-2009 influenza virus vacc ine, unspecified formulation SARAH AMADORMER COMMERCIAL LOAN ANALYST-ZOOLOGY TECHNICAL OFFICER [facility] Payers Date Payer Category Payer Self-pay [id number] 2021 Medicaid [id number] 2016 Unknown [id number] 1991 Unknown [id number] 2.16.8 [id number] 1991 Unknown [id number] 2.16.8 [id number] 1991 Unknown [id number] 2.16.8 [id number] 1991 Unknown [id number] 2.16.8 40.1.793456.3.579.2.627 1991 Unknown [id number] 2.16.8 40.1.093888.3.579.2.627 1991 Unknown [id number] 2.16.8 40.1.790669.3.579.2.627 1991 Unknown [id number] 2.16.8 40.1.695589.3.579.2.627 1991 Unknown [id number] 2.16.8 40.1.604068.3.579.2.627 1991 Unknown [id number] 2.16.8 40.1.315252.3.579.2.627 Unknown [id number] 2.16.8 40.1.552782.3.579.2.462 Unknown [id number] 2.16.8 40.1.794863.3.579.2.462 Unknown [id number] 2.16.8 40.1.558214.3.579.2.462 Unknown [id number] 2.16.8 40.1.967900.3.579.2.462 Unknown [id number] 2.16.8 40.1.075056.3.579.2.462 Unknown [id number] 2.16.8 40.1.830325.3.579.2.462 Unknown [id number] 2.16.8 40.1.881799.3.579.2.462 Unknown [id number] 2.16.8 40.1.281650.3.579.2.462 Unknown [id number] 2.16.8 40.1.799128.3.579.2.462 Unknown [id number] 2.16.8 40.1.060368.3.579.2.462 Unknown [id number] 2.16.8 40.1.920290.3.579.2.462 Unknown [id number] 2.16.8 [id number] Social History Date Type Detail Facility Start: 05-27-2016 End: 01-22-2019 Tobacco smoking status Never smoked tobacco (finding) [facility] Start: 1990 Sex Assigned At Male A [facility] Start: 05-27-2016 Tobacco use and exposure Smokeless tobacco non-user [facility] Work Phone: Start: 08-06-2021 Alcohol intake Current drinke r of alcohol (finding) [facility] Work Phone: Start: 05-27-2016 History SDOH Alcohol Comment Rarely [facility] Work Phone: Start: 1990 Sex Assigned At Not on file [facility] Work Phone: Start: 05-11-2016 Tobacco smoking stat [facility] Unknown if ever smoked [facility] Work Phone: Functional Status Date Assessment Result Facility 08-15-2021 Functional Status [facility] 08-15-2021 [facility] Status [facility] 08-15-2021 [facility] Status [facility] 08-15-2021 Functional Status [facility] 08-14-2021 Functional Status [facility] 08-14-2021 Functional Status [facility] 08-14-2021 Functional Status [facility] 08-14-2021 Functional Status [facility] 08-14-2021 Functional Status [facility] 08-14-2021 Functional Status [facility] 08-13-2021 Functional Status [facility] 08-13-2021 Functional Status [facility] 08-13-2021 Functional Status [facility] 08-13-2021 Functional Status [facility] 08-12-2021 [facility] Mental Status Date Assessment Result Facility 08-15-2021 [facility] 08-14[facility] 08-14-[facility]21 [facility] 08-12-2021 [facility] Clinical Notes 08-13-2021 to 12-17-2021 Johnathon Kennedy - 12/17/2021 12:00 PM EDAngy Kennedy - 12/17/2021 12:00 PM EDAngy Kennedy - 09/23/2021 12:30 PM EDAngy Kennedy - 09/21/2021 12:30 PM EDT Note Date & Type Note Facility 12-17-2021 Note CD IOP DISCHARGE NOT E AND SUMMARY Assessment Date: 08/06/21 CD IOP Admission Date: 08/12/21 Admission Diagnostic Impression: F15.20 Amphetamine-Type Use Disorder, severe F31.32 Bipolar I Disorder, Moderate Discharge Diagnostic Impression: F15.20 Amphetamine-Type Use Disorder, severe F31.32 Bipolar I Disorder, Moderate Discharge Date: 12/17/2021 Type of Discharge: APPROVED Discharge/Transfer To: 12-Step groups and Outpatient treatment Can patient identify as being an alcoholic/addict? Yes Does patient verbalize understanding of the disease concept of addiction? Yes Is the patient willing to commit to abstinence? Yes Does He accept responsibility for the addiction? Yes Is He able to identify and process warning signs and triggers for possible relapse? Yes Does the patient have complicated psychiatric or medical issues? Yes Do they have a plan in place to address these issues? Yes Is the patient med-compliant? Yes Does the patient have a sober support system? Yes Are any of these supports engaged in, or oriented to, 12-Step programming? NO Do they have a sponsor? No If yes, how often do they talk to their sponsor? NA Are they attending regular 12-Step meetings? No; How many/week? NA Can they identify high risk situations? Yes Can they identify warning signs and triggers? Yes Can they identify coping skills for recovery? Yes ASAM CRITERIA/SEVERITY ANALYSIS 0 - Non-issue/low risk 1 - Mild diffi culty in functioning 2 - Moderate diffi culty in functioning 3 - Serious issue or diffi culty coping/in or near ?imminent danger? 4 - Severe - indicating an ?imminent danger? concern SUMMARY/JUSTIFICATION FOR LEVEL OF CARE 0 Dimension 1: Acute Intoxication and/or Withdrawal Potential Comments: no use or craivings 0 Dimension 2: Biomedical Conditions and Complications Comments: none reported 1 Dimension 3: Emotional, Behavioral, or Cognitive Conditions and Complications Comments: Medicated Bipolar I disorder 0 Dimension 4: Readiness to Change Comments:pt appears motivated 0 Dimension 5: Relapse, Continued Use, or Continued Problem Potential Comments: first time in tx. Pt doing well at this time. No use thus far 0 Dimension 6: Recovery/Living Environment Comments:Sober supportive home. Comments: pt meets criteria for 1.0 Outpatient services Pt is discharged approved from [facility] upon completion of 11 sessions. He completed all discharge paperwork including the PHQ 9 with a score of 9 indicating mild levels for depression and the JENNIFER-7 with score of 7 indicating mild levels for anxiety. Tx Plan problem(s) 1-4 is closed and resolved. He is recommended to psych IOP and continuance of 2-4 12-Step meetings per week. His prognosis is Good at this time. [facility] 12-17-2021 Note Behavioral Health Ou tpatient Discharge Instructions Discharge Date: 12/17/21 Prior to Visit Medications Medication Sig Taking? Authorizing Provider citalopram (CELEXA) 10 MG tablet TAKE 1 TABLET BY MOUTH EVERY DAY Daniel Munson MD clindamycin (CLEOCIN T) 1 % lotion Apply topically daily Historical Provider, buPROPion (WELLBUTRIN SR) 150 MG extended release tablet Take 150 mg by mouth daily Historical Provider, Discharge Treatment Recommendations: Upon APPROVED discharge from [facility], you are being recommended to follow up with the following home going instructions: Upcoming Appointments: Future Appointments Date Time Provider Department Center 12/17/2021 12:00 PM Johnathon Kennedy [facility] None Relapse Prevention Complete Counselor: AMINTA Mazariegos # of Sessions completed: Approximately 11 Other Recommendations: Engaged in [facility], Get a sponsor, Maintain regular contact with sponsor, Continue abstinence from all mood-altering substances, and Maintain medication compliance Patient given a copy of these treatment recommendations? yes Patient Signature: Date: [facility] 12-17-2021 History of Present illness Narrative Group Therapy Note Relapse Prevention Date:12/17/21 Start Time: 12:00pm End Time: 1:00pm Session/Group Title: Relapse Prevention Number of Participants: 8 Attendance: Attended Participation: Actively Engaged, Attentive/Passive Participation and ReceptiveAble to verbalize current knowledge/experience, Able to verbalize/acknowledge new learning and Able to retain information Progress Toward Goal(s): Continue Discussion Topic: The group reviewed weekly struggles and stressors and processed any cravings or thoughts of using. Treatment Goal: Control Deterioration of Symptoms, Improve or Maintain Level of Functioning, Improve Social Supports, Prevent Relapse & Avoid Hospitalization, Establish [place] Steps Toward Goals, Enhance Communication Skills, Expand Coping Skills, Develop Problem-Solving Skills, Identify Barriers to Wellness, Explore Core Issues Underlying Illness and Relapse Prevention MENTAL STATUS: Appearance: appropriately dressed, appropriately groomed, good hygiene and healthy looking Mood: euthymic Affect: congruent with mood Behavioral: Cooperative and Pleasant; alert Speech: appropriate Thought Process: intact; Goal-Directed Thought Content: no evidence of psychosis Social: supportive, interactive and engaging Patient's Response to Intervention: Pt reported no use or cravings and continued medication compliance. Pt explored use of coping strategies. Pt reported slight increase in anxiety but looks forward to opportunities to learn to manage his mental health better. Pt shared plans moving forward and was receptive to congratulations on his IOP graduating. documented in this encounter [facility] Work Phone: 12-17-2021 Hospital course Narrative Behavioral Health Outpatient Discharge Instructions Discharge Date: 12/17/21 Prior to Visit Medications Medication Sig Taking? Authorizing Provider citalopram (CELEXA) 10 MG tablet TAKE 1 TABLET BY MOUTH EVERY DAY Daniel Munson MD clindamycin (CLEOCIN T) 1 % lotion Apply topically daily Historical ProviderMD buPROPion (WELLBUTRIN SR) 150 MG extended release tablet Take 150 mg by mouth daily Historical Provider, Discharge Treatment Recommendations: Upon APPROVED discharge from [facility], you are being recommended to follow up with the following home going instructions: Upcoming Appointments: Future Appointments Date Time Provider Department Center 12/17/2021 12:00 PM Johnathon ZAPATA ADDCT OP None Relapse Prevention Complete Counselor: AMINTA Mazariegos # of Sessions completed: Approximately 11 Other Recommendations: Engaged in [facility], Get a sponsor, Maintain regular contact with sponsor, Continue abstinence from all mood-altering substances, and Maintain medication compliance Patient given a copy of these treatment recommendations? yes Patient Signature: Date: documented in this encounter [facility] Work Phone: 09-25-2021 Note CD IOP DISCHARGE NOT E AND SUMMARY Assessment Date: 08/06/21 CD IOP Admission Date: 08/12/21 Admission Diagnostic Impression: F15.20 Amphetamine-Type Use Disorder, severe ? F31.32 Bipolar I Disorder, Moderate Discharge Diagnostic Impression: F15.20 Amphetamine-Type Use Disorder, severe ? F31.32 Bipolar I Disorder, Moderate Discharge Date: 09/25/2021 Type of Discharge: OTHER Medical Discharge/Transfer To: Relapse Prevention and 12-Step groups Can patient identify as being an alcoholic/addict? Yes Does patient verbalize understanding of the disease concept of addiction? Yes Is the patient willing to commit to abstinence? Yes Does He accept responsibility for the addiction? Yes Is He able to identify and process warning signs and triggers for possible relapse? Yes Does the patient have complicated psychiatric or medical issues? Yes Do they have a plan in place to address these issues? Yes Is the patient med-compliant? Yes Does the patient have a sober support system? Yes Are any of these supports engaged in, or oriented to, 12-Step programming? NO Do they have a sponsor? No If yes, how often do they talk to their sponsor? NA Are they attending regular 12-Step meetings? No; How many/week? NA Can they identify high risk situations? Yes Can they identify warning signs and triggers? Yes Can they identify coping skills for recovery? Yes ASAM CRITERIA/SEVERITY ANALYSIS 0 ? Non-issue/low risk 1 ? Mild diffi culty in functioning 2 ? Moderate diffi culty in functioning 3 ? Serious issue or diffi culty coping/in or near ?imminent danger? 4 ? Severe ? indicating an ?imminent danger? concern SUMMARY/JUSTIFICATION FOR LEVEL OF CARE 0 Dimension 1: Acute Intoxication and/or Withdrawal Potential Comments: no use or craivings 0 Dimension 2: Biomedical Conditions and Complications Comments: none reported 1 Dimension 3: Emotional, Behavioral, or Cognitive Conditions and Complications Comments: Medicated Bipolar I disorder 0 Dimension 4: Readiness to Change Comments:pt appears motivated 0 Dimension 5: Relapse, Continued Use, or Continued Problem Potential Comments: first time in tx. Pt doing well at this time. No use thus far 0 Dimension 6: Recovery/Living Environment Comments:Sober supportive home. Comments: pt meets criteria for 1.0 Outpatient services Pt is discharged approved from [facility] upon completion of 17 sessions. He completed all discharge paperwork including the PHQ 9 with a score of 7 indicating mild levels for depression and the JENNIFER-7 with score of 2 indicating minimal levels for anxiety. Tx Plan problem(s) 1-4 is not closed and partially resolved. He is recommended to Relapse Prevention 1x per week and continuance of 3 ? 5 12-Step meetings per week. He signed consents for Relapse Prevention and understanding of Pt rules and expectations. Pt is scheduled to start in the Relapse Prevention group on 10/01/21. His prognosis is Good at this time. [facility] 09-23-2021 History of Present illness Narrative Outpatient Behavioral Health Services Intensive Outpatient Program (IOP) Group Therapy Progress Notes Program: Addiction Medicine Intensive Outpatient Program Group 1: Date of Group: 09/23/21 Start Time: 1230 End Time: 130 Number of Participants: 5 Focus/Topic of Group Activity: Check-in Summary of Group Session: Pt checked in sharing activities, encounters with stressors, use of coping and struggles with coping. Pt also identified positive outcomes. Therapeutic Intervention: Empathic listening, Cognitive Behavioral Therapy (CBT), Dialectical Behavioral Therapy skills (DBT), Psychoeducation, and Modeling/skills training Patient's Response to Intervention: Pt was attentive and actively engaged in session. Pt shared confident feeling that he has regarding his moving to relapse prevention. Pt reported increase insight in to the things that are not problem but rather inconvienent Pt reported no use, cravings or thoughts. Mental Status Exam: Appearance: Appropriately dressed and groomed Mood: euthymic Affect: Full Behavior: Pleasant, Cooperative, and Interactive; Alert Speech: Appropriate and Clear Cognition: Intact and Oriented X4 Thought Process: Goal-directed Thought Content: No evidence of psychosis/delusions Progress Towards Goal(s): Moderate Additional Comments: NA Next Step: Continue with Current Services Group 2: Date of Group: 09/23/21 Start Time: 145 End Time: 230 Number of Participants: 5 Focus/Topic of Group Activity: Grief Summary of Group Session: Stages of grief-- processing of grief and challenging perspectives related to loss. Therapeutic Intervention: Empathic listening, Cognitive Behavioral Therapy (CBT), Dialectical Behavioral Therapy skills (DBT), Psychoeducation, and Modeling/skills training Patient's Response to Intervention: Pt was attentive and actively engaged in session. Pt showed appropriate empathy and support for other group members loss. Pt gained education on stages of grief and discussed difficulties that one has had with grief based issues. Pt challenged thoughts and perspectives and developed healthier perspective. Pt gained insight regarding distortions that manipulate ones emotions Mental Status Exam: Appearance: Appropriately dressed and groomed Mood: euthymic Affect: Full Behavior: Pleasant, Cooperative, and Interactive; Alert Speech: Appropriate and Clear Cognition: Intact and Oriented X4 Thought Process: Goal-directed Thought Content: No evidence of psychosis/delusions Progress Towards Goal(s): Minimal Additional Comments: NA Next Step: Continue with Current Services Group 3: Date of Group: 09/23/21 Start Time: 245 End Time: 330 Number of Participants: 5 Focus/Topic of Group Activity: Emotional Intelligence and compentencies Summary of Group Session: Pt gained education on the emotional spectrum and the skill of emotional intelligence adding the four competencies. Therapeutic Intervention: Empathic listening, Cognitive Behavioral Therapy (CBT), Dialectical Behavioral Therapy skills (DBT), Psychoeducation, and Modeling/skills training-- reviewing emotions grid Patient's Response to Intervention: Pt was attentive and actively engaged in session. Pt gained further insight into the skill of emotional intelligence as well as its competencies. Pt was able to recognize lack of self awareness concerning the disconnection of self mgmt to sell awareness. Pt reviewed personal emotions grid to help with the facilitation of emotional identification and communication. Pt recognized gaps and was receptive to the facilitation of completing emotions degree category. Pt challenged thoughts associated with ones belief concerning ones emotions. Mental Status Exam: Appearance: Appropriately dressed and groomed Mood: euthymic Affect: Full Behavior: Pleasant, Cooperative, and Interactive; Alert Speech: Appropriate and Clear Cognition: Intact and Oriented X4 Thought Process: Goal-directed Thought Content: No evidence of psychosis/delusions Progress Towards Goal(s): Moderate Additional Comments: Pt receptive to positive feedback regarding his decrease in level of care. Next Step: Continue with Current Services documented in this encounter [facility] Work Phone: 09-21-2021 Note Behavioral Health Ou tpatient Discharge Instructions Discharge Date: 09/23/21 Prior to Visit Medications Medication Sig Taking? Authorizing Provider citalopram (CELEXA) 10 MG tablet TAKE 1 TABLET BY MOUTH EVERY DAY Daniel Munson MD clindamycin (CLEOCIN T) 1 % lotion Apply topically daily Historical ProviderMD buPROPion (WELLBUTRIN SR) 150 MG extended release tablet Take 150 mg by mouth daily Historical Provider, Discharge Treatment Recommendations: Upon APPROVED discharge from [facility], you are being recommended to follow up with the following home going instructions: Upcoming Appointments: Future Appointments Date Time Provider Department Center 09/23/2021 12:30 PM Johnathon ZAPATA ADD[facility] OP None 09/25/2021 12:30 PM Johnathon ZAPATA [facility] OP None Relapse Prevention REQUIRED Counselor: AMINTA Mazariegos # of Sessions completed: Approximately 17 Other Recommendations: Continue regular attendance of 1-3 12-Step meetings per week, Seek out and individual counselor-referrals provided, Get a sponsor, Maintain regular contact with sponsor, Continue abstinence from all mood-altering substances and Maintain medication compliance Patient given a copy of these treatment recommendations? yes Patient Signature: Date: [facility] 09-21-2021 History of Present illness Narrative Outpatient Behavioral Health Services Intensive Outpatient Program (IOP) Group Therapy Progress Notes Program: Addiction Medicine Intensive Outpatient Program Group 1: Date of Group: 09/21/21 Start Time: 1230 End Time: 130 Number of Participants: 6 Focus/Topic of Group Activity: Check-in Summary of Group Session: Pt checked in sharing weekend activities, encounters with stressors, use of coping and struggles with coping. Pt also identified positive outcomes from the weekend. Therapeutic Intervention: Empathic listening, Cognitive Behavioral Therapy (CBT), Dialectical Behavioral Therapy skills (DBT), Psychoeducation, and Modeling/skills training Patient's Response to Intervention: Pt was attentive and actively engaged in session. Pt reported no use or craving. Pt reported mild depression and shared activities that have helped pt cope with MH challenges. Pt reported significant engagement with his family which does help. Pt reported that his is taking his time re-integrating back into society. Mental Status Exam: Appearance: Appropriately dressed and groomed Mood: euthymic Affect: Full Behavior: Pleasant, Cooperative, and Interactive; Alert Speech: Appropriate and Clear Cognition: Intact and Oriented X4 Thought Process: Goal-directed Thought Content: No evidence of psychosis/delusions Progress Towards Goal(s): Minimal Additional Comments: NA Next Step: Continue with Current Services Group 2: Date of Group: 09/21/21 Start Time: 145 End Time: 230 Number of Participants: 6 Focus/Topic of Group Activity: Connection and the role it plays in depression and anxiety; Summary of Group Session: Pt observed Homero archuleta talk where he discussed causes to depression from the sociological and psychological perspective. Pt reflected on content and verbalized what was helpful. Education on unmet needs and compromised values role in depression, anxiety and other emotional states. Therapeutic Intervention: Empathic listening, Cognitive Behavioral Therapy (CBT), Dialectical Behavioral Therapy skills (DBT), Psychoeducation, and Modeling/skills training Patient's Response to Intervention: Pt was attentive and actively engaged in session. Pt acknowledged additional factors other than biological or genetic causes for depression. Pt engaged with group on perspectives such as unmet psychological needs and that compromising or neglecting of values. Pt discussed skill set or assessment of needs/ values and the re-assertion of values that would serve to help the reduction of negative mood states. Mental Status Exam: Appearance: Appropriately dressed and groomed Mood: euthymic Affect: Full Behavior: Pleasant, Cooperative, and Interactive; Alert Speech: Appropriate and Clear Cognition: Intact and Oriented X4 Thought Process: Goal-directed Thought Content: No evidence of psychosis/delusions Progress Towards Goal(s): Moderate Additional Comments: NA Next Step: Continue with Current Services Group 3: Date of Group: 09/21/21 Start Time: 245 End Time: 330 Number of Participants: 6 Focus/Topic of Group Activity: Identify emotions Summary of Group Session: Pt gained education on the emotional spectrum and the skills of emotional intelligence. Therapeutic Intervention: Empathic listening, Cognitive Behavioral Therapy (CBT), Dialectical Behavioral Therapy skills (DBT), Psychoeducation, and Modeling/skills training Patient's Response to Intervention: Pt was attentive and actively engaged in session. Pt gained insight into the skill of emotional intelligence. Pt expressed understanding as to it purpose. Pt gained education on five emotional states and was instructed to complete personal emotions grid to help with the facilitation of emotional identification and communication. Pt challenged thoughts associated with ones belief concerning ones emotions. Mental Status Exam: Appearance: Appropriately dressed and groomed Mood: euthymic Affect: Full Behavior: Pleasant, Cooperative, and Interactive; Alert Speech: Appropriate and Clear Cognition: Intact and Oriented X4 Thought Process: Goal-directed Thought Content: No evidence of psychosis/delusions Progress Towards Goal(s): Moderate Additional Comments: NA Next Step: Continue with Current Services documented in this encounter [facility] Work Phone: 09-21-2021 Hospital course Narrative Behavioral Health Outpatient Discharge Instructions Discharge Date: 09/23/21 Prior to Visit Medications Medication Sig Taking? Authorizing Provider citalopram (CELEXA) 10 MG tablet TAKE 1 TABLET BY MOUTH EVERY DAY Daniel Munson MD clindamycin (CLEOCIN T) 1 % lotion Apply topically daily Historical ProviderMD buPROPion (WELLBUTRIN SR) 150 MG extended release tablet Take 150 mg by mouth daily Historical Provider, Discharge Treatment Recommendations: Upon APPROVED discharge from [facility], you are being recommended to follow up with the following home going instructions: Upcoming Appointments: Future Appointments Date Time Provider Department Center 09/23/2021 12:30 PM Johnathon ZAPATA ADD[facility] OP None 09/25/2021 12:30 PM Johnathon ZAPATA ADD[facility] OP None Relapse Prevention REQUIRED Counselor: AMINTA Mazariegos # of Sessions completed: Approximately 17 Other Recommendations: Continue regular attendance of 1-3 12-Step meetings per week, Seek out and individual counselor-referrals provided, Get a sponsor, Maintain regular contact with sponsor, Continue abstinence from all mood-altering substances and Maintain medication compliance Patient given a copy of these treatment recommendations? yes Patient Signature: Date: documented in this encounter [facility] Work Phone: 09-18-2021 History of Present illness Narrative Group Therapy Note Group 1: Program: Addiction Medicine intensive Outpatient Program Name of Group: Addiction IOP Date of Group: 09/18/21 Start Time: 1230 End Time: 1530 Number of Participants: 5 Focus/Topic of Group Activity: Check-in Summary of Group Session: pt was actively engaged in session. Pt reported no use or cravings. Pt reported elevation in depression, but stated that he is managing well. Pt reported that he has been medication compliant. Pt expressed frustration but working on acceptance of his reality. Therapeutic Intervention: Cognitive Behavioral Therapy (CBT), Psychoeducation, Modeling/skills training Patient's Response to Intervention: Pt recognized thinking errors and seems to possess skills that allow for restructuring and challenging of negative thinking. Mental Status Exam: Appearance: Appropriately dressed and groomed Mood: euthymic Affect: Full Behavior: Pleasant, Cooperative, and Interactive; Alert Speech: Appropriate, Clear, and Normal pace Cognition: Intact and Oriented X4 Thought Process: Goal-directed Thought Content: No evidence of psychosis/delusions Progress Towards Goal(s): Moderate Additional Comments: NA Next Step: Continue with Current Services Group Therapy Note Group 2: Program: Addiction Medicine Intensive Outpatient Program Name of Group: Addiction IOP Start Time: 1544 End Time: 163 Number of Participants: 5 Focus/Topic of Group Activity: Boundaries Summary of Group Session: Pt was actively engaged in session. Pt identified people and situation that on has difficulty developing, implementing and enforcing boundaries in or with. Pt discussed dynamics that made this difficult and recognized poor internal dialogue that contributes to lack of boundaries in specific situations and with specific people. Pt identified where boundaries are needed in areas that one previously did not identify. Pt developed boundaries in area previously discussed. Therapeutic Intervention: Cognitive Behavioral Therapy (CBT), Modeling- skill development Patient's Response to Intervention: Pt described challenges with familial boundaries, but overall states that he does well with setting boundaries with family and friends. Mental Status Exam: Appearance: Appropriately dressed and groomed Mood: euthymic Affect: Full Behavior: Pleasant, Cooperative, and Interactive; Alert Speech: Appropriate, Clear, and Normal pace Cognition: Intact and Oriented X4 Thought Process: Goal-directed Thought Content: No evidence of psychosis/delusions Progress Towards Goal(s): Moderate Additional Comments: NA Next Step: Continue with Current Services Group Therapy Note Group 3: Program: Addiction Medicine Intensive Outpatient Program Name of Group: Addiction IOP Start Time: 1644 End Time: 1730 Number of Participants: 5 Focus/Topic of Group Activity: Weekend planning Summary of Group Session: Pt was actively engaged and participatory in session. Pt engage in weekend planning activity in order to develop plan to assess and obtain basic physical and psychological needs, identify potential stressors, identify sober supports, develop plan to address pre-identified stressors, schedule sober support meetings, as well as other tasks that need to be completed. Therapeutic Intervention: Cognitive Behavioral Therapy (CBT), weekend planning Patient's Response to Intervention: Pt completed weekend marketing planner. Mental Status Exam: Appearance: Appropriately dressed and groomed Mood: euthymic Affect: Full Behavior: Pleasant, Cooperative, and Interactive; Alert Speech: Appropriate, Clear, and Normal pace Cognition: Intact and Oriented X4 Thought Process: Goal-directed Thought Content: No evidence of psychosis/delusions Progress Towards Goal(s): Moderate Additional Comments: NA Next Step: Continue with Current Services documented in this encounter [facility] Work Phone: 09-16-2021 History of Present illness Narrative Group Therapy Note Date: 09/16/21 Hour 1 Start Time: 1230 End Time: 130 Session/Group Title: CD IOP Number of Participants: 7 Attendance: Attended- Participation: Progressing toward goal(s), Actively Engaged, Good Attention to Detail, Better able to express emotions and receive feedback, and Verbalizations reflected thinking processes oriented in realityAble to verbalize current knowledge/experience, Able to verbalize/acknowledge new learning, Able to retain information, Capable of insight, Able to change behavior, and Progressing to goal Progress Toward Goal(s): Continue Discussion Topic: Checkin Treatment Goal: Control Deterioration of Symptoms, Improve or Maintain Level of Functioning, Improve Social Supports, Prevent Relapse & Avoid Hospitalization, Establish [place] Steps Toward Goals, Enhance Communication Skills, Expand Coping Skills, Develop Problem-Solving Skills, Identify Barriers to Wellness, Explore Core Issues Underlying Illness, and Relapse Prevention Appearance: appropriately dressed and healthy looking Mood: euthymic Affect: congruent with mood Behavioral: Pleasant; alert Speech: appropriate Thought Process: intact; Goal-Directed Thought Content: no evidence of psychosis Social: supportive, interactive, and engaging Additional Notes/ responses: Pt was fully engaged in session. Pt reported sight depression but stated it is manageable. Pt shared techniques that he uses to manage decreases in mood functioning. Pt reported no use or cravings. Pt expressed emotions related to court and the time is is taking to resolve. Pt gained insight on immediate gratification thinking. Hour 2 Start Time: 145 End Time: 230 Session/Group Title: CD IOP Attendance: Attended; Participation: Progressing toward goal(s), Actively Engaged, Good Attention to Detail, Better able to express emotions and receive feedback, and Verbalizations reflected thinking processes oriented in realityAble to verbalize current knowledge/experience, Able to verbalize/acknowledge new learning, Able to retain information, Capable of insight, Able to change behavior, and Progressing to goal Progress Toward Goal(s): Continue Discussion Topic: Boundaries Treatment Goal: Control Deterioration of Symptoms, Improve or Maintain Level of Functioning, Improve Social Supports, Prevent Relapse & Avoid Hospitalization, Establish [place] Steps Toward Goals, Enhance Communication Skills, Expand Coping Skills, Develop Problem-Solving Skills, Identify Barriers to Wellness, Explore Core Issues Underlying Illness, and Relapse Prevention Appearance: appropriately dressed and healthy looking Mood: euthymic Affect: congruent with mood Behavioral: Pleasant; alert Speech: appropriate Thought Process: intact; Goal-Directed Thought Content: no evidence of psychosis Social: supportive, interactive, and engaging Additional Notes/ responses: Pt was engaged and attentive. Pt discussed/reviewed perspective on how well he feels that he makes and maintains boundaries. Pt explored thoughts associated with who one has difficulty enforcing boundaries. Pt verbalized consequences that one has experienced from poor or un-enforced boundaries. Hour 3 Start Time: 245 End Time: 330 Session/Group Title: CD IOP Attendance: Attended: Participation: Progressing toward goal(s), Actively Engaged, Good Attention to Detail, Better able to express emotions and receive feedback, and Verbalizations reflected thinking processes oriented in realityAble to verbalize current knowledge/experience, Able to verbalize/acknowledge new learning, Able to retain information, Capable of insight, Able to change behavior, and Progressing to goal Progress Toward Goal(s): Continue Discussion Topic: Codependency Treatment Goal: Control Deterioration of Symptoms, Improve or Maintain Level of Functioning, Improve Social Supports, Prevent Relapse & Avoid Hospitalization, Establish [place] Steps Toward Goals, Enhance Communication Skills, Expand Coping Skills, Develop Problem-Solving Skills, Identify Barriers to Wellness, Explore Core Issues Underlying Illness, and Relapse Prevention Appearance: appropriately dressed and healthy looking Mood: euthymic Affect: congruent with mood Behavioral: Pleasant; alert Speech: appropriate Thought Process: intact; Goal-Directed Thought Content: no evidence of psychosis Social: supportive, interactive, and engaging Additional Notes/ responses: Pt was engaged and attentive during session. Pt gained education of characteristics of codependency and shared perspectives regarding identified characteristics. Pt was provided examples of what characteristics look like in various scenarios. Pt engaged in discussion regarding the negative and positive consequences to the characteristics. documented in this encounter [facility] Work Phone: 09-15-2021 History of Present illness Narrative [facility] BEHAVIORAL HEALTH OUTPATIENT / INTENSIVE OUTPATIENT / ADDICTIONS PSYCHOTHERAPY SESSION DOCUMENTATION RECORD Today's Date: 09/15/2021 Start Time: 12:30 End Time: 13:30 Attendance: [x] Attended [] Not appropriate for group due to symptom severity [] Refused to participate [] Patient sick; unable to attend [] Off unit at time of group [] Pt. With doctor or nurse [] Arrived late [] Left early [] Excused by staff Service Type: [x]Group Psychotherapy []Group Psychoeducation []Expressive Therapy []Individual Counseling []Family Psycho Therapy []Patient Training/Education with Nurse []Activities Therapy,Multi-Family Group w/ Patient []Multi-Family Group w/o Patient Name of Group:[x]Weekend Review Process []Day Review Process [] CBT []DBT []Week Review Wrap-Up/Weekend Planning [] Expressive Therapy [] Recreation Therapy []Psychoeducation Therapy Treatment Goal: [x]Control Deterioration of Symptoms [x]Improve or Maintain Level of Functioning [x]Improve Social Supports [x]Prevent Relapse & Avoid Hospitalization []Establish [place] Steps Toward Goals [x]Enhance Communication Skills []Expand Coping Skills []Develop Problem-Solving Skills []Identify Barriers to Wellness []Explore Core Issues Underlying Illness [x]Relapse Preventions [] Other: Appearance: [x] clean [] disheveled [] Other: Behavioral: [x] active [] fidgety [] withdrawn [] tired [] tearful [] assertive [] passive [] aggressive Eye Contact: [x] good [] poor [] Other: Attitude: [x] cooperative [] hostile [x] open [] Evasive[] secretive [] suspicious [] easily distracted [] focused [] defensive Level of consciousness: [x] alert [] drowsy [] lethargic [] asleep [] confused [] fluctuating Orientation: [x] full [] person [] place [] time [] situation Speech: [x] talkative [] poverty [] expansive [x] spontaneous [] fast [] slow [x] normal [] pressured [] loud [] soft [] strong [] weak [] slurred[] clear [] Other: Mood: [] elated [] energized [] anxious [] depressed [] discouraged [] irritable [] angry [] edgy [x] Other: euthymic Affect: [x] appropriate to situation [] broad [] labile []restricted [] blunted []flat []detached []indifferent [x] congruent []incongruent Thought process: []linear [x] goal directed [] circumstantial [] incoherent [] racing [] blocking [] Other: Thought content: [] ruminations [] false perceptions []compulsive thoughts [] misinterpretations [] unshared beliefs [x] Other: No evidence of psychosis. Social: [x] supportive [] confrontational [] argumentative [] superficial [] attention seeking [] disruptive [x] inter-active [x] engaging [] monopolizing Insight and judgement: Good Attention: [x] attentive [x]focused & concentrated [] easily distracted Discussion Topic: Weekend Check-ins; triggers Patient s Response to Intervention: Progressing toward goal(s), Actively Engaged and Receptive. Able to verbalize current knowledge/experience, Able to verbalize/acknowledge new learning, Able to retain information, Capable of insight, Able to change behavior and Progressing to goal. Pt reported that he didn't do much over the weekend because he was covid positive. Pt reported that he had been sober since approximately May 19, 2021. Pt asked another group member a question to help increase their insight, displaying concern and support. Pt presented as pleasant and socially interacted. Progress toward ST or LT Goals: [] Partial [x] Continue [] Acheived Start Time: 13:40 End Time: 14:30 Attendance: [x] Attended [] Not appropriate for group due to symptom severity [] Refused to participate [] Patient sick; unable to attend [] Off unit at time of group [] Pt. With doctor or nurse [] Arrived late [] Left early [] Excused by staff Service Type: [x]Group Psychotherapy []Group Psychoeducation []Expressive Therapy []Individual Counseling []Family Psycho Therapy []Patient Training/Education with Nurse []Activities Therapy,Multi-Family Group w/ Patient []Multi-Family Group w/o Patient Name of Group:[]Weekend Review Process []Day Review Process [] CBT []DBT []Week Review Wrap-Up/Weekend Planning [] Expressive Therapy [] Recreation Therapy [x]Psychoeducation Therapy Treatment Goal: [x]Control Deterioration of Symptoms [x]Improve or Maintain Level of Functioning [x]Improve Social Supports [x]Prevent Relapse & Avoid Hospitalization []Establish [place] Steps Toward Goals [x]Enhance Communication Skills []Expand Coping Skills []Develop Problem-Solving Skills [x]Identify Barriers to Wellness []Explore Core Issues Underlying Illness [x]Relapse Preventions [x] Other: Increase Pt knowledge about healthy / unhealthy relationships and relational behaviors. Appearance: [x] clean [] disheveled [] Other: Behavioral: [x] active [] fidgety [] withdrawn [] tired [] tearful [] assertive [] passive [] aggressive Eye Contact: [x] good [] poor [] Other: Attitude: [x] cooperative [] hostile [x] open [] Evasive[] secretive [] suspicious [] easily distracted [x] focused [] defensive Level of consciousness: [x] alert [] drowsy [] lethargic [] asleep [] confused [] fluctuating Orientation: [x] full [] person [] place [] time [] situation Speech: [x] talkative [] poverty [x] expansive [x] spontaneous [] fast [] slow [x] normal [] pressured [] loud [] soft [] strong [] weak [] slurred[] clear [] Other: Mood: [] elated [] energized [] anxious [] depressed [] discouraged [] irritable [] angry [] edgy [x] Other: euthymic Affect: [x] appropriate to situation [] broad [] labile []restricted [] blunted []flat []detached []indifferent [x] congruent []incongruent Thought process: []linear [x] goal directed [] circumstantial [] incoherent [] racing [] blocking [] Other: Thought content: [] ruminations [] false perceptions []compulsive thoughts [] misinterpretations [] unshared beliefs [x] Other: No evidence of psychosis. Social: [x] supportive [] confrontational [] argumentative [] superficial [] attention seeking [] disruptive [x] inter-active [x] engaging [] monopolizing Insight and judgement: Good Attention: [x] attentive [x]focused & concentrated [] easily distracted Discussion Topic: Relationship Beliefs (self analysis) and discussion. Creating more healthy beliefs about relationships. Patient s Response to Intervention: Progressing toward goal(s), Actively Engaged and Receptive, Able to verbalize current knowledge/experience, Able to verbalize/acknowledge new learning, Able to retain information, Capable of insight, Able to change behavior and Progressing to goal. Pt reported that he felt as if hotel rooms were triggering for him because that is where he's stay when he was manic and using. Pt reported that he sometimes has trouble taking his medications for bipolar 1 d/o consistently because they take away his happy highs. Pt reported that he feels he is on a good combination now, in regards to his medications. Therapist encouraged Pt to replay the tape whenever he thinks about not taking his medications so that he can feel the high of jessica. Progress toward ST or LT Goals: [] Partial [x] Continue [] Acheived Start Time: 14:40 End Time: 15:30 Attendance: [x] Attended [] Not appropriate for group due to symptom severity [] Refused to participate [] Patient sick; unable to attend [] Off unit at time of group [] Pt. With doctor or nurse [] Arrived late [] Left early [] Excused by staff Service Type: [x]Group Psychotherapy []Group Psychoeducation []Expressive Therapy []Individual Counseling []Family Psycho Therapy []Patient Training/Education with Nurse []Activities Therapy,Multi-Family Group w/ Patient []Multi-Family Group w/o Patient Name of Group:[]Weekend Review Process []Day Review Process [] CBT []DBT []Week Review Wrap-Up/Weekend Planning [] Expressive Therapy [] Recreation Therapy [x]Psychoeducation Therapy Treatment Goal: [x]Control Deterioration of Symptoms [x]Improve or Maintain Level of Functioning [x]Improve Social Supports [x]Prevent Relapse & Avoid Hospitalization []Establish [place] Steps Toward Goals [x]Enhance Communication Skills []Expand Coping Skills []Develop Problem-Solving Skills []Identify Barriers to Wellness [x]Explore Core Issues Underlying Illness [x]Relapse Preventions [x] Other: Increase Pt insight into unhealthy relationship behaviors they may participate in. Briefly psychoeducate Pt on SMART goals. Appearance: [x] clean [] disheveled [] Other: Behavioral: [x] active [] fidgety [] withdrawn [] tired [] tearful [] assertive [] passive [] aggressive Eye Contact: [x] good [] poor [] Other: Attitude: [x] cooperative [] hostile [x] open [] Evasive[] secretive [] suspicious [] easily distracted [] focused [] defensive Level of consciousness: [x] alert [] drowsy [] lethargic [] asleep [] confused [] fluctuating Orientation: [x] full [] person [] place [] time [] situation Speech: [x] talkative [] poverty [x] expansive [x] spontaneous [] fast [] slow [x] normal [] pressured [] loud [] soft [] strong [] weak [] slurred[] clear [] Other: Mood: [] elated [] energized [] anxious [] depressed [] discouraged [] irritable [] angry [] edgy [x] Other: euthymic Affect: [x] appropriate to situation [] broad [] labile []restricted [] blunted []flat []detached []indifferent [x] congruent []incongruent Thought process: []linear [x] goal directed [] circumstantial [] incoherent [] racing [] blocking [] Other: Thought content: [] ruminations [] false perceptions []compulsive thoughts [] misinterpretations [] unshared beliefs [x] Other: No evidence of psychosis. Social: [x] supportive [] confrontational [] argumentative [] superficial [] attention seeking [] disruptive [x] inter-active [x] engaging [] monopolizing Insight and judgement: Good Attention: [x] attentive [x]focused & concentrated [] easily distracted Discussion Topic: Healthy/Unhealthy relationships continued. Brief review of SMART goals and creating some personal relationship goals. Patient s Response to Intervention: Progressing toward goal(s), Actively Engaged, Able to verbalize current knowledge/experience, Able to verbalize/acknowledge new learning, Able to retain information, Capable of insight, Able to change behavior and Progressing to goal. Pt remained actively engaged during all three sessions as evidenced by eye contact, body language, verbal participation, nonverbals and following along with discussions and handouts. Pt reported that he identified with the example of safe coping in the handout and that his communication with his dad could improve. Progress toward ST or LT Goals: [] Partial [x] Continue [] Acheived documented in this encounter [facility] Work Phone: 09-04-2021 History of Present illness Narrative Group Therapy Note Date: 09/04/21 Hour 1 Start Time: 1230 End Time: 130 Session/Group Title: CD IOP Number of Participants: 6 Attendance: Attended- Participation: Progressing toward goal(s), Actively Engaged, Good Attention to Detail, Better able to express emotions and receive feedback, and Verbalizations reflected thinking processes oriented in realityAble to verbalize current knowledge/experience, Able to verbalize/acknowledge new learning, Able to retain information, Capable of insight, Able to change behavior, and Progressing to goal Progress Toward Goal(s): Continue Discussion Topic: Checkin Treatment Goal: Control Deterioration of Symptoms, Improve or Maintain Level of Functioning, Improve Social Supports, Prevent Relapse & Avoid Hospitalization, Establish [place] Steps Toward Goals, Enhance Communication Skills, Expand Coping Skills, Develop Problem-Solving Skills, Identify Barriers to Wellness, Explore Core Issues Underlying Illness, and Relapse Prevention Appearance: appropriately dressed and healthy looking Mood: euthymic Affect: congruent with mood Behavioral: Pleasant; alert Speech: appropriate Thought Process: intact; Goal-Directed Thought Content: no evidence of psychosis Social: supportive, interactive, and engaging Additional Notes/ responses: Pt was fully engaged in session. Pt reported feeling slightly depressed and impatient over court process. Pt expressed wanting to get back to work but recognizing importance of learning to manage mental health. Pt recognized thinking errors and accounted for them. Pt reported no use or cravings. Hour 2 Start Time: 145 End Time: 230 Session/Group Title: CD IOP Attendance: Attended; Participation: Progressing toward goal(s), Actively Engaged, Good Attention to Detail, Better able to express emotions and receive feedback, and Verbalizations reflected thinking processes oriented in realityAble to verbalize current knowledge/experience, Able to verbalize/acknowledge new learning, Able to retain information, Capable of insight, Able to change behavior, and Progressing to goal Progress Toward Goal(s): Continue Discussion Topic: Putting oneself first vs selfishness Treatment Goal: Control Deterioration of Symptoms, Improve or Maintain Level of Functioning, Improve Social Supports, Prevent Relapse & Avoid Hospitalization, Establish [place] Steps Toward Goals, Enhance Communication Skills, Expand Coping Skills, Develop Problem-Solving Skills, Identify Barriers to Wellness, Explore Core Issues Underlying Illness, and Relapse Prevention Appearance: appropriately dressed and healthy looking Mood: euthymic Affect: congruent with mood Behavioral: Pleasant; alert Speech: appropriate Thought Process: intact; Goal-Directed Thought Content: no evidence of psychosis Social: supportive, interactive, and engaging Additional Notes/ responses: Pt was engaged and attentive. Pt gained education and perspective on the difference between being selfish and placing oneself first. Pt expressed understanding of differenced and recognized how putting oneself first impact other positively while being selfish does not. Pt explored both positives and negatives. Pt discussed how to manage relational situations where confusion about these perspectives exist. Hour 3 Start Time: 245 End Time: 330 Session/Group Title: CD IOP Attendance: Attended: Participation: Progressing toward goal(s), Actively Engaged, Good Attention to Detail, Better able to express emotions and receive feedback, and Verbalizations reflected thinking processes oriented in realityAble to verbalize current knowledge/experience, Able to verbalize/acknowledge new learning, Able to retain information, Capable of insight, Able to change behavior, and Progressing to goal Progress Toward Goal(s): Continue Discussion Topic: Communication strategies Treatment Goal: Control Deterioration of Symptoms, Improve or Maintain Level of Functioning, Improve Social Supports, Prevent Relapse & Avoid Hospitalization, Establish [place] Steps Toward Goals, Enhance Communication Skills, Expand Coping Skills, Develop Problem-Solving Skills, Identify Barriers to Wellness, Explore Core Issues Underlying Illness, and Relapse Prevention Appearance: appropriately dressed and healthy looking Mood: euthymic Affect: congruent with mood Behavioral: Pleasant; alert Speech: appropriate Thought Process: intact; Goal-Directed Thought Content: no evidence of psychosis Social: supportive, interactive, and engaging Additional Notes/ responses: Pt was engaged and attentive. Pt discussed challenges with communicating with loved ones. Pt verbalized barrier to understanding. Pt recognized passive, passive aggressive and aggressive communication styles at varied times. Group Therapy Note Date: 09/02/21 Hour 1 Start Time: 1230 End Time: 130 Session/Group Title: CD IOP Number of Participants: 7 Attendance: Attended- Participation: Progressing toward goal(s), Actively Engaged, Good Attention to Detail, Better able to express emotions and receive feedback, and Verbalizations reflected thinking processes oriented in realityAble to verbalize current knowledge/experience, Able to verbalize/acknowledge new learning, Able to retain information, Capable of insight, Able to change behavior, and Progressing to goal Progress Toward Goal(s): Continue Discussion Topic: Checkin Treatment Goal: Control Deterioration of Symptoms, Improve or Maintain Level of Functioning, Improve Social Supports, Prevent Relapse & Avoid Hospitalization, Establish [place] Steps Toward Goals, Enhance Communication Skills, Expand Coping Skills, Develop Problem-Solving Skills, Identify Barriers to Wellness, Explore Core Issues Underlying Illness, and Relapse Prevention Appearance: appropriately dressed and healthy looking Mood: euthymic Affect: congruent with mood Behavioral: Pleasant; alert Speech: appropriate Thought Process: intact; Goal-Directed Thought Content: no evidence of psychosis Social: supportive, interactive, and engaging Additional Notes/ responses: Pt was fully engaged in session. Pt shared feeling less anxious and has started working out to alleviate MH symptoms. Pt reported no use of medication changes. Pt reported no carvings. Pt stated that probation also went well and that court date was set for October 30. 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 [facility] but some difficulties noted ion managing Mental health at times Hour 2 Start Time: 145 End Time: 230 Session/Group Title: CD IOP Attendance: Attended; Participation: Progressing toward goal(s), Actively Engaged, Good Attention to Detail, Better able to express emotions and receive feedback, and Verbalizations reflected thinking processes oriented in realityAble to verbalize current knowledge/experience, Able to verbalize/acknowledge new learning, Able to retain information, Capable of insight, Able to change behavior, and Progressing to goal Progress Toward Goal(s): Continue Discussion Topic: irrational thought identification Treatment Goal: Control Deterioration of Symptoms, Improve or Maintain Level of Functioning, Improve Social Supports, Prevent Relapse & Avoid Hospitalization, Establish [place] Steps Toward Goals, Enhance Communication Skills, Expand Coping Skills, Develop Problem-Solving Skills, Identify Barriers to Wellness, Explore Core Issues Underlying Illness, and Relapse Prevention Appearance: appropriately dressed and healthy looking Mood: euthymic Affect: congruent with mood Behavioral: Pleasant; alert Speech: appropriate Thought Process: intact; Goal-Directed Thought Content: no evidence of psychosis Social: supportive, interactive, and engaging Additional Notes/ responses: Pt was engaged and attentive. Pt shared challenging situations and experiences that one is going through. Pt shared thoughts and was guided through the identification of cognitive distortions. Pt increased understanding of the costs of not challenging ones thoughts and assuming ones thoughts as facts rather than interpretations of ones world. Pt was able to challenged and restructure thoughts to decrease emotional impact and improve coping. Pt applied skills to thoughts associated with his inability to return to work. Hour 3 Start Time: 245 End Time: 330 Session/Group Title: CD IOP Attendance: Attended: Participation: Progressing toward goal(s), Actively Engaged, Good Attention to Detail, Better able to express emotions and receive feedback, and Verbalizations reflected thinking processes oriented in realityAble to verbalize current knowledge/experience, Able to verbalize/acknowledge new learning, Able to retain information, Capable of insight, Able to change behavior, and Progressing to goal Progress Toward Goal(s): Continue Discussion Topic: Evaluative strategies Treatment Goal: Control Deterioration of Symptoms, Improve or Maintain Level of Functioning, Improve Social Supports, Prevent Relapse & Avoid Hospitalization, Establish [place] Steps Toward Goals, Enhance Communication Skills, Expand Coping Skills, Develop Problem-Solving Skills, Identify Barriers to Wellness, Explore Core Issues Underlying Illness, and Relapse Prevention Appearance: appropriately dressed and healthy looking Mood: euthymic Affect: congruent with mood Behavioral: Pleasant; alert Speech: appropriate Thought Process: intact; Goal-Directed Thought Content: no evidence of psychosis Social: supportive, interactive, and engaging Additional Notes/ responses: Pt was engaged and attentive. Pt gained education on way to evaluate oneself from moment to moment. Pt was introduce to taking personal inventories on oneself and asking valuable questions to evaluate ones physical body, thoughts and emotions. Pt was provided examples of how to respond to escalations in ones inventories. Electronically signed by Johnathon Kennedy [facility] documented in this encounter [facility] Work Phone: 08-28-2021 History of Present illness Narrative Group Therapy Note Date: 08/28/21 Hour 1 Start Time: 1230 End Time: 130 Session/Group Title: CD IOP Number of Participants: 8 Attendance: Attended- Participation: Progressing toward goal(s), Actively Engaged, Good Attention to Detail, Better able to express emotions and receive feedback, and Verbalizations reflected thinking processes oriented in realityAble to verbalize current knowledge/experience, Able to verbalize/acknowledge new learning, Able to retain information, Capable of insight, Able to change behavior, and Progressing to goal Progress Toward Goal(s): Continue Discussion Topic: Checkin Treatment Goal: Control Deterioration of Symptoms, Improve or Maintain Level of Functioning, Improve Social Supports, Prevent Relapse & Avoid Hospitalization, Establish [place] Steps Toward Goals, Enhance Communication Skills, Expand Coping Skills, Develop Problem-Solving Skills, Identify Barriers to Wellness, Explore Core Issues Underlying Illness, and Relapse Prevention Appearance: appropriately dressed and healthy looking Mood: euthymic Affect: congruent with mood Behavioral: Pleasant; alert Speech: appropriate Thought Process: intact; Goal-Directed Thought Content: no evidence of psychosis Social: supportive, interactive, and engaging Additional Notes/ responses: Pt was fully engaged in session. Pt reported no use and continued use of healthy coping skills. Pt reported continued difficulty with anxiety but reported that his medication will likely help. Pt was engaged in the review of rejection attachment. Pt gained perspective on the what this may look like in ones day to day interactions. Pt also gained insight on the emotional nature of addicts and alcoholics. Pt was able to contrast ones thoughts and behaviors and recognize how one is re-enforcing any of the unconscious attachments. Hour 2 Start Time: 145 End Time: 230 Session/Group Title: CD IOP Attendance: Attended; Participation: Progressing toward goal(s), Actively Engaged, Good Attention to Detail, Better able to express emotions and receive feedback, and Verbalizations reflected thinking processes oriented in realityAble to verbalize current knowledge/experience, Able to verbalize/acknowledge new learning, Able to retain information, Capable of insight, Able to change behavior, and Progressing to goal Progress Toward Goal(s): Continue Discussion Topic: Recovery boys Documentary Treatment Goal: Control Deterioration of Symptoms, Improve or Maintain Level of Functioning, Improve Social Supports, Prevent Relapse & Avoid Hospitalization, Establish [place] Steps Toward Goals, Enhance Communication Skills, Expand Coping Skills, Develop Problem-Solving Skills, Identify Barriers to Wellness, Explore Core Issues Underlying Illness, and Relapse Prevention Appearance: appropriately dressed and healthy looking Mood: euthymic Affect: congruent with mood Behavioral: Pleasant; alert Speech: appropriate Thought Process: intact; Goal-Directed Thought Content: no evidence of psychosis Social: supportive, interactive, and engaging Additional Notes/ responses: Pt was engaged and attentive to documentary. Pt was able to recognize and related to individuals in documentary. Pt recognized circumstances that led to the intake of individuals as well as the level care at which they are engaging in. Pt discussed techniques that patient were using to cope and commented on the level of support that the patients had from peers and staff. Hour 3 Start Time: 245 End Time: 330 Session/Group Title: CD IOP Attendance: Attended: Participation: Progressing toward goal(s), Actively Engaged, Good Attention to Detail, Better able to express emotions and receive feedback, and Verbalizations reflected thinking processes oriented in realityAble to verbalize current knowledge/experience, Able to verbalize/acknowledge new learning, Able to retain information, Capable of insight, Able to change behavior, and Progressing to goal Progress Toward Goal(s): Continue Discussion Topic: Characteristics and examples of Deprivation in adulthood. Treatment Goal: Control Deterioration of Symptoms, Improve or Maintain Level of Functioning, Improve Social Supports, Prevent Relapse & Avoid Hospitalization, Establish [place] Steps Toward Goals, Enhance Communication Skills, Expand Coping Skills, Develop Problem-Solving Skills, Identify Barriers to Wellness, Explore Core Issues Underlying Illness, and Relapse Prevention Appearance: appropriately dressed and healthy looking Mood: euthymic Affect: congruent with mood Behavioral: Pleasant; alert Speech: appropriate Thought Process: intact; Goal-Directed Thought Content: no evidence of psychosis Social: supportive, interactive, and engaging Additional Notes/ responses: Pt was engaged and attentive to documentary. Pt recognized triggers and stressors that contributed to patient's difficulty and shared insights on pt follow through with use of coping strategies. Pt was able to related to challenges that some patients had coming out of treatment. Pt shared insights on the patients attitudes as it pertained to relapses and desire to get back to treatment. Pt shared instances where one had difficulty making the decisions to get back to treatment after a relapse or coming to term that they need more help than they can give themselves. documented in this encounter [facility] Work Phone: 08-26-2021 History of Present illness Narrative Group Therapy Note Date: 08/26/21 Hour 1 Start Time: 1230 End Time: 130 Session/Group Title: CD IOP Number of Participants: 8 Attendance: Attended- Participation: Progressing toward goal(s), Actively Engaged, Good Attention to Detail, Better able to express emotions and receive feedback, and Verbalizations reflected thinking processes oriented in realityAble to verbalize current knowledge/experience, Able to verbalize/acknowledge new learning, Able to retain information, Capable of insight, Able to change behavior, and Progressing to goal Progress Toward Goal(s): Continue Discussion Topic: Checkin Treatment Goal: Control Deterioration of Symptoms, Improve or Maintain Level of Functioning, Improve Social Supports, Prevent Relapse & Avoid Hospitalization, Establish [place] Steps Toward Goals, Enhance Communication Skills, Expand Coping Skills, Develop Problem-Solving Skills, Identify Barriers to Wellness, Explore Core Issues Underlying Illness, and Relapse Prevention Appearance: appropriately dressed and healthy looking Mood: euthymic Affect: congruent with mood Behavioral: Pleasant; alert Speech: appropriate Thought Process: intact; Goal-Directed Thought Content: no evidence of psychosis Social: supportive, interactive, and engaging Additional Notes/ responses: Pt was fully engaged in session. Pt was attentive and supportive of other group members. Pt was appropriately reflective and in his responses to patients challenges. Hour 2 Start Time: 145 End Time: 230 Session/Group Title: CD IOP Attendance: Attended; Participation: Progressing toward goal(s), Actively Engaged, Good Attention to Detail, Better able to express emotions and receive feedback, and Verbalizations reflected thinking processes oriented in realityAble to verbalize current knowledge/experience, Able to verbalize/acknowledge new learning, Able to retain information, Capable of insight, Able to change behavior, and Progressing to goal Progress Toward Goal(s): Continue Discussion Topic: check-in/ AA-sponsorship- recovery coaching Treatment Goal: Control Deterioration of Symptoms, Improve or Maintain Level of Functioning, Improve Social Supports, Prevent Relapse & Avoid Hospitalization, Establish [place] Steps Toward Goals, Enhance Communication Skills, Expand Coping Skills, Develop Problem-Solving Skills, Identify Barriers to Wellness, Explore Core Issues Underlying Illness, and Relapse Prevention Appearance: appropriately dressed and healthy looking Mood: euthymic Affect: congruent with mood Behavioral: Pleasant; alert Speech: appropriate Thought Process: intact; Goal-Directed Thought Content: no evidence of psychosis Social: supportive, interactive, and engaging Additional Notes/ responses: Pt was engaged in session fully. Pt reported no use or cravings at this time. Pt stated that he was given a puppy and that he elected not to take the puppy due to not being ready to take care of anything other than himself. Pt displays good judgment regarding his capabilities at this time. Pt was provided insight regarding AA, ways to find a sponsor and what to look for in a sponsor. Pt inquired about red-flags and what to do about problematic sponsors. Pt was able to increase understanding of the difference between sponsors and recovery coaches. Hour 3 Start Time: 245 End Time: 330 Session/Group Title: CD IOP Attendance: Attended: Participation: Progressing toward goal(s), Actively Engaged, Good Attention to Detail, Better able to express emotions and receive feedback, and Verbalizations reflected thinking processes oriented in realityAble to verbalize current knowledge/experience, Able to verbalize/acknowledge new learning, Able to retain information, Capable of insight, Able to change behavior, and Progressing to goal Progress Toward Goal(s): Continue Discussion Topic: Characteristics and examples of Deprivation in adulthood. Treatment Goal: Control Deterioration of Symptoms, Improve or Maintain Level of Functioning, Improve Social Supports, Prevent Relapse & Avoid Hospitalization, Establish [place] Steps Toward Goals, Enhance Communication Skills, Expand Coping Skills, Develop Problem-Solving Skills, Identify Barriers to Wellness, Explore Core Issues Underlying Illness, and Relapse Prevention Appearance: appropriately dressed and healthy looking Mood: euthymic Affect: congruent with mood Behavioral: Pleasant; alert Speech: appropriate Thought Process: intact; Goal-Directed Thought Content: no evidence of psychosis Social: supportive, interactive, and engaging Additional Notes/ responses: Pt was engaged in session fully. Pt gained insight of the characteristics that resemble or indicate that patient is feeding into the past experiences that reinforce deprivation. Pt shared experiences and inquired about the connection of ones experiences to deprivation due to not seeing the relationship. Pt increased understanding of one unconsciously recreating of negative patterns or behavior and relationships. documented in this encounter [facility] Work Phone: 08-15-2021 Hospital Discharge instructions Patient Education 08/15/2021 10:33:48 PICC Home Care Guide PICC Home Care Guide A peripherally inserted central catheter (PICC) is a form of IV access that allows medicines and IV fluids to be quickly distributed throughout the body. The PICC is a long, thin, flexible tube (catheter) that is inserted into a vein in the upper arm. The catheter ends in a large vein in the chest (superior vena cava, or SVC). After the PICC is inserted, a chest X-ray may be done to make sure that it is in the correct place. A PICC may be placed for different reasons, such as: To give medicines and liquid nutrition. To give IV fluids and blood products. If there is trouble placing a peripheral intravenous (PIV) catheter. If taken care of properly, a PICC can remain in place for several months. Having a PICC can also allow a person to go home from the hospital sooner. Medicine and PICC care can be managed at home by a family member, caregiver, or home health care team. What are the risks? Generally, having a PICC is safe. However, problems may occur, including: A blood clot (thrombus) forming in or at the tip of the PICC. A blood clot forming in a vein (deep vein thrombosis) or traveling to the lung (pulmonary embolism). Inflammation of the vein (phlebitis) in which the PICC is placed. Infection. Central line associated blood stream infection (CLABSI) is a serious infection that often requires hospitalization. PICC movement (malposition). The PICC tip may move from its original position due to excessive physical activity, forceful coughing, sneezing, or vomiting. A break or cut in the PICC. It is important not to use scissors near the PICC. Nerve or tendon irritation or injury during PICC insertion. How to take care of your PICC Preventing problems You and any caregivers should wash your hands often with soap. Wash hands: ?Before touching the PICC line or the infusion device. ?Before changing a bandage (dressing). Flush the PICC as told by your health care provider. Let your health care provider know right away if the PICC is hard to flush or does not flush. Do not use force to flush the PICC. Do not use a syringe that is less than 10 mL to flush the PICC. Avoid blood pressure checks on the arm in which the PICC is placed. Never pull or tug on the PICC. Do not take the PICC out yourself. Only a trained clinical professional should remove the PICC. Use clean and sterile supplies only. Keep the supplies in a dry place. Do not reuse needles, syringes, or any other supplies. Doing that can lead to infection. Keep pets and children away from your PICC line. Check the PICC insertion site every day for signs of infection. Check for: ?Leakage. ?Redness, swelling, or pain. ?Fluid or blood. ?Warmth. ?Pus or a bad smell. PICC dressing care Keep your PICC bandage (dressing) clean and dry to prevent infection. Do not take baths, swim, or use a hot tub until your health care provider approves. Ask your health care provider if you can take showers. You may only be allowed to take sponge baths for bathing. When you are allowed to shower: ?Ask your health care provider to teach you how to wrap the PICC line. ?Cover the PICC line with clear plastic wrap and tape to keep it dry while showering. Follow instructions from your health care provider about how to take care of your insertion site and dressing. Make sure you: ?Wash your hands with soap and water before you change your bandage (dressing). If soap and water are not available, use hand oracle software engineer. ?Change your dressing as told by your health care provider. ?Leave stitches (sutures), skin glue, or adhesive strips in place. These skin closures may need to stay in place for 2 weeks or longer. If adhesive strip edges start to loosen and curl up, you may trim the loose edges. Do not remove adhesive strips completely unless your health care provider tells you to do that. Change your PICC dressing if it becomes loose or wet. General instructions Carry your PICC identification card or wear a medical alert bracelet at all times. Keep the tube clamped at all times, unless it is being used. Carry a smooth-edge clamp with you at all times to place on the tube if it breaks. Do not use scissors or sharp objects near the tube. You may bend your arm and move it freely. If your PICC is near or at the bend of your elbow, avoid activity with repeated motion at the elbow. Avoid lifting heavy objects as told by your health care provider. Keep all follow-up visits as told by your health care provider. This is important. Disposal of supplies Throw away any syringes in a disposal container that is meant for sharp items (sharps container). You can buy a sharps container from a pharmacy, or you can make one by using an empty hard plastic bottle with a cover. Place any used dressings or infusion bags into a plastic bag. Throw that bag in the trash. Contact a health care provider if: You have pain in your arm, ear, face, or teeth. You have a fever or chills. You have redness, swelling, or pain around the insertion site. You have fluid or blood coming from the insertion site. Your insertion site feels warm to the touch. You have pus or a bad smell coming from the insertion site. Your skin feels hard and raised around the insertion site. Get help right away if: Your PICC is accidentally pulled all the way out. If this happens, cover the insertion site with a bandage or gauze dressing. Do not throw the PICC away. Your health care provider will need to check it. Your PICC was tugged or pulled and has partially come out. Do not push the PICC back in. You cannot flush the PICC, it is hard to flush, or the PICC leaks around the insertion site when it is flushed. You hear a flushing sound when the PICC is flushed. You feel your heart racing or skipping beats. There is a hole or tear in the PICC. You have swelling in the arm in which the PICC was inserted. You have a red streak going up your arm from where the PICC was inserted. Summary A peripherally inserted central catheter (PICC) is a long, thin, flexible tube (catheter) that is inserted into a vein in the upper arm. The PICC is inserted using a sterile technique by a specially trained nurse or physician. Only a trained clinical professional should remove it. Keep your PICC identification card with you at all times. Avoid blood pressure checks on the arm in which the PICC is placed. If cared for properly, a PICC can remain in place for several months. Having a PICC can also allow a person to go home from the hospital sooner. This information is not intended to replace advice given to you by your health care provider. Make sure you discuss any questions you have with your health care provider. Document Released: 10/09/2003 Document Revised: 03/17/2018 Document Reviewed: 05/07/2017 [employer] Patient Education 2020 [employer]. 08/15/2021 10:33:39 Syphilis Syphilis Syphilis is an infection that can spread through sexual contact. The infection can cause serious complications, so it is important to get treatment right away. There are four stages of syphilis: Primary stage. During this stage sores may form where the disease entered your body. Secondary stage. During this stage skin rashes and lesions will form. Latent stage. During this stage there are no symptoms, but the infection may still be contagious. Tertiary stage. This stage happens 10 30 years after the infection starts. During this stage, the disease damages organs and can lead to . Most people do not develop this stage of syphilis. What are the causes? This condition is caused by bacteria called Treponema pallidum. The condition can spread during sexual activity, such as during oral, anal, or vaginal sex. It can also be spread from mother to fetus during . What increases the risk? You are more likely to develop this condition if: You do not use a condom. You have or had another sexually transmitted infection (STI). You have multiple sex partners. You use illegal drugs through an IV. What are the signs or symptoms? Symptoms of this condition depend on the stage of the disease. Primary stage Painless sores (chancres) in and around the genital organs, mouth, or hands. The sores are usually firm and round. Secondary stage A rash or sores. The rash usually does not itch. A fever. A headache. A sore throat. Swollen lymph nodes. New sores in the mouth or on the genitals. A feeling of being ill. Pain in the joints. Patchy hair loss. Weight loss. Fatigue. Latent stage There are no symptoms during this stage. Tertiary stage Dementia. Personality and mood changes. Difficulty walking and coordinating movements. Muscle weakness or paralysis. Problems with coordination. Heart failure. Trouble breathing. Fainting. Soft, rubbery growths on the skin, bones, or liver (gummas). Sudden lightning pains, numbness, or tingling. Vision changes. Hearing changes. Trouble controlling your urine and bowel movements. How is this diagnosed? This condition is diagnosed with: A physical exam. Blood tests. Tests of the fluid (drainage) from a sore or rash. Tests of the fluid around the spine (lumbar puncture). These tests are done to check for an infection in the brain or nervous system. Imaging tests. These may be done to check for damage to the heart, aorta, or brain if the condition is in the tertiary stage. Tests may include: ?An X-ray. ?A CT scan. ?An MRI. ?An echocardiogram. This test takes a picture of the heart. ?An ultrasound. How is this treated? This condition can be cured with antibiotic medicine. During the first day of treatment, the medicine may cause you to experience fever, chills, headache, nausea, or aching all over your body. This is normal and should go away within 24 hours. Follow these instructions at home: Medicines Take erbs-hnn-afuqrxe and prescription medicines only as told by your health care provider. Take your antibiotic medicine as told by your health care provider. Do not stop taking the antibiotic even if you start to feel better. Incomplete treatment will put you at risk for continued infection and could be life threatening. General instructions Do not have sex until your treatment is completed, or as directed by your health care provider. Tell your recent sexual partners that you were diagnosed with syphilis. It is important that they get treatment, even if they do not have symptoms. Keep all follow-up visits as told by your health care provider. This is important. How is this prevented? Use latex condoms correctly whenever you have sex. Before you have sex, ask your partner if he or she has been tested for STIs. Ask about the test results. Avoid having multiple sexual partners. Contact a health care provider if: You continue to have any of the following symptoms 24 hours after beginning treatment: ?Fever. ?Chills. ?Headache. ?Nausea. ?Aching all over your body. Your symptoms do not improve, even with treatment. Get help right away if: You have severe chest pain. You have trouble walking or coordinating movements. You are confused. You lose vision or hearing. You have numbness in your arms or legs. You have a seizure. You faint. You have a severe headache that does not go away with medicine. Summary Syphilis is an infection that can spread through sexual contact. This condition can cause serious complications, so it is best to get treatment right away. The condition can be cured with antibiotic medicine. This condition can also be spread from mother to fetus during . Take your antibiotic medicine as told by your health care provider. Tell your recent sexual partners that you were diagnosed with syphilis. It is important that they get treatment, even if they do not have symptoms. This information is not intended to replace advice given to you by your health care provider. Make sure you discuss any questions you have with your health care provider. Document Released: 01/23/2014 Document Revised: 10/16/2019 Document Reviewed: 05/31/2017 [employer] Patient Education 2020 [employer]. Follow Up Care 08/12/2021 17:57:53 With:MD LIBBY SANTIAGO MD, Internal Medicine Address: [address] [place] [id number] [phone] When:1-2 days Comments:Please call to schedule a follow up appointment With:[facility], Address: When: Unknown Comments:[facility] will be providing you a virtual teaching session today at 1 pm. Please ensure that you have a second person with you for this teaching until extension tubing can be provided on Tuesday. With:BULMARO JAMES BA, MD, Infectious Disease, Infectious Disease Group Address: [facility] [id number] [place] [address]- When: Unknown Comments:Call office for a follow up appointment within 3 weeks With:SARAH PALACIOS APRN-[facility] Address: [address] [place] [address]- When: Unknown Comments:Please call the office to set up a follow up appointment. With:Deyvi Gottlieb RN, Address: When: Unknown Comments:An RN from [facility] Gott[facility]b will come out once a week for PICC care [facility] 08-14-2021 Note ORIGINAL PROCEDURE: Lumbar puncture with fluoroscopic guidance CLINICAL STATEMENT: Concern for neurosyphilis HOUSE BUILDER: Ysabel Sethi PA-C FLUOROSCOPY: 1.3 minutes AIR KERMA DOSE: 36 mGy NEEDLE: 20 G spinal needle CSF VOLUME REMOVED: 8 mL CSF APPEARANCE: Clear PUNCTURE LEVEL: L2-3 OPENING PRESSURE: 16 cm H2O CLOSING PRESSURE: 16 cm H2O The procedure, risks, and alternatives, were discussed and all questions were answered. Written informed consent obtained. Accompanying paperwork was verified for accuracy. Directed history and physical exam performed prior to the procedure. Medication reconciliation performed by nursing personnel. Procedure was performed using a cap, sterile gown, sterile gloves, a large sterile sheet, hand hygiene and Betadine for cutaneous antisepsis. The patient was positioned prone on the table and prepped and draped in usual sterile fashion. A critical pause was performed with assisting personnel just prior to the procedure with the patient's identity confirmed using 2 identifiers, confirming site and side. Prior to sterile prep, a puncture site was selected and marked under fluoroscopy. 2% lidocaine was administered at the puncture site for local anesthesia. A needle was advanced into the thecal sac under fluoroscopic guidance. Initially attempted to access L3-4 in 2 spots, but CSF was blood tinged with a very slow flow despite rotating the bevel of the needle and repositioning the needle at the same level; therefore attention was turned to L2-3. At the level of L2-3, CSF was clear. A documentation image was stored. Position was confirmed with flow of CSF from the needle. After the adequate volume was removed, the needle was removed. A Band-Aid was placed at the puncture site. The sample was submitted to the laboratory. The patient tolerated the procedure well without immediate complication. Patient condition was stable. Patient placed in supine and flat position for 1 hour post procedure. IMPRESSION: Successful fluoroscopic guided lumbar puncture. Procedure was performed by Ysabel Sethi PA-C. I concur with the contents of this report. Interpreted by: Wil Santos MD Preliminary Report By: Ysabel Sethi PA-C Electronically signed By Wil Santos MD Dictated Date: 08/13/2021 3:45:01 PM Prelim Date: 08/13/2021 3:48:22 PM Sign Date: 08/14/2021 9:35:25 PM Ordering Provider: LIBBY SANTIAGO [facility] 08-13-2021 Evaluation + Plan note Extrac geremias from: Title:History and Physical Author:MD ZURDO SANTIAGO MD Date:08/13/21 1. Syphilis MRI of the brain was performed last night. This does not show any radiographic evidence of syphilis. Contrast was not ordered. Patient will have lumbar puncture in interventional radiology. We appeared in person to speak with them yesterday in preparation for today. Communication has been continued through [facility] this morning. 2. Depression Continue home medications. It is possible that these may not be necessary if he actually has neurologic manifestations of syphilis. 3. Allergy to penicillin Coordinating with pharmacy. Patient will be desensitized as penicillin is the drug of choice. Orders: acetaminophen, Start: 08/12/21 19:07:00 EDT, Dose = 650 mg, = 2 tab(s), Oral, q4h, PRN, Pain, scale 1-3, 08/12/21 19:07:00 EDT acetaminophen, Start: 08/12/21:07:00 EDT, Dose = 650 mg, = 2 tab(s), Oral, q4h, PRN, TEMP greater than 38.6 degrees Celsius, 08/12/21 19:07:00 EDT acetaminophen-hydrocodone, Start: 08/12/21:07:00 EDT, Dose = 1 tab(s), Tab, Oral, q4h, PRN, Pain, scale 4-6, 08/12/21 19:07:00 EDT albuterol, Start: 08/12/21:07:00 EDT, Dose = 2.5 mg, = 3 mL, Inhalation, q4hRT, PRN, Shortness of breath or wheezing, 08/12/21 19:07:00 EDT melatonin, Start: 08/12/21:07:00 EDT, Dose = 3 mg, = 1 tab(s), Oral, qHS, PRN, Sleep, 08/12/21 19:07:00 EDT morphine, Start: 08/12/21 19:07:00 EDT, Dose = 5 mg, = 1 mL, IV Push, q3h, PRN, Pain, scale 7-10, 08/12/21 19:07:00 EDT ondansetron, Start: 08/12/21 19:07:00 EDT, Dose = 4 mg, = 2 mL, IV Push, q4h, PRN, Nausea/Vomiting, 08/12/21 19:07:00 EDT Admit to Inpatient Ambulate Blood Glucose Call Parameter Blood Glucose Call Parameter Communication Order (continuous) Communication Order (continuous) CSF Cell Count Diet Order Intake and Output IR Lumbar Puncture IV Catheter Insertion/Care Prn Adapter Protein Cerebrospinal Fluid Pulse Oximeter - Intermittent Sequential Compression Device Application Vital Signs Future Appointments Appointment Date:01/20/2022 01:30:00 PM Scheduled Provider:SARAH PALACIOS APRN-ZOOLOGY TECHNICAL OFFICER Location:[facility] Appointment Type:PC OV Diagnostic Tests Pending * VDRL, CSF 08/12/21 * Lyme AB Early Disease 08/13/21 * Lyme IgG, IgM Abs CSF 08/13/21 * West Nile Virus Panel Serum 08/13/21 * West Nile IgG CSF 08/13/21 * [facility]ISC Lab Send Out (Non-Blood Specimens) 08/13/21 * VDRL, CSF 08/13/21 * [facility] Lab Send Out (Non-Blood Specimens) 08/13/21 * [facility] Lab Send Out (Non-Blood Specimens) 08/13/21 Future Scheduled Tests Laboratory* HIV 1/2 Ab 07/16/21 [facility] evaluation + Plan note Future Appointments Appointment Date:01/20/2022 01:30:00 PM Scheduled Provider:SARAH PALACIOS APRN-ZOOLOGY TECHNICAL OFFICER [facility] [facility] Appointment Type:PC OV Diagnostic Tests Pending * Antinuclear Antibody Screen, Serum 07/22/21 * Rheumatoid Factor 07/22/21 * Lyme Disease PCR 07/22/21 Future Scheduled Tests Laboratory* HIV 1/2 Ab 07/16/21 [facility] Evaluation + Plan note Future Appointments Appointment Date:11/04/2021 11:00:00 AM Scheduled Provider:SARAH PALACIOS APRN-CHAYO Location:[facility] Appointment Type:PC OV Appointment Date:01/20/2022 01:30:00 PM Scheduled Provider:SARAH PALACIOS APRN-ZOOLOGY TECHNICAL OFFICER Location:[facility] Appointment Type:PC OV Future Scheduled Tests Laboratory* HIV 1/2 Ab 07/16/21 [facility] Evaluation + Plan note Future Appointments Appointment Date:01/20/2022 01:30:00 PM Scheduled Provider:SARAH PALACIOS APRN-ZOOLOGY TECHNICAL OFFICER Location:[facility] Appointment Type:PC OV Diagnostic Tests Pending * [facility] Lab Send out (Blood Specimens) 12/31/21 Future Scheduled Tests Laboratory* HIV 1/2 Ab 07/16/21 [facility] Evaluation + Plan note Future Appointments Appointment Date:01/20/2022 01:30:00 PM Scheduled Provider:SARAH PALACIOS Location:[facility] Appointment Type:PC OV Diagnostic Tests Pending * Rapid Plasma Reagin Test 01/14/22 * Lyme Disease PCR 01/14/22 Future Scheduled Tests Laboratory* HIV 1/2 Ab 07/16/21 [facility] Evaluation + Plan note Future Appointments Appointment Date:03/27/2024 11:00:00 AM Scheduled Provider:SARAH PALACIOS Location:[facility] Appointment Type:PC OV Future Scheduled Tests Laboratory* Antinuclear Antibody Screen, Serum 12/14/23 * Thyroid Stimulating Hormone 12/14/23 * Free T4 12/14/23 * Rheumatoid Factor 12/14/23 * Complete Blood Count 12/14/23 * Complete Metabolic Panel 12/14/23 [facility] Evaluation noteNo assessment information available [facility] Work Phone: Hospital course Narrative No data available for this section [facility] Discharge instructions No data available for this section [facility] Progress note No data available for this section [facility] Advance Directives No Advanced Directives Records FoundDocuments on File Type Date Recorded 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 ACP-Advance Directive ACP-Power of Gear Finisher Advance Directive Response Recorded Date/ Time Advance Directives No May 11, 2016 2:40am Living Will No May 11 2:40am Power of Gear Finisher No May 11, 2016 2:40am Summary Purpose Family History No Family History Records FoundNo Family History Records Found No data available for this section No Family History Records FoundNo Family History Records Found Additional Source Comments Care Team (unrecognized sect ion and content) Personnel Name: LARISSA VALLEJO DO Address: [address] [place] [address] Personnel Name: SARAH PALACIOS APRN-ZOOLOGY TECHNICAL OFFICER Address: [address] Care Team Personnel Name: SARAH PALACIOS APRN-ZOOLOGY TECHNICAL OFFICER Position: P4 Advanced Client Relations Associate Member Role: Primary Care Physician Address: Address: [address] Care Team Related Persons Name: DECLINED, Goals (unrecognized section and content) Goals may be documented in a n alternate section Care Team (unrecognized sect ion and content) Care Team Personnel Name: SARAH PALACIOS APRN-ZOOLOGY TECHNICAL OFFICER Position: P4 Advanced Practice Nurse Med Service: Employed Provider Member Role: Primary Care Physician Address: Address: [address] Care Team Related Persons Name: NONE, Care Team Personnel Name: SARAH PALACIOS APRN-ZOOLOGY TECHNICAL OFFICER Position: P4 Advanced Practice Nurse Med Service: Employed Provider Member Role: Primary Care Physician Address: Address: [address] Care Team Related Persons Name: DECLINED, Care Team Personnel Name: SARAH PALACIOS APRN-ZOOLOGY TECHNICAL OFFICER Position: P4 Advanced Practice Nurse Med Service: Employed Provider Member Role: Primary Care Physician Address: Address: [address] Care Team Related Persons Name: DECLINED, (unrecognized sect ion and content) No Status Records FoundNo Status Records FoundNo Status Records FoundNo Status Records Found INFORMATION SOURCE (unrecogn ized section and content) DATE CREATED AUTHOR 12/19/2021 [facility] DATE CREATED AUTHOR AUTHOR'S ORGANIZ ATION 01/24/2022 [facility] ([place]) DATE CREATED AUTHOR AUTHOR'S ORGANIZ ATION 07/25/2024 [facility] DATE CREATED AUTHOR AUTHOR'S ORGANIZ ATION 01/28/2025 [facility] FOR RECORDS PERTAINING TO PATIENTS WHO ARE OR HAVE BEEN ENROLLED IN A CHEMICAL DEPENDENCY/SUBSTANCEABUSE PROGRAM, SOME INFORMATION MAY BE OMITTED. This clinical summary was aggregated from multiple sources. Caution should be exercised in using it in the provision of clinical care. This summary normalizes information from multiple sources, and as a consequence, information in this document may materially change the coding, format and clinical context of patient data. In addition, data may be omitted in some cases. CLINICAL DECISIONS SHOULD BE BASED ON THE PRIMARY CLINICAL RECORDS. [facility] [employer] [facility]. provides no warranty or guarantee of the accuracy or completeness of information in this document.
[2025-03-12 13:13] LABS: AST(SGOT) 19 U/L (<=37); Alanine Aminotransfer ALT/SGPT 22 U/L (<=46); Albumin, Serum 4.6 g/dL (3.5-5.0); Alkaline Phosphatase 67 U/L (40-129); Anion Gap 11 (5-15); BUN 7 mg/dL (4-19); BUN/Creat Ratio 7.1 RATIO (10-20); Calcium,Total 9.3 mg/dL (7.6-11.0); Carbon Dioxide 23.1 mmol/L (21.0-32.0); Chloride 105 mmol/L (98-108); Globulin 2.9 g/dL (2.2-4.2); Glucose 89 mg/dL (70-99); Potassium 3.9 mmol/L (3.3-5.1)
== END | disposition home or self-care (01) ==
LOC: MTLAB 09:50
PROVIDERS: PCP Nurse Practitioner Primary Care
DX: Z79.899 Other long term (current) drug therapy (principal); R53.83 Other fatigue
CPT/HCPCS: 36415; 80053; 84443